=== PATIENT | male | born 1945 | race Caucasian/White ===

== ENCOUNTER → 2016-09-11 | Outpatient (CLI) | payer OTHER ==
[2015-12-09 15:53] VITALS: BP 139/74
== END ==
LOC: RT 09:20
PROVIDERS: ATTEND Ophthalmology
DX: G40.89 Other seizures (principal)
CPT/HCPCS: 95819

== ENCOUNTER 2016-09-25 13:34 | Emergency (ER) | payer OTHER ==
[2016-09-25 13:39] VITALS: BMI 27.7
[2016-09-25] MEDS ORDERED: NS 1000 ML 1,000 ML ONE (13:53)
[2016-09-25] MEDS ORDERED: NS 1000 ML 1,000 ML IV ONE (14:08)
--- NOTE | 2016-09-25 14:09 | DR.GENAD ---
HPI - PCP Primary Care Physician: NATALIE - Complaint/Symptoms Chief Complaint:: PT C/O ORTHOSTATIC CHANGE IN BLOOD PRESSURE. DR ESTRADA SENT HIM TO THE ER TO BE CHECKED. PT STATES HE HAS BEEN HAVING WEAKNESS. - Nurses notes reviewed Nurses Notes Review: Yes - Source History Provided: Patient - Mode of Arrival Mode of Arrival: Ambulatory - Timing Onset of Chief Complaint: 09/22/16 Came on: Gradually - Duration Duration: Intermittent How lon Duration: Weeks - Location Location: generalized - Severity Severity: Moderate - Modifying Factors Worsens:: standing up - Associated Signs and Symptoms Associated Signs and Symptoms: dizzy with standing PMH - PMH Past Medical History: Yes Past Medical History: Arthritis, Coronary Artery Disease, Hypertension, Sleep Apnea Past Surgical History: Yes Surgical History: Angioplasty/Stents, Ortho Surgery - Family History History of Family Medical Conditions: Yes Family Medical History: [place] - Social History Does any household member use tobacco: No Alcohol Use: None Do you use any recreational Drugs:: No Lives With: Family Lives Where: Home - infectious screening In the last 2 months have you had wt loss of >10#?: NO Have you had fever, night sweats or hemotysis?: No Have you traveled outside the country in the last 6 months?: No Isolation: Standard ROS - Review of Systems Constitutional: No Symptoms Reported Eyes: No Symptoms Reported ENTM: No Symptoms Reported Respiratoy: No Symptoms Reported Cardiovascular: No Symptoms Reported Gastrointestinal/Abdominal: No Symptoms Reported Genitourinary: No Symptoms Reported Neurological: Dizziness Musculoskeletal: No Symptoms Reported Integumentary: No Symptoms Reported Hematologic/Lymphatic: No Symptoms Reported Endocrine: No Symptoms Reported Psychiatric: No Symptoms Reported PE - Vital Signs Vitals: Temperature 98.8 F Pulse Rate [Standing] 62 Pulse Rate [Sitting] 63 Pulse Rate [Lying] 60 Pulse Rate 67 Respiratory Rate 18 Blood Pressure [Right Arm] 139/74 Blood Pressure [Standing] 86/58 Blood Pressure [Sitting] 110/66 Blood Pressure [Lying] 125/69 Blood Pressure 110/66 O2 Sat by Pulse Oximetry 100 - General Limitations: No Limitations General Appearance: Alert, In No Apparent Distress - Head Head Exam: Normal Inspection - Eyes Eye exam: Normal Appearance, EOMI. negative: Scleral Icterus, Conjunctival Injection - ENT ENT Exam: Normal Exam, Normal Oropharynx - Neck Neck Exam: Normal Inspection, Full ROM, Trachea Midline - Chest Chest Inspection: Normal Inspection - Respiratory Respiratory Exam: Normal Lung Sounds Bilat. negative: Accessory Muscle Use, Respiratory Distress Respiratory Exam: Bilateral Clear to Auscultation - Cardiovascular Cardiovascular Exam: Regular Rate, Normal Rhythm - Abdominal Exam Abdominal Exam: Normal Inspection, Normal Bowel Sounds, Soft. negative: Distention, Tenderness, Guarding - Extremities Extremities Exam: Normal Inspection, Full ROM, Tenderness - Back Back Exam: Normal Inspection - Neurologic Neurological Exam: Alert, Oriented X3, CN II-XII Intact - Psychiatric Psychiatric Exam: Flat Affect - Skin Skin Exam: Intact, Normal Color ROR - Labs Reviewed Result Diagrams: 09/25/16 14:45 09/25/16 14:45 Laboratory: WBC 7.9 X10^3/uL (3.6-10.0) 09/25/16 14:45 RBC 3.19 X10^6/uL (4.7-6.0) L 09/25/16 14:45 Hgb 10.3 g/dL (13.5-18.0) L 09/25/16 14:45 Hct 29.5 % (42.0-54.0) L 09/25/16 14:45 MCV 92.4 fL (80.0-100.0) 09/25/16 14:45 MCH 32.2 pg (27.0-34.0) 09/25/16 14:45 MCHC 34.8 g/dL (33.0-35.0) 09/25/16 14:45 RDW 13.4 % (11.6-16.5) 09/25/16 14:45 Plt Count 229 X10^3/uL (150.0-450.0) 09/25/16 14:45 MPV 8.0 fL (7.4-11.0) 09/25/16 14:45 Neut % 72.8 % (42.0-75.0) 09/25/16 14:45 Lymph % 17.0 % (21.0-51.0) L 09/25/16 14:45 [place] % 6.8 % (0.0-13.0) 09/25/16 14:45 Eos % 2.4 % (0.9-2.9) 09/25/16 14:45 Baso % 1.0 % (0.2-1.0) 09/25/16 14:45 Neut # 5.7 x10^3/uL (2.2-4.8) H 09/25/16 14:45 Lymph # 1.3 X10^3/uL (1.3-2.9) 09/25/16 14:45 [place] # 0.5 x10^3/uL (0.3-0.8) 09/25/16 14:45 Eos # 0.2 x10^3/uL (0.0-0.2) 09/25/16 14:45 Baso # 0.1 X10^3/uL (0.0-0.1) 09/25/16 14:45 Absolute Nucleated RBC 0.0 /100WBC 09/25/16 14:45 Sodium 144 mmol/L (136-145) 09/25/16 14:45 Corrected Sodium TNP 09/25/16 14:45 Potassium 4.0 mmol/L (3.5-5.1) 09/25/16 14:45 Chloride 110 mmol/L (98-107) H 09/25/16 14:45 Carbon Dioxide 25.0 mmol/L (21-32) 09/25/16 14:45 BUN 12 mg/dL (7-18) 09/25/16 14:45 Creatinine 0.80 mg/dL (0.70-1.30) 09/25/16 14:45 Est GFR (MDRD) Af Amer > 60 (>60) 09/25/16 14:45 Est GFR (MDRD) Non-Af > 60 (>60) 09/25/16 14:45 Glucose 90 mg/dL (65-99) 09/25/16 14:45 Calcium 7.8 mg/dL (8.5-10.1) L 09/25/16 14:45 Corrected Calcium 8.5 mg/dL (8.5-10.1) 09/25/16 14:45 Total Bilirubin 0.10 mg/dL (0.2-1.0) L 09/25/16 14:45 AST 17 Units/L (15-37) 09/25/16 14:45 ALT 21 Units/L (12-78) 09/25/16 14:45 Alkaline Phosphatase 101 Units/L (46-116) 09/25/16 14:45 Total Protein 6.1 g/dL (6.4-8.2) L 09/25/16 14:45 Albumin 3.1 g/dL (3.4-5.0) L 09/25/16 14:45 Globulin 3.0 g/dL (2.5-4.5) 09/25/16 14:45 Albumin/Globulin Ratio 1.0 Ratio (1.1-2.1) L 09/25/16 14:45 - XRAY XRAY Interpreted by: Radiologist XRAY Findings: CT head: pituitary fossa mass stable - EKG Rate: 61 [place]: Normal Rhythm: NSR Block: 1 ST: Normal - Diagnosis Discharge Problem: Orthostatic hypotension Anemia Qualifiers: Anemia type: unspecified type Qualified Code(s): D64.9 - Anemia, unspecified - Discharge Plan Condition: Stable Prescriptions: Ferrous Sulfate [FERROUS SULFATE *] 325 mg PO DAILY #30 tab - Follow ups/Referrals Follow ups/Referrals: Harpreet Estrada [Primary Care Provider] - 3 days - Instructions Instructions: Orthostatic Hypotension
[2016-09-25 14:54] LABS: BASOPHILS # (AUTO) 0.1 X10^3/uL (0.0-0.1); EOSINOPHILS # (AUTO) 0.2 x10^3/uL (0.0-0.2); EOSINOPHILS % (AUTO) 2.4 % (0.9-2.9); HEMATOCRIT 29.5 % (42.0-54.0); HEMOGLOBIN 10.3 g/dL (13.5-18.0); LYMPHOCYTES # (AUTO) 1.3 X10^3/uL (1.3-2.9); MEAN CORPUSCULAR HEMOGLOBIN 32.2 pg (27.0-34.0); MEAN CORPUSCULAR HGB CONC 34.8 g/dL (33.0-35.0); MEAN CORPUSCULAR VOLUME 92.4 fL (80.0-100.0); MONOCYTES # (AUTO) 0.5 x10^3/uL (0.3-0.8); MONOCYTES % (AUTO) 6.8 % (0.0-13.0); NEUTROPHILS # (AUTO) 5.7 x10^3/uL (2.2-4.8); NEUTROPHILS % (AUTO) 72.8 % (42.0-75.0); PLATELET COUNT 229 X10^3/uL (150.0-450.0); RED BLOOD COUNT 3.19 X10^6/uL (4.7-6.0); RED CELL DISTRIBUTION WIDTH 13.4 % (11.6-16.5); WHITE BLOOD COUNT 7.9 X10^3/uL (3.6-10.0)
[2016-09-25 15:06] LABS: ALANINE AMINOTRANSFERASE 21 Units/L (12-78); ALBUMIN 3.1 g/dL (3.4-5.0); ALKALINE PHOSPHATASE 101 Units/L (46-116); ASPARTATE AMINO TRANSFERASE 17 Units/L (15-37); BLOOD UREA NITROGEN 12 mg/dL (7-18); CALCIUM 7.8 mg/dL (8.5-10.1); CHLORIDE 110 mmol/L (98-107); COR CA(FOR HYPOALB) 8.5 mg/dL (8.5-10.1); GLUCOSE 90 mg/dL (65-99); SODIUM 144 mmol/L (136-145); TOTAL PROTEIN 6.1 g/dL (6.4-8.2); eGFR BLACK RACES > 60 (>60); eGFR NON BLACK RACES > 60 (>60)
--- NOTE | 2016-09-25 15:18 | CT ---
CT head without contrast Indication: Dizziness Comparison: 12/09/2015 Technique: CT images of the head were obtained without contrast. Automatic exposure control was util ized. Findings: There is generalized age-appropriate brain atrophy with concomitant ventricular sulcal enl argement. Diffuse periventricular and deep white matter hypoattenuation is most suggestive for chron ic microangiopathy. There is no evidence for acute bleed, generalized or focal edema, or abnormal ex tra-axial collection. There is re-demonstration of the soft tissue density along the right lateral a spect of the pituitary fossa, with suggestion of chronic bony remodeling of the sella, similar to th e prior study. There is mild maxillary and sphenoid sinus mucosal thickening. The remaining visualiz ed paranasal sinuses and mastoid air cells are clear. Impression: No evidence of acute intracranial abnormality. Age related atrophy and chronic microangiopathy Stable right-sided pituitary fossa soft tissue mass Maxillary and sphenoid sinusitis Reported By:
[2016-09-25 16:33] VITALS: BP 145/81
== END 2016-09-25 17:00 | disposition home or self-care (01) ==
LOC: ER 13:54
DX: I95.1 Orthostatic hypotension (principal); D64.89 Other specified anemias; J32.0 Chronic maxillary sinusitis; J32.3 Chronic sphenoidal sinusitis; R42 Dizziness and giddiness
CPT/HCPCS: 36415; 70450; 80053; 85025; 93005; 93010; 96365; 99283; A4222

== ENCOUNTER 2017-02-26 04:58 | Observation (INO) | payer OTHER ==
[2017-02-26] MEDS ORDERED: OFIRMEV IV 1000 MG VIAL 500 MG/50 ML VIAL IV PRN (05:46)
[2017-02-26] MEDS ORDERED: NS 1000 ML 1,000 ML IV SCH (06:00)
--- NOTE | 2017-02-26 06:03 | DR.GENAD ---
HPI - PCP Primary Care Physician: NATALIE - Complaint/Symptoms Chief Complaint Doctors Comments: Colleen reports that patient has had flu-like illness since last week. Today he became very weak, unable to get in bed. He was febrile temp of 103 upon arrival. There was no vomiting or diarrhea. There is no cardiopulmonary complaint although he has a history of cardiac stent. Chief Complaint:: FELL APROX 1 HR AGO NO INJURIES DENIES PAIN, FEVER Self Treatment fo Chief Complaint: NONE - Source History Provided: Patient - Mode of Arrival Mode of Arrival: EMS - Timing Onset of Chief Complaint: 02/26/17 PMH - PMH Past Medical History: Yes Past Medical History: Arthritis, Coronary Artery Disease, Hypertension, Sleep Apnea Past Surgical History: Yes Surgical History: Angioplasty/Stents, Ortho Surgery - Family History History of Family Medical Conditions: Yes Family Medical History: [place] - Social History Does patient currently use any type of tobacco product: No Have you used tobacco products in the last 12 months: No Type of Tobacco Use: None Alcohol Use: None Do you use any recreational Drugs:: No Lives With: Family Lives Where: Home - infectious screening In the last 2 months have you had wt loss of >10#?: NO Have you had fever, night sweats or hemotysis?: No Have you traveled outside the country in the last 6 months?: No Isolation: Standard ROS - Review of Systems Eyes: No Symptoms Reported ENTM: No Symptoms Reported Respiratoy: No Symptoms Reported Cardiovascular: No Symptoms Reported Gastrointestinal/Abdominal: No Symptoms Reported Genitourinary: No Symptoms Reported Neurological: No Symptoms Reported Musculoskeletal: No Symptoms Reported Integumentary: No Symptoms Reported Hematologic/Lymphatic: No Symptoms Reported Endocrine: No Symptoms Reported Psychiatric: No Symptoms Reported All Other Systems: Reviewed and Negative PE - Vital Signs Vitals: Temperature 103.1 F Pulse Rate 79 Respiratory Rate 16 Blood Pressure [Right Arm] 139/74 Blood Pressure [Standing] 130/74 Blood Pressure [Sitting] 140/81 Blood Pressure [Lying] 145/81 Blood Pressure 123/58 O2 Sat by Pulse Oximetry 95 - General Limitations: No Limitations General Appearance: Alert, Other (weak) - Head Head Exam: Normal Inspection, Atraumatic - Eyes Eye exam: Normal Appearance, PERRL, EOMI - ENT ENT Exam: Normal Exam External Ear Exam: Normal External Inspection TM/Canal Exam: Bilateral Normal Nose Exam: Normal Nose Exam Mouth Exam: Normal Inspection Throat Exam: Tonsillar Erythema - Neck Neck Exam: Normal Inspection, Full ROM - Chest Chest Inspection: Normal Inspection, Symmetric Chest Wall Rise - Respiratory Respiratory Exam: Normal Lung Sounds Bilat Respiratory Exam: Bilateral Clear to Auscultation - Cardiovascular Cardiovascular Exam: Regular Rate, Normal Rhythm - Abdominal Exam Abdominal Exam: Normal Inspection, Normal Bowel Sounds Abdominal Tenderness: negative: RUQ, RLQ, LUQ, LLQ, Epigastrium, Suprapubic, Diffuse, Mild, Moderate, Severe, Other - Extremities Extremities Exam: Normal Inspection, Full ROM - Back Back Exam: Normal Inspection, Full ROM - Neurologic Neurological Exam: Alert, Oriented X3, CN II-XII Intact - Psychiatric Psychiatric Exam: Flat Affect - Skin Skin Exam: Warm, Dry, Intact, Normal Color Course - Treatment Treatment: NS - Reevaluation 1st: Improved ROR - Labs Reviewed Result Diagrams: 02/26/17 06:08 02/26/17 06:08 Laboratory: WBC 14.0 X10^3/uL (3.6-10.0) H 02/26/17 06:08 RBC 3.54 X10^6/uL (4.7-6.0) L 02/26/17 06:08 Hgb 10.7 g/dL (13.5-18.0) L 02/26/17 06:08 Hct 30.7 % (42.0-54.0) L 02/26/17 06:08 MCV 86.6 fL (80.0-100.0) 02/26/17 06:08 MCH 30.3 pg (27.0-34.0) 02/26/17 06:08 MCHC 35.0 g/dL (33.0-35.0) 02/26/17 06:08 RDW 13.0 % (11.6-16.5) 02/26/17 06:08 Plt Count 290 X10^3/uL (150.0-450.0) 02/26/17 06:08 MPV 8.0 fL (7.4-11.0) 02/26/17 06:08 Neut % 84.6 % (42.0-75.0) H 02/26/17 06:08 Lymph % 7.3 % (21.0-51.0) L 02/26/17 06:08 [place] % 6.0 % (0.0-13.0) 02/26/17 06:08 Eos % 1.7 % (0.9-2.9) 02/26/17 06:08 Baso % 0.4 % (0.2-1.0) 02/26/17 06:08 Neut # 11.9 x10^3/uL (2.2-4.8) H 02/26/17 06:08 Lymph # 1.0 X10^3/uL (1.3-2.9) L 02/26/17 06:08 [place] # 0.8 x10^3/uL (0.3-0.8) 02/26/17 06:08 Eos # 0.2 x10^3/uL (0.0-0.2) 02/26/17 06:08 Baso # 0.1 X10^3/uL (0.0-0.1) 02/26/17 06:08 Absolute Nucleated RBC 0.0 /100WBC 02/26/17 06:08 Sodium 140 mmol/L (136-145) 02/26/17 06:08 Corrected Sodium TNP 02/26/17 06:08 Potassium 3.9 mmol/L (3.5-5.1) 02/26/17 06:08 Chloride 104 mmol/L (98-107) 02/26/17 06:08 Carbon Dioxide 24.4 mmol/L (21-32) 02/26/17 06:08 BUN 13 mg/dL (7-18) 02/26/17 06:08 Creatinine 1.01 mg/dL (0.70-1.30) 02/26/17 06:08 Est GFR (MDRD) Af Amer > 60 (>60) 02/26/17 06:08 Est GFR (MDRD) Non-Af > 60 (>60) 02/26/17 06:08 Glucose 98 mg/dL (65-99) 02/26/17 06:08 Calcium 8.8 mg/dL (8.5-10.1) 02/26/17 06:08 Corrected Calcium 9.4 mg/dL (8.5-10.1) 02/26/17 06:08 Total Bilirubin 0.60 mg/dL (0.2-1.0) 02/26/17 06:08 AST 16 Units/L (15-37) 02/26/17 06:08 ALT 27 Units/L (12-78) 02/26/17 06:08 Alkaline Phosphatase 103 Units/L (46-116) 02/26/17 06:08 Total Protein 7.4 g/dL (6.4-8.2) 02/26/17 06:08 Albumin 3.3 g/dL (3.4-5.0) L 02/26/17 06:08 Globulin 4.1 g/dL (2.5-4.5) 02/26/17 06:08 Albumin/Globulin Ratio 0.8 Ratio (1.1-2.1) L 02/26/17 06:08 Streptococcus Screen Negative (NEGATIVE) 02/26/17 06:28 - XRAY XRAY Interpreted by: Radiologist (Chest: Lungs are hyperinflated but clear) - Diagnosis Discharge Problem: Weakness - Discharge Plan Condition: Stable - Follow ups/Referrals Follow ups/Referrals: NFD,None [Primary Care Provider] - 3 days - Instructions
[2017-02-26 06:25] LABS: BASOPHILS # (AUTO) 0.1 X10^3/uL (0.0-0.1); BASOPHILS % (AUTO) 0.4 % (0.2-1.0); EOSINOPHILS # (AUTO) 0.2 x10^3/uL (0.0-0.2); EOSINOPHILS % (AUTO) 1.7 % (0.9-2.9); HEMATOCRIT 30.7 % (42.0-54.0); HEMOGLOBIN 10.7 g/dL (13.5-18.0); LYMPHOCYTES % (AUTO) 7.3 % (21.0-51.0); MEAN CORPUSCULAR HEMOGLOBIN 30.3 pg (27.0-34.0); MEAN CORPUSCULAR VOLUME 86.6 fL (80.0-100.0); MONOCYTES # (AUTO) 0.8 x10^3/uL (0.3-0.8); NEUTROPHILS # (AUTO) 11.9 x10^3/uL (2.2-4.8); NEUTROPHILS % (AUTO) 84.6 % (42.0-75.0); PLATELET COUNT 290 X10^3/uL (150.0-450.0); RED BLOOD COUNT 3.54 X10^6/uL (4.7-6.0)
--- NOTE | 2017-02-26 06:29 | RAD ---
HISTORY: Fever Study: Chest AP portable Comparison: December 09, 2015 Findings: there is a pacemaker present in the left axilla. The heart is within normal limits in size. The zarina are normal. The lungs are mildly hyperinflated but free of acute alveolar infiltrates. No pleural ef fusions are identified. The bony thorax is unremarkable. IMPRESSION: Lungs hyperinflated but clear Reported By:
[2017-02-26 06:33] LABS: ALANINE AMINOTRANSFERASE 27 Units/L (12-78); ALBUMIN 3.3 g/dL (3.4-5.0); ALKALINE PHOSPHATASE 103 Units/L (46-116); ASPARTATE AMINO TRANSFERASE 16 Units/L (15-37); BLOOD UREA NITROGEN 13 mg/dL (7-18); CALCIUM 8.8 mg/dL (8.5-10.1); CARBON DIOXIDE 24.4 mmol/L (21-32); CHLORIDE 104 mmol/L (98-107); COR CA(FOR HYPOALB) 9.4 mg/dL (8.5-10.1); CREATININE 1.01 mg/dL (0.70-1.30); SODIUM 140 mmol/L (136-145); TOTAL PROTEIN 7.4 g/dL (6.4-8.2); eGFR BLACK RACES > 60 (>60); eGFR NON BLACK RACES > 60 (>60)
[2017-02-26] MEDS ORDERED: TYLENOL 500 MG TAB EXTRA STRENGTH PO PRN (07:37)
[2017-02-26] MEDS ORDERED: ZOFRAN INJ 4 MG VIAL IVP PRN (07:37)
[2017-02-26 07:57] LABS: CREATINE KINASE MB < 1.0 ng/mL (0-4.0); TROPONIN I < 0.02 ng/mL (0-1.5)
[2017-02-26 08:12] LABS: CREATINE KINASE < 7 Units/L (39-308)
[2017-02-26] MEDS: NS 1000 ML 1,000 ML IV SCH ×2 (12:02→19:46)
--- NOTE | 2017-02-26 12:26 | DR.H&P ---
H&P - History & Physical for Day of: H&P Date: 02/26/17 - Chief Complaint Chief Complaint: FALL, ACHING ALL OVER, FEVER - Allergies Allergies/Adverse Reactions: Allergies Allergy/AdvReac Type Severity Reaction Status Date / Time No Known Drug Allergies Allergy Verified 02/26/17 07:26 - History of Present Illness History of Present Illness: IS A 71 YEAR OLD PATIENT OF OURS WHO PRESENTED TO THE EMERGENCY ROOM WITH COMPLAINTS OF FEVER, ACHING ALL OVER, WEAKNESS, SORE THROAT, AND FALLING TODAY. PATIENT DENIES PAIN OR INJURY FROM FALL. PATIENT'S REPORTS THAT TODAY, HE IS VERY WEAK AND WAS UNABLE TO GET INTO BED. SHE STATES THAT HE HAS HAD FEVER AND BEEN COMPLAINTING OF ACHING AND WEAKNESS X 1 WEEK. ON ARRIVAL TO ER, VITALS WERE 103.1, 79-16-95%-123/58. A CBC , CMP, BLOOD CULTURES, FLU SWAB, STREP SWAB, CHEST XRAY, AND EKG WERE OBTAINED IN THE ER. ABNORMAL LAB VALUES INCLUDE THE FOLLOWING: WBC 14.0, RBC 3.54, HGB 10.7, HCT 30.7, CREATINE KINASE <7, ALBUMIN 3.3. FLU AND STREP NEGATIVE. BLOOD CULTURES AND THROAT CULTURE ARE PENDING RESULTS. CHEST XRAY REPORTED LUNGS CLEAR. EKG REPORTS SINUS RHYTHM WITH HR OF 71. WE ADMITTED PATIENT FOR FURTHER TREATMENT AND EVALUATION. HE WAS STARTED ON NS @125ML/HR, TYLENOL 500MG PO Q6H PRN, ZOFRAN 4MG IV Q8H PRN. WE WILL OBTAIN A URINE SAMPLE WHEN PATIENT IS ABLE TO URINATE. WE PLANNED TO FOLLOW UP WITH AM LABS AND CONTINUE TO MONITOR PATIENT. - Past Medical History Past Medical History: Arthritis, Coronary Artery Disease, Hypertension, Sleep Apnea Additional Medical History: Atrial Fibrillation, Bradycardia. Pituitary adenoma - s/p resection and XRT with recently diagnoses probable recurrence. CVD; S/P TIA in 03/2015 - Past Surgical History Surgical History: Angioplasty/Stents, Ortho Surgery Additional Surgical History: Pacemaker implantation 2010. Pituitary adenoma resection and XRT 2008. Cardiac ablation for the tx of A-fib - 05/2015. Cardiac cath and stent placement 2010. Cervical fusion - Family History Family Medical History: [place] - Social History Does patient currently use any type of tobacco product: No Have you used tobacco products in the last 12 months: No Type of Tobacco Use: None Alcohol Use: None - Review of Systems Constitutional: See HPI, Fever, Weakness Eyes: No Symptoms Reported ENT: No Symptoms Reported Respiratory: No Symptoms Reported Cardiovascular: No Symptoms Reported Gastrointestinal: No Symptoms Reported Genitourinary: No Symptoms Reported Musculoskeletal: See HPI (ACHING ALL OVER ) Skin: No Symptoms Reported Neurological: Weakness - Physical Exam Vital Signs: Temperature 99.1 F Pulse Rate [Right Radial] 61 Pulse Rate 79 Respiratory Rate 18 Blood Pressure [Right Arm] 103/56 Blood Pressure [Standing] 130/74 Blood Pressure [Sitting] 140/81 Blood Pressure [Lying] 145/81 Blood Pressure 123/58 O2 Sat by Pulse Oximetry 94 Oriented: Normal Eyes: Normal Ear: Normal Nose: Normal Throat: Normal, Other (SORE THROAT ) Respiratory: Clear Throughout Cardiovascular: Normal : Normal Auscultation: Bowel Sounds: Normal Palpation: Normal Tenderness: Normal Skin: Normal Musculoskeletal: Instability Psychiatric: Normal Mood Description: Calm Affect: Normal Speech Pattern: Clear, Appropriate - Assessment/Plan (1) Generalized weakness Status: Acute Plan: NS AT 125ML/HR, CONTINUE TO MONITOR (2) Fever Qualifiers: Fever type: unspecified Qualified Code(s): R50.9 - Fever, unspecified Status: Acute Plan: TYLENOL 500MG IV Q6H PRN OR TYLENOL 500MG IV Q6H PRN, CONTINUE TO MONITOR (3) Nausea Status: Acute Plan: ZOFRAN 4MG IV Q8H PRN, CONTINUE TO MONITOR
[2017-02-26] MEDS ORDERED: FLUOXETINE HCL 20 MG PO SCH (13:00)
[2017-02-26 13:11] VITALS: BMI 30.4
[2017-02-26] MEDS ORDERED: PREVNAR 13 IM ONE (13:11)
[2017-02-26] MEDS: ASPIRIN PO SCH (13:44)
[2017-02-26] MEDS: SYNTHROID 100 mcg TAB PO SCH (13:44)
[2017-02-26] MEDS: PROTONIX TAB 40 MG PO SCH (13:46)
[2017-02-26] MEDS: PLAVIX PO SCH (13:46)
[2017-02-26] MEDS: VISTARIL PO PRN (15:21)
[2017-02-26] MEDS: LIPITOR TAB 40 MG PO SCH (20:58)
[2017-02-26] MEDS ORDERED: PATIENT'S HOME MEDICATION (Cetirizine Hcl [Zyrtec] 1 TAB) PO SCH (21:00)
[2017-02-26] MEDS: RESTORIL CAP 15 MG PO PRN (21:46)
[2017-02-27] MEDS: NS 1000 ML 1,000 ML IV SCH ×3 (02:13→21:48)
[2017-02-27 06:29] LABS: BASOPHILS # (AUTO) 0.1 X10^3/uL (0.0-0.1); BASOPHILS % (AUTO) 0.6 % (0.2-1.0); EOSINOPHILS # (AUTO) 0.3 x10^3/uL (0.0-0.2); EOSINOPHILS % (AUTO) 2.4 % (0.9-2.9); HEMATOCRIT 30.2 % (42.0-54.0); HEMOGLOBIN 10.4 g/dL (13.5-18.0); LYMPHOCYTES # (AUTO) 1.3 X10^3/uL (1.3-2.9); LYMPHOCYTES % (AUTO) 11.2 % (21.0-51.0); MEAN CORPUSCULAR HEMOGLOBIN 30.7 pg (27.0-34.0); MEAN CORPUSCULAR HGB CONC 34.3 g/dL (33.0-35.0); MEAN CORPUSCULAR VOLUME 89.5 fL (80.0-100.0); MEAN PLATELET VOLUME 8.8 fL (7.4-11.0); MONOCYTES # (AUTO) 0.7 x10^3/uL (0.3-0.8); MONOCYTES % (AUTO) 6.3 % (0.0-13.0); NEUTROPHILS # (AUTO) 9.3 x10^3/uL (2.2-4.8); NEUTROPHILS % (AUTO) 79.5 % (42.0-75.0); PLATELET COUNT 223 X10^3/uL (150.0-450.0); RED BLOOD COUNT 3.38 X10^6/uL (4.7-6.0); RED CELL DISTRIBUTION WIDTH 12.7 % (11.6-16.5); WHITE BLOOD COUNT 11.7 X10^3/uL (3.6-10.0)
[2017-02-27 06:46] LABS: BILIRUBIN,URINE NEGATIVE (NEGATIVE); BLOOD/HEMOGLOBIN,URINE NEGATIVE (NEGATIVE); GLUCOSE, URINE NEGATIVE (NEGATIVE); KETONES,URINE NEGATIVE (NEGATIVE); LEUKOCYTE ESTERASE ,URINE NEGATIVE (NEGATIVE); NITRITES,URINE NEGATIVE (NEGATIVE); PH,URINE 6.5 (5.0 - 8.0); PROTEIN,URINE NEGATIVE (NEGATIVE); UROBILINOGEN,URINE NORMAL (NORMAL)
[2017-02-27 06:55] LABS: ALANINE AMINOTRANSFERASE 19 Units/L (12-78); ALBUMIN 2.7 g/dL (3.4-5.0); ALKALINE PHOSPHATASE 84 Units/L (46-116); ASPARTATE AMINO TRANSFERASE 12 Units/L (15-37); BLOOD UREA NITROGEN 12 mg/dL (7-18); CALCIUM 8.1 mg/dL (8.5-10.1); CARBON DIOXIDE 23.8 mmol/L (21-32); CHLORIDE 108 mmol/L (98-107); COR CA(FOR HYPOALB) 9.1 mg/dL (8.5-10.1); CREATININE 0.85 mg/dL (0.70-1.30); SODIUM 140 mmol/L (136-145); TOTAL PROTEIN 6.5 g/dL (6.4-8.2); eGFR BLACK RACES > 60 (>60); eGFR NON BLACK RACES > 60 (>60)
[2017-02-27 06:57] LABS: APPEARANCE,URINE CLEAR (CLEAR); COLOR,URINE YELLOW (YELLOW); RBC,URINE NONE SEEN /HPF (NEGATIVE)
[2017-02-27 06:58] LABS: BACTERIA,URINE NEGATIVE /HPF (NEGATIVE); SQUAMOUS EPITHELIAL CELL,UR NEGATIVE /HPF (NEGATIVE)
[2017-02-27] MEDS ORDERED: K-LYTE EFFERVESCENT PO PRN (08:51)
[2017-02-27] MEDS ORDERED: K-DUR TAB 20 MEQ PO PRN (08:51)
[2017-02-27] MEDS ORDERED: POTASSIUM CHLORIDE LIQ 20 MEQ UDC PO PRN (08:51)
[2017-02-27] MEDS ORDERED: K-RIDER 10 MEQ/NS 100 ML 10 MEQ/100 ML BAG IV PRN (08:51)
[2017-02-27] MEDS: SYNTHROID 100 mcg TAB PO SCH (10:38)
[2017-02-27] MEDS: ASPIRIN PO SCH (10:38)
[2017-02-27] MEDS: PROTONIX TAB 40 MG PO SCH (10:38)
[2017-02-27] MEDS: ZyrTEC TAB 10 MG PO SCH (10:39)
[2017-02-27] MEDS: PLAVIX PO SCH (10:40)
[2017-02-27] MEDS: FORTAZ or TAZICEF INJ 1 GM in NS 50 ML IV + SPIKE MINIBAG* 50 ML IV SCH ×3 (10:40→21:48)
[2017-02-27] MEDS: PROzac PO SCH (10:43)
--- NOTE | 2017-02-27 20:42 | PCM.PROG ---
Progress Note - Progress Note for Day of Date: 02/27/17 - Subjective Subjective: WAS ADMITTED FOR WEAKNESS, FEVER, AND FLU-LIKE SX. TODAY, HE IS ALERT AND ORIENTED, LYING IN BED ON MORNING ROUNDS. PATIENT'S IS AT BEDSIDE. HE CONTINUES WITH COMPLAINTS OF WEAKNESS, BUT REPORTS SOME IMPROVEMENT SINCE YESTERDAY. PATIENT'S REPORTS THAT PATIENT HAS HAD DECREASED MOBILITY AND WEAKNESS SINCE HAVING A GI BLEED SEVERAL MONTHS AGO. ON EXAMINATION, LUNGS ARE NOTED CLEAR BILATERALLY TO AUSCULTATION. ABDOMEN IS ROUND, SOFT, AND NON- TENDER. NORMAL BOWEL SOUNDS ARE NOTED IN ALL QUADRANTS. HIS VITAL SIGNS THIS MORNING ARE 99.3-61-20-97%-105/52. CBC AND CMP WERE OBTAINED. ABNORMAL LAB VALUES INCLUDE THE FOLLOWING: WBC 11.7, RBC 3.38, HGB 10.4, HCT 30.2, POTASSIUM 3.4, CHLORIDE 108, GLUCOSE 105, CALCIUM 8.1, AST 12, ALBUMIN 2.7. BLOOD CULTURES AND THROAT CULTURES ARE PENDING. STAFF REPORTS THAT PATIENT'S TEMERATURE PEAKED AT 99.6 DURING THE NIGHT. WE WILL START FORTAZ 1GM IV Q8H. PATIENT'S REQUEST THAT WE SET UP OUTPATIENT PHYSICAL THERAPY FOR AFTER PATIENT IS DISCHARGED. CASE MANAGEMENT WILL SET THIS UP. OTHERWISE, WE WILL CONTINUE WITH CURRENT PLAN OF CARE. WE PLAN TO FOLLOW UP WITH AM LABS AND CONTINUE TO MONITOR PATIENT. - Past Medical Family Social History Past Med/Fam/Surg Hx: No changes since H&P Allergies: Allergies No Known Drug Allergies Allergy (Verified 02/26/17 07:26) - Review of Systems ROS: No change since H&P - Vital Signs and I&O's Vital Signs: Temperature 98.9 F Pulse Rate [Right Radial] 63 Pulse Rate 79 Respiratory Rate 20 Blood Pressure [Left Arm] 142/71 Blood Pressure [Right Arm] 121/66 Blood Pressure [Standing] 130/74 Blood Pressure [Sitting] 140/81 Blood Pressure [Lying] 145/81 Blood Pressure 123/58 O2 Sat by Pulse Oximetry 97 Intake and Output: Intake & Output 02/25/17 02/26/17 02/27/17 02/28/17 11:59 11:59 11:59 11:59 Intake Total 4742 300 Output Total 395 930 Balance 1657 -116 - Physical Exam Oriented: Normal Eyes: Normal Ear: Normal Nose: Normal Throat: Normal, Other (SORE THROAT ) Respiratory: Normal Cardiovascular: Normal : Normal Auscultation: Bowel Sounds: Normal Palpation: Normal Tenderness: Normal Skin: Normal Musculoskeletal: Instability Psychiatric: Normal Mood Description: Calm Affect: Normal Speech Pattern: Clear, Appropriate - Laboratory and Diagnostics Result Diagrams: 02/27/17 04:19 02/27/17 04:19 Labs: 02/26/17 06:28 Throat Throat Culture - Preliminary Laboratory WBC 11.7 X10^3/uL (3.6-10.0) H 02/27/17 04:19 RBC 3.38 X10^6/uL (4.7-6.0) L 02/27/17 04:19 Hgb 10.4 g/dL (13.5-18.0) L 02/27/17 04:19 Hct 30.2 % (42.0-54.0) L 02/27/17 04:19 MCV 89.5 fL (80.0-100.0) 02/27/17 04:19 MCH 30.7 pg (27.0-34.0) 02/27/17 04:19 MCHC 34.3 g/dL (33.0-35.0) 02/27/17 04:19 RDW 12.7 % (11.6-16.5) 02/27/17 04:19 Plt Count 223 X10^3/uL (150.0-450.0) 02/27/17 04:19 MPV 8.8 fL (7.4-11.0) 02/27/17 04:19 Neut % 79.5 % (42.0-75.0) H 02/27/17 04:19 Lymph % 11.2 % (21.0-51.0) L 02/27/17 04:19 [place] % 6.3 % (0.0-13.0) 02/27/17 04:19 Eos % 2.4 % (0.9-2.9) 02/27/17 04:19 Baso % 0.6 % (0.2-1.0) 02/27/17 04:19 Neut # 9.3 x10^3/uL (2.2-4.8) H 02/27/17 04:19 Lymph # 1.3 X10^3/uL (1.3-2.9) 02/27/17 04:19 [place] # 0.7 x10^3/uL (0.3-0.8) 02/27/17 04:19 Eos # 0.3 x10^3/uL (0.0-0.2) H 02/27/17 04:19 Baso # 0.1 X10^3/uL (0.0-0.1) 02/27/17 04:19 Absolute Nucleated RBC 0.1 /100WBC 02/27/17 04:19 Sodium 140 mmol/L (136-145) 02/27/17 04:19 Corrected Sodium TNP 02/27/17 04:19 Potassium 3.4 mmol/L (3.5-5.1) L 02/27/17 04:19 Chloride 108 mmol/L (98-107) H 02/27/17 04:19 Carbon Dioxide 23.8 mmol/L (21-32) 02/27/17 04:19 BUN 12 mg/dL (7-18) 02/27/17 04:19 Creatinine 0.85 mg/dL (0.70-1.30) 02/27/17 04:19 Est GFR (MDRD) Af Amer > 60 (>60) 02/27/17 04:19 Est GFR (MDRD) Non-Af > 60 (>60) 02/27/17 04:19 Glucose 105 mg/dL (65-99) H 02/27/17 04:19 POC Glucose (mg/dL) 112 mg/dL (65-99) H 02/26/17 20:21 Calcium 8.1 mg/dL (8.5-10.1) L 02/27/17 04:19 Corrected Calcium 9.1 mg/dL (8.5-10.1) 02/27/17 04:19 Total Bilirubin 0.60 mg/dL (0.2-1.0) 02/27/17 04:19 AST 12 Units/L (15-37) L 02/27/17 04:19 ALT 19 Units/L (12-78) 02/27/17 04:19 Alkaline Phosphatase 84 Units/L (46-116) 02/27/17 04:19 Creatine Kinase < 7 Units/L (39-308) L 02/26/17 06:08 CK-MB (CK-2) < 1.0 ng/mL (0-4.0) 02/26/17 06:08 CK/CKMB % Calc 10.0 % (<4) 02/26/17 06:08 Troponin I < 0.02 ng/mL (0-1.5) 02/26/17 06:08 Total Protein 6.5 g/dL (6.4-8.2) 02/27/17 04:19 Albumin 2.7 g/dL (3.4-5.0) L 02/27/17 04:19 Globulin 3.8 g/dL (2.5-4.5) 02/27/17 04:19 Albumin/Globulin Ratio 0.7 Ratio (1.1-2.1) L 02/27/17 04:19 Specimen Type Clean catch urine 02/27/17 06:30 Urine Color Yellow (YELLOW) 02/27/17 06:30 Urine Appearance Clear (CLEAR) 02/27/17 06:30 Urine pH 6.5 (5.0 - 8.0) 02/27/17 06:30 Ur Specific [place] 1.010 (1.000-1.030) 02/27/17 06:30 Urine Protein Negative (NEGATIVE) 02/27/17 06:30 Urine Glucose (UA) Negative (NEGATIVE) 02/27/17 06:30 Urine Ketones Negative (NEGATIVE) 02/27/17 06:30 Urine Occult Blood Negative (NEGATIVE) 02/27/17 06:30 Urine Nitrite Negative (NEGATIVE) 02/27/17 06:30 Urine Bilirubin Negative (NEGATIVE) 02/27/17 06:30 Urine Urobilinogen Normal (NORMAL) 02/27/17 06:30 Ur Leukocyte Esterase Negative (NEGATIVE) 02/27/17 06:30 Urine RBC None seen /HPF (NEGATIVE) 02/27/17 06:30 Urine WBC None seen /HPF (NEGATIVE) 02/27/17 06:30 Ur Squamous Epith Cells Negative /HPF (NEGATIVE) 02/27/17 06:30 Urine Bacteria Negative /HPF (NEGATIVE) 02/27/17 06:30 Ur Culture Indicated? No/not indicated 02/27/17 06:30 Influenza A (H1N1) PCR Not detected (NOT DETECT) 02/26/17 06:28 Influenza Type A (PCR) Negative (NEGATIVE) 02/26/17 06:28 Influenza Type B (PCR) Negative (NEGATIVE) 02/26/17 06:28 Streptococcus Screen Negative (NEGATIVE) 02/26/17 06:28 - Plan (1) Generalized weakness Status: Acute Plan: PT/OT, NS AT 125ML/HR, CONTINUE TO MONITOR (2) Fever Status: Acute Qualifiers: Fever type: unspecified Qualified Code(s): R50.9 - Fever, unspecified Plan: FORTAZ 1GM IV Q8H, TYLENOL 500MG IV Q6H PRN OR TYLENOL 500MG IV Q6H PRN, CONTINUE TO MONITOR (3) Nausea Status: Acute Plan: ZOFRAN 4MG IV Q8H PRN, CONTINUE TO MONITOR (4) Hyperlipidemia Status: Chronic Qualifiers: Hyperlipidemia type: mixed hyperlipidemia Qualified Code(s): E78.2 - Mixed hyperlipidemia Plan: CONTINUE LIPITOR 80MG HS, CONTINUE TO MONITOR (5) Sinusitis Status: Chronic Qualifiers: Sinusitis location: unspecified location Chronicity: chronic Qualified Code(s): J32.9 - Chronic sinusitis, unspecified Plan: CONTINUE ZYRTEC, CONTINUE TO MONITOR (6) Depression Status: Chronic Qualifiers: Depression Type: major depressive disorder Major depression recurrence: recurrent Active/Remission status: remission status unspecified Qualified Code(s): F33.9 - Major depressive disorder, recurrent, unspecified Plan: CONTINUE PROZAC 20MG PO DAILY, CONTINUE TO MONITOR (7) GERD (gastroesophageal reflux disease) Status: Acute Qualifiers: Esophagitis presence: esophagitis presence not specified Qualified Code(s) : K21.9 - Gastro-esophageal reflux disease without esophagitis Plan: CONTINUE PRILOSEC, CONTINUE TO MONITOR (8) CAD (coronary artery disease) Status: Chronic Qualifiers: Coronary Disease-Associated Artery/Lesion type: [place] artery [place] vs. transplanted heart: [place] heart Associated angina: without angina Qualified Code(s): I25.10 - Atherosclerotic heart disease of [place] coronary artery without angina pectoris Plan: CONTINUE PLAVIX 75MG PO DAILY, CONTINUE TO MONITOR (9) Hypothyroidism Status: Chronic Qualifiers: Hypothyroidism type: acquired Qualified Code(s): E03.9 - Hypothyroidism, unspecified Plan: CONTINUE SYNTHROID 100MCG PO DAILY, CONTINUE TO MONITOR
[2017-02-27] MEDS: VISTARIL PO PRN (21:47)
[2017-02-27] MEDS: LIPITOR TAB 40 MG PO SCH (21:47)
[2017-02-27] MEDS: RESTORIL CAP 15 MG PO PRN (21:48)
[2017-02-28] MEDS: NS 1000 ML 1,000 ML IV SCH (00:42)
[2017-02-28] MEDS: FORTAZ or TAZICEF INJ 1 GM in NS 50 ML IV + SPIKE MINIBAG* 50 ML IV SCH (05:32)
[2017-02-28 06:23] LABS: BASOPHILS # (AUTO) 0.1 X10^3/uL (0.0-0.1); BASOPHILS % (AUTO) 1.1 % (0.2-1.0); EOSINOPHILS # (AUTO) 0.4 x10^3/uL (0.0-0.2); EOSINOPHILS % (AUTO) 4.9 % (0.9-2.9); HEMATOCRIT 30.6 % (42.0-54.0); HEMOGLOBIN 10.7 g/dL (13.5-18.0); LYMPHOCYTES # (AUTO) 1.3 X10^3/uL (1.3-2.9); LYMPHOCYTES % (AUTO) 16.5 % (21.0-51.0); MEAN CORPUSCULAR HEMOGLOBIN 30.7 pg (27.0-34.0); MEAN CORPUSCULAR HGB CONC 34.8 g/dL (33.0-35.0); MEAN CORPUSCULAR VOLUME 88.3 fL (80.0-100.0); MEAN PLATELET VOLUME 8.4 fL (7.4-11.0); MONOCYTES # (AUTO) 0.5 x10^3/uL (0.3-0.8); MONOCYTES % (AUTO) 6.3 % (0.0-13.0); NEUTROPHILS # (AUTO) 5.7 x10^3/uL (2.2-4.8); NEUTROPHILS % (AUTO) 71.2 % (42.0-75.0); PLATELET COUNT 246 X10^3/uL (150.0-450.0); RED BLOOD COUNT 3.47 X10^6/uL (4.7-6.0); RED CELL DISTRIBUTION WIDTH 12.9 % (11.6-16.5)
[2017-02-28 06:55] LABS: ALANINE AMINOTRANSFERASE 19 Units/L (12-78); ALBUMIN 2.7 g/dL (3.4-5.0); ALKALINE PHOSPHATASE 82 Units/L (46-116); ASPARTATE AMINO TRANSFERASE 15 Units/L (15-37); BLOOD UREA NITROGEN 9 mg/dL (7-18); CALCIUM 8.4 mg/dL (8.5-10.1); CARBON DIOXIDE 24.2 mmol/L (21-32); CHLORIDE 105 mmol/L (98-107); COR CA(FOR HYPOALB) 9.4 mg/dL (8.5-10.1); CREATININE 0.86 mg/dL (0.70-1.30); SODIUM 139 mmol/L (136-145); TOTAL PROTEIN 6.7 g/dL (6.4-8.2); eGFR BLACK RACES > 60 (>60); eGFR NON BLACK RACES > 60 (>60)
[2017-02-28] MEDS: PROTONIX TAB 40 MG PO SCH (09:37)
[2017-02-28] MEDS: ASPIRIN PO SCH (09:37)
[2017-02-28] MEDS: ZyrTEC TAB 10 MG PO SCH (09:37)
[2017-02-28] MEDS: PROzac PO SCH (09:37)
[2017-02-28] MEDS: SYNTHROID 100 mcg TAB PO SCH (09:37)
[2017-02-28] MEDS: PLAVIX PO SCH (09:37)
[2017-02-28] MEDS ORDERED: PREVNAR 13 IM ONE (11:08)
[2017-02-28 11:55] VITALS: BP 119/65
== END 2017-02-28 11:35 | disposition home or self-care (01) ==
LOC: ER 04:58 → MED/SURG 07:33
PROVIDERS: ADMIT Internal Medicine; ATTEND Internal Medicine
PROC: 3E0234Z Introduction of Serum, Toxoid and Vaccine into Muscle, Percutaneous Approach (ICD-10-PCS; principal; 2017-02-28)
DX: R53.1 Weakness (principal); R68.89 Other general symptoms and signs; W18.39XA Other fall on same level, initial encounter; R50.9 Fever, unspecified; E78.2 Mixed hyperlipidemia; J32.8 Other chronic sinusitis; F33.8 Other recurrent depressive disorders; K21.9 Gastro-esophageal reflux disease without esophagitis; I25.10 Atherosclerotic heart disease of native coronary artery without angina pectoris; E03.8 Other specified hypothyroidism; Z95.1 Presence of aortocoronary bypass graft; D72.828 Other elevated white blood cell count; Z23 Encounter for immunization; Z95.0 Presence of cardiac pacemaker
CPT/HCPCS: 36415; 71010; 80053; 81001; 82550; 82553; 84484; 85025; 87040; 87070; 87502; 87503; 87880; 93005; 94760; 96365; 96367; 96374; 99284; A4222; Q0177; 90670; G0378; J0713

== ENCOUNTER 2018-08-19 15:38 | Observation (INO) ==
[2018-08-19 16:25] LABS: BASOPHILS # (AUTO) 0.1 X10^3/uL (0.0-0.1); BASOPHILS % (AUTO) 0.7 % (0.2-1.0); EOSINOPHILS # (AUTO) 0.2 x10^3/uL (0.0-0.2); EOSINOPHILS % (AUTO) 2.5 % (0.9-2.9); HEMATOCRIT 40.1 % (42.0-54.0); HEMOGLOBIN 13.9 g/dL (13.5-18.0); LYMPHOCYTES # (AUTO) 1.3 X10^3/uL (1.3-2.9); LYMPHOCYTES % (AUTO) 18.7 % (21.0-51.0); MEAN CORPUSCULAR HGB CONC 34.6 g/dL (33.0-35.0); MEAN CORPUSCULAR VOLUME 89.5 fL (80.0-100.0); MEAN PLATELET VOLUME 8.5 fL (7.4-11.0); MONOCYTES # (AUTO) 0.7 x10^3/uL (0.3-0.8); MONOCYTES % (AUTO) 9.7 % (0.0-13.0); NEUTROPHILS # (AUTO) 4.6 x10^3/uL (2.2-4.8); NEUTROPHILS % (AUTO) 68.4 % (42.0-75.0); PLATELET COUNT 228 X10^3/uL (150.0-450.0); RED BLOOD COUNT 4.48 X10^6/uL (4.7-6.0); RED CELL DISTRIBUTION WIDTH 13.2 % (11.6-16.5); WHITE BLOOD COUNT 6.7 X10^3/uL (3.6-10.0)
[2018-08-19 16:40] LABS: ALANINE AMINOTRANSFERASE 25 Units/L (12-78); ALBUMIN 3.6 g/dL (3.4-5.0); ALKALINE PHOSPHATASE 107 Units/L (46-116); ASPARTATE AMINO TRANSFERASE 17 Units/L (15-37); BLOOD UREA NITROGEN 14 mg/dL (7-18); CALCIUM 8.7 mg/dL (8.5-10.1); CARBON DIOXIDE 27.7 mmol/L (21-32); CHLORIDE 104 mmol/L (98-107); CREATININE 0.97 mg/dL (0.70-1.30); SODIUM 140 mmol/L (136-145); TOTAL PROTEIN 6.9 g/dL (6.4-8.2); eGFR NON BLACK RACES > 60 (>60)
--- NOTE | 2018-08-19 17:07 | CT ---
HEAD CT WITHOUT IV CONTRAST CLINICAL INDICATION: Weakness TECHNIQUE: Axial CT images from skull base to vertex without IV contrast.Dose reduction techniques including Automated Exposure Control (AEC) and adjustment of mA and kV were utlized. COMPARISON: 09/25/2016 FINDINGS: Diffuse patchy and confluent white matter hypoattenuation with associated volume loss. There is no evidence of acute infarction, intracranial hemorrhage, mass or mass effect, or abnormal extra-axial collection. The density of the larger dural venous sinuses is normal. Age-related, ex-vacuo dilatation of the ventricles and sulci. The skull base and calvarium are normal. The included paranasal sinuses and mastoid air cells are predominantly clear. IMPRESSION: 1. No acute intracranial abnormality. If there is definite, focal, acute neurologic deficit, MRI with diffusion-weighted imaging would be more sensitive for detection of acute stroke. 2. Chronic microangiopathic changes and ex vacuo dilatation of the ventricles and sulci. Reported By:
[2018-08-19 17:15] VITALS: BMI 30.9
--- NOTE | 2018-08-19 17:46 | RAD ---
HISTORY: Weakness Study: Single view of the chest. Comparison: None. Findings: Cardiomegaly. No focal consolidations, pleural effusions or pneumothorax. Osseous structures demonstrate no acute abnormality. IMPRESSION: 1. No acute cardiopulmonary process. Reported By:
[2018-08-19] MEDS: LEVAQUIN PREMIX IV 500 MG 500 MG/100 ML BAG IV SCH (18:21)
[2018-08-19] MEDS: NS 1000 ML 1,000 ML IV SCH (18:21)
[2018-08-19] MEDS ORDERED: RESTORIL CAP 15 MG PO PRN (21:06)
[2018-08-19] MEDS: ULTRAM PO PRN (21:27)
[2018-08-19 22:01] LABS: BILIRUBIN,URINE NEGATIVE (NEGATIVE); BLOOD/HEMOGLOBIN,URINE NEGATIVE (NEGATIVE); GLUCOSE, URINE NEGATIVE (NEGATIVE); KETONES,URINE NEGATIVE (NEGATIVE); LEUKOCYTE ESTERASE ,URINE NEGATIVE (NEGATIVE); NITRITES,URINE NEGATIVE (NEGATIVE); PH,URINE 6.5 (5.0 - 8.0); PROTEIN,URINE 1+ (NEGATIVE); UROBILINOGEN,URINE 1+ (NORMAL)
[2018-08-19 22:07] LABS: AMORPHOUS SEDIMENT,UR 1+ /HPF (NEGATIVE); APPEARANCE,URINE SLIGHTLY HAZY (CLEAR); BACTERIA,URINE NEGATIVE /HPF (NEGATIVE); COLOR,URINE ORANGE (YELLOW); RBC,URINE NONE SEEN /HPF (NONE SEEN); SQUAMOUS EPITHELIAL CELL,UR RARE /HPF (NEGATIVE)
[2018-08-20] MEDS: NS 1000 ML 1,000 ML IV SCH ×3 (03:17→15:38)
[2018-08-20 05:04] LABS: BASOPHILS # (AUTO) 0.1 X10^3/uL (0.0-0.1); EOSINOPHILS # (AUTO) 0.2 x10^3/uL (0.0-0.2); EOSINOPHILS % (AUTO) 3.1 % (0.9-2.9); HEMATOCRIT 37.6 % (42.0-54.0); HEMOGLOBIN 13.1 g/dL (13.5-18.0); LYMPHOCYTES # (AUTO) 1.2 X10^3/uL (1.3-2.9); LYMPHOCYTES % (AUTO) 23.7 % (21.0-51.0); MEAN CORPUSCULAR HEMOGLOBIN 31.2 pg (27.0-34.0); MEAN CORPUSCULAR HGB CONC 34.7 g/dL (33.0-35.0); MEAN CORPUSCULAR VOLUME 89.7 fL (80.0-100.0); MEAN PLATELET VOLUME 8.9 fL (7.4-11.0); MONOCYTES # (AUTO) 0.5 x10^3/uL (0.3-0.8); MONOCYTES % (AUTO) 10.2 % (0.0-13.0); NEUTROPHILS # (AUTO) 3.1 x10^3/uL (2.2-4.8); PLATELET COUNT 201 X10^3/uL (150.0-450.0); RED BLOOD COUNT 4.19 X10^6/uL (4.7-6.0); RED CELL DISTRIBUTION WIDTH 13.2 % (11.6-16.5)
[2018-08-20 05:18] LABS: ALANINE AMINOTRANSFERASE 22 Units/L (12-78); ALBUMIN 3.2 g/dL (3.4-5.0); ALKALINE PHOSPHATASE 106 Units/L (46-116); ASPARTATE AMINO TRANSFERASE 17 Units/L (15-37); BLOOD UREA NITROGEN 13 mg/dL (7-18); CALCIUM 8.3 mg/dL (8.5-10.1); CARBON DIOXIDE 27.5 mmol/L (21-32); CHLORIDE 106 mmol/L (98-107); COR CA(FOR HYPOALB) 8.9 mg/dL (8.5-10.1); CREATININE 0.81 mg/dL (0.70-1.30); SODIUM 141 mmol/L (136-145); TOTAL PROTEIN 6.5 g/dL (6.4-8.2); eGFR NON BLACK RACES > 60 (>60)
[2018-08-20] MEDS: LEVAQUIN PREMIX IV 500 MG 500 MG/100 ML BAG IV SCH (08:57)
[2018-08-20] MEDS ORDERED: CORTEF PO SCH ×2 (10:17→10:30)
[2018-08-20 10:25] LABS: CKMB % 2.4 % (<4); CREATINE KINASE 42 Units/L (39-308); CREATINE KINASE MB < 1.0 ng/mL (0-4.0); TROPONIN I 0.02 ng/mL (0-1.5)
--- NOTE | 2018-08-20 10:55 | DR.UPDATE ---
H&P Update History and Physical Update: WAS SEEN IN THE OFFICE TODAY FOR COMPLAINTS OF SEVERE FATIGUE AND WEAKNESS. HE WAS ADMITTED FOR FURTHER EVALUATION AND TREATMENT. A H&P WAS COMPLETED PRIOR TO ADMISSION. PATIENT HAS BEEN SEEN AND EXAMINED WITH NO CHANGES NOTED TO H&P. Changes noted: NO Yes with the following:
[2018-08-20] MEDS ORDERED: CORTEF ONE (10:56)
[2018-08-20] MEDS ORDERED: SYNTHROID 100 mcg TAB PO SCH (11:00)
[2018-08-20] MEDS ORDERED: PLAVIX PO SCH (11:00)
[2018-08-20] MEDS ORDERED: PROTONIX TAB 40 MG PO SCH (11:00)
[2018-08-20] MEDS: ULTRAM PO PRN (12:53)
--- NOTE | 2018-08-20 13:19 | RAD ---
HISTORY: Shoulder weakness Study: 3 views of the right shoulder. Comparison: None Findings: No acute fractures or dislocations. The glenohumeral articulation is normal in its appearance. No gross soft tissue abnormalities. The acromioclavicular joint is normal in appearance. IMPRESSION: 1. No acute abnormality of the right shoulder. Reported By:
[2018-08-20 17:05] VITALS: BP 150/73
[2018-08-20] MEDS ORDERED: LIPITOR TAB 40 MG PO SCH (21:00)
== END 2018-08-20 18:15 | disposition home or self-care (01) ==
LOC: MED/SURG
PROVIDERS: ADMIT Internal Medicine; ATTEND Internal Medicine
DX: M25.511 Pain in right shoulder; R55 Syncope and collapse; R25.8 Other abnormal involuntary movements; Z87.19 Personal history of other diseases of the digestive system; R53.1 Weakness; Z86.79 Personal history of other diseases of the circulatory system; R26.89 Other abnormalities of gait and mobility; R06.02 Shortness of breath; Z79.899 Other long term (current) drug therapy; E66.01 Morbid (severe) obesity due to excess calories; E86.0 Dehydration
CPT/HCPCS: 36415; 70450; 71010; 71045; 73030; 80053; 81001; 82550; 82553; 84484; 85025; 87502; 94760; 96367; 96374; 97161; 97166; A4216; A4222; G0378; J1956; J7030

== ENCOUNTER 2018-09-02 21:29 | Inpatient (IN) ==
[2018-09-02] MEDS ORDERED: NS 1000 ML 1,000 ML IV ONE (21:41)
--- NOTE | 2018-09-02 21:41 | DR.DIZZY ---
HPI Time seen Time Seen by Provider: 09/02/18 21:39 Complaint Chief Complaint Doctor Comments: Patient presents with complaint of numerous episode of vomiting and diarrhea today. Denies fever, hematemesis or melena. Context Stroke Symptoms: None PMH PMH Past Surgical History: Yes Surgical History: Angioplasty/Stents and Ortho Surgery Family History Family Medical History: [place] Social History Do you use any recreational Drugs:: No ROS Review of Systems Constitutional: Weakness Eyes: No Symptoms Reported ENTM: No Symptoms Reported; negative Ear Discharge, Pulling on Ears, Nose Congestion, Loose Teeth, Throat Pain and Ear Foreign Body Respiratoy: No Symptoms Reported; negative Non-Productive Cough, Dry Cough and Short of Breath Cardiovascular: No Symptoms Reported; negative Chest Pain, Edema and Palpita tions Gastrointestinal/Abdominal: See HPI and Vomiting (TNTC) Genitourinary: negative No Symptoms Reported and Pain Neurological: See HPI and Weakness; negative Depressed, Headache, Numbness and Pre-existing Deficit Musculoskeletal: negative Gout, Joint Pain, Joint Swelling, Muscle Pain, Shoulder, Arm and Forearm Integumentary: See HPI and Dryness Hematologic/Lymphatic: No Symptoms Reported Endocrine: No Symptoms Reported Psychiatric: No Symptoms Reported All Other Systems: Reviewed and Negative PE Vital Signs Vitals: Temperature 98.1 F Pulse Rate [Right Brachial] 66 Pulse Rate [Left Brachial] 68 Pulse Rate [Brachial] 94 Pulse Rate 102 Respiratory Rate 18 Blood Pressure [Left Arm] 137/82 Blood Pressure [Right Arm] 134/72 Blood Pressure [Standing] 130/74 Blood Pressure [Sitting] 140/81 Blood Pressure [Lying] 145/81 Blood Pressure 127/71 O2 Sat by Pulse Oximetry 97 General Limitations: No Limitations General Appearance: Alert and In No Apparent Distress Head Head Exam: Normal Inspection, Atraumatic and Normocephalic Eyes Eye exam: Normal Appearance, PERRL and EOMI; negative Scleral Icterus, Conjunctival Injection, Nystagmus, Miosis and Mydrasis Pupils: Regular, Round: Bilateral Sclera/Conjunctival: Normal Inspection: Bilateral Anterior Chamber: Normal Inspection: Bilateral Posterior Chamber: Deferred: Bilateral ENT ENT Exam: Normal Exam, Normal External Ear Exam, Mucous Membranes Dry and TM's Normal Bilaterally Neck Neck Exam: Normal Inspection, Full ROM and Trachea Midline; negative Tenderness, Meningismus, Lymphadenopathy and Thyromegaly Chest Chest Inspection: Normal Inspection and Symmetric Chest Wall Rise; negative Tenderness and Rash Respiratory Respiratory Exam: Normal Lung Sounds Bilat; negative Accessory Muscle Use, Chest Wall Tenderness, Prolonged Expiratory Phase and Respiratory Distress Respiratory Exam: Bilateral: Clear to Auscultation Cardiovascular Cardiovascular Exam: Regular Rate Abdominal Exam Abdominal Exam: Normal Inspection, Normal Bowel Sounds and Soft; negative Distention, Tenderness, Guarding, Rebound, Rigidity, Hyperactive Bowel Sounds, Organomegaly, Incision, Ascites, Mass, Bruit and Hernia Rectal Rectal Exam: Deferred Extremeties Extremities Exam: Normal Inspection and Full ROM; negative Tenderness, Normal Capillary Refill, Edema and Joint Swelling Back Back Exam: Normal Inspection and Full ROM; negative Paraspinal Tenderness and Vertebral Tenderness Psychiatric Psychiatric Exam: Normal Affect, Depressed and Flat Affect Skin Skin Exam: Warm, Dry, Intact and Normal Color; negative Rash and Cyanosis MDM Additional Information Obtained Additional Findings: viremia, gastroenteritis Differential Diagnosis Differential Diagnosis: Dehydration, Dysrhythmia, Hypoglycemia and Pulmonary embolus COURSE Treatment Treatment: NS, routine labs, antibiotics for LLL pneumonia, dehydration Reevaluation 1st: Improved Consultation Called: 01:55 Consultation Comments: Dr. Ward agreed to admit for further evaluation and treatment for LLL pneumonia, enterocolitis vs ileus, dehydration ROR Labs Reviewed Laboratory Results Reviewed?: Yes Result Diagrams: 09/05/18 04:34 09/05/18 04:34 Laboratory: WBC 12.8 X10^3/uL (3.6-10.0) H 09/05/18 04:34 RBC 3.91 X10^6/uL (4.7-6.0) L 09/05/18 04:34 Hgb 12.3 g/dL (13.5-18.0) L 09/05/18 04:34 Hct 35.0 % (42.0-54.0) L 09/05/18 04:34 MCV 89.6 fL (80.0-100.0) 09/05/18 04:34 MCH 31.4 pg (27.0-34.0) 09/05/18 04:34 MCHC 35.0 g/dL (33.0-35.0) 09/05/18 04:34 RDW 12.9 % (11.6-16.5) 09/05/18 04:34 Plt Count 196 X10^3/uL (150.0-450.0) 09/05/18 04:34 Plt Count Comment Adequate (ADEQUATE) 09/03/18 04:31 MPV 9.1 fL (7.4-11.0) 09/05/18 04:34 Neut % (Auto) 84.0 % (42.0-75.0) H 09/05/18 04:34 Lymph % (Auto) 8.7 % (21.0-51.0) L 09/05/18 04:34 [place] % (Auto) 6.4 % (0.0-13.0) 09/05/18 04:34 Eos % (Auto) 0.4 % (0.9-2.9) L 09/05/18 04:34 Baso % (Auto) 0.5 % (0.2-1.0) 09/05/18 04:34 Neut # (Auto) 10.8 x10^3/uL (2.2-4.8) H 09/05/18 04:34 Lymph # (Auto) 1.1 X10^3/uL (1.3-2.9) L 09/05/18 04:34 [place] # (Auto) 0.8 x10^3/uL (0.3-0.8) 09/05/18 04:34 Eos # (Auto) 0.0 x10^3/uL (0.0-0.2) 09/05/18 04:34 Baso # (Auto) 0.1 X10^3/uL (0.0-0.1) 09/05/18 04:34 Absolute Nucleated RBC 0.1 /100WBC 09/05/18 04:34 Total Counted 100 09/03/18 04:31 Neutrophils % (Manual) 85 % (39-76) H 09/03/18 04:31 Band Neutrophils % 6 % (0-10) 09/03/18 04:31 Lymphocytes % (Manual) 6 % (13-43) L 09/03/18 04:31 Monocytes % (Manual) 3 % (4-9) L 09/03/18 04:31 Eosinophils % (Manual) 1 % (0-6) 09/02/18 21:50 Plt Morphology Comment Normal (NORMAL) 09/03/18 04:31 RBC Morphology Normal (NORMAL) 09/03/18 04:31 Sodium 142 mmol/L (136-145) 09/05/18 04:34 Corrected Sodium 142 mmol/L (136-145) 09/05/18 04:34 Potassium 3.4 mmol/L (3.5-5.1) L 09/05/18 04:34 Chloride 108 mmol/L (98-107) H 09/05/18 04:34 Carbon Dioxide 24.0 mmol/L (21-32) 09/05/18 04:34 BUN 13 mg/dL (7-18) 09/05/18 04:34 Creatinine 0.74 mg/dL (0.70-1.30) 09/05/18 04:34 Est GFR (MDRD) Af Amer > 60 (>60) 09/05/18 04:34 Est GFR (MDRD) Non-Af > 60 (>60) 09/05/18 04:34 Glucose 112 mg/dL (65-99) H 09/05/18 04:34 Calcium 7.9 mg/dL (8.5-10.1) L 09/05/18 04:34 Corrected Calcium 8.9 mg/dL (8.5-10.1) 09/05/18 04:34 Magnesium 2.0 mg/dL (1.7-2.9) 09/05/18 04:34 Total Bilirubin 0.20 mg/dL (0.2-1.0) 09/05/18 04:34 AST 15 Units/L (15-37) 09/05/18 04:34 ALT 22 Units/L (12-78) 09/05/18 04:34 Alkaline Phosphatase 88 Units/L (46-116) 09/05/18 04:34 Creatine Kinase 29 Units/L (39-308) L 09/02/18 21:50 CK-MB (CK-2) < 1.0 ng/mL (0-4.0) 09/02/18 21:50 CK/CKMB % Calc 3.5 % (<4) 09/02/18 21:50 Troponin I < 0.02 ng/mL (0-1.5) 09/02/18 21:50 C-Reactive Protein 18.60 mg/L (0-3.0) H 09/02/18 21:50 Total Protein 5.9 g/dL (6.4-8.2) L 09/05/18 04:34 Albumin 2.7 g/dL (3.4-5.0) L 09/05/18 04:34 Globulin 3.2 g/dL (2.5-4.5) 09/05/18 04:34 Albumin/Globulin Ratio 0.8 Ratio (1.1-2.1) L 09/05/18 04:34 Specimen Type Clean catch urine 09/03/18 03:50 Urine Color Yellow (YELLOW) 09/03/18 03:50 Urine Appearance Clear (CLEAR) 09/03/18 03:50 Urine pH 5.0 (5.0 - 8.0) 09/03/18 03:50 Ur Specific [place] 1.010 (1.000-1.030) 09/03/18 03:50 Urine Protein Negative (NEGATIVE) 09/03/18 03:50 Urine Glucose (UA) Negative (NEGATIVE) 09/03/18 03:50 Urine Ketones Negative (NEGATIVE) 09/03/18 03:50 Urine Occult Blood Negative (NEGATIVE) 09/03/18 03:50 Urine Nitrite Negative (NEGATIVE) 09/03/18 03:50 Urine Bilirubin Negative (NEGATIVE) 09/03/18 03:50 Urine Urobilinogen Normal (NORMAL) 09/03/18 03:50 Ur Leukocyte Esterase Negative (NEGATIVE) 09/03/18 03:50 Stool Description 20g,green,semisolid 09/03/18 03:50 Stl Occult Blood (IFOB) Negative (NEGATIVE) 09/03/18 03:50 Stl C. diff Tox B Gene Negative (NEGATIVE) 09/03/18 03:50 Stl C. diff [id number] Negative (NEGATIVE) 09/03/18 03:50 Other Results Comments: Acute Abdo: The heart is borderline enlarged. The pulmonary vessels are normal. There are chronic interstitial changes throughout with mild linear densities scattered along the lung bases. No consolidation or effusion is seen. There is a left pacemaker in good position. There are some mildly dilated loops of bowel throughout the abdomen which appears predominantly colon. No renal stones are seen. There is no free air. Impression: Diffuse chronic lung changes with mild discoid atelectasis or scarring along the lung bases. Questionable diffuse mild ileus which is predominately involving the colon. XRAY XRAY Interpreted by: Radiologist Diagnosis Discharge Problem: Acute dehydration, Enterocolitis LLL pneumonia Qualifiers: Pneumonia type: due to unspecified organism Qualified Code(s): J18.1 - Lobar pneumonia, unspecified organism ADDITIONAL NOTES Additional Notes Additional Notes: Chest X Ray: Moderate cardiomegaly without congestive heart failure. No definite acute alveolar infiltrates. Interstitial lung changes.
[2018-09-02 22:02] LABS: BASOPHILS # (AUTO) 0.1 X10^3/uL (0.0-0.1); BASOPHILS % (AUTO) 0.5 % (0.2-1.0); EOSINOPHILS # (AUTO) 0.1 x10^3/uL (0.0-0.2); EOSINOPHILS % (AUTO) 0.7 % (0.9-2.9); HEMATOCRIT 42.4 % (42.0-54.0); HEMOGLOBIN 14.5 g/dL (13.5-18.0); LYMPHOCYTES # (AUTO) 0.5 X10^3/uL (1.3-2.9); LYMPHOCYTES % (AUTO) 3.9 % (21.0-51.0); MEAN CORPUSCULAR HEMOGLOBIN 31.1 pg (27.0-34.0); MEAN CORPUSCULAR HGB CONC 34.3 g/dL (33.0-35.0); MEAN CORPUSCULAR VOLUME 90.9 fL (80.0-100.0); MEAN PLATELET VOLUME 8.8 fL (7.4-11.0); MONOCYTES # (AUTO) 0.5 x10^3/uL (0.3-0.8); NEUTROPHILS # (AUTO) 10.8 x10^3/uL (2.2-4.8); NEUTROPHILS % (AUTO) 90.9 % (42.0-75.0); PLATELET COUNT 246 X10^3/uL (150.0-450.0); RED BLOOD COUNT 4.67 X10^6/uL (4.7-6.0); RED CELL DISTRIBUTION WIDTH 13.3 % (11.6-16.5); WHITE BLOOD COUNT 11.8 X10^3/uL (3.6-10.0)
[2018-09-02 22:16] LABS: BLOOD UREA NITROGEN 27 mg/dL (7-18); CALCIUM 8.4 mg/dL (8.5-10.1); CARBON DIOXIDE 20.9 mmol/L (21-32); CHLORIDE 108 mmol/L (98-107); COR NA(FOR HYPERGLY) 144 mmol/L (136-145); CREATININE 1.12 mg/dL (0.70-1.30); SODIUM 143 mmol/L (136-145); TROPONIN I < 0.02 ng/mL (0-1.5); eGFR NON BLACK RACES > 60 (>60)
[2018-09-02] MEDS ORDERED: NS 1000 ML 1,000 ML ONE ×2 (22:20→23:27)
[2018-09-02] MEDS ORDERED: ZOFRAN INJ 4 MG VIAL IVP ONE (22:25)
[2018-09-02] MEDS ORDERED: ZOFRAN INJ 4 MG VIAL ONE (22:30)
[2018-09-02 22:31] LABS: ALANINE AMINOTRANSFERASE 22 Units/L (12-78); ALBUMIN 3.6 g/dL (3.4-5.0); ALKALINE PHOSPHATASE 100 Units/L (46-116); ASPARTATE AMINO TRANSFERASE 15 Units/L (15-37); CKMB % 3.5 % (<4); CREATINE KINASE 29 Units/L (39-308); CREATINE KINASE MB < 1.0 ng/mL (0-4.0); TOTAL PROTEIN 7.2 g/dL (6.4-8.2)
--- NOTE | 2018-09-02 22:43 | RAD ---
History: Pain Exam: Acute abdominal series Comparison: None Technique: AP chest with supine and upright views of the abdomen Findings: The heart is borderline enlarged. The pulmonary vessels are normal. There are chronic interstitial changes throughout with mild linear densities scattered along the lung bases. No consolidation or effusion is seen. There is a left pacemaker in good position. There are some mildly dilated loops of bowel throughout the abdomen which appears predominantly colon. No renal stones are seen. There is no free air. IMPRESSION: Diffuse chronic lung changes with mild discoid atelectasis or scarring along the lung bases . Questionable diffuse mild ileus which is predominately involving the colon. Reported By:
[2018-09-02 22:45] LABS: BAND NEUTROPHILS % 7 % (0-10); PLATELET MORPHOLOGY COMMENT NORMAL (NORMAL)
[2018-09-02] MEDS ORDERED: NS 100 ML IV 100 ML ONE (23:33)
[2018-09-02] MEDS ORDERED: NS 1000 ML 1,000 ML IV SCH (23:45)
--- NOTE | 2018-09-03 01:18 | CT ---
CT abdomen and pelvis with contrast Indication: Ileus Comparison: None available Technique: Multiple axial images of the abdomen and pelvis were obtained from the lung bases to the pubic symphysis after the administration of IV contrast. Coronal and sagittal reformatted images were also provided. Findings: The lung bases demonstrate peribronchial ground-glass opacities within the lingula and left lower lobe with bilateral mild peribronchial thickening. Centrilobular emphysema is noted bilaterally. No effusion. Heart size is at the upper limits of normal. No focal hepatic lesion is identified. The gallbladder, bile ducts, spleen, pancreas and adrenal glands are normal. Neither kidney demonstrates no evidence of nephrolithiasis, hydronephrosis or mass. There are small cysts are noted within both kidneys. There is a small right-sided Bochdalek type hernia. There is moderate fluid distention of the stomach, small bowel and colon. There is also increased fluid within the rectum. Mild diverticulosis within distal colon. Abdominal aorta is normal in caliber with scattered calcified atherosclerotic disease. No adenopathy within the abdomen or pelvis. No free fluid. Review of bone windows demonstrates no acute osseous abnormality Impression: 1.Moderate fluid distention of the small bowel, colon and rectum are consistent with either an enterocolitis or ileus. No evidence of obstruction. 2. Mild peribronchial ground-glass opacities within the lingula and left lower lobe and bilateral peribronchial thickening most consistent with acute infiltrate/bronchitis within the left lung. 3. Incidental findings as described above. Reported By:
[2018-09-03] MEDS ORDERED: ~ZOSYN/LEVAQUIN (Pneumonia) XX ONE (02:04)
[2018-09-03] MEDS ORDERED: PHENERGAN INJ 25 MG IM PRN (02:10)
[2018-09-03] MEDS ORDERED: TUSSIONEX PENNKINETIC SUSP PO PRN (02:13)
[2018-09-03] MEDS ORDERED: LEVAQUIN PREMIX IV 750 MG 750 MG/150 ML BAG IV SCH (02:24)
[2018-09-03] MEDS ORDERED: LEVAQUIN PREMIX IV 750 MG 750 MG/150 ML BAG IV ONE (02:32)
[2018-09-03] MEDS ORDERED: NS 1/2 1000 ML IV 1,000 ML ONE ×2 (02:37→19:44)
[2018-09-03] MEDS: NS 1/2 1000 ML IV 1,000 ML IV SCH ×2 (02:38→19:50)
[2018-09-03 03:58] VITALS: BMI 31.4
[2018-09-03 03:58] LABS: BILIRUBIN,URINE NEGATIVE (NEGATIVE); BLOOD/HEMOGLOBIN,URINE NEGATIVE (NEGATIVE); GLUCOSE, URINE NEGATIVE (NEGATIVE); KETONES,URINE NEGATIVE (NEGATIVE); LEUKOCYTE ESTERASE ,URINE NEGATIVE (NEGATIVE); NITRITES,URINE NEGATIVE (NEGATIVE); PROTEIN,URINE NEGATIVE (NEGATIVE); UROBILINOGEN,URINE NORMAL (NORMAL)
[2018-09-03 04:07] LABS: APPEARANCE,URINE CLEAR (CLEAR); COLOR,URINE YELLOW (YELLOW)
[2018-09-03] MEDS ORDERED: SALINE 3% 15 ML NEB TX NEB ONE (04:09)
[2018-09-03 05:21] LABS: BASOPHILS % (AUTO) 0.3 % (0.2-1.0); EOSINOPHILS % (AUTO) 0.3 % (0.9-2.9); HEMATOCRIT 39.5 % (42.0-54.0); HEMOGLOBIN 13.6 g/dL (13.5-18.0); LYMPHOCYTES # (AUTO) 0.5 X10^3/uL (1.3-2.9); LYMPHOCYTES % (AUTO) 4.7 % (21.0-51.0); MEAN CORPUSCULAR HEMOGLOBIN 31.3 pg (27.0-34.0); MEAN CORPUSCULAR HGB CONC 34.4 g/dL (33.0-35.0); MEAN CORPUSCULAR VOLUME 91.1 fL (80.0-100.0); MEAN PLATELET VOLUME 9.3 fL (7.4-11.0); MONOCYTES # (AUTO) 0.4 x10^3/uL (0.3-0.8); MONOCYTES % (AUTO) 3.6 % (0.0-13.0); NEUTROPHILS # (AUTO) 9.7 x10^3/uL (2.2-4.8); NEUTROPHILS % (AUTO) 91.1 % (42.0-75.0); PLATELET COUNT 210 X10^3/uL (150.0-450.0); RED BLOOD COUNT 4.34 X10^6/uL (4.7-6.0); RED CELL DISTRIBUTION WIDTH 12.9 % (11.6-16.5); WHITE BLOOD COUNT 10.6 X10^3/uL (3.6-10.0)
[2018-09-03 05:28] LABS: ALANINE AMINOTRANSFERASE 21 Units/L (12-78); ALBUMIN 3.1 g/dL (3.4-5.0); ALKALINE PHOSPHATASE 84 Units/L (46-116); ASPARTATE AMINO TRANSFERASE 13 Units/L (15-37); BLOOD UREA NITROGEN 17 mg/dL (7-18); CALCIUM 7.6 mg/dL (8.5-10.1); CARBON DIOXIDE 23.5 mmol/L (21-32); CHLORIDE 105 mmol/L (98-107); COR CA(FOR HYPOALB) 8.3 mg/dL (8.5-10.1); COR NA(FOR HYPERGLY) 141 mmol/L (136-145); CREATININE 0.88 mg/dL (0.70-1.30); SODIUM 141 mmol/L (136-145); TOTAL PROTEIN 6.5 g/dL (6.4-8.2); eGFR NON BLACK RACES > 60 (>60)
[2018-09-03] MEDS ORDERED: MICRO K EXTEN CAP 10 MEQ PO PRN (05:33)
[2018-09-03] MEDS ORDERED: POTASSIUM CHL 60 MEQ/NS 0.45% 500 ML IV PRN (05:33)
[2018-09-03] MEDS ORDERED: POTASSIUM CHL 40 MEQ/NS 0.45% 500 ML IV PRN (05:33)
[2018-09-03] MEDS ORDERED: KLOR-CON PO PRN (05:33)
[2018-09-03] MEDS ORDERED: POTASSIUM CHLORIDE LIQ 20 MEQ UDC PO PRN (05:33)
[2018-09-03] MEDS ORDERED: K-RIDER 10 MEQ/NS 100 ML 10 MEQ/100 ML BAG IV PRN (05:33)
[2018-09-03 05:41] LABS: BAND NEUTROPHILS % 6 % (0-10); PLATELET MORPHOLOGY COMMENT NORMAL (NORMAL)
[2018-09-03] MEDS: MAGNESIUM SULFATE 1 GRAM/100 mL PREMIX 1 GM/100 ML BAG IV PRN ×2 (06:00→08:52)
--- NOTE | 2018-09-03 06:14 | RAD ---
HISTORY: Weakness, diarrhea, pneumonia Study: Chest AP portable Comparison: 08/19/2018 Findings: There is a pacemaker present on the left obscuring a portion of the left upper lobe. The heart is enlarged. No definite congestive heart failure is noted. The lungs are free of acute alveolar infiltrates. Mild interstitial lung changes are present. No pleural effusions are identified. The bony thorax is unremarkable with the exception of postsurgical changes in the left humerus likely from prior rotator cuff surgery. IMPRESSION: Moderate cardiomegaly without congestive heart failure No definite acute alveolar infiltrates Interstitial lung changes Reported By:
[2018-09-03] MEDS: MORPHINE SULFATE INJ 2 MG INJ IVP PRN (06:33)
[2018-09-03] MEDS ORDERED: CORTEF ONE ×2 (08:38→19:45)
[2018-09-03] MEDS: CORTEF PO SCH ×2 (08:56→21:08)
[2018-09-03] MEDS: PROCARDIA XL PO SCH ×2 (08:56→16:42)
[2018-09-03] MEDS: SYNTHROID 100 mcg TAB PO SCH (08:56)
[2018-09-03] MEDS: ECOTRIN TAB 325 MG PO SCH (08:56)
[2018-09-03] MEDS: PLAVIX PO SCH (08:56)
[2018-09-03] MEDS: HEMOCYTE-PLUS PO SCH (08:57)
[2018-09-03] MEDS: ROBITUSSIN DM PO SCH ×3 (08:57→21:07)
[2018-09-03] MEDS ORDERED: DUONEB 0.5 MG/3 MG NEB SCH (09:00)
[2018-09-03] MEDS ORDERED: PATIENT'S HOME MEDICATION (Iron-Folic Acid-Mv, Min Cmb#15 [Hemocyte-Plus] 1 CAP) PO SCH (09:00)
[2018-09-03] MEDS ORDERED: CORDARONE TAB 200 MG PO SCH (09:00)
[2018-09-03] MEDS ORDERED: LOPRESSOR TAB 25 MG PO SCH (09:00)
[2018-09-03] MEDS ORDERED: LEVAQUIN PREMIX IV 750 MG 150 ML IV SCH (09:00)
[2018-09-03] MEDS: DUONEB 0.5 MG/3 MG NEB SCH ×4 (09:14→20:16)
[2018-09-03] MEDS ORDERED: PROSCAR PO SCH (21:00)
[2018-09-03] MEDS: LEVAQUIN PREMIX IV 750 MG 750 MG/150 ML BAG IV SCH (21:07)
[2018-09-03] MEDS: RESTORIL CAP 15 MG PO PRN (21:08)
[2018-09-03] MEDS: LIPITOR TAB 40 MG PO SCH (21:08)
[2018-09-04 05:22] LABS: BASOPHILS % (AUTO) 0.2 % (0.2-1.0); HEMATOCRIT 36.6 % (42.0-54.0); HEMOGLOBIN 12.8 g/dL (13.5-18.0); LYMPHOCYTES # (AUTO) 0.7 X10^3/uL (1.3-2.9); LYMPHOCYTES % (AUTO) 7.3 % (21.0-51.0); MEAN CORPUSCULAR HEMOGLOBIN 31.2 pg (27.0-34.0); MEAN CORPUSCULAR VOLUME 89.1 fL (80.0-100.0); MEAN PLATELET VOLUME 9.2 fL (7.4-11.0); MONOCYTES # (AUTO) 0.6 x10^3/uL (0.3-0.8); MONOCYTES % (AUTO) 6.7 % (0.0-13.0); NEUTROPHILS # (AUTO) 7.9 x10^3/uL (2.2-4.8); NEUTROPHILS % (AUTO) 85.8 % (42.0-75.0); PLATELET COUNT 195 X10^3/uL (150.0-450.0); RED CELL DISTRIBUTION WIDTH 12.8 % (11.6-16.5); WHITE BLOOD COUNT 9.2 X10^3/uL (3.6-10.0)
[2018-09-04 05:43] LABS: ALANINE AMINOTRANSFERASE 20 Units/L (12-78); ALBUMIN 2.9 g/dL (3.4-5.0); ALKALINE PHOSPHATASE 79 Units/L (46-116); ASPARTATE AMINO TRANSFERASE 11 Units/L (15-37); BLOOD UREA NITROGEN 10 mg/dL (7-18); CALCIUM 8.2 mg/dL (8.5-10.1); CARBON DIOXIDE 23.2 mmol/L (21-32); CHLORIDE 109 mmol/L (98-107); COR CA(FOR HYPOALB) 9.1 mg/dL (8.5-10.1); CREATININE 0.79 mg/dL (0.70-1.30); MAGNESIUM 2.5 mg/dL (1.7-2.9); SODIUM 143 mmol/L (136-145); TOTAL PROTEIN 6.3 g/dL (6.4-8.2); eGFR NON BLACK RACES > 60 (>60)
[2018-09-04] MEDS ORDERED: LEVAQUIN PREMIX IV 750 MG 750 MG/150 ML BAG IV SCH (09:00)
[2018-09-04] MEDS ORDERED: CORTEF ONE ×2 (09:31→19:19)
[2018-09-04] MEDS ORDERED: NS 1/2 1000 ML IV 1,000 ML ONE (09:33)
[2018-09-04] MEDS: DUONEB 0.5 MG/3 MG NEB SCH ×4 (09:38→20:37)
[2018-09-04] MEDS: HEMOCYTE-PLUS PO SCH (10:12)
[2018-09-04] MEDS: ECOTRIN TAB 325 MG PO SCH (10:12)
[2018-09-04] MEDS: ROBITUSSIN DM PO SCH ×3 (10:12→20:08)
[2018-09-04] MEDS: NS 1/2 1000 ML IV 1,000 ML IV SCH ×2 (10:12→22:03)
[2018-09-04] MEDS: CORTEF PO SCH ×2 (10:13→20:08)
[2018-09-04] MEDS: PROCARDIA XL PO SCH (10:13)
[2018-09-04] MEDS: SYNTHROID 100 mcg TAB PO SCH (10:13)
[2018-09-04] MEDS: PLAVIX PO SCH (10:15)
[2018-09-04] MEDS: LEVAQUIN PREMIX IV 750 MG 750 MG/150 ML BAG IV SCH (20:08)
[2018-09-04] MEDS: LIPITOR TAB 40 MG PO SCH (20:09)
[2018-09-04] MEDS: RESTORIL CAP 15 MG PO PRN (20:09)
[2018-09-04] MEDS: K-DUR TAB 20 MEQ PO PRN (22:53)
[2018-09-05] MEDS ORDERED: NS 1/2 1000 ML IV 1,000 ML ONE ×2 (00:55→13:23)
[2018-09-05 05:03] LABS: BASOPHILS # (AUTO) 0.1 X10^3/uL (0.0-0.1); BASOPHILS % (AUTO) 0.5 % (0.2-1.0); EOSINOPHILS % (AUTO) 0.4 % (0.9-2.9); HEMOGLOBIN 12.3 g/dL (13.5-18.0); LYMPHOCYTES # (AUTO) 1.1 X10^3/uL (1.3-2.9); LYMPHOCYTES % (AUTO) 8.7 % (21.0-51.0); MEAN CORPUSCULAR HEMOGLOBIN 31.4 pg (27.0-34.0); MEAN CORPUSCULAR VOLUME 89.6 fL (80.0-100.0); MEAN PLATELET VOLUME 9.1 fL (7.4-11.0); MONOCYTES # (AUTO) 0.8 x10^3/uL (0.3-0.8); MONOCYTES % (AUTO) 6.4 % (0.0-13.0); NEUTROPHILS # (AUTO) 10.8 x10^3/uL (2.2-4.8); PLATELET COUNT 196 X10^3/uL (150.0-450.0); RED BLOOD COUNT 3.91 X10^6/uL (4.7-6.0); RED CELL DISTRIBUTION WIDTH 12.9 % (11.6-16.5); WHITE BLOOD COUNT 12.8 X10^3/uL (3.6-10.0)
[2018-09-05 05:17] LABS: ALANINE AMINOTRANSFERASE 22 Units/L (12-78); ALBUMIN 2.7 g/dL (3.4-5.0); ALKALINE PHOSPHATASE 88 Units/L (46-116); ASPARTATE AMINO TRANSFERASE 15 Units/L (15-37); BLOOD UREA NITROGEN 13 mg/dL (7-18); CALCIUM 7.9 mg/dL (8.5-10.1); CHLORIDE 108 mmol/L (98-107); COR CA(FOR HYPOALB) 8.9 mg/dL (8.5-10.1); COR NA(FOR HYPERGLY) 142 mmol/L (136-145); CREATININE 0.74 mg/dL (0.70-1.30); SODIUM 142 mmol/L (136-145); TOTAL PROTEIN 5.9 g/dL (6.4-8.2); eGFR NON BLACK RACES > 60 (>60)
[2018-09-05] MEDS: K-DUR TAB 20 MEQ PO PRN (05:44)
[2018-09-05] MEDS ORDERED: CORTEF ONE ×2 (07:55→21:20)
[2018-09-05] MEDS: PLAVIX PO SCH (08:34)
[2018-09-05] MEDS: HEMOCYTE-PLUS PO SCH (08:34)
[2018-09-05] MEDS: ECOTRIN TAB 325 MG PO SCH (08:34)
[2018-09-05] MEDS: CORTEF PO SCH ×2 (08:34→21:23)
[2018-09-05] MEDS: SYNTHROID 100 mcg TAB PO SCH (08:35)
[2018-09-05] MEDS: ROBITUSSIN DM PO SCH ×4 (08:35→21:23)
[2018-09-05] MEDS: PROCARDIA XL PO SCH (08:35)
[2018-09-05] MEDS: MAALOX or MYLANTA PO PRN (08:35)
[2018-09-05] MEDS: DUONEB 0.5 MG/3 MG NEB SCH ×4 (09:03→21:02)
--- NOTE | 2018-09-05 09:26 | RAD ---
Examination: Portable AP chest History: Pneumonia Comparison 09/03/2018 Findings: Continued cardiomegaly with stable position of pacing device. The lungs are clear of active disease. Chronic coarsening of interstitial pulmonary pattern, as previously noted. Impression: No interval change or acute chest findings. Reported By:
[2018-09-05] MEDS ORDERED: ZOFRAN INJ 4 MG VIAL IVP PRN (12:28)
[2018-09-05] MEDS: NS 1/2 1000 ML IV 1,000 ML IV SCH (13:35)
[2018-09-05] MEDS ORDERED: PROTONIX INJ 40 MG VIAL IVP SCH (14:00)
[2018-09-05] MEDS ORDERED: PROTONIX TAB 40 MG PO SCH (14:00)
[2018-09-05] MEDS: MORPHINE SULFATE INJ 2 MG INJ IVP PRN ×2 (15:12→23:40)
[2018-09-05] MEDS ORDERED: REGLAN INJ 10 MG VIAL IVP PRN (15:14)
[2018-09-05] MEDS ORDERED: BENADRYL INJ 50 MG VIAL IVP PRN (15:15)
--- NOTE | 2018-09-05 15:50 | RAD ---
Examination: KUB History: Pain, dehydration Comparison 09/02/2018 Findings: There is gaseous distention of scattered segments of small bowel and colon. There is no evidence for mass, visceral enlargement or ascites. Impression: Findings consistent with nonobstructive intestinal distention, ileus or enteritis. Reported By:
[2018-09-05] MEDS ORDERED: LEVSIN/MAALOX/LIDOC VISC PO PRN (16:02)
[2018-09-05] MEDS ORDERED: ZOFRAN INJ 4 MG VIAL 16 MG, ATIVAN INJ 2 MG VIAL 1 MG, DECADRON INJ 10 MG in NS 50 ML I... IV PRN (16:07)
[2018-09-05] MEDS ORDERED: NS 100 ML IV + SPIKE MINIBAG* 100 ML ONE (16:09)
--- NOTE | 2018-09-05 17:06 | CT ---
HISTORY: Chest pain and shortness of breath Study: CT chest with contrast Comparison: None Technique: Multiple axial images of the chest were obtained from the thoracic inlet to the upper abdomen after the administration of IV contrast. A PE protocol utilizing coronal and sagittal MIPS were obtained reviewed. Findings: The mediastinum does not demonstrate significant pathological lymphadenopathy. There is no pericardial effusion observed. There is achalasia of the esophagus and direct visualization may be of benefit to exclude underlying mass. Coronary arterial calcifications are noted. The thoracic aorta is normal in its contour without evidence for aneurysmal dilatation. The central pulmonary arteries demonstrate no large filling defects however the timing of the bolus is suboptimal to evaluate the more distal portions. Evaluation of the lung parenchyma demonstrate area of consolidation in the left lower lobe compatible with pneumonia. There is also some faint ground-glass opacities in the right lower lobe suggesting early pneumonia as well.. There is a small 5 mm nodule in the right upper lobe on image 52 which could be followed according to the Fleischner guidelines. The bony thorax is unremarkable in its appearance. The visualized portions of the upper abdomen are grossly unremarkable. IMPRESSION: 1. Lower lobe pneumonia with faint ground-glass is opacities in the right lower lobe as well. There is no definite pulmonary embolus although distal branches are not well evaluated due to timing of the bolus. 2. 5 mm right upper lobe pulmonary nodule as above. 3. Achalasia as above. Reported By:
--- NOTE | 2018-09-05 17:43 | CT ---
HISTORY: Weakness Study: CT abdomen and pelvis without contrast Comparison: 2 days ago Technique: Multiple axial images of the abdomen and pelvis were obtained from the lung bases to the pubic symphysis without the administration of IV contrast. Findings: The visualized portions of the lung bases are better evaluated on the CT chest report. The liver, spleen, pancreas, kidneys, and adrenal glands are stable in their CT appearance. The gallbladder is unremarkable in its CT appearance. Improved bowel distention is noted.. Colon demonstrates diverticulosis with no evidence for diverticulitis. Appendix is normal.. The urinary bladder is grossly unremarkable. The bony structures are grossly intact. IMPRESSION: 1. Improved bowel distention with no acute findings identified. 2. Colonic diverticulosis. Reported By:
[2018-09-05] MEDS: LIPITOR TAB 40 MG PO SCH (21:23)
[2018-09-05] MEDS: LEVAQUIN PREMIX IV 750 MG 750 MG/150 ML BAG IV SCH (21:23)
[2018-09-05] MEDS: PROTONIX INJ 40 MG VIAL IVP SCH (21:24)
[2018-09-05] MEDS: REGLAN INJ 10 MG VIAL IVP SCH (21:24)
[2018-09-05] MEDS ORDERED: TYLENOL 325 MG TAB PO PRN (21:40)
[2018-09-05] MEDS ORDERED: TYLENOL 325 MG TAB PO ONE (21:43)
[2018-09-05] MEDS: RESTORIL CAP 15 MG PO PRN (21:50)
[2018-09-05] MEDS ORDERED: DECADRON INJ PRESERVATIVE-FREE IM ONE (23:43)
[2018-09-05] MEDS ORDERED: ATIVAN INJ 2 MG VIAL ONE (23:44)
[2018-09-05] MEDS ORDERED: NS 50 ML IV 50 ML ONE (23:45)
[2018-09-06] MEDS: REGLAN INJ 10 MG VIAL IVP SCH ×2 (02:57→09:37)
[2018-09-06] MEDS: NS 1/2 1000 ML IV 1,000 ML IV SCH ×3 (04:21→16:58)
[2018-09-06] MEDS ORDERED: NS 1/2 1000 ML IV 1,000 ML ONE ×2 (05:05→17:51)
[2018-09-06 05:25] LABS: BASOPHILS % (AUTO) 0 % (0.2-1.0); HEMATOCRIT 38.8 % (42.0-54.0); HEMOGLOBIN 13.5 g/dL (13.5-18.0); LYMPHOCYTES # (AUTO) 0.5 X10^3/uL (1.3-2.9); LYMPHOCYTES % (AUTO) 2.9 % (21.0-51.0); MEAN CORPUSCULAR HGB CONC 34.7 g/dL (33.0-35.0); MEAN CORPUSCULAR VOLUME 89.5 fL (80.0-100.0); MEAN PLATELET VOLUME 8.8 fL (7.4-11.0); MONOCYTES # (AUTO) 0.2 x10^3/uL (0.3-0.8); MONOCYTES % (AUTO) 1.4 % (0.0-13.0); NEUTROPHILS # (AUTO) 16.2 x10^3/uL (2.2-4.8); NEUTROPHILS % (AUTO) 95.7 % (42.0-75.0); PLATELET COUNT 215 X10^3/uL (150.0-450.0); RED BLOOD COUNT 4.34 X10^6/uL (4.7-6.0)
[2018-09-06 05:40] LABS: ALANINE AMINOTRANSFERASE 22 Units/L (12-78); ALBUMIN 2.9 g/dL (3.4-5.0); ALKALINE PHOSPHATASE 79 Units/L (46-116); ASPARTATE AMINO TRANSFERASE 13 Units/L (15-37); BLOOD UREA NITROGEN 17 mg/dL (7-18); CALCIUM 8.3 mg/dL (8.5-10.1); CARBON DIOXIDE 22.6 mmol/L (21-32); CHLORIDE 100 mmol/L (98-107); COR CA(FOR HYPOALB) 9.2 mg/dL (8.5-10.1); COR NA(FOR HYPERGLY) 137 mmol/L (136-145); SODIUM 136 mmol/L (136-145); TOTAL PROTEIN 6.7 g/dL (6.4-8.2); eGFR NON BLACK RACES > 60 (>60)
--- NOTE | 2018-09-06 05:52 | RAD ---
Chest, 1 view Indication: Shortness of breath Comparison: 09/05/2018 Findings: Stable cardiac silhouette and left subclavian approach cardiac device and leads. The lungs are mildly hypoinflated and demonstrate chronic interstitial change, but are grossly clear. No significant pleural effusion or pneumothorax. Impression: No acute chest process or significant change from prior. Reported By:
[2018-09-06 06:28] LABS: BAND NEUTROPHILS % 5 % (0-10); PLATELET MORPHOLOGY COMMENT NORMAL (NORMAL)
[2018-09-06] MEDS ORDERED: CORTEF ONE ×2 (08:31→20:03)
[2018-09-06] MEDS: DUONEB 0.5 MG/3 MG NEB SCH ×4 (08:36→20:19)
[2018-09-06] MEDS: PROTONIX INJ 40 MG VIAL IVP SCH ×2 (09:37→20:18)
[2018-09-06] MEDS: SYNTHROID 100 mcg TAB PO SCH (09:38)
[2018-09-06] MEDS: ROBITUSSIN DM PO SCH ×4 (09:38→20:18)
[2018-09-06] MEDS: CORTEF PO SCH ×2 (09:38→20:18)
[2018-09-06] MEDS: HEMOCYTE-PLUS PO SCH (09:38)
[2018-09-06] MEDS: ECOTRIN TAB 325 MG PO SCH (09:38)
[2018-09-06] MEDS: PROCARDIA XL PO SCH (09:38)
[2018-09-06] MEDS: PLAVIX PO SCH (09:39)
[2018-09-06] MEDS: LEVAQUIN PREMIX IV 750 MG 750 MG/150 ML BAG IV SCH (20:17)
[2018-09-06] MEDS: LIPITOR TAB 40 MG PO SCH (20:18)
--- NOTE | 2018-09-06 20:55 | PCM.PROG ---
Progress Note - Progress Note for Day of Date of Exam: 09/06/18 - Subjective Subjective: WAS ADMITTED ON 09/03/18 DUE TO DEHYDRATION, LLL PNEUMONIA, COPD EXACERBATION. TODAY, HE IS ALERT AND ORIENTED, LYING IN BED ON MORNING ROUNDS. HE CONTINUES WITH COMPLAINTS OF SHORTNESS OF BREATH AND A COUGH. HE ALSO REPORTS MILD ABDOMINAL PAIN. ON EXAMINATION, HEART IS REGULAR IN RATE AND RHYTHM. BILATERAL LUNGS ARE NOTED WITH SCATTERED RHONCHI AND WHEEZES THROUGHOUT. ABDOMEN IS ROUND, SOFT, AND NOTED WITH MILD, DIFFUSE TENDERNESS. HYPOACTIVE BOWEL SOUNDS NOTED THROUGHOUT. HIS VITALS THIS MORNING ARE 98.7-111-20-91%-104/63. LABS WERE OBTAINED. ABNORMAL LAB VALUES INCLUDE THE FOL LOWING: WBC 17.0, RBC 4.34, HCT 38.8, GLUCOSE 153, CALCIUM 8.3, AST 13, ALBUMIN 2.9. A CHEST CTA WAS OBTAINED AND REVEALED: Lower lobe pneumonia with faint ground-glass is opacities in the right lower lobe as well. There is no definite pulmonary embolus although distal branches are not well evaluated due to timing of the bolus. 5 mm right upper lobe pulmonary nodule as above. Achalasia. ABDOMEN/PELVIS CT OBTAINED AND REVEALED: Improved bowel distention with no acute findings identified. Colonic diverticulosis. CHEST XRAY REVEALED: No acute chest process or significant change from prior. SHE IS CURRENTLY RECEIVING IV LEVAQUIN, RESPIRATORY TREATMENTS, AND STEROIDS. TODAY, WE WILL CONTINUE WITH CURRENT PLAN OF CARE. OTHERWISE, WE WILL FOLLOW UP WITH AM LABS AND CONTINUE TO MONITOR. - Past Medical Family Social History Past Med/Fam/Surg Hx: No changes since H&P Allergies: Allergies No Known Drug Allergies Allergy (Verified 02/26/17 07:26) - Review of Systems ROS: No change since H&P - Vital Signs and I&O's Vital Signs: Temperature 98.2 F Pulse Rate [Right Brachial] 82 Pulse Rate [Left Brachial] 68 Pulse Rate [Brachial] 94 Pulse Rate 88 Respiratory Rate 20 Blood Pressure [Left Arm] 100/56 Blood Pressure [Right Arm] 134/72 Blood Pressure [Standing] 130/74 Blood Pressure [Sitting] 140/81 Blood Pressure [Lying] 145/81 Blood Pressure 127/71 O2 Sat by Pulse Oximetry 95 Intake and Output: Intake & Output 09/04/18 09/05/18 09/06/18 09/07/18 11:59 11:59 11:59 11:59 Intake Total 2059 2620 / 2620 1840 / 1840 879 / 879 Output Total 3675 / 3675 3600 / 3600 1857 / 1857 750 / 750 Balance -1615 / -1615 -980 / -980 -17 / -17 129 / 129 - Physical Exam Oriented: Normal Eyes: Normal Ear: Normal Nose: Normal Throat: Normal Respiratory: Generalized, Diminished, Wheezes, Rhonchi Cardiovascular: Tachycardia : Normal Auscultation: Bowel Sounds: Normal Palpation: Normal Tenderness: Diffuse, Mild. negative: Rebound, Guarding, Rigidity Skin: Normal Musculoskeletal: Normal Psychiatric: Normal Mood Description: Calm Affect: Normal Speech Pattern: Clear, Appropriate - Laboratory and Diagnostics Result Diagrams: 09/06/18 05:05 09/06/18 05:05 Labs: 09/05/18 08:07 Stool Stool Culture - Preliminary 09/05/18 08:07 Stool - Final 09/03/18 02:19 Blood Blood Culture - Preliminary Laboratory WBC 17.0 X10^3/uL (3.6-10.0) H 09/06/18 05:05 RBC 4.34 X10^6/uL (4.7-6.0) L 09/06/18 05:05 Hgb 13.5 g/dL (13.5-18.0) 09/06/18 05:05 Hct 38.8 % (42.0-54.0) L 09/06/18 05:05 MCV 89.5 fL (80.0-100.0) 09/06/18 05:05 MCH 31.0 pg (27.0-34.0) 09/06/18 05:05 MCHC 34.7 g/dL (33.0-35.0) 09/06/18 05:05 RDW 13.0 % (11.6-16.5) 09/06/18 05:05 Plt Count 215 X10^3/uL (150.0-450.0) 09/06/18 05:05 Plt Count Comment Adequate (ADEQUATE) 09/06/18 05:05 MPV 8.8 fL (7.4-11.0) 09/06/18 05:05 Neut % (Auto) 95.7 % (42.0-75.0) H 09/06/18 05:05 Lymph % (Auto) 2.9 % (21.0-51.0) L 09/06/18 05:05 [place] % (Auto) 1.4 % (0.0-13.0) 09/06/18 05:05 Eos % (Auto) 0.0 % (0.9-2.9) L 09/06/18 05:05 Baso % (Auto) 0 % (0.2-1.0) L 09/06/18 05:05 Neut # (Auto) 16.2 x10^3/uL (2.2-4.8) H 09/06/18 05:05 Lymph # (Auto) 0.5 X10^3/uL (1.3-2.9) L 09/06/18 05:05 [place] # (Auto) 0.2 x10^3/uL (0.3-0.8) L 09/06/18 05:05 Eos # (Auto) 0.0 x10^3/uL (0.0-0.2) 09/06/18 05:05 Baso # (Auto) 0.0 X10^3/uL (0.0-0.1) 09/06/18 05:05 Absolute Nucleated RBC 0.0 /100WBC 09/06/18 05:05 Total Counted 100 09/06/18 05:05 Neutrophils % (Manual) 89 % (39-76) H 09/06/18 05:05 Band Neutrophils % 5 % (0-10) 09/06/18 05:05 Lymphocytes % (Manual) 6 % (13-43) L 09/06/18 05:05 Monocytes % (Manual) 3 % (4-9) L 09/03/18 04:31 Eosinophils % (Manual) 1 % (0-6) 09/02/18 21:50 Plt Morphology Comment Normal (NORMAL) 09/06/18 05:05 RBC Morphology Normal (NORMAL) 09/06/18 05:05 Sodium 136 mmol/L (136-145) 09/06/18 05:05 Corrected Sodium 137 mmol/L (136-145) 09/06/18 05:05 Potassium 4.3 mmol/L (3.5-5.1) 09/06/18 05:05 Chloride 100 mmol/L (98-107) 09/06/18 05:05 Carbon Dioxide 22.6 mmol/L (21-32) 09/06/18 05:05 BUN 17 mg/dL (7-18) 09/06/18 05:05 Creatinine 0.90 mg/dL (0.70-1.30) 09/06/18 05:05 Est GFR (MDRD) Af Amer > 60 (>60) 09/06/18 05:05 Est GFR (MDRD) Non-Af > 60 (>60) 09/06/18 05:05 Glucose 153 mg/dL (65-99) H 09/06/18 05:05 Calcium 8.3 mg/dL (8.5-10.1) L 09/06/18 05:05 Corrected Calcium 9.2 mg/dL (8.5-10.1) 09/06/18 05:05 Magnesium 2.0 mg/dL (1.7-2.9) 09/05/18 04:34 Total Bilirubin 0.80 mg/dL (0.2-1.0) 09/06/18 05:05 AST 13 Units/L (15-37) L 09/06/18 05:05 ALT 22 Units/L (12-78) 09/06/18 05:05 Alkaline Phosphatase 79 Units/L (46-116) 09/06/18 05:05 Creatine Kinase 29 Units/L (39-308) L 09/02/18 21:50 CK-MB (CK-2) < 1.0 ng/mL (0-4.0) 09/02/18 21:50 CK/CKMB % Calc 3.5 % (<4) 09/02/18 21:50 Troponin I < 0.02 ng/mL (0-1.5) 09/05/18 13:25 C-Reactive Protein 18.60 mg/L (0-3.0) H 09/02/18 21:50 Total Protein 6.7 g/dL (6.4-8.2) 09/06/18 05:05 Albumin 2.9 g/dL (3.4-5.0) L 09/06/18 05:05 Globulin 3.8 g/dL (2.5-4.5) 09/06/18 05:05 Albumin/Globulin Ratio 0.8 Ratio (1.1-2.1) L 09/06/18 05:05 Specimen Type Clean catch urine 09/03/18 03:50 Urine Color Yellow (YELLOW) 09/03/18 03:50 Urine Appearance Clear (CLEAR) 09/03/18 03:50 Urine pH 5.0 (5.0 - 8.0) 09/03/18 03:50 Ur Specific [place] 1.010 (1.000-1.030) 09/03/18 03:50 Urine Protein Negative (NEGATIVE) 09/03/18 03:50 Urine Glucose (UA) Negative (NEGATIVE) 09/03/18 03:50 Urine Ketones Negative (NEGATIVE) 09/03/18 03:50 Urine Occult Blood Negative (NEGATIVE) 09/03/18 03:50 Urine Nitrite Negative (NEGATIVE) 09/03/18 03:50 Urine Bilirubin Negative (NEGATIVE) 09/03/18 03:50 Urine Urobilinogen Normal (NORMAL) 09/03/18 03:50 Ur Leukocyte Esterase Negative (NEGATIVE) 09/03/18 03:50 Stool Description 20g,green,semisolid 09/03/18 03:50 Stl Occult Blood (IFOB) Negative (NEGATIVE) 09/03/18 03:50 Stl C. diff Tox B Gene Negative (NEGATIVE) 09/03/18 03:50 Stl C. diff [id number] Negative (NEGATIVE) 09/03/18 03:50 - Plan (1) LLL pneumonia Status: Acute Qualifiers: Pneumonia type: due to unspecified organism Qualified Code(s): J18.1 - Lobar pneumonia, unspecified organism Plan: IV LEVAQUIN, RESPIRATORY TX, SUPPLEMENTAL OXYGEN, STEROIDS, CONTINUE TO MONITOR. (2) COPD (chronic obstructive pulmonary disease) Status: Acute Qualifiers: COPD type: COPD with acute exacerbation Qualified Code(s): J44.1 - Chronic obstructive pulmonary disease with (acute) exacerbation (3) Acute dehydration Status: Acute Plan: 1/2NS AT 75ML/HR, CONTINUE TO MONITOR (4) Enterocolitis Status: Acute (5) Nausea Status: Acute Plan: ZOFRAN COCKTAIL, CONTINUE TO MONITOR (6) Generalized weakness Status: Acute
[2018-09-06] MEDS: RESTORIL CAP 15 MG PO PRN (22:21)
[2018-09-07 05:12] LABS: BASOPHILS # (AUTO) 0.1 X10^3/uL (0.0-0.1); BASOPHILS % (AUTO) 0.4 % (0.2-1.0); EOSINOPHILS % (AUTO) 0.1 % (0.9-2.9); HEMOGLOBIN 12.4 g/dL (13.5-18.0); LYMPHOCYTES # (AUTO) 0.9 X10^3/uL (1.3-2.9); LYMPHOCYTES % (AUTO) 5.2 % (21.0-51.0); MEAN CORPUSCULAR HGB CONC 34.4 g/dL (33.0-35.0); MEAN CORPUSCULAR VOLUME 90.1 fL (80.0-100.0); MEAN PLATELET VOLUME 9.5 fL (7.4-11.0); MONOCYTES # (AUTO) 0.7 x10^3/uL (0.3-0.8); MONOCYTES % (AUTO) 4.1 % (0.0-13.0); NEUTROPHILS # (AUTO) 15.6 x10^3/uL (2.2-4.8); NEUTROPHILS % (AUTO) 90.2 % (42.0-75.0); PLATELET COUNT 145 X10^3/uL (150.0-450.0); RED BLOOD COUNT 3.99 X10^6/uL (4.7-6.0); RED CELL DISTRIBUTION WIDTH 12.7 % (11.6-16.5); WHITE BLOOD COUNT 17.3 X10^3/uL (3.6-10.0)
[2018-09-07 05:35] LABS: ALANINE AMINOTRANSFERASE 19 Units/L (12-78); ALBUMIN 2.7 g/dL (3.4-5.0); ALKALINE PHOSPHATASE 66 Units/L (46-116); ASPARTATE AMINO TRANSFERASE 13 Units/L (15-37); BLOOD UREA NITROGEN 17 mg/dL (7-18); CALCIUM 8.4 mg/dL (8.5-10.1); CARBON DIOXIDE 21.3 mmol/L (21-32); CHLORIDE 107 mmol/L (98-107); COR CA(FOR HYPOALB) 9.4 mg/dL (8.5-10.1); COR NA(FOR HYPERGLY) 142 mmol/L (136-145); CREATININE 0.82 mg/dL (0.70-1.30); SODIUM 141 mmol/L (136-145); TOTAL PROTEIN 5.6 g/dL (6.4-8.2); eGFR NON BLACK RACES > 60 (>60)
[2018-09-07 06:00] LABS: BAND NEUTROPHILS % 2 % (0-10); PLATELET MORPHOLOGY COMMENT NORMAL (NORMAL)
--- NOTE | 2018-09-07 06:34 | RAD ---
HISTORY: Shortness of breath Study: Chest AP portable Comparison: None Findings: There is a pacemaker present on the left. The heart remains enlarged. No definite congestive heart failure is identified. Mild interstitial lung changes are stable. No alveolar infiltrates or pleural effusions are identified. The bony thorax is unremarkable. IMPRESSION: Continued cardiomegaly without definite congestive heart failure No change mild interstitial lung disease Reported By:
[2018-09-07] MEDS: DUONEB 0.5 MG/3 MG NEB SCH ×4 (08:04→20:14)
[2018-09-07] MEDS ORDERED: NS 1/2 1000 ML IV 1,000 ML ONE (08:25)
[2018-09-07] MEDS: NS 1/2 1000 ML IV 1,000 ML IV SCH ×2 (08:30→21:37)
[2018-09-07] MEDS ORDERED: CORTEF ONE ×2 (08:41→20:07)
[2018-09-07] MEDS: ROBITUSSIN DM PO SCH ×4 (09:02→20:31)
[2018-09-07] MEDS: CORTEF PO SCH ×2 (09:03→20:20)
[2018-09-07] MEDS: HEMOCYTE-PLUS PO SCH (09:03)
[2018-09-07] MEDS: SYNTHROID 100 mcg TAB PO SCH (09:03)
[2018-09-07] MEDS: PLAVIX PO SCH (09:03)
[2018-09-07] MEDS: PROCARDIA XL PO SCH (09:03)
[2018-09-07] MEDS: ECOTRIN TAB 325 MG PO SCH (09:03)
[2018-09-07] MEDS: PROTONIX INJ 40 MG VIAL IVP SCH ×2 (09:04→20:20)
[2018-09-07] MEDS: MORPHINE SULFATE INJ 2 MG INJ IVP PRN (09:36)
[2018-09-07] MEDS: MAALOX or MYLANTA PO PRN (09:38)
[2018-09-07] MEDS ORDERED: NS 100 ML IV + SPIKE MINIBAG* 100 ML ONE ×2 (10:46→20:15)
[2018-09-07] MEDS: LEVSIN/MAALOX/LIDOC VISC PO SCH ×4 (10:56→20:18)
[2018-09-07] MEDS: ZOSYN VIAL 4.5 GRAMS IV SCH ×3 (10:57→21:38)
--- NOTE | 2018-09-07 19:50 | DR.CONSULT ---
Consult - Consultation for Day of: Date: 09/07/18 - Chief Complaint Chief Complaint: Patient referred for dysphagia. Patient with complaints of dysphagia, dyspepsia, nausea, vomiting, epigastric pain, and diarrhea. - History of Present Illness History of Present Illness: Patient is a 73yo male who was referred for dysphagia. Patient with complaints of dysphagia, dyspepsia, states that every time hen eats something it ruiz all the was down his esophagus, nausea, vomiting, epigastric pain that has improved since he has been in the hospital, and diarrhea that has been off and on. Patient denies constipation, melena and hematochezia. Last EGD was 3 years ago and he had a mando rosenthal tear, Last colon was 05/01/11 which showed internal hemorrhoids and hyperplastic colon polyps. WBC 17.3, hgb 12.4, Hct 36.0, Plt 145, BUN 17, Creatinine 0.8, T. Bili 0.4, AST 13, ALT 19, Alk Phos 66. Abdomen and pelvis CT showed improved bowel distention with no acute findings and colonic diverticulosis. - Past Medical History Past Medical History: Arthritis, Coronary Artery Disease, Hypertension, Sleep Apnea Additional Medical History: Atrial Fibrillation, Bradycardia. Pituitary adenoma - s/p resection and XRT with recently diagnoses probable recurrence. CVD; S/P TIA in 03/2015 - Past Surgical History Surgical History: Angioplasty/Stents, Ortho Surgery Additional Surgical History: Pacemaker implantation 2010. Pituitary adenoma resection and XRT 2008. Cardiac ablation for the tx of A-fib - 05/2015. Cardiac cath and stent placement 2010. Cervical fusion - Family History Family Medical History: [place] - Social History Does patient currently use any type of tobacco product: Yes Have you used tobacco products in the last 12 months: Yes Type of Tobacco Use: Cigars Does any household member use tobacco: No Alcohol Use: None Drug Use: None - Medications Home Medications: No Known Drug Allergies Allergy (Verified 02/26/17 07:26) CONTINUE taking the following medications aspirin [Ecotrin] 325 mg PO DAILY 09/02/18 [History] atorvastatin 80 mg PO HS 09/02/18 [History] cetirizine 10 mg PO DAILY 09/02/18 [History] clopidogrel 75 mg PO DAILY 09/02/18 [History] hydrocortisone 10 mg PO HS 09/02/18 [History] hydrocortisone 15 mg PO QAM 09/02/18 [History] iron-folic acid-mv, min cmb#15 [Hemocyte-Plus] 1 cap PO DAILY 09/02/18 [History] levothyroxine 100 mcg PO DAILY 09/02/18 [History] nifedipine 30 mg PO DAILY 09/02/18 [History] temazepam 15 - 30 mg PO QHS PRN 09/02/18 [History] - Review of Systems Gastrointestinal: See HPI (dysphagia, dyspepsia), Nausea, Vomiting, Abdominal Pain (epigastric ), Diarrhea - Physical Exam Vital Signs: Temperature 98.0 F Pulse Rate [Right Brachial] 82 Pulse Rate [Left Brachial] 118 Pulse Rate [Brachial] 94 Pulse Rate 69 Respiratory Rate 20 Blood Pressure [Left Arm] 121/70 Blood Pressure [Right Arm] 134/72 Blood Pressure [Standing] 130/74 Blood Pressure [Sitting] 140/81 Blood Pressure [Lying] 145/81 Blood Pressure 127/71 O2 Sat by Pulse Oximetry 98 Oriented: Normal Eyes: Normal Ear: Normal Nose: Normal Throat: Normal Respiratory: Clear Throughout Cardiovascular: Normal Auscultation: Bowel Sounds: Normal Palpation: Normal. negative: Spleen Enlarged, Liver Enlarged, Mass Pulsatile Tenderness: Epigastric Skin: Normal Musculoskeletal: Normal Psychiatric: Normal Mood Description: Calm Affect: Normal Speech Pattern: Clear, Appropriate - Plan Plan: Assessment. 1. Dysphagia r/o esophageal stricture. 2. Dyspepsia, nausea, vomiting, epigastric pain r/o gastric ulcer gastric adenocarcinoma. 3. Diarrhea r/o infectious etiololgy. Plan. 1. EGD on thrusday if improved from infection standpoint. 2. Protonix IV BID. 3. Stool Studies. Plan reviewed with Dr. Keen - Allergies Allergies/Adverse Reactions: Allergies Allergy/AdvReac Type Severity Reaction Status Date / Time No Known Drug Allergies Allergy Verified 02/26/17 07:26
[2018-09-07] MEDS: LIPITOR TAB 40 MG PO SCH (20:20)
[2018-09-07] MEDS: LEVAQUIN PREMIX IV 750 MG 750 MG/150 ML BAG IV SCH (20:25)
[2018-09-07] MEDS: RESTORIL CAP 15 MG PO PRN (20:27)
[2018-09-08] MEDS ORDERED: NS 1/2 1000 ML IV 1,000 ML ONE ×2 (01:27→13:27)
[2018-09-08] MEDS ORDERED: NS 100 ML IV + SPIKE MINIBAG* 100 ML ONE ×2 (04:45→12:24)
[2018-09-08] MEDS: ZOSYN VIAL 4.5 GRAMS IV SCH (05:03)
[2018-09-08 05:47] LABS: BASOPHILS % (AUTO) 0.1 % (0.2-1.0); EOSINOPHILS # (AUTO) 0.1 x10^3/uL (0.0-0.2); EOSINOPHILS % (AUTO) 0.5 % (0.9-2.9); HEMATOCRIT 33.7 % (42.0-54.0); HEMOGLOBIN 11.6 g/dL (13.5-18.0); LYMPHOCYTES # (AUTO) 1.2 X10^3/uL (1.3-2.9); LYMPHOCYTES % (AUTO) 10.1 % (21.0-51.0); MEAN CORPUSCULAR HEMOGLOBIN 31.1 pg (27.0-34.0); MEAN CORPUSCULAR HGB CONC 34.5 g/dL (33.0-35.0); MEAN CORPUSCULAR VOLUME 90.3 fL (80.0-100.0); MEAN PLATELET VOLUME 8.9 fL (7.4-11.0); MONOCYTES # (AUTO) 0.8 x10^3/uL (0.3-0.8); MONOCYTES % (AUTO) 6.7 % (0.0-13.0); NEUTROPHILS # (AUTO) 9.9 x10^3/uL (2.2-4.8); NEUTROPHILS % (AUTO) 82.6 % (42.0-75.0); PLATELET COUNT 228 X10^3/uL (150.0-450.0); RED BLOOD COUNT 3.74 X10^6/uL (4.7-6.0); RED CELL DISTRIBUTION WIDTH 12.9 % (11.6-16.5); WHITE BLOOD COUNT 11.9 X10^3/uL (3.6-10.0)
[2018-09-08 06:28] LABS: ALANINE AMINOTRANSFERASE 23 Units/L (12-78); ALBUMIN 2.6 g/dL (3.4-5.0); ALKALINE PHOSPHATASE 66 Units/L (46-116); ASPARTATE AMINO TRANSFERASE 16 Units/L (15-37); BLOOD UREA NITROGEN 15 mg/dL (7-18); CARBON DIOXIDE 25.5 mmol/L (21-32); CHLORIDE 106 mmol/L (98-107); COR CA(FOR HYPOALB) 9.1 mg/dL (8.5-10.1); COR NA(FOR HYPERGLY) 141 mmol/L (136-145); CREATININE 0.86 mg/dL (0.70-1.30); SODIUM 141 mmol/L (136-145); eGFR NON BLACK RACES > 60 (>60)
--- NOTE | 2018-09-08 06:59 | RAD ---
HISTORY: Shortness of breath Study: Chest AP portable Comparison: 09/07/2018 Findings: There is a pacemaker present on the left. It obscures the lateral aspect of the left lung apex. The heart remains enlarged. No congestive heart failure is noted. Mild interstitial lung changes are stable. No acute alveolar infiltrates or pleural effusions are identified. The bony thorax is unremarkable. IMPRESSION: No significant change from the prior examination Reported By:
[2018-09-08] MEDS ORDERED: CORTEF ONE ×2 (08:29→19:23)
[2018-09-08] MEDS: PROTONIX INJ 40 MG VIAL IVP SCH ×2 (08:56→20:47)
[2018-09-08] MEDS: LEVSIN/MAALOX/LIDOC VISC PO SCH ×4 (08:56→20:48)
[2018-09-08] MEDS: HEMOCYTE-PLUS PO SCH (08:56)
[2018-09-08] MEDS: ROBITUSSIN DM PO SCH ×5 (08:56→20:51)
[2018-09-08] MEDS: NS 1/2 1000 ML IV 1,000 ML IV SCH ×3 (08:57→23:21)
[2018-09-08] MEDS: CORTEF PO SCH ×2 (08:57→20:47)
[2018-09-08] MEDS: SYNTHROID 100 mcg TAB PO SCH (08:57)
[2018-09-08] MEDS: K-DUR TAB 20 MEQ PO PRN (08:58)
[2018-09-08] MEDS: DUONEB 0.5 MG/3 MG NEB SCH ×4 (09:05→20:07)
[2018-09-08] MEDS: MORPHINE SULFATE INJ 2 MG INJ IVP PRN (09:35)
[2018-09-08] MEDS: PROCARDIA XL PO SCH (09:35)
--- NOTE | 2018-09-08 10:24 | PCM.PROG ---
Progress Note - Progress Note for Day of Date of Exam: 09/07/18 - Subjective Subjective: WAS ADMITTED ON 09/03/18 DUE TO DEHYDRATION, LLL PNEUMONIA, COPD EXACERBATION. TODAY, HE IS ALERT AND ORIENTED, LYING IN BED ON MORNING ROUNDS. HE CONTINUES WITH COMPLAINTS OF SHORTNESS OF BREATH, COUGH, AND DIFFICULTY SWALLOWING AT TIMES. FAMILY REPORTS THAT HE HAS BEEN WEAK AND CONFU SED AT TIMES. ON EXAMINATION, HEART IS REGULAR IN RATE AND RHYTHM. BILATERAL LUNGS ARE NOTED WITH SCATTERED RHONCHI AND WHEEZES THROUGHOUT. ABDOMEN IS ROUND, SOFT, AND NOTED WITH MILD, DIFFUSE TENDERNESS. HYPOACTIVE BOWEL SOUNDS NOTED THROUGHOUT. HIS VITALS THIS MORNING ARE 98.0-87-18-97%-120/58. LABS WERE OBTAINED. ABNORMAL LAB VALUES INCLUDE THE FOLLOWING: WWBC 17.3, RBC 3.99, HGB 12.4, HCT 36.0, PLT COUNT 145, GLUCOSE 123, CALCIUM 8.4, AST 13, TOTAL PROTEIN 5.6, ALBUMIN 2.7. A CHEST XRAY WAS OBTAINED THIS MORNING AND REVEALED: Continued cardiomegaly without definite congestive heart failure. No change mild interstitial lung disease. HE IS CURRENTLY RECEIVING IV LEVAQUIN, RESPIRATORY TREATMENTS, AND STEROIDS. TODAY, WE WILL CONTINUE WITH CURRENT PLAN OF CARE AND CONSULT GI FOR POSSIBLE EGD DUE TO DYSPHAGIA. WE WILL ADD ZOSYN TO HIS ANTIBIOITIC REGIMEN. OTHERWISE, WE WILL FOLLOW UP WITH AM LABS AND CONTINUE TO MONITOR. - Past Medical Family Social History Past Med/Fam/Surg Hx: No changes since H&P Allergies: Allergies No Known Drug Allergies Allergy (Verified 02/26/17 07:26) - Review of Systems ROS: No change since H&P - Vital Signs and I&O's Vital Signs: Temperature 97.9 F Pulse Rate [Right Brachial] 62 Pulse Rate [Left Brachial] 68 Pulse Rate [Brachial] 94 Pulse Rate 72 Respiratory Rate 18 Blood Pressure [Left Arm] 123/64 Blood Pressure [Right Arm] 134/72 Blood Pressure [Standing] 130/74 Blood Pressure [Sitting] 140/81 Blood Pressure [Lying] 145/81 Blood Pressure 127/71 O2 Sat by Pulse Oximetry 96 Intake and Output: Intake & Output 09/05/18 09/06/18 09/07/18 09/08/18 11:59 11:59 11:59 11:59 Intake Total 2620 / 2620 1840 / 1840 2227 / 2227 215 / 215 Output Total 3600 / 3600 1857 / 1857 3050 / 3050 2350 / 2350 Balance -980 / -980 -17 / -17 -823 / -823 -191 / -191 - Physical Exam Oriented: Normal Eyes: Normal Ear: Normal Nose: Normal Throat: Normal Respiratory: Generalized, Diminished, Wheezes, Rhonchi Cardiovascular: Normal : Normal Auscultation: Bowel Sounds: Normal Palpation: Normal Tenderness: Epigastric Skin: Normal Musculoskeletal: Normal Psychiatric: Normal Mood Description: Calm Affect: Normal Speech Pattern: Clear, Appropriate - Laboratory and Diagnostics Result Diagrams: 09/08/18 05:25 09/08/18 05:25 Labs: 09/07/18 12:15 Sputum - Expectorated Sputum Sputum Culture - Preliminary 09/07/18 12:15 Sputum - Expectorated Sputum - Final 09/05/18 22:09 Blood Blood Culture - Preliminary 09/05/18 21:58 Blood Blood Culture - Preliminary 09/05/18 08:07 Stool Stool Culture - Final 09/05/18 08:07 Stool - Final 09/03/18 02:19 Blood Blood Culture - Preliminary Laboratory WBC 11.9 X10^3/uL (3.6-10.0) H 09/08/18 05:25 RBC 3.74 X10^6/uL (4.7-6.0) L 09/08/18 05:25 Hgb 11.6 g/dL (13.5-18.0) L 09/08/18 05:25 Hct 33.7 % (42.0-54.0) L 09/08/18 05:25 MCV 90.3 fL (80.0-100.0) 09/08/18 05:25 MCH 31.1 pg (27.0-34.0) 09/08/18 05:25 MCHC 34.5 g/dL (33.0-35.0) 09/08/18 05:25 RDW 12.9 % (11.6-16.5) 09/08/18 05:25 Plt Count 228 X10^3/uL (150.0-450.0) 09/08/18 05:25 Plt Count Comment Decreased (ADEQUATE) 09/07/18 04:46 MPV 8.9 fL (7.4-11.0) 09/08/18 05:25 Neut % (Auto) 82.6 % (42.0-75.0) H 09/08/18 05:25 Lymph % (Auto) 10.1 % (21.0-51.0) L 09/08/18 05:25 [place] % (Auto) 6.7 % (0.0-13.0) 09/08/18 05:25 Eos % (Auto) 0.5 % (0.9-2.9) L 09/08/18 05:25 Baso % (Auto) 0.1 % (0.2-1.0) L 09/08/18 05:25 Neut # (Auto) 9.9 x10^3/uL (2.2-4.8) H 09/08/18 05:25 Lymph # (Auto) 1.2 X10^3/uL (1.3-2.9) L 09/08/18 05:25 [place] # (Auto) 0.8 x10^3/uL (0.3-0.8) 09/08/18 05:25 Eos # (Auto) 0.1 x10^3/uL (0.0-0.2) 09/08/18 05:25 Baso # (Auto) 0.0 X10^3/uL (0.0-0.1) 09/08/18 05:25 Absolute Nucleated RBC 0.0 /100WBC 09/08/18 05:25 Total Counted 100 09/07/18 04:46 Neutrophils % (Manual) 94 % (39-76) H 09/07/18 04:46 Band Neutrophils % 2 % (0-10) 09/07/18 04:46 Lymphocytes % (Manual) 2 % (13-43) L 09/07/18 04:46 Monocytes % (Manual) 2 % (4-9) L 09/07/18 04:46 Eosinophils % (Manual) 1 % (0-6) 09/02/18 21:50 Plt Morphology Comment Normal (NORMAL) 09/07/18 04:46 RBC Morphology Normal (NORMAL) 09/07/18 04:46 Sodium 141 mmol/L (136-145) 09/08/18 05:25 Corrected Sodium 141 mmol/L (136-145) 09/08/18 05:25 Potassium 3.7 mmol/L (3.5-5.1) 09/08/18 05:25 Chloride 106 mmol/L (98-107) 09/08/18 05:25 Carbon Dioxide 25.5 mmol/L (21-32) 09/08/18 05:25 BUN 15 mg/dL (7-18) 09/08/18 05:25 Creatinine 0.86 mg/dL (0.70-1.30) 09/08/18 05:25 Est GFR (MDRD) Af Amer > 60 (>60) 09/08/18 05:25 Est GFR (MDRD) Non-Af > 60 (>60) 09/08/18 05:25 Glucose 111 mg/dL (65-99) H 09/08/18 05:25 Calcium 8.0 mg/dL (8.5-10.1) L 09/08/18 05:25 Corrected Calcium 9.1 mg/dL (8.5-10.1) 09/08/18 05:25 Magnesium 2.0 mg/dL (1.7-2.9) 09/05/18 04:34 Total Bilirubin 0.30 mg/dL (0.2-1.0) 09/08/18 05:25 AST 16 Units/L (15-37) 09/08/18 05:25 ALT 23 Units/L (12-78) 09/08/18 05:25 Alkaline Phosphatase 66 Units/L (46-116) 09/08/18 05:25 Creatine Kinase 29 Units/L (39-308) L 09/02/18 21:50 CK-MB (CK-2) < 1.0 ng/mL (0-4.0) 09/02/18 21:50 CK/CKMB % Calc 3.5 % (<4) 09/02/18 21:50 Troponin I < 0.02 ng/mL (0-1.5) 09/05/18 13:25 C-Reactive Protein 18.60 mg/L (0-3.0) H 09/02/18 21:50 Total Protein 6.0 g/dL (6.4-8.2) L 09/08/18 05:25 Albumin 2.6 g/dL (3.4-5.0) L 09/08/18 05:25 Globulin 3.4 g/dL (2.5-4.5) 09/08/18 05:25 Albumin/Globulin Ratio 0.8 Ratio (1.1-2.1) L 09/08/18 05:25 Specimen Type Clean catch urine 09/03/18 03:50 Urine Color Yellow (YELLOW) 09/03/18 03:50 Urine Appearance Clear (CLEAR) 09/03/18 03:50 Urine pH 5.0 (5.0 - 8.0) 09/03/18 03:50 Ur Specific [place] 1.010 (1.000-1.030) 09/03/18 03:50 Urine Protein Negative (NEGATIVE) 09/03/18 03:50 Urine Glucose (UA) Negative (NEGATIVE) 09/03/18 03:50 Urine Ketones Negative (NEGATIVE) 09/03/18 03:50 Urine Occult Blood Negative (NEGATIVE) 09/03/18 03:50 Urine Nitrite Negative (NEGATIVE) 09/03/18 03:50 Urine Bilirubin Negative (NEGATIVE) 09/03/18 03:50 Urine Urobilinogen Normal (NORMAL) 09/03/18 03:50 Ur Leukocyte Esterase Negative (NEGATIVE) 09/03/18 03:50 Stool Description 20g,green,semisolid 09/03/18 03:50 Stl Occult Blood (IFOB) Negative (NEGATIVE) 09/03/18 03:50 Stl C. diff Tox B Gene Negative (NEGATIVE) 09/03/18 03:50 Stl C. diff [id number] Negative (NEGATIVE) 09/03/18 03:50 - Plan (1) LLL pneumonia Status: Acute Qualifiers: Pneumonia type: due to unspecified organism Qualified Code(s): J18.1 - Lobar pneumonia, unspecified organism Plan: IV LEVAQUIN, IV ZOSYN, RESPIRATORY TX, SUPPLEMENTAL OXYGEN, STEROIDS, CONTINUE TO MONITOR. (2) COPD (chronic obstructive pulmonary disease) Status: Acute Qualifiers: COPD type: COPD with acute exacerbation Qualified Code(s): J44.1 - Chronic obstructive pulmonary disease with (acute) exacerbation (3) Acute dehydration Status: Acute Plan: 1/2NS AT 75ML/HR, CONTINUE TO MONITOR (4) Enterocolitis Status: Acute (5) Nausea Status: Acute Plan: ZOFRAN COCKTAIL, CONTINUE TO MONITOR (6) Generalized weakness Status: Acute (7) Dysphagia Status: Acute Qualifiers: Dysphagia type: unspecified Qualified Code(s): R13.10 - Dysphagia, unspecified Plan: CONSULT GI FOR POSSIBLE EGD
--- NOTE | 2018-09-08 12:00 | CT ---
HISTORY: Dizziness. Study: CT brain without contrast Comparison: CT head dated August 19, 2018. Technique: Multiple axial images of the brain were obtained from the skull base to the vertex without administration of IV contrast. Dose reduction techniques including Automated Exposure Control (AEC) and adjustment of mA and kV were utilized. Findings: Age-related cortical atrophy and chronic small vessel ischemic changes. No acute intraparenchymal hemorrhage or mass can be identified. No extra-axial fluid collections are seen. No alteration in the attenuation of the brain parenchyma can be identified to suggest acute or subacute ischemic change. The ventricular system is symmetric and nondilated. The extracranial structures are grossly unremarkable. IMPRESSION: No obvious acute intracranial pathology. If clinically concerned for acute ischemia/infarction, MRI brain is more sensitive. Reported By:
[2018-09-08] MEDS: ZOSYN VIAL 4.5 GRAMS 4.5 G in NS 100 ML IV + SPIKE MINIBAG* 100 ML IV SCH ×2 (13:18→22:34)
--- NOTE | 2018-09-08 19:14 | PCM.PROG ---
Progress Note - Progress Note for Day of Date of Exam: 09/08/18 - Subjective Subjective: WAS ADMITTED ON 09/03/18 DUE TO DEHYDRATION, LLL PNEUMONIA, COPD EXACERBATION. TODAY, HE IS ALERT AND ORIENTED, LYING IN BED ON MORNING ROUNDS. HE CONTINUES WITH COMPLAINTS OF SHORTNESS OF BREATH, COUGH, AND DIFFICULTY SWALLOWING AT TIMES. FAMILY REPORTS THAT HE HAS CONTINUED WITH CONF USION AT TIMES. ON EXAMINATION, HEART IS REGULAR IN RATE AND RHYTHM. BILATERAL LUNGS ARE NOTED WITH SCATTERED RHONCHI AND WHEEZES THROUGHOUT. ABDOMEN IS ROUND, SOFT, AND NOTED WITH MILD, DIFFUSE TENDERNESS. HYPOACTIVE BOWEL SOUNDS NOTED THROUGHOUT. HIS VITALS THIS MORNING ARE 97.9-68-20-95%-123/64. LABS WERE OBTAINED. ABNORMAL LAB VALUES INCLUDE THE FOLLOWING: WBC DECREASED FROM 17.3 TO 11.9, RBC 3.74, HGB 11.6, HCT 33.7, GLUCOSE 111, CALCIUM 8.0, TOTAL PROTEIN 6.0, ALBUMIN 2.6. SPUTUM CULTURE REPORTED GROWTH OF YEAST. A CHEST XRAY WAS OBTAINED THIS MORNING AND REVEALED: There is a pacemaker present on the left. It obscures the lateral aspect of the left lung apex. The heart remains enlarged. No congestive heart failure is noted. Mild interstitial lung changes are stable. No acute alveolar infiltrates or pleural effusions are identified. The bony thorax is unremarkable. CONSULTED WITH PATIENT AND PLANS FOR EGD TOMORROW. HE IS CURRENTLY RECEIVING IV LEVAQUIN, IV ZOSYN, RESPIRATORY TREATMENTS, AND STEROIDS. WE WILL CONTINUE WITH CURRENT PLAN OF CARE AND START DIFLUCAN 200MG IV DAILY. WE WILL OBTAIN A BRAIN CT TODAY. OTHERWISE, WE WILL FOLLOW UP WITH AM LABS AND CONTINUE TO MONITOR. - Past Medical Family Social History Past Med/Fam/Surg Hx: No changes since H&P Allergies: Allergies No Known Drug Allergies Allergy (Verified 02/26/17 07:26) - Review of Systems ROS: No change since H&P - Vital Signs and I&O's Vital Signs: Temperature 98.9 F Pulse Rate [Right Brachial] 62 Pulse Rate [Left Brachial] 65 Pulse Rate [Brachial] 94 Pulse Rate 70 Respiratory Rate 18 Blood Pressure [Left Arm] 115/68 Blood Pressure [Right Arm] 134/72 Blood Pressure [Standing] 130/74 Blood Pressure [Sitting] 140/81 Blood Pressure [Lying] 145/81 Blood Pressure 127/71 O2 Sat by Pulse Oximetry 96 Intake and Output: Intake & Output 09/06/18 09/07/18 09/08/18 09/09/18 11:59 11:59 11:59 11:59 Intake Total 1840 / 1840 2227 / 2227 2159 / 2159 1499 / 1499 Output Total 1857 / 1857 3050 / 3050 2350 / 2350 1100 / 1100 Balance -17 / -17 -823 / -823 -191 / -191 399 / 399 - Physical Exam Oriented: Normal Eyes: Normal Ear: Normal Nose: Normal Throat: Normal Respiratory: Generalized, Diminished, Wheezes, Rhonchi Cardiovascular: Normal : Normal Auscultation: Bowel Sounds: Normal Tenderness: Epigastric Skin: Normal Musculoskeletal: Normal Psychiatric: Normal Mood Description: Calm Affect: Normal Speech Pattern: Clear, Appropriate - Laboratory and Diagnostics Result Diagrams: 09/08/18 05:25 09/08/18 05:25 Labs: 09/03/18 02:19 Blood Blood Culture - Final 09/07/18 12:15 Sputum - Expectorated Sputum Sputum Culture - Preliminary 09/07/18 12:15 Sputum - Expectorated Sputum - Final 09/05/18 22:09 Blood Blood Culture - Preliminary 09/05/18 21:58 Blood Blood Culture - Preliminary 09/05/18 08:07 Stool Stool Culture - Final 09/05/18 08:07 Stool - Final Laboratory WBC 11.9 X10^3/uL (3.6-10.0) H 09/08/18 05:25 RBC 3.74 X10^6/uL (4.7-6.0) L 09/08/18 05:25 Hgb 11.6 g/dL (13.5-18.0) L 09/08/18 05:25 Hct 33.7 % (42.0-54.0) L 09/08/18 05:25 MCV 90.3 fL (80.0-100.0) 09/08/18 05:25 MCH 31.1 pg (27.0-34.0) 09/08/18 05:25 MCHC 34.5 g/dL (33.0-35.0) 09/08/18 05:25 RDW 12.9 % (11.6-16.5) 09/08/18 05:25 Plt Count 228 X10^3/uL (150.0-450.0) 09/08/18 05:25 Plt Count Comment Decreased (ADEQUATE) 09/07/18 04:46 MPV 8.9 fL (7.4-11.0) 09/08/18 05:25 Neut % (Auto) 82.6 % (42.0-75.0) H 09/08/18 05:25 Lymph % (Auto) 10.1 % (21.0-51.0) L 09/08/18 05:25 [place] % (Auto) 6.7 % (0.0-13.0) 09/08/18 05:25 Eos % (Auto) 0.5 % (0.9-2.9) L 09/08/18 05:25 Baso % (Auto) 0.1 % (0.2-1.0) L 09/08/18 05:25 Neut # (Auto) 9.9 x10^3/uL (2.2-4.8) H 09/08/18 05:25 Lymph # (Auto) 1.2 X10^3/uL (1.3-2.9) L 09/08/18 05:25 [place] # (Auto) 0.8 x10^3/uL (0.3-0.8) 09/08/18 05:25 Eos # (Auto) 0.1 x10^3/uL (0.0-0.2) 09/08/18 05:25 Baso # (Auto) 0.0 X10^3/uL (0.0-0.1) 09/08/18 05:25 Absolute Nucleated RBC 0.0 /100WBC 09/08/18 05:25 Total Counted 100 09/07/18 04:46 Neutrophils % (Manual) 94 % (39-76) H 09/07/18 04:46 Band Neutrophils % 2 % (0-10) 09/07/18 04:46 Lymphocytes % (Manual) 2 % (13-43) L 09/07/18 04:46 Monocytes % (Manual) 2 % (4-9) L 09/07/18 04:46 Eosinophils % (Manual) 1 % (0-6) 09/02/18 21:50 Plt Morphology Comment Normal (NORMAL) 09/07/18 04:46 RBC Morphology Normal (NORMAL) 09/07/18 04:46 Sodium 141 mmol/L (136-145) 09/08/18 05:25 Corrected Sodium 141 mmol/L (136-145) 09/08/18 05:25 Potassium 3.7 mmol/L (3.5-5.1) 09/08/18 05:25 Chloride 106 mmol/L (98-107) 09/08/18 05:25 Carbon Dioxide 25.5 mmol/L (21-32) 09/08/18 05:25 BUN 15 mg/dL (7-18) 09/08/18 05:25 Creatinine 0.86 mg/dL (0.70-1.30) 09/08/18 05:25 Est GFR (MDRD) Af Amer > 60 (>60) 09/08/18 05:25 Est GFR (MDRD) Non-Af > 60 (>60) 09/08/18 05:25 Glucose 111 mg/dL (65-99) H 09/08/18 05:25 Calcium 8.0 mg/dL (8.5-10.1) L 09/08/18 05:25 Corrected Calcium 9.1 mg/dL (8.5-10.1) 09/08/18 05:25 Magnesium 2.0 mg/dL (1.7-2.9) 09/05/18 04:34 Total Bilirubin 0.30 mg/dL (0.2-1.0) 09/08/18 05:25 AST 16 Units/L (15-37) 09/08/18 05:25 ALT 23 Units/L (12-78) 09/08/18 05:25 Alkaline Phosphatase 66 Units/L (46-116) 09/08/18 05:25 Creatine Kinase 29 Units/L (39-308) L 09/02/18 21:50 CK-MB (CK-2) < 1.0 ng/mL (0-4.0) 09/02/18 21:50 CK/CKMB % Calc 3.5 % (<4) 09/02/18 21:50 Troponin I < 0.02 ng/mL (0-1.5) 09/05/18 13:25 C-Reactive Protein 18.60 mg/L (0-3.0) H 09/02/18 21:50 Total Protein 6.0 g/dL (6.4-8.2) L 09/08/18 05:25 Albumin 2.6 g/dL (3.4-5.0) L 09/08/18 05:25 Globulin 3.4 g/dL (2.5-4.5) 09/08/18 05:25 Albumin/Globulin Ratio 0.8 Ratio (1.1-2.1) L 09/08/18 05:25 Specimen Type Clean catch urine 09/03/18 03:50 Urine Color Yellow (YELLOW) 09/03/18 03:50 Urine Appearance Clear (CLEAR) 09/03/18 03:50 Urine pH 5.0 (5.0 - 8.0) 09/03/18 03:50 Ur Specific [place] 1.010 (1.000-1.030) 09/03/18 03:50 Urine Protein Negative (NEGATIVE) 09/03/18 03:50 Urine Glucose (UA) Negative (NEGATIVE) 09/03/18 03:50 Urine Ketones Negative (NEGATIVE) 09/03/18 03:50 Urine Occult Blood Negative (NEGATIVE) 09/03/18 03:50 Urine Nitrite Negative (NEGATIVE) 09/03/18 03:50 Urine Bilirubin Negative (NEGATIVE) 09/03/18 03:50 Urine Urobilinogen Normal (NORMAL) 09/03/18 03:50 Ur Leukocyte Esterase Negative (NEGATIVE) 09/03/18 03:50 Stool Description 20g,green,semisolid 09/03/18 03:50 Stl Occult Blood (IFOB) Negative (NEGATIVE) 09/03/18 03:50 Stl C. diff Tox B Gene Negative (NEGATIVE) 09/03/18 03:50 Stl C. diff [id number] Negative (NEGATIVE) 09/03/18 03:50 - Plan (1) LLL pneumonia Status: Acute Qualifiers: Pneumonia type: due to unspecified organism Qualified Code(s): J18.1 - Lobar pneumonia, unspecified organism Plan: IV LEVAQUIN, IV ZOSYN, RESPIRATORY TX, SUPPLEMENTAL OXYGEN, STEROIDS, CONTINUE TO MONITOR. (2) COPD (chronic obstructive pulmonary disease) Status: Acute Qualifiers: COPD type: COPD with acute exacerbation Qualified Code(s): J44.1 - Chronic obstructive pulmonary disease with (acute) exacerbation (3) Acute dehydration Status: Acute Plan: 1/2NS AT 75ML/HR, CONTINUE TO MONITOR (4) Enterocolitis Status: Acute (5) Nausea Status: Acute Plan: ZOFRAN COCKTAIL, CONTINUE TO MONITOR (6) Generalized weakness Status: Acute (7) Dysphagia Status: Acute Qualifiers: Dysphagia type: unspecified Qualified Code(s): R13.10 - Dysphagia, unspecified Plan: CONSULT GI FOR POSSIBLE EGD
[2018-09-08] MEDS: DIFLUCAN 200 MG IV PREMIX* 200 MG/100 ML BAG IV SCH (19:38)
[2018-09-08] MEDS: LEVAQUIN PREMIX IV 750 MG 750 MG/150 ML BAG IV SCH (20:47)
[2018-09-08] MEDS: LIPITOR TAB 40 MG PO SCH (20:48)
[2018-09-08] MEDS ORDERED: COLACE CAP 100 MG PO SCH (21:00)
[2018-09-08] MEDS ORDERED: MILK OF MAGNESIA PO SCH (21:00)
[2018-09-09] MEDS: MORPHINE SULFATE INJ 2 MG INJ IVP PRN ×4 (02:22→20:05)
[2018-09-09] MEDS: MAALOX or MYLANTA PO PRN (02:23)
[2018-09-09] MEDS ORDERED: NS 1/2 1000 ML IV 1,000 ML ONE ×2 (04:23→14:41)
[2018-09-09] MEDS: ZOSYN VIAL 4.5 GRAMS 4.5 G in NS 100 ML IV + SPIKE MINIBAG* 100 ML IV SCH ×3 (05:00→22:01)
--- NOTE | 2018-09-09 06:07 | RAD ---
HISTORY: Shortness of breath Study: Chest AP portable Comparison: 09/08/2018 Findings: There is a pacemaker present on the left obscuring a portion of the left lateral upper lobe. The heart remains enlarged. No congestive heart failure is noted. Mild interstitial lung changes are present. No acute alveolar infiltrates or pleural effusions are identified. The bony thorax is unremarkable. IMPRESSION: Continued cardiomegaly without congestive heart failure Stable mild interstitial lung changes Reported By:
[2018-09-09 06:12] LABS: BASOPHILS % (AUTO) 0.1 % (0.2-1.0); EOSINOPHILS # (AUTO) 0.1 x10^3/uL (0.0-0.2); EOSINOPHILS % (AUTO) 0.8 % (0.9-2.9); HEMATOCRIT 34.9 % (42.0-54.0); HEMOGLOBIN 12.1 g/dL (13.5-18.0); LYMPHOCYTES # (AUTO) 0.9 X10^3/uL (1.3-2.9); LYMPHOCYTES % (AUTO) 7.3 % (21.0-51.0); MEAN CORPUSCULAR HEMOGLOBIN 31.2 pg (27.0-34.0); MEAN CORPUSCULAR HGB CONC 34.6 g/dL (33.0-35.0); MEAN CORPUSCULAR VOLUME 90.2 fL (80.0-100.0); MEAN PLATELET VOLUME 8.8 fL (7.4-11.0); MONOCYTES # (AUTO) 0.8 x10^3/uL (0.3-0.8); MONOCYTES % (AUTO) 6.7 % (0.0-13.0); NEUTROPHILS # (AUTO) 9.9 x10^3/uL (2.2-4.8); NEUTROPHILS % (AUTO) 85.1 % (42.0-75.0); PLATELET COUNT 220 X10^3/uL (150.0-450.0); RED BLOOD COUNT 3.87 X10^6/uL (4.7-6.0); WHITE BLOOD COUNT 11.7 X10^3/uL (3.6-10.0)
[2018-09-09 06:34] LABS: ALANINE AMINOTRANSFERASE 24 Units/L (12-78); ALBUMIN 2.7 g/dL (3.4-5.0); ALKALINE PHOSPHATASE 70 Units/L (46-116); ASPARTATE AMINO TRANSFERASE 15 Units/L (15-37); BLOOD UREA NITROGEN 13 mg/dL (7-18); CALCIUM 8.2 mg/dL (8.5-10.1); CARBON DIOXIDE 24.8 mmol/L (21-32); CHLORIDE 104 mmol/L (98-107); COR CA(FOR HYPOALB) 9.2 mg/dL (8.5-10.1); CREATININE 0.81 mg/dL (0.70-1.30); SODIUM 139 mmol/L (136-145); eGFR NON BLACK RACES > 60 (>60)
[2018-09-09] MEDS: PROCARDIA XL PO SCH (09:20)
[2018-09-09] MEDS: PROTONIX INJ 40 MG VIAL IVP SCH ×2 (09:27→20:05)
[2018-09-09] MEDS: DIFLUCAN 200 MG IV PREMIX* 200 MG/100 ML BAG IV SCH (09:33)
[2018-09-09] MEDS: DUONEB 0.5 MG/3 MG NEB SCH ×4 (09:48→20:29)
[2018-09-09] MEDS ORDERED: COLACE CAP 100 MG PO PRN (11:52)
[2018-09-09] MEDS ORDERED: MILK OF MAGNESIA PO PRN (11:52)
[2018-09-09] MEDS ORDERED: DIPRIVAN VIAL 20 ML ONE (12:39)
--- NOTE | 2018-09-09 13:35 | DR.H&P ---
H&P - History & Physical for Day of: H&P Date: 09/02/18 - Chief Complaint Chief Complaint: SOB, DIZZINESS, WEAKNESS - History of Present Illness History of Present Illness: The patient is a 73-year-old white male who was admitted to [facility] on September 03, 2018 secondary to dehydration, left lower lobe pneumonia, and acute chronic obstructive pulmonary disease exacerbation. PT HAD PMH OF CAD, COPD, HTN, CVA, OA, JARRELL. PT ADMITTED FOR TREATMENT OF PNEUMONIA, DEHYDRATION. - Past Medical History Past Medical History: Arthritis, COPD, Coronary Artery Disease, Hypertension, Sleep Apnea Additional Medical History: Atrial Fibrillation, Bradycardia. Pituitary adenoma - s/p resection and XRT with recently diagnoses probable recurrence. CVD; S/P TIA in 03/2015 - Past Surgical History Surgical History: Angioplasty/Stents, Ortho Surgery Additional Surgical History: Pacemaker implantation 2010. Pituitary adenoma resection and XRT 2008. Cardiac ablation for the tx of A-fib - 05/2015. Cardiac cath and stent placement 2010. Cervical fusion - Family History Family Medical History: [place] - Social History Does patient currently use any type of tobacco product: Yes Have you used tobacco products in the last 12 months: Yes Type of Tobacco Use: Cigars Does any household member use tobacco: No Alcohol Use: None Drug Use: None - Medications Home Medications: No Known Drug Allergies Allergy (Verified 02/26/17 07:26) CONTINUE taking the following medications aspirin [Ecotrin] 325 mg PO DAILY 09/02/18 [History] atorvastatin 80 mg PO HS 09/02/18 [History] cetirizine 10 mg PO DAILY 09/02/18 [History] clopidogrel 75 mg PO DAILY 09/02/18 [History] hydrocortisone 10 mg PO HS 09/02/18 [History] hydrocortisone 15 mg PO QAM 09/02/18 [History] iron-folic acid-mv, min cmb#15 [Hemocyte-Plus] 1 cap PO DAILY 09/02/18 [History] levothyroxine 100 mcg PO DAILY 09/02/18 [History] nifedipine 30 mg PO DAILY 09/02/18 [History] temazepam 15 - 30 mg PO QHS PRN 09/02/18 [History] - Review of Systems Constitutional: Weakness Eyes: No Symptoms Reported ENT: No Symptoms Reported Respiratory: Shortness of Breath Cardiovascular: No Symptoms Reported Gastrointestinal: Nausea Genitourinary: No Symptoms Reported Skin: No Symptoms Reported Neurological: Weakness - Physical Exam Vital Signs: Temperature 98.4 F Pulse Rate [Right Brachial] 66 Pulse Rate [Left Brachial] 69 Pulse Rate [Brachial] 94 Pulse Rate 67 Respiratory Rate 18 Blood Pressure [Left Arm] 124/71 Blood Pressure [Right Arm] 134/72 Blood Pressure [Standing] 130/74 Blood Pressure [Sitting] 140/81 Blood Pressure [Lying] 145/81 Blood Pressure 127/71 O2 Sat by Pulse Oximetry 97 Oriented: Normal Eyes: Normal Ear: Normal Nose: Normal Throat: Normal Respiratory: Rhonchi Throughout, RLL Diminished, LLL Diminished Cardiovascular: Normal : Normal Auscultation: Bowel Sounds: Normal Palpation: Normal Skin: Normal Musculoskeletal: Normal Psychiatric: Normal Mood Description: Calm Speech Pattern: Clear, Appropriate - Assessment/Plan (1) LLL pneumonia Qualifiers: Pneumonia type: due to unspecified organism Qualified Code(s): J18.1 - Lobar pneumonia, unspecified organism Status: Acute Plan: ADMIT, PNEUMONIA PROTOCOL. CXR ON ADMISSION, BLOOD AND SPUTUM CULTURE. IV ATBX, RESP CONSULTATION, SUPPLEMENTAL O2. VERIFY HOME MEDICATION, CARDIAC MONITORING (2) GERD (gastroesophageal reflux disease) Qualifiers: Esophagitis presence: esophagitis presence not specified Qualified Code(s): K21.9 - Gastro-esophageal reflux disease without esophagitis Status: Acute (3) Acute dehydration Status: Acute (4) COPD (chronic obstructive pulmonary disease) Qualifiers: COPD type: COPD with acute exacerbation Qualified Code(s): J44.1 - Chronic obstructive pulmonary disease with (acute) exacerbation Status: Acute (5) Generalized weakness Status: Acute (6) Cerebrovascular small vessel disease Status: Chronic (7) CAD (coronary artery disease) Qualifiers: Coronary Disease-Associated Artery/Lesion type: [place] artery [place] vs. transplanted heart: [place] heart Associated angina: without angina Qualified Code(s): I25.10 - Atherosclerotic heart disease of [place] coronary artery without angina pectoris Status: Chronic - Allergies Allergies/Adverse Reactions: Allergies Allergy/AdvReac Type Severity Reaction Status Date / Time No Known Drug Allergies Allergy Verified 02/26/17 07:26
[2018-09-09] MEDS: LEVSIN/MAALOX/LIDOC VISC PO SCH ×4 (13:52→20:03)
[2018-09-09] MEDS: ROBITUSSIN DM PO SCH ×3 (13:53→20:15)
[2018-09-09] MEDS: NS 1/2 1000 ML IV 1,000 ML IV SCH (14:55)
[2018-09-09] MEDS: SYNTHROID 100 mcg TAB PO SCH (14:58)
[2018-09-09] MEDS: HEMOCYTE-PLUS PO SCH (14:58)
[2018-09-09] MEDS: CORTEF PO SCH ×2 (15:36→20:05)
[2018-09-09] MEDS: REGLAN INJ 10 MG VIAL IVP SCH ×2 (17:54→20:05)
[2018-09-09] MEDS ORDERED: CORTEF ONE (19:47)
[2018-09-09] MEDS: RESTORIL CAP 15 MG PO PRN (20:04)
[2018-09-09] MEDS: LIPITOR TAB 40 MG PO SCH (20:04)
[2018-09-09] MEDS: LEVAQUIN PREMIX IV 750 MG 750 MG/150 ML BAG IV SCH (20:05)
--- NOTE | 2018-09-09 20:51 | PCM.PROG ---
Progress Note - Progress Note for Day of Date of Exam: 09/09/18 - Subjective Subjective: WAS ADMITTED ON 09/03/18 DUE TO DEHYDRATION, LLL PNEUMONIA, COPD EXACERBATION. TODAY, HE IS ALERT AND ORIENTED, LYING IN BED ON MORNING ROUNDS. HE CONTINUES WITH COMPLAINTS OF SHORTNESS OF BREATH, COUGH, AND DIFFICULTY SWALLOWING. ON EXAMINATION, HEART IS REGULAR IN RATE AND RHYTHM. BI LATERAL LUNGS ARE NOTED WITH SCATTERED RHONCHI AND WHEEZES THROUGHOUT. ABDOMEN IS ROUND, SOFT, AND NOTED WITH MILD, DIFFUSE TENDERNESS. HYPOACTIVE BOWEL SOUNDS NOTED THROUGHOUT. HIS VITALS THIS MORNING ARE 98.4-69-16-95%-124/71. LABS WERE OBTAINED. ABNORMAL LAB VALUES INCLUDE THE FOLLOWING: WBC DECREASED FROM 11.7, RBC 3.87, HGB 12.1, HCT 34.9, GLUCOSE 110, CALCIUM 8.2, TOTAL PROTEIN 6.0, ALBUMIN 2.7. SPUTUM CULTURE REPORTED GROWTH OF YEAST. A CHEST XRAY WAS OBTAINED THIS MORNING AND REVEALED: Continued cardiomegaly without congestive heart failure. Stable mild interstitial lung changes. CONSULTED WITH PATIENT AND PLANS FOR EGD TODAY. WE ARE IN AGREEMENT WITH PLAN. HE IS CURRENTLY R ECEIVING IV LEVAQUIN, IV ZOSYN, IV DIFLUCAN, RESPIRATORY TREATMENTS, AND STEROIDS. WE WILL CONTINUE WITH CURRENT PLAN OF CARE TODAY. OTHERWISE, WE WILL FOLLOW UP WITH AM LABS AND CONTINUE TO MONITOR. - Past Medical Family Social History Past Med/Fam/Surg Hx: No changes since H&P Allergies: Allergies No Known Drug Allergies Allergy (Verified 02/26/17 07:26) - Review of Systems ROS: No change since H&P - Vital Signs and I&O's Vital Signs: Temperature 98.6 F Pulse Rate [Right Brachial] 66 Pulse Rate [Left Brachial] 84 Pulse Rate [Brachial] 94 Pulse Rate 68 Respiratory Rate 18 Blood Pressure [Left Arm] 112/65 Blood Pressure [Right Arm] 134/72 Blood Pressure [Standing] 130/74 Blood Pressure [Sitting] 140/81 Blood Pressure [Lying] 145/81 Blood Pressure 127/71 O2 Sat by Pulse Oximetry 99 Intake and Output: Intake & Output 09/07/18 09/08/18 09/09/18 09/10/18 11:59 11:59 11:59 11:59 Intake Total 2227 / 2227 2159 / 2159 3459 / 3459 1329 / 1329 Output Total 3050 / 3050 2350 / 2350 3300 / 3300 700 / 700 Balance -823 / -823 -191 / -191 159 / 159 629 / 629 - Physical Exam Oriented: Normal Eyes: Normal Ear: Normal Nose: Normal Throat: Normal Respiratory: Generalized, Diminished, Wheezes, Rhonchi Cardiovascular: Normal : Normal Auscultation: Bowel Sounds: Normal Palpation: Normal Tenderness: Epigastric Skin: Normal Musculoskeletal: Normal Psychiatric: Normal Mood Description: Calm Affect: Normal Speech Pattern: Clear, Appropriate - Laboratory and Diagnostics Result Diagrams: 09/09/18 05:15 09/09/18 05:15 Labs: 09/07/18 12:15 Sputum - Expectorated Sputum Sputum Culture - Final 09/07/18 12:15 Sputum - Expectorated Sputum - Final 09/03/18 02:19 Blood Blood Culture - Final 09/05/18 22:09 Blood Blood Culture - Preliminary 09/05/18 21:58 Blood Blood Culture - Preliminary 09/05/18 08:07 Stool Stool Culture - Final 09/05/18 08:07 Stool - Final Laboratory WBC 11.7 X10^3/uL (3.6-10.0) H 09/09/18 05:15 RBC 3.87 X10^6/uL (4.7-6.0) L 09/09/18 05:15 Hgb 12.1 g/dL (13.5-18.0) L 09/09/18 05:15 Hct 34.9 % (42.0-54.0) L 09/09/18 05:15 MCV 90.2 fL (80.0-100.0) 09/09/18 05:15 MCH 31.2 pg (27.0-34.0) 09/09/18 05:15 MCHC 34.6 g/dL (33.0-35.0) 09/09/18 05:15 RDW 13.0 % (11.6-16.5) 09/09/18 05:15 Plt Count 220 X10^3/uL (150.0-450.0) 09/09/18 05:15 Plt Count Comment Decreased (ADEQUATE) 09/07/18 04:46 MPV 8.8 fL (7.4-11.0) 09/09/18 05:15 Neut % (Auto) 85.1 % (42.0-75.0) H 09/09/18 05:15 Lymph % (Auto) 7.3 % (21.0-51.0) L 09/09/18 05:15 [place] % (Auto) 6.7 % (0.0-13.0) 09/09/18 05:15 Eos % (Auto) 0.8 % (0.9-2.9) L 09/09/18 05:15 Baso % (Auto) 0.1 % (0.2-1.0) L 09/09/18 05:15 Neut # (Auto) 9.9 x10^3/uL (2.2-4.8) H 09/09/18 05:15 Lymph # (Auto) 0.9 X10^3/uL (1.3-2.9) L 09/09/18 05:15 [place] # (Auto) 0.8 x10^3/uL (0.3-0.8) 09/09/18 05:15 Eos # (Auto) 0.1 x10^3/uL (0.0-0.2) 09/09/18 05:15 Baso # (Auto) 0.0 X10^3/uL (0.0-0.1) 09/09/18 05:15 Absolute Nucleated RBC 0.0 /100WBC 09/09/18 05:15 Total Counted 100 09/07/18 04:46 Neutrophils % (Manual) 94 % (39-76) H 09/07/18 04:46 Band Neutrophils % 2 % (0-10) 09/07/18 04:46 Lymphocytes % (Manual) 2 % (13-43) L 09/07/18 04:46 Monocytes % (Manual) 2 % (4-9) L 09/07/18 04:46 Eosinophils % (Manual) 1 % (0-6) 09/02/18 21:50 Plt Morphology Comment Normal (NORMAL) 09/07/18 04:46 RBC Morphology Normal (NORMAL) 09/07/18 04:46 Sodium 139 mmol/L (136-145) 09/09/18 05:15 Corrected Sodium TNP 09/09/18 05:15 Potassium 3.8 mmol/L (3.5-5.1) 09/09/18 05:15 Chloride 104 mmol/L (98-107) 09/09/18 05:15 Carbon Dioxide 24.8 mmol/L (21-32) 09/09/18 05:15 BUN 13 mg/dL (7-18) 09/09/18 05:15 Creatinine 0.81 mg/dL (0.70-1.30) 09/09/18 05:15 Est GFR (MDRD) Af Amer > 60 (>60) 09/09/18 05:15 Est GFR (MDRD) Non-Af > 60 (>60) 09/09/18 05:15 Glucose 110 mg/dL (65-99) H 09/09/18 05:15 Calcium 8.2 mg/dL (8.5-10.1) L 09/09/18 05:15 Corrected Calcium 9.2 mg/dL (8.5-10.1) 09/09/18 05:15 Magnesium 2.0 mg/dL (1.7-2.9) 09/05/18 04:34 Total Bilirubin 0.30 mg/dL (0.2-1.0) 09/09/18 05:15 AST 15 Units/L (15-37) 09/09/18 05:15 ALT 24 Units/L (12-78) 09/09/18 05:15 Alkaline Phosphatase 70 Units/L (46-116) 09/09/18 05:15 Creatine Kinase 29 Units/L (39-308) L 09/02/18 21:50 CK-MB (CK-2) < 1.0 ng/mL (0-4.0) 09/02/18 21:50 CK/CKMB % Calc 3.5 % (<4) 09/02/18 21:50 Troponin I < 0.02 ng/mL (0-1.5) 09/05/18 13:25 C-Reactive Protein 18.60 mg/L (0-3.0) H 09/02/18 21:50 Total Protein 6.0 g/dL (6.4-8.2) L 09/09/18 05:15 Albumin 2.7 g/dL (3.4-5.0) L 09/09/18 05:15 Globulin 3.3 g/dL (2.5-4.5) 09/09/18 05:15 Albumin/Globulin Ratio 0.8 Ratio (1.1-2.1) L 09/09/18 05:15 Specimen Type Clean catch urine 09/03/18 03:50 Urine Color Yellow (YELLOW) 09/03/18 03:50 Urine Appearance Clear (CLEAR) 09/03/18 03:50 Urine pH 5.0 (5.0 - 8.0) 09/03/18 03:50 Ur Specific [place] 1.010 (1.000-1.030) 09/03/18 03:50 Urine Protein Negative (NEGATIVE) 09/03/18 03:50 Urine Glucose (UA) Negative (NEGATIVE) 09/03/18 03:50 Urine Ketones Negative (NEGATIVE) 09/03/18 03:50 Urine Occult Blood Negative (NEGATIVE) 09/03/18 03:50 Urine Nitrite Negative (NEGATIVE) 09/03/18 03:50 Urine Bilirubin Negative (NEGATIVE) 09/03/18 03:50 Urine Urobilinogen Normal (NORMAL) 09/03/18 03:50 Ur Leukocyte Esterase Negative (NEGATIVE) 09/03/18 03:50 Stool Description 20g,green,semisolid 09/03/18 03:50 Stl Occult Blood (IFOB) Negative (NEGATIVE) 09/03/18 03:50 Stl C. diff Tox B Gene Negative (NEGATIVE) 09/03/18 03:50 Stl C. diff [id number] Negative (NEGATIVE) 09/03/18 03:50 Tissue Pathology To follow 09/09/18 11:13 - Plan (1) LLL pneumonia Status: Acute Qualifiers: Pneumonia type: due to unspecified organism Qualified Code(s): J18.1 - Lobar pneumonia, unspecified organism Plan: ADMIT, PNEUMONIA PROTOCOL. CXR ON ADMISSION, BLOOD AND SPUTUM CULTURE. IV ATBX, RESP CONSULTATION, SUPPLEMENTAL O2. VERIFY HOME MEDICATION, CARDIAC MONITORING (2) COPD (chronic obstructive pulmonary disease) Status: Acute Qualifiers: COPD type: COPD with acute exacerbation Qualified Code(s): J44.1 - Chronic obstructive pulmonary disease with (acute) exacerbation (3) Acute dehydration Status: Acute Plan: 1/2NS AT 75ML/HR, CONTINUE TO MONITOR (4) Enterocolitis Status: Acute (5) Nausea Status: Acute Plan: ZOFRAN COCKTAIL, CONTINUE TO MONITOR (6) Generalized weakness Status: Acute (7) Dysphagia Status: Acute Qualifiers: Dysphagia type: unspecified Qualified Code(s): R13.10 - Dysphagia, unspecified Plan: EGD TODAY, CONTINUE TO MONITOR
[2018-09-10] MEDS ORDERED: NS 1/2 1000 ML IV 1,000 ML ONE (04:48)
[2018-09-10] MEDS: NS 1/2 1000 ML IV 1,000 ML IV SCH (05:09)
[2018-09-10] MEDS: ZOSYN VIAL 4.5 GRAMS 4.5 G in NS 100 ML IV + SPIKE MINIBAG* 100 ML IV SCH (05:09)
[2018-09-10] MEDS: REGLAN INJ 10 MG VIAL IVP SCH (05:45)
[2018-09-10 06:07] LABS: BASOPHILS % (AUTO) 0.1 % (0.2-1.0); EOSINOPHILS # (AUTO) 0.2 x10^3/uL (0.0-0.2); EOSINOPHILS % (AUTO) 1.6 % (0.9-2.9); HEMATOCRIT 34.6 % (42.0-54.0); HEMOGLOBIN 12.2 g/dL (13.5-18.0); LYMPHOCYTES # (AUTO) 0.9 X10^3/uL (1.3-2.9); LYMPHOCYTES % (AUTO) 9.2 % (21.0-51.0); MEAN CORPUSCULAR HEMOGLOBIN 31.4 pg (27.0-34.0); MEAN CORPUSCULAR HGB CONC 35.2 g/dL (33.0-35.0); MEAN CORPUSCULAR VOLUME 89.1 fL (80.0-100.0); MEAN PLATELET VOLUME 8.4 fL (7.4-11.0); MONOCYTES # (AUTO) 0.6 x10^3/uL (0.3-0.8); MONOCYTES % (AUTO) 5.8 % (0.0-13.0); NEUTROPHILS # (AUTO) 8.2 x10^3/uL (2.2-4.8); NEUTROPHILS % (AUTO) 83.3 % (42.0-75.0); PLATELET COUNT 241 X10^3/uL (150.0-450.0); RED BLOOD COUNT 3.89 X10^6/uL (4.7-6.0); RED CELL DISTRIBUTION WIDTH 13.1 % (11.6-16.5); WHITE BLOOD COUNT 9.9 X10^3/uL (3.6-10.0)
--- NOTE | 2018-09-10 06:08 | RAD ---
HISTORY: Shortness of breath Study: Chest AP portable Comparison: 09/09/2018 Findings: There is a pacemaker present on the left obscuring a portion of the left upper lobe. The heart remains enlarged. No definite congestive heart failure is noted. Interstitial lung changes are present bilaterally not significantly different from the prior examination. No alveolar infiltrates or pleural effusions are identified. The bony thorax is unremarkable. IMPRESSION: No significant change from the prior examination Reported By:
[2018-09-10 06:24] LABS: ALANINE AMINOTRANSFERASE 25 Units/L (12-78); ALBUMIN 2.7 g/dL (3.4-5.0); ALKALINE PHOSPHATASE 68 Units/L (46-116); ASPARTATE AMINO TRANSFERASE 14 Units/L (15-37); BLOOD UREA NITROGEN 12 mg/dL (7-18); CALCIUM 8.2 mg/dL (8.5-10.1); CHLORIDE 103 mmol/L (98-107); COR CA(FOR HYPOALB) 9.2 mg/dL (8.5-10.1); CREATININE 0.85 mg/dL (0.70-1.30); SODIUM 138 mmol/L (136-145); TOTAL PROTEIN 6.2 g/dL (6.4-8.2); eGFR NON BLACK RACES > 60 (>60)
[2018-09-10] MEDS ORDERED: CORTEF ONE (07:31)
[2018-09-10] MEDS: PROCARDIA XL PO SCH (08:16)
[2018-09-10] MEDS: HEMOCYTE-PLUS PO SCH (08:16)
[2018-09-10] MEDS: SYNTHROID 100 mcg TAB PO SCH (08:16)
[2018-09-10] MEDS: PROTONIX INJ 40 MG VIAL IVP SCH (08:17)
[2018-09-10] MEDS: CORTEF PO SCH (08:17)
[2018-09-10] MEDS: LEVSIN/MAALOX/LIDOC VISC PO SCH (08:17)
[2018-09-10] MEDS: DIFLUCAN 200 MG IV PREMIX* 200 MG/100 ML BAG IV SCH (08:19)
[2018-09-10] MEDS: MORPHINE SULFATE INJ 2 MG INJ IVP PRN (08:19)
[2018-09-10] MEDS: ROBITUSSIN DM PO SCH (08:22)
[2018-09-10] MEDS: DUONEB 0.5 MG/3 MG NEB SCH ×2 (09:48→12:22)
[2018-09-10 11:09] VITALS: BP 106/55
== END 2018-09-10 11:50 | disposition home health service (06) | DRG 194 ==
LOC: MED/SURG 21:30 → ER 21:30 → MED/SURG 09-03 03:00
PROVIDERS: ADMIT Internal Medicine; ATTEND Internal Medicine
DX: J44.1 Chronic obstructive pulmonary disease with (acute) exacerbation; K29.60 Other gastritis without bleeding; R94.31 Abnormal electrocardiogram [ECG] [EKG]; K31.84 Gastroparesis; R79.82 Elevated C-reactive protein (CRP); R13.11 Dysphagia, oral phase; I25.10 Atherosclerotic heart disease of native coronary artery without angina pectoris; Z95.0 Presence of cardiac pacemaker; R06.02 Shortness of breath; K22.2 Esophageal obstruction; K22.10 Ulcer of esophagus without bleeding; F41.8 Other specified anxiety disorders; J18.9 Pneumonia, unspecified organism; E86.0 Dehydration; K57.30 Diverticulosis of large intestine without perforation or abscess without bleeding; R91.1 Solitary pulmonary nodule; I10 Essential (primary) hypertension
CPT/HCPCS: 36415; 70450; 71010; 71045; 71275; 74000; 74018; 74022; 74176; 74177; 80053; 81003; 82270; 82550; 82553; 83735; 84484; 85025; 86140; 87040; 87045; 87070; 87205; 87427; 87449; 87493; 87899; 93005; 94640; 94760; 96365; 96367; 96374; 97116; 97162; 97166; 97530; 99221; 99284; A4222; C9113; G0378; J1100; J1200; J1450; J1956; J2060; J2270; J2405; J2543; J2550; J2704; J2765; J3475; J3480; J3490; J7030; J7050; J7620

== ENCOUNTER 2018-10-27 09:00 | Inpatient (IN) ==
[2018-10-25 20:59] LABS: BASOPHILS % (AUTO) 0.5 % (0.2-1.0); EOSINOPHILS # (AUTO) 0.1 x10^3/uL (0.0-0.2); EOSINOPHILS % (AUTO) 0.9 % (0.9-2.9); HEMATOCRIT 37.9 % (42.0-54.0); HEMOGLOBIN 12.9 g/dL (13.5-18.0); LYMPHOCYTES # (AUTO) 1.3 X10^3/uL (1.3-2.9); MEAN CORPUSCULAR HEMOGLOBIN 31.3 pg (27.0-34.0); MEAN CORPUSCULAR HGB CONC 34.2 g/dL (33.0-35.0); MEAN CORPUSCULAR VOLUME 91.6 fL (80.0-100.0); MEAN PLATELET VOLUME 8.1 fL (7.4-11.0); MONOCYTES # (AUTO) 0.6 x10^3/uL (0.3-0.8); MONOCYTES % (AUTO) 6.7 % (0.0-13.0); NEUTROPHILS # (AUTO) 7.7 x10^3/uL (2.2-4.8); NEUTROPHILS % (AUTO) 78.9 % (42.0-75.0); PLATELET COUNT 253 X10^3/uL (150.0-450.0); RED BLOOD COUNT 4.13 X10^6/uL (4.7-6.0); RED CELL DISTRIBUTION WIDTH 13.2 % (11.6-16.5); WHITE BLOOD COUNT 9.7 X10^3/uL (3.6-10.0)
[2018-10-25 21:00] VITALS: BMI 30.9
[2018-10-25] MEDS: NORCO 10/325 TAB PO PRN (21:04)
[2018-10-25 21:06] LABS: ALANINE AMINOTRANSFERASE 14 Units/L (12-78); ALBUMIN 3.2 g/dL (3.4-5.0); ALKALINE PHOSPHATASE 98 Units/L (46-116); AMYLASE 15 Units/L (25-115); ASPARTATE AMINO TRANSFERASE 10 Units/L (15-37); BLOOD UREA NITROGEN 25 mg/dL (7-18); CALCIUM 8.9 mg/dL (8.5-10.1); CHLORIDE 102 mmol/L (98-107); COR CA(FOR HYPOALB) 9.5 mg/dL (8.5-10.1); COR NA(FOR HYPERGLY) 139 mmol/L (136-145); CREATININE 1.02 mg/dL (0.70-1.30); LIPASE 51 Units/L (73-393); SODIUM 138 mmol/L (136-145); TOTAL PROTEIN 7.3 g/dL (6.4-8.2); eGFR NON BLACK RACES > 60 (>60)
[2018-10-25] MEDS: ZOFRAN INJ 4 MG VIAL IVP PRN (21:06)
[2018-10-25] MEDS: NS 1000 ML 1,000 ML IV SCH (21:08)
[2018-10-26 01:45] LABS: BILIRUBIN,URINE 1+ (NEGATIVE); BLOOD/HEMOGLOBIN,URINE 1+ (NEGATIVE); GLUCOSE, URINE NEGATIVE (NEGATIVE); KETONES,URINE 1+ (NEGATIVE); LEUKOCYTE ESTERASE ,URINE 1+ (NEGATIVE); NITRITES,URINE NEGATIVE (NEGATIVE); PROTEIN,URINE 2+ (NEGATIVE); UROBILINOGEN,URINE 2+ (NORMAL)
[2018-10-26] MEDS: DEMEROL INJ IVP PRN ×4 (01:58→19:53)
[2018-10-26 02:09] LABS: APPEARANCE,URINE CLEAR (CLEAR); BACTERIA,URINE TRACE /HPF (NEGATIVE); COLOR,URINE AMBER (YELLOW); MUCUS,URINE MANY /HPF (NEGATIVE); RBC,URINE 0-2 /HPF (NONE SEEN); SQUAMOUS EPITHELIAL CELL,UR FEW /HPF (NEGATIVE)
[2018-10-26] MEDS: NORCO 10/325 TAB PO PRN ×3 (04:19→19:01)
[2018-10-26] MEDS: ZOFRAN INJ 4 MG VIAL IVP PRN (04:20)
[2018-10-26 05:41] LABS: BASOPHILS # (AUTO) 0.1 X10^3/uL (0.0-0.1); BASOPHILS % (AUTO) 0.5 % (0.2-1.0); EOSINOPHILS # (AUTO) 0.1 x10^3/uL (0.0-0.2); EOSINOPHILS % (AUTO) 0.7 % (0.9-2.9); HEMATOCRIT 37.6 % (42.0-54.0); HEMOGLOBIN 12.9 g/dL (13.5-18.0); LYMPHOCYTES # (AUTO) 1.4 X10^3/uL (1.3-2.9); LYMPHOCYTES % (AUTO) 13.3 % (21.0-51.0); MEAN CORPUSCULAR HEMOGLOBIN 31.5 pg (27.0-34.0); MEAN CORPUSCULAR HGB CONC 34.2 g/dL (33.0-35.0); MEAN CORPUSCULAR VOLUME 92.2 fL (80.0-100.0); MEAN PLATELET VOLUME 8.4 fL (7.4-11.0); MONOCYTES # (AUTO) 0.7 x10^3/uL (0.3-0.8); MONOCYTES % (AUTO) 6.6 % (0.0-13.0); NEUTROPHILS # (AUTO) 8.2 x10^3/uL (2.2-4.8); NEUTROPHILS % (AUTO) 78.9 % (42.0-75.0); PLATELET COUNT 249 X10^3/uL (150.0-450.0); RED BLOOD COUNT 4.08 X10^6/uL (4.7-6.0); RED CELL DISTRIBUTION WIDTH 13.4 % (11.6-16.5); WHITE BLOOD COUNT 10.4 X10^3/uL (3.6-10.0)
[2018-10-26 05:52] LABS: ALANINE AMINOTRANSFERASE 13 Units/L (12-78); ALBUMIN 2.8 g/dL (3.4-5.0); ALKALINE PHOSPHATASE 87 Units/L (46-116); ASPARTATE AMINO TRANSFERASE 10 Units/L (15-37); BLOOD UREA NITROGEN 22 mg/dL (7-18); CALCIUM 8.5 mg/dL (8.5-10.1); CARBON DIOXIDE 24.9 mmol/L (21-32); CHLORIDE 104 mmol/L (98-107); COR CA(FOR HYPOALB) 9.5 mg/dL (8.5-10.1); COR NA(FOR HYPERGLY) 140 mmol/L (136-145); CREATININE 0.87 mg/dL (0.70-1.30); SODIUM 140 mmol/L (136-145); TOTAL PROTEIN 6.9 g/dL (6.4-8.2); eGFR NON BLACK RACES > 60 (>60)
--- NOTE | 2018-10-26 08:59 | RAD ---
History: Abdominal pain and nausea and vomiting Study: Acute abdominal series Comparison: September 05 Findings: There is prominent gas in the colon. No small bowel distention is demonstrated. There is no free air. There is cardiomegaly with intact pacemaker wire leads via the left subclavian vein. There is patchy infiltrate at the left lung base. No significant bony abnormality is demonstrated. No abnormal calcification is appreciated. Impression: 1. Prominent gas in the ascending and transverse colon but no definite evidence for obstruction. 2. Persistent or recurrent patchy left lower lobe infiltrate that may be inflammatory Reported By:
--- NOTE | 2018-10-26 09:01 | DR.H&P ---
H&P - History & Physical for Day of: H&P Date: 10/25/18 - Chief Complaint Chief Complaint: ABDOMINAL PAIN, NAUSEA, VOMITING - History of Present Illness History of Present Illness: IS A 74 YEAR OLD PATIENT OF OURS WHO PRESENTED TO THE HOSPITAL A DIRECT ADMISSION FOR COMPLAINTS OF RUQ PAIN, RLQ PAIN, AND INTRACTABLE NAUSEA AND VOMITING. SYMPTOMS REPORTEDLY STARTED ON THURSDAY AND HAVE PROGRESSIVELY GOTTEN WORSE. ON ARRIVAL, VITALS WERE 99.8-84-20-95%-142/78. LABS WERE OBTAINED. ABNORMAL LAB VALUES INCLUDE THE FOLLOWING: RBC 4.13, HGB 12.9, HCT 37.9, BUN 25, GLUCOSE 122, AST 10, ALBUMIN 3.2, AMYLASE 15, LIPASE 51. URINALYSIS WAS OBTAINED AND REVEALED: WBC 0-2, RBC 0-2, LEUKOCYTES 1+, BACTERIA TRACE, OCCULT BLOOD 1+, PROTEIN 2+. WE PLAN TO OBTAIN AN ABDOMINAL SERIES. WE WILL OBTAIN AN ABDOMEN/PELVIS WITH AND WITHOUT CONTRAST IN THE MORNING. OTHERWISE, WE PLAN TO FOLLOW UP WITH AM LABS AND CONTINUE TO MONITOR. - Past Medical History Past Medical History: Coronary Artery Disease, Hypertension, COPD, Arthritis, Sleep Apnea Additional Medical History: Atrial Fibrillation, Bradycardia. Pituitary adenoma - s/p resection and XRT with recently diagnoses probable recurrence. CVD; S/P TIA in 03/2015 - Past Surgical History Surgical History: Angioplasty/Stents, Ortho Surgery Additional Surgical History: Pacemaker implantation 2010. Pituitary adenoma resection and XRT 2008. Cardiac ablation for the tx of A-fib - 05/2015. Cardiac cath and stent placement 2010. Cervical fusion - Family History Family Medical History: [place] - Social History Does patient currently use any type of tobacco product: Yes Have you used tobacco products in the last 12 months: Yes Type of Tobacco Use: Cigars Alcohol Use: None Drug Use: None - Medications Home Medications: No Known Drug Allergies Allergy (Verified 10/16/18 14:14) - Review of Systems Constitutional: Fever, Weakness Eyes: No Symptoms Reported ENT: No Symptoms Reported Respiratory: No Symptoms Reported Cardiovascular: No Symptoms Reported Gastrointestinal: See HPI, Nausea, Vomiting, Abdominal Pain Genitourinary: No Symptoms Reported Musculoskeletal: No Symptoms Reported Skin: No Symptoms Reported Neurological: Weakness - Physical Exam Vital Signs: Temperature 98.9 F Pulse Rate [Left Radial] 116 Respiratory Rate 20 Blood Pressure [Left Arm] 135/81 Blood Pressure [Right Arm] 134/72 Blood Pressure [Standing] 130/74 Blood Pressure [Sitting] 140/81 Blood Pressure [Lying] 145/81 Blood Pressure 166/85 O2 Sat by Pulse Oximetry 94 Oriented: Normal Eyes: Normal Ear: Normal Nose: Normal Throat: Normal Respiratory: Diminished Throughout Cardiovascular: Normal. negative: S3, S4, Murmur : Normal Auscultation: Bowel Sounds: Normal Palpation: Normal Tenderness: RUQ, RLQ, Moderate. negative: Rebound, Guarding, Rigidity Skin: Normal Musculoskeletal: Normal Psychiatric: Agitation Mood Description: Anxious Affect: Normal Speech Pattern: Clear - Assessment/Plan (1) Abdominal pain Qualifiers: Abdominal location: generalized Qualified Code(s): R10.84 - Generalized abdominal pain Status: Acute Plan: ABDOMINAL SERIES, ABD/PELVIS WITH AND WITHOUT IN AM, DEMEROL 25MG IV Q6H PRN, NORCO, CONTINUE TO MONITOR (2) Nausea and vomiting Qualifiers: Vomiting type: unspecified Vomiting Intractability: intractable Qualified Code(s): R11.2 - Nausea with vomiting, unspecified Status: Acute Plan: ZOFRAN 4MG IV Q4H PRN NAUSEA, CONTINUE TO MONITOR (3) Fever Qualifiers: Fever type: unspecified Qualified Code(s): R50.9 - Fever, unspecified Status: Acute - Allergies Allergies/Adverse Reactions: Allergies Allergy/AdvReac Type Severity Reaction Status Date / Time No Known Drug Allergies Allergy Verified 10/16/18 14:14
[2018-10-26] MEDS: NS 1000 ML 1,000 ML IV SCH ×2 (10:30→23:03)
--- NOTE | 2018-10-26 12:38 | CT ---
HISTORY: Right-sided abdominal pain Study: CT abdomen pelvis with contrast Comparison: 09/05/2018 Technique: Axial post-contrast images with coronal and sagittal reformats. Dose reduction procedures were used with mA/kv adjusted for body size. Findings: Examination of the lung bases demonstrated a minimal right pleural effusion. Alveolar infiltrate is present in the right lower lobe most consistent with a consolidating pneumonia. The liver, spleen, adrenal glands, and pancreas are within normal limits. No opaque stones are present within the gallbladder. The kidneys are unobstructed and without stones or masses. There is a left renal cyst present. No ureteral calculi are identified. Calcific atherosclerotic changes present in a nondilated abdominal aorta. No intraperitoneal or retroperitoneal lymphadenopathy of significance is identified. The appendix is not identified with absolute certainty. There are no secondary signs of appendicitis present. There are no findings suggestive of diverticulitis, enteritis, or colitis. Diverticulosis of the descending and sigmoid colon are incidentally noted. Examination of the pelvis demonstrated no evidence for pelvic masses, pelvic fluid, or pelvic lymphadenopathy. No bladder abnormality is identified. No lytic or blastic skeletal lesions of significance are identified. IMPRESSION: No acute intra-abdominal or intrapelvic abnormality identified Dense alveolar right lower lobe pneumonia Small right pleural effusion Reported By:
[2018-10-26] MEDS: LEVAQUIN PREMIX IV 500 MG 500 MG/100 ML BAG IV SCH (12:56)
[2018-10-26] MEDS: DUONEB 0.5 MG/3 MG NEB SCH ×3 (14:17→20:45)
[2018-10-26] MEDS: FORTAZ or TAZICEF VIAL INJ IVP SCH ×2 (15:13→21:04)
--- NOTE | 2018-10-26 15:24 | US ---
History: Right-sided abdominal pain Study: Ultrasound of the right upper quadrant of the abdomen Findings: The gallbladder is normal in size without stone or sludge. The gallbladder wall thickness measures 3.5 mm. The common hepatic duct measures 2.7 mm diameter. The liver is normal in size without mass. There is appropriate flow in the portal and the hepatic veins. The right kidney measures 9.2 cm length with cortical thickness of 1.25 cm. There is no hydronephrosis or renal mass. The IVC is patent. There is no free fluid. The visualized pancreas is unremarkable. Impression: Mildly thickened gallbladder wall, nonspecific but may reflect a chronic cholecystitis. No gallstones are demonstrated. Otherwise unremarkable examination. Reported By:
[2018-10-26] MEDS: ROBITUSSIN DM PO SCH ×2 (17:10→20:45)
[2018-10-26] MEDS: VALIUM PO PRN ×2 (18:04→23:02)
[2018-10-27] MEDS: NORCO 10/325 TAB PO PRN ×2 (00:02→05:45)
[2018-10-27] MEDS: DEMEROL INJ IVP PRN ×4 (01:32→21:08)
[2018-10-27] MEDS: FORTAZ or TAZICEF VIAL INJ IVP SCH ×3 (05:09→21:10)
[2018-10-27] MEDS: VALIUM PO PRN (05:10)
[2018-10-27 05:32] LABS: ALANINE AMINOTRANSFERASE 11 Units/L (12-78); ALBUMIN 2.4 g/dL (3.4-5.0); ALKALINE PHOSPHATASE 79 Units/L (46-116); ASPARTATE AMINO TRANSFERASE 8 Units/L (15-37); BLOOD UREA NITROGEN 21 mg/dL (7-18); CALCIUM 8.3 mg/dL (8.5-10.1); CARBON DIOXIDE 27.5 mmol/L (21-32); CHLORIDE 104 mmol/L (98-107); COR CA(FOR HYPOALB) 9.6 mg/dL (8.5-10.1); COR NA(FOR HYPERGLY) 139 mmol/L (136-145); CREATININE 0.86 mg/dL (0.70-1.30); SODIUM 139 mmol/L (136-145); TOTAL PROTEIN 6.5 g/dL (6.4-8.2); eGFR NON BLACK RACES > 60 (>60)
[2018-10-27 05:34] LABS: BASOPHILS % (AUTO) 0.1 % (0.2-1.0); EOSINOPHILS % (AUTO) 0.2 % (0.9-2.9); HEMATOCRIT 33.2 % (42.0-54.0); HEMOGLOBIN 11.4 g/dL (13.5-18.0); LYMPHOCYTES # (AUTO) 0.9 X10^3/uL (1.3-2.9); LYMPHOCYTES % (AUTO) 8.1 % (21.0-51.0); MEAN CORPUSCULAR HEMOGLOBIN 31.6 pg (27.0-34.0); MEAN CORPUSCULAR HGB CONC 34.4 g/dL (33.0-35.0); MEAN CORPUSCULAR VOLUME 91.8 fL (80.0-100.0); MEAN PLATELET VOLUME 8.7 fL (7.4-11.0); MONOCYTES # (AUTO) 0.7 x10^3/uL (0.3-0.8); MONOCYTES % (AUTO) 5.9 % (0.0-13.0); NEUTROPHILS # (AUTO) 9.7 x10^3/uL (2.2-4.8); NEUTROPHILS % (AUTO) 85.7 % (42.0-75.0); PLATELET COUNT 218 X10^3/uL (150.0-450.0); RED BLOOD COUNT 3.62 X10^6/uL (4.7-6.0); RED CELL DISTRIBUTION WIDTH 13.1 % (11.6-16.5); WHITE BLOOD COUNT 11.3 X10^3/uL (3.6-10.0)
--- NOTE | 2018-10-27 06:24 | RAD ---
HISTORY: Shortness of breath Study: Chest AP portable Comparison: 10/16/2018 Findings: There is a pacemaker present on the left obscuring portion of the lateral left upper lobe. The heart remains enlarged. No congestive heart failure is noted. The lungs are mildly hypo inflated but free of acute alveolar infiltrates. No pleural effusions are identified. The bony thorax is unremarkable. IMPRESSION: Mild cardiomegaly without congestive heart failure Lungs mildly hypo inflated but free of acute infiltrates Reported By:
[2018-10-27] MEDS: DUONEB 0.5 MG/3 MG NEB SCH ×5 (07:59→23:20)
[2018-10-27] MEDS: LEVAQUIN PREMIX IV 500 MG 500 MG/100 ML BAG IV SCH (08:48)
[~2018-10-27 09:00] MED LIST: DEMEROL INJ IVP ONE; DEMEROL INJ ONE; K-RIDER 10 MEQ/NS 100 ML 10 MEQ/100 ML BAG IV PRN; KLOR-CON PO PRN; MAGNESIUM SULFATE 1 GRAM/100 mL PREMIX 1 GM/100 ML BAG IV PRN; MICRO K EXTEN CAP 10 MEQ PO PRN; NS 100 ML IV 100 ML ONE; PHARMACY CONSULT - DOSE _____ XX SCH; POTASSIUM CHL 40 MEQ/NS 0.45% 500 ML IV PRN; POTASSIUM CHL 60 MEQ/NS 0.45% 500 ML IV PRN; POTASSIUM CHLORIDE LIQ 20 MEQ UDC PO PRN; TORADOL 30 MG VIAL IVP ONE; TORADOL 30 MG VIAL ONE; TUSSIONEX PENNKINETIC SUSP PO PRN
[2018-10-27] MEDS ORDERED: CORTEF ONE ×2 (09:45→20:39)
[2018-10-27] MEDS: LOPRESSOR TAB 25 MG PO SCH ×2 (09:49→21:06)
[2018-10-27] MEDS: ZyrTEC TAB 10 MG PO SCH (09:49)
[2018-10-27] MEDS: CORTEF PO SCH ×2 (09:49→21:06)
[2018-10-27] MEDS: PEPCID TAB 20 MG PO SCH ×2 (09:49→21:05)
[2018-10-27] MEDS: SYNTHROID 100 mcg TAB PO SCH (09:50)
[2018-10-27] MEDS: PROCARDIA XL PO SCH (09:50)
[2018-10-27] MEDS: ROBITUSSIN DM PO SCH ×5 (09:52→21:05)
[2018-10-27] MEDS: NS 1000 ML 1,000 ML IV SCH (13:37)
[2018-10-27] MEDS: LIPITOR TAB 40 MG PO SCH (21:06)
[2018-10-27] MEDS: RESTORIL CAP 15 MG PO PRN (21:07)
--- NOTE | 2018-10-27 22:18 | PCM.PROG ---
Progress Note - Progress Note for Day of Date of Exam: 10/26/18 - Subjective Subjective: WAS ADMITTED FOR RIGHT SIDED ABDOMINAL PAIN AND INTRACTABLE NAUSEA AND VOMITING. TODAY, HE IS ALERT AND ORIENTED, LYING IN BED ON MORNING ROUNDS. HE IS MOANING OUT LOUDLY AND APPEARS TO BE IN SEVERE PAIN. HE CONTINUES TO REPORT SEVERE RIGHT SIDED ABDOMINAL PAIN. ON EXAMINATION, HEART IS REGULAR IN RATE AND RHYTHM. BILATERAL LUNGS ARE NOTED WITH DIMINISHED LUNG SOUNDS THROUGHOUT. ABDOMEN IS ROUND, SOFT, AND NOTED WITH MODERATE TENDERNESS TO THE RUQ. NORMAL BOWEL SOUNDS NOTED IN ALL QUADRANTS. HIS VITALS THIS MORNING ARE 98.8-90-20-96%-150/76. LABS WERE OBTAINED. ABNORMAL LAB VALUES INCLUDE THE FOLLOWING: WBC 10.4, RBC 4.08, HGB 12.9, HCT 37.6, BUN 22, GLUCOSE 115, AST 10, ALBUMIN 2.8. AN ABDOMEN XRAY WAS OBTAINED THIS MORNING AND REVEALED: Prominent gas in the ascending and transverse colon but no definite evidence for obstruction. Persistent or recurrent patchy left lower lobe infiltrate that may be inflammatory. TODAY, WE WILL OBTAIN AN ABDOMEN/PELVIS CT WITH AND WITHOUT CONTRAST. WE WILL ALSO OBTAIN A GALLBLADDER US. WE WILL INCREASE HIS DEMEROL TO 50MG IV Q4-6H PRN PAIN. WE WILL START IV FORTAZ AND LEVAQUIN WELL RESPIRATORY TX FOR TREATMENT OF PNEUMONIA. OTHERWISE, WE WILL FOLLOW UP WITH AM LABS AND CHEST XRAY AND CONTINUE TO MONITOR. - Past Medical Family Social History Past Med/Fam/Surg Hx: No changes since H&P Allergies: Allergies No Known Drug Allergies Allergy (Verified 10/16/18 14:14) - Review of Systems ROS: No change since H&P - Vital Signs and I&O's Vital Signs: Temperature 99.4 F Pulse Rate [Left Radial] 79 Pulse Rate 108 Respiratory Rate 18 Blood Pressure [Left Arm] 120/60 Blood Pressure [Right Arm] 134/72 Blood Pressure [Standing] 130/74 Blood Pressure [Sitting] 140/81 Blood Pressure [Lying] 145/81 Blood Pressure 166/85 O2 Sat by Pulse Oximetry 90 Intake and Output: Intake & Output 10/25/18 10/26/18 10/27/18 10/28/18 11:59 11:59 11:59 11:59 Intake Total 350 / 350 1730 / 1730 240 / 240 Output Total 60 / 60 425 / 425 Balance 290 / 290 1305 / 1305 240 / 240 - Physical Exam Oriented: Normal Eyes: Normal Ear: Normal Nose: Normal Throat: Normal Respiratory: Generalized, Diminished Cardiovascular: Normal. negative: S3, S4, Murmur : Normal Auscultation: Bowel Sounds: Normal Palpation: Normal Tenderness: RUQ, RLQ, Moderate. negative: Rebound, Guarding, Rigidity Skin: Normal Musculoskeletal: Normal Psychiatric: Agitation Mood Description: Anxious Affect: Normal Speech Pattern: Clear, Appropriate - Laboratory and Diagnostics Result Diagrams: 10/27/18 04:23 10/27/18 04:23 Labs: 10/26/18 14:04 Sputum - Expectorated Sputum Sputum Culture - Preliminary 10/26/18 14:04 Sputum - Expectorated Sputum - Final Laboratory WBC 11.3 X10^3/uL (3.6-10.0) H 10/27/18 04:23 RBC 3.62 X10^6/uL (4.7-6.0) L 10/27/18 04:23 Hgb 11.4 g/dL (13.5-18.0) L 10/27/18 04:23 Hct 33.2 % (42.0-54.0) L 10/27/18 04:23 MCV 91.8 fL (80.0-100.0) 10/27/18 04:23 MCH 31.6 pg (27.0-34.0) 10/27/18 04:23 MCHC 34.4 g/dL (33.0-35.0) 10/27/18 04:23 RDW 13.1 % (11.6-16.5) 10/27/18 04:23 Plt Count 218 X10^3/uL (150.0-450.0) 10/27/18 04:23 MPV 8.7 fL (7.4-11.0) 10/27/18 04:23 Neut % (Auto) 85.7 % (42.0-75.0) H 10/27/18 04:23 Lymph % (Auto) 8.1 % (21.0-51.0) L 10/27/18 04:23 Iron % (Auto) 5.9 % (0.0-13.0) 10/27/18 04:23 Eos % (Auto) 0.2 % (0.9-2.9) L 10/27/18 04:23 Baso % (Auto) 0.1 % (0.2-1.0) L 10/27/18 04:23 Neut # (Auto) 9.7 x10^3/uL (2.2-4.8) H 10/27/18 04:23 Lymph # (Auto) 0.9 X10^3/uL (1.3-2.9) L 10/27/18 04:23 Iron # (Auto) 0.7 x10^3/uL (0.3-0.8) 10/27/18 04:23 Eos # (Auto) 0.0 x10^3/uL (0.0-0.2) 10/27/18 04:23 Baso # (Auto) 0.0 X10^3/uL (0.0-0.1) 10/27/18 04:23 Absolute Nucleated RBC 0.0 /100WBC 10/27/18 04:23 Sodium 139 mmol/L (136-145) 10/27/18 04:23 Corrected Sodium 139 mmol/L (136-145) 10/27/18 04:23 Potassium 3.9 mmol/L (3.5-5.1) 10/27/18 04:23 Chloride 104 mmol/L (98-107) 10/27/18 04:23 Carbon Dioxide 27.5 mmol/L (21-32) 10/27/18 04:23 BUN 21 mg/dL (7-18) H 10/27/18 04:23 Creatinine 0.86 mg/dL (0.70-1.30) 10/27/18 04:23 Est GFR (MDRD) Af Amer > 60 (>60) 10/27/18 04:23 Est GFR (MDRD) Non-Af > 60 (>60) 10/27/18 04:23 Glucose 113 mg/dL (65-99) H 10/27/18 04:23 Calcium 8.3 mg/dL (8.5-10.1) L 10/27/18 04:23 Corrected Calcium 9.6 mg/dL (8.5-10.1) 10/27/18 04:23 Magnesium 2.2 mg/dL (1.7-2.9) 10/25/18 20:43 Total Bilirubin 0.60 mg/dL (0.2-1.0) 10/27/18 04:23 AST 8 Units/L (15-37) L 10/27/18 04:23 ALT 11 Units/L (12-78) L 10/27/18 04:23 Alkaline Phosphatase 79 Units/L (46-116) 10/27/18 04:23 Total Protein 6.5 g/dL (6.4-8.2) 10/27/18 04:23 Albumin 2.4 g/dL (3.4-5.0) L 10/27/18 04:23 Globulin 4.1 g/dL (2.5-4.5) 10/27/18 04:23 Albumin/Globulin Ratio 0.6 Ratio (1.1-2.1) L 10/27/18 04:23 Amylase 15 Units/L (25-115) L 10/25/18 20:43 Lipase 51 Units/L (73-393) L 10/25/18 20:43 Specimen Type Clean catch urine 10/26/18 01:35 Urine Color Jaqueline (YELLOW) 10/26/18 01:35 Urine Appearance Clear (CLEAR) 10/26/18 01:35 Urine pH 5.0 (5.0 - 8.0) 10/26/18 01:35 Ur Specific [place] 1.015 (1.000-1.030) 10/26/18 01:35 Urine Protein 2+ (NEGATIVE) 10/26/18 01:35 Urine Glucose (UA) Negative (NEGATIVE) 10/26/18 01:35 Urine Ketones 1+ (NEGATIVE) 10/26/18 01:35 Urine Occult Blood 1+ (NEGATIVE) 10/26/18 01:35 Urine Nitrite Negative (NEGATIVE) 10/26/18 01:35 Urine Bilirubin 1+ (NEGATIVE) 10/26/18 01:35 Urine Urobilinogen 2+ (NORMAL) 10/26/18 01:35 Ur Leukocyte Esterase 1+ (NEGATIVE) 10/26/18 01:35 Urine RBC 0-2 /HPF (NONE SEEN) 10/26/18 01:35 Urine WBC 0-2 /HPF (NONE SEEN) 10/26/18 01:35 Ur Squamous Epith Cells Few /HPF (NEGATIVE) 10/26/18 01:35 Urine Bacteria Trace /HPF (NEGATIVE) 10/26/18 01:35 Urine Mucus Many /HPF (NEGATIVE) 10/26/18 01:35 Ur Culture Indicated? No/not indicated 10/26/18 01:35 - Plan (1) Pneumonia Status: Acute Qualifiers: Pneumonia type: due to unspecified organism Laterality: left Lung location: lower lobe of lung Qualified Code(s): J18.1 - Lobar pneumonia, unspecified organism Plan: IV FORTAZ, IV LEVAQUIN, RESPIRATORY TX, CONTINUE TO MONITOR (2) Abdominal pain Status: Acute Qualifiers: Abdominal location: generalized Qualified Code(s): R10.84 - Generalized abdominal pain Plan: ABDOMINAL SERIES, ABD/PELVIS WITH AND WITHOUT IN AM, DEMEROL 25MG IV Q6H PRN, NORCO, CONTINUE TO MONITOR (3) Nausea and vomiting Status: Acute Qualifiers: Vomiting type: unspecified Vomiting Intractability: intractable Qualified Code(s): R11.2 - Nausea with vomiting, unspecified Plan: ZOFRAN 4MG IV Q4H PRN NAUSEA, CONTINUE TO MONITOR (4) Fever Status: Acute Qualifiers: Fever type: unspecified Qualified Code(s): R50.9 - Fever, unspecified
[2018-10-28] MEDS: NS 1000 ML 1,000 ML IV SCH ×3 (01:28→17:29)
[2018-10-28] MEDS: DEMEROL INJ IVP PRN ×3 (02:25→14:05)
[2018-10-28] MEDS: FORTAZ or TAZICEF VIAL INJ IVP SCH ×3 (05:05→21:25)
[2018-10-28 06:10] LABS: BASOPHILS % (AUTO) 0.4 % (0.2-1.0); EOSINOPHILS % (AUTO) 0.1 % (0.9-2.9); HEMOGLOBIN 10.4 g/dL (13.5-18.0); LYMPHOCYTES # (AUTO) 0.7 X10^3/uL (1.3-2.9); LYMPHOCYTES % (AUTO) 5.7 % (21.0-51.0); MEAN CORPUSCULAR HEMOGLOBIN 31.3 pg (27.0-34.0); MEAN CORPUSCULAR HGB CONC 34.7 g/dL (33.0-35.0); MEAN CORPUSCULAR VOLUME 90.1 fL (80.0-100.0); MEAN PLATELET VOLUME 8.1 fL (7.4-11.0); MONOCYTES # (AUTO) 0.6 x10^3/uL (0.3-0.8); MONOCYTES % (AUTO) 5.1 % (0.0-13.0); NEUTROPHILS # (AUTO) 10.5 x10^3/uL (2.2-4.8); NEUTROPHILS % (AUTO) 88.7 % (42.0-75.0); PLATELET COUNT 204 X10^3/uL (150.0-450.0); RED BLOOD COUNT 3.33 X10^6/uL (4.7-6.0); WHITE BLOOD COUNT 11.9 X10^3/uL (3.6-10.0)
[2018-10-28 06:27] LABS: ALANINE AMINOTRANSFERASE 11 Units/L (12-78); ALBUMIN 2.1 g/dL (3.4-5.0); ALKALINE PHOSPHATASE 76 Units/L (46-116); ASPARTATE AMINO TRANSFERASE 11 Units/L (15-37); BLOOD UREA NITROGEN 14 mg/dL (7-18); CALCIUM 8.2 mg/dL (8.5-10.1); CARBON DIOXIDE 23.6 mmol/L (21-32); CHLORIDE 103 mmol/L (98-107); COR CA(FOR HYPOALB) 9.7 mg/dL (8.5-10.1); COR NA(FOR HYPERGLY) 138 mmol/L (136-145); CREATININE 0.76 mg/dL (0.70-1.30); SODIUM 137 mmol/L (136-145); TOTAL PROTEIN 6.1 g/dL (6.4-8.2); eGFR NON BLACK RACES > 60 (>60)
--- NOTE | 2018-10-28 06:47 | RAD ---
HISTORY: Shortness of breath Study: Chest AP portable Comparison: 10/27/2018 Findings: There is a pacemaker present on the left obscuring a portion of the left upper lobe. The heart remains enlarged. No definite congestive heart failure is noted. There has been interval development since the prior examination of right-sided perihilar upper and lower lobe infiltrates suspicious for pneumonia. The remainder of the lung palmer are clear. No pleural effusions are identified. The bony thorax is unremarkable. IMPRESSION: Interval development of right-sided perihilar upper and lower lobe infiltrates Continued cardiomegaly without congestive heart failure Reported By:
[2018-10-28] MEDS ORDERED: CORTEF ONE ×2 (07:34→20:20)
[2018-10-28] MEDS: DUONEB 0.5 MG/3 MG NEB SCH ×6 (07:50→21:35)
[2018-10-28] MEDS: CORTEF PO SCH ×2 (08:11→21:14)
[2018-10-28] MEDS: LOPRESSOR TAB 25 MG PO SCH ×2 (08:11→21:16)
[2018-10-28] MEDS: LEVAQUIN PREMIX IV 500 MG 500 MG/100 ML BAG IV SCH (08:11)
[2018-10-28] MEDS: SYNTHROID 100 mcg TAB PO SCH (08:12)
[2018-10-28] MEDS: PROCARDIA XL PO SCH (08:12)
[2018-10-28] MEDS: PEPCID TAB 20 MG PO SCH ×2 (08:12→21:17)
[2018-10-28] MEDS: ROBITUSSIN DM PO SCH ×4 (08:12→21:23)
[2018-10-28] MEDS: ZyrTEC TAB 10 MG PO SCH (08:12)
[2018-10-28] MEDS: VALIUM PO PRN ×2 (14:51→22:50)
--- NOTE | 2018-10-28 15:58 | NM ---
HISTORY: 73-year-old male with right upper quadrant pain. Study: Nuclear medicine HIDA scan with ejection fraction Comparison: None. Additional studies used for correlation: Gallbladder ultrasound 10/26/2018, CT abdomen pelvis 10/18/2018. Technique: Multiple scintigraphic images of the abdomen were obtained the intravenous administration of 5.6 mCi of technetium labeled Choletec. Following distention of the gallbladder with radiotracer a fatty meal consisting of 8 oz ensure was administered orally. An estimated gallbladder ejection fraction was calculated based on the physiologic response of fatty meal. Findings: Homogeneous uptake of radiotracer is seen throughout the liver. The intrabiliary ductal system is observed normally. The common hepatic and common bile duct grossly appear unremarkable with normal biliary-bowel transit. The gallbladder is observed to fill normally. After the oral intake of fatty meal, a mildly low gallbladder ejection fraction of 31% (normal > 35%) is observed. IMPRESSION: 1. Normal hepatobiliary imaging scan. 2. Mild low gallbladder ejection fraction of 31%. Biliary dyskinesia and chronic cholecystitis both within the differential. Consider surgical consultation. Reported By:
[2018-10-28] MEDS ORDERED: TORADOL 30 MG VIAL ONE (17:33)
[2018-10-28] MEDS: TORADOL 30 MG VIAL IVP SCH (17:34)
[2018-10-28 17:48] LABS: ABG ALLEN TEST POS; ABG BASE EXCESS 2.8 mmol/L (-2.0-2.0); ABG HCO3 25.9 mmol/L (22-26)
[2018-10-28] MEDS: LIPITOR TAB 40 MG PO SCH (21:15)
[2018-10-28] MEDS: K-DUR TAB 20 MEQ PO PRN (21:15)
[2018-10-28] MEDS: NORCO 10/325 TAB PO PRN (21:17)
--- NOTE | 2018-10-28 21:24 | PCM.PROG ---
Progress Note - Progress Note for Day of Date of Exam: 10/27/18 - Subjective Subjective: WAS ADMITTED FOR RIGHT SIDED ABDOMINAL PAIN AND INTRACTABLE NAUSEA AND VOMITING. TODAY, HE IS ALERT AND ORIENTED, LYING IN BED ON MORNING ROUNDS. HE CONTINUES TO REPORT SEVERE RIGHT SIDED ABDOMINAL PAIN. ON EXAMINATION, HEART IS REGULAR IN RATE AND RHYTHM. BILATERAL LUNGS ARE NOTED WITH DIMINISHED LUNG SOUNDS THROUGHOUT. ABDOMEN IS ROUND, SOFT, AND NOTED WITH MODERATE TENDERNESS TO THE RUQ. NORMAL BOWEL SOUNDS NOTED IN ALL QUADRANTS. HIS VITALS THIS MORNING ARE 98.6-108-20-94%-134/79. LABS WERE OBTAINED. ABNORMAL LAB VALUES INCLUDE THE FOLLOWING: WBC 11.3, RBC 3.62, HGB 11.4, HCT 33.2, BUN 21, GLUCOSE 113, CALCIUM 8.3, AST 8, ALT 11, ALBUMIN 2.4. AN ABDOMEN/PELVIS CT WAS OBTAINED AND REVEALED: No acute intra-abdominal or intrapelvic abnormality identified. Dense alveolar right lower lobe pneumonia. Small right pleural effusion. A GALLBLADDER US WAS OBTAINED AND REVEALED: Mildly thickened gallbladder wall, nonspecific but may reflect a chronic cholecystitis. No gallstones are demonstrated. Otherwise unremarkable examination. HE CONTINUES TO RECEIVE IV ANTIBIOTICS AND BREATHING TX FOR TREATMENT OF PNEUMONIA. WE WILL CONTINUE WITH CURRENT PLAN OF CARE TODAY. WE WILL OBTAIN A HIDA SCAN IN THE MORNING. OTHERWISE, WE WILL FOLLOW UP WITH AM LABS AND CHEST XRAY AND CONTINUE TO MONITOR. - Past Medical Family Social History Past Med/Fam/Surg Hx: No changes since H&P Allergies: Allergies No Known Drug Allergies Allergy (Verified 10/16/18 14:14) - Review of Systems ROS: No change since H&P - Vital Signs and I&O's Vital Signs: Temperature 99.1 F Pulse Rate [Left Radial] 85 Pulse Rate 112 Respiratory Rate 20 Blood Pressure [Left Arm] 106/56 Blood Pressure [Right Arm] 134/72 Blood Pressure [Standing] 130/74 Blood Pressure [Sitting] 140/81 Blood Pressure [Lying] 145/81 Blood Pressure 166/85 O2 Sat by Pulse Oximetry 90 Intake and Output: Intake & Output 10/26/18 10/27/18 10/28/18 10/29/18 11:59 11:59 11:59 11:59 Intake Total 350 / 350 1730 / 1730 315 / 315 0 / 0 Output Total 60 / 60 425 / 425 525 / 525 Balance 290 / 290 1305 / 1305 -210 / -210 0 / 0 - Physical Exam Oriented: Normal Eyes: Normal Ear: Normal Nose: Normal Throat: Normal Respiratory: Generalized, Diminished Cardiovascular: Normal. negative: S3, S4, Murmur : Normal Auscultation: Bowel Sounds: Normal Palpation: Normal Tenderness: RUQ, RLQ, Moderate. negative: Rebound, Guarding, Rigidity Skin: Normal Musculoskeletal: Normal Psychiatric: Agitation Mood Description: Anxious Affect: Normal Speech Pattern: Clear, Appropriate - Laboratory and Diagnostics Result Diagrams: 10/28/18 05:51 10/28/18 05:51 Labs: 10/26/18 14:12 Blood Blood Culture - Preliminary 10/26/18 14:01 Blood Blood Culture - Preliminary 10/26/18 14:04 Sputum - Expectorated Sputum Sputum Culture - Final 10/26/18 14:04 Sputum - Expectorated Sputum - Final Laboratory WBC 11.9 X10^3/uL (3.6-10.0) H 10/28/18 05:51 RBC 3.33 X10^6/uL (4.7-6.0) L 10/28/18 05:51 Hgb 10.4 g/dL (13.5-18.0) L 10/28/18 05:51 Hct 30.0 % (42.0-54.0) L 10/28/18 05:51 MCV 90.1 fL (80.0-100.0) 10/28/18 05:51 MCH 31.3 pg (27.0-34.0) 10/28/18 05:51 MCHC 34.7 g/dL (33.0-35.0) 10/28/18 05:51 RDW 13.0 % (11.6-16.5) 10/28/18 05:51 Plt Count 204 X10^3/uL (150.0-450.0) 10/28/18 05:51 MPV 8.1 fL (7.4-11.0) 10/28/18 05:51 Neut % (Auto) 88.7 % (42.0-75.0) H 10/28/18 05:51 Lymph % (Auto) 5.7 % (21.0-51.0) L 10/28/18 05:51 [place] % (Auto) 5.1 % (0.0-13.0) 10/28/18 05:51 Eos % (Auto) 0.1 % (0.9-2.9) L 10/28/18 05:51 Baso % (Auto) 0.4 % (0.2-1.0) 10/28/18 05:51 Neut # (Auto) 10.5 x10^3/uL (2.2-4.8) H 10/28/18 05:51 Lymph # (Auto) 0.7 X10^3/uL (1.3-2.9) L 10/28/18 05:51 [place] # (Auto) 0.6 x10^3/uL (0.3-0.8) 10/28/18 05:51 Eos # (Auto) 0.0 x10^3/uL (0.0-0.2) 10/28/18 05:51 Baso # (Auto) 0.0 X10^3/uL (0.0-0.1) 10/28/18 05:51 Absolute Nucleated RBC 0.0 /100WBC 10/28/18 05:51 Sample Site Lr 10/28/18 17:40 ABG pH 7.490 (7.35-7.45) H 10/28/18 17:40 ABG pCO2 34.0 mmHg (35.0-45.0) L 10/28/18 17:40 ABG pO2 54.0 mmHg (80.0-100.0) L 10/28/18 17:40 ABG HCO3 25.9 mmol/L (22-26) 10/28/18 17:40 ABG O2 Saturation 90.0 % (90-100) 10/28/18 17:40 ABG Base Excess 2.8 mmol/L (-2.0-2.0) H 10/28/18 17:40 Henrik Test Pos 10/28/18 17:40 A-a Gradient 160.0 mmHg 10/28/18 17:40 FiO2 36.0 10/28/18 17:40 Blood Gas Comments Pt eleuterio well. cdn 10/28/18 17:40 Sodium 137 mmol/L (136-145) 10/28/18 05:51 Corrected Sodium 138 mmol/L (136-145) 10/28/18 05:51 Potassium 3.2 mmol/L (3.5-5.1) L 10/28/18 05:51 Chloride 103 mmol/L (98-107) 10/28/18 05:51 Carbon Dioxide 23.6 mmol/L (21-32) 10/28/18 05:51 BUN 14 mg/dL (7-18) 10/28/18 05:51 Creatinine 0.76 mg/dL (0.70-1.30) 10/28/18 05:51 Est GFR (MDRD) Af Amer > 60 (>60) 10/28/18 05:51 Est GFR (MDRD) Non-Af > 60 (>60) 10/28/18 05:51 Glucose 124 mg/dL (65-99) H 10/28/18 05:51 POC Glucose (mg/dL) 109 mg/dL (65-99) H 10/27/18 05:18 Calcium 8.2 mg/dL (8.5-10.1) L 10/28/18 05:51 Corrected Calcium 9.7 mg/dL (8.5-10.1) 10/28/18 05:51 Magnesium 2.1 mg/dL (1.7-2.9) 10/28/18 05:51 Total Bilirubin 0.50 mg/dL (0.2-1.0) 10/28/18 05:51 AST 11 Units/L (15-37) L 10/28/18 05:51 ALT 11 Units/L (12-78) L 10/28/18 05:51 Alkaline Phosphatase 76 Units/L (46-116) 10/28/18 05:51 Total Protein 6.1 g/dL (6.4-8.2) L 10/28/18 05:51 Albumin 2.1 g/dL (3.4-5.0) L 10/28/18 05:51 Globulin 4.0 g/dL (2.5-4.5) 10/28/18 05:51 Albumin/Globulin Ratio 0.5 Ratio (1.1-2.1) L 10/28/18 05:51 Amylase 15 Units/L (25-115) L 10/25/18 20:43 Lipase 51 Units/L (73-393) L 10/25/18 20:43 Specimen Type Clean catch urine 10/26/18 01:35 Urine Color Jaqueline (YELLOW) 10/26/18 01:35 Urine Appearance Clear (CLEAR) 10/26/18 01:35 Urine pH 5.0 (5.0 - 8.0) 10/26/18 01:35 Ur Specific [place] 1.015 (1.000-1.030) 10/26/18 01:35 Urine Protein 2+ (NEGATIVE) 10/26/18 01:35 Urine Glucose (UA) Negative (NEGATIVE) 10/26/18 01:35 Urine Ketones 1+ (NEGATIVE) 10/26/18 01:35 Urine Occult Blood 1+ (NEGATIVE) 10/26/18 01:35 Urine Nitrite Negative (NEGATIVE) 10/26/18 01:35 Urine Bilirubin 1+ (NEGATIVE) 10/26/18 01:35 Urine Urobilinogen 2+ (NORMAL) 10/26/18 01:35 Ur Leukocyte Esterase 1+ (NEGATIVE) 10/26/18 01:35 Urine RBC 0-2 /HPF (NONE SEEN) 10/26/18 01:35 Urine WBC 0-2 /HPF (NONE SEEN) 10/26/18 01:35 Ur Squamous Epith Cells Few /HPF (NEGATIVE) 10/26/18 01:35 Urine Bacteria Trace /HPF (NEGATIVE) 10/26/18 01:35 Urine Mucus Many /HPF (NEGATIVE) 10/26/18 01:35 Ur Culture Indicated? No/not indicated 10/26/18 01:35 - Plan (1) Pneumonia Status: Acute Qualifiers: Pneumonia type: due to unspecified organism Laterality: left Lung location: lower lobe of lung Qualified Code(s): J18.1 - Lobar pneumonia, unspecified organism Plan: IV FORTAZ, IV LEVAQUIN, RESPIRATORY TX, CONTINUE TO MONITOR (2) Abdominal pain Status: Acute Qualifiers: Abdominal location: generalized Qualified Code(s): R10.84 - Generalized abdominal pain Plan: OBTAIN HIDA SCAN, DEMEROL 25MG IV Q6H PRN, NORCO, CONTINUE TO MONITOR (3) Nausea and vomiting Status: Acute Qualifiers: Vomiting type: unspecified Vomiting Intractability: intractable Qualified Code(s): R11.2 - Nausea with vomiting, unspecified Plan: ZOFRAN 4MG IV Q4H PRN NAUSEA, CONTINUE TO MONITOR (4) Fever Status: Acute Qualifiers: Fever type: unspecified Qualified Code(s): R50.9 - Fever, unspecified
[2018-10-28] MEDS: RESTORIL CAP 15 MG PO PRN (21:25)
[2018-10-28] MEDS: PULMICORT NEB TX 0.5 MG NEB SCH (21:36)
[2018-10-29] MEDS: TORADOL 30 MG VIAL IVP SCH ×4 (00:03→18:08)
[2018-10-29] MEDS: VALIUM PO PRN ×2 (04:46→14:03)
[2018-10-29 05:36] LABS: BASOPHILS % (AUTO) 0.3 % (0.2-1.0); EOSINOPHILS % (AUTO) 0.2 % (0.9-2.9); HEMATOCRIT 29.5 % (42.0-54.0); HEMOGLOBIN 10.3 g/dL (13.5-18.0); LYMPHOCYTES # (AUTO) 0.6 X10^3/uL (1.3-2.9); LYMPHOCYTES % (AUTO) 5.2 % (21.0-51.0); MEAN CORPUSCULAR HEMOGLOBIN 31.5 pg (27.0-34.0); MEAN CORPUSCULAR HGB CONC 34.9 g/dL (33.0-35.0); MEAN CORPUSCULAR VOLUME 90.3 fL (80.0-100.0); MEAN PLATELET VOLUME 8.7 fL (7.4-11.0); MONOCYTES # (AUTO) 0.6 x10^3/uL (0.3-0.8); MONOCYTES % (AUTO) 5.4 % (0.0-13.0); NEUTROPHILS % (AUTO) 88.9 % (42.0-75.0); PLATELET COUNT 237 X10^3/uL (150.0-450.0); RED BLOOD COUNT 3.27 X10^6/uL (4.7-6.0); RED CELL DISTRIBUTION WIDTH 13.2 % (11.6-16.5); WHITE BLOOD COUNT 11.3 X10^3/uL (3.6-10.0)
[2018-10-29 05:49] LABS: ALANINE AMINOTRANSFERASE 13 Units/L (12-78); ALBUMIN 2.3 g/dL (3.4-5.0); ALKALINE PHOSPHATASE 83 Units/L (46-116); ASPARTATE AMINO TRANSFERASE 19 Units/L (15-37); BLOOD UREA NITROGEN 10 mg/dL (7-18); CALCIUM 8.6 mg/dL (8.5-10.1); CARBON DIOXIDE 23.9 mmol/L (21-32); CHLORIDE 107 mmol/L (98-107); CREATININE 0.73 mg/dL (0.70-1.30); SODIUM 141 mmol/L (136-145); TOTAL PROTEIN 6.6 g/dL (6.4-8.2); eGFR NON BLACK RACES > 60 (>60)
[2018-10-29] MEDS: FORTAZ or TAZICEF VIAL INJ IVP SCH ×3 (05:50→21:22)
[2018-10-29] MEDS: NS 1000 ML 1,000 ML IV SCH ×3 (05:52→18:25)
[2018-10-29] MEDS: K-DUR TAB 20 MEQ PO PRN (06:24)
--- NOTE | 2018-10-29 07:19 | RAD ---
HISTORY: Shortness of breath Study: Chest AP portable Comparison: 10/28/2018 Findings: There is a pacemaker present on the left obscuring the lateral lung apex. The heart is mildly enlarged. No congestive heart failure is noted. Right-sided perihilar upper and lower lobe infiltrates unchanged. The left lung remains clear. No pleural effusions are identified. The bony thorax is unremarkable. IMPRESSION: No significant change from the prior day's examination Reported By:
[2018-10-29] MEDS ORDERED: CORTEF ONE ×2 (08:18→20:57)
[2018-10-29] MEDS: DUONEB 0.5 MG/3 MG NEB SCH ×4 (08:34→20:58)
[2018-10-29] MEDS: PULMICORT NEB TX 0.5 MG NEB SCH ×2 (08:34→20:58)
[2018-10-29] MEDS: ROBITUSSIN DM PO SCH ×4 (08:43→21:21)
[2018-10-29] MEDS: CORTEF PO SCH ×2 (08:46→21:19)
[2018-10-29] MEDS: SYNTHROID 100 mcg TAB PO SCH (08:46)
[2018-10-29] MEDS: LOPRESSOR TAB 25 MG PO SCH ×2 (08:47→21:21)
[2018-10-29] MEDS: PEPCID TAB 20 MG PO SCH ×2 (08:47→22:15)
[2018-10-29] MEDS: ZyrTEC TAB 10 MG PO SCH (08:47)
[2018-10-29] MEDS: PROCARDIA XL PO SCH (08:47)
[2018-10-29] MEDS: LEVAQUIN PREMIX IV 500 MG 500 MG/100 ML BAG IV SCH (08:48)
[2018-10-29] MEDS ORDERED: HALDOL INJ ONE (17:51)
[2018-10-29] MEDS: HALDOL INJ IM PRN ×2 (17:57→22:16)
[2018-10-29] MEDS: LIPITOR TAB 40 MG PO SCH (21:20)
[2018-10-30] MEDS: TORADOL 30 MG VIAL IVP SCH ×2 (00:17→05:44)
[2018-10-30] MEDS: RESTORIL CAP 15 MG PO PRN ×2 (00:45→21:00)
[2018-10-30 04:35] LABS: ABG BASE EXCESS 1.6 mmol/L (-2.0-2.0); ABG HCO3 23.4 mmol/L (22-26)
[2018-10-30 04:36] LABS: ABG ALLEN TEST POS
[2018-10-30] MEDS: FORTAZ or TAZICEF VIAL INJ IVP SCH ×3 (05:41→20:59)
--- NOTE | 2018-10-30 06:15 | CT ---
HISTORY: Altered mental status. Study: CT brain without contrast.Dose reduction techniques including Automated Exposure Control (AEC) and adjustment of mA and kV were utilized. Comparison: 09/08/2018. Technique: Multiple axial images of the brain were obtained from the skull base to the vertex without administration of IV contrast. Findings: There is mild ventricular, as well as, sulcal and cisternal prominence, in addition to, atherosclerotic changes of the proximal intracranial carotid and vertebral arteries. Scattered areas of periventricular, deep and subcortical white matter hypoattenuation are noted bilaterally likely reflecting ischemic microangiopathy in a patient this age. No acute intraparenchymal hemorrhage or mass can be identified. No extra-axial fluid collections are seen. No alteration in the attenuation of the brain parenchyma can be identified to suggest acute or subacute ischemic change. There is severe mucoperiosteal thickening of the sphenoid sinuses and ethmoid air cells on the right. Moderate mucoperiosteal thickening of the left ethmoid air cells and right maxillary sinus are noted as well with air-fluid level present within the right maxillary sinus. The extracranial structures are grossly unremarkable. IMPRESSION: Changes of advancing chronological age without acute intracranial abnormality. Chronic white matter changes. Findings compatible with acute on chronic sinusitis which should be correlated for clinically. Reported By:
[2018-10-30 06:22] LABS: BASOPHILS % (AUTO) 0.4 % (0.2-1.0); EOSINOPHILS # (AUTO) 0.1 x10^3/uL (0.0-0.2); EOSINOPHILS % (AUTO) 0.9 % (0.9-2.9); HEMATOCRIT 28.3 % (42.0-54.0); HEMOGLOBIN 9.9 g/dL (13.5-18.0); LYMPHOCYTES # (AUTO) 0.7 X10^3/uL (1.3-2.9); LYMPHOCYTES % (AUTO) 8.5 % (21.0-51.0); MEAN CORPUSCULAR HEMOGLOBIN 31.7 pg (27.0-34.0); MEAN CORPUSCULAR HGB CONC 34.8 g/dL (33.0-35.0); MEAN CORPUSCULAR VOLUME 90.8 fL (80.0-100.0); MEAN PLATELET VOLUME 8.1 fL (7.4-11.0); MONOCYTES # (AUTO) 0.6 x10^3/uL (0.3-0.8); MONOCYTES % (AUTO) 6.5 % (0.0-13.0); NEUTROPHILS # (AUTO) 7.2 x10^3/uL (2.2-4.8); NEUTROPHILS % (AUTO) 83.7 % (42.0-75.0); PLATELET COUNT 274 X10^3/uL (150.0-450.0); RED BLOOD COUNT 3.12 X10^6/uL (4.7-6.0); RED CELL DISTRIBUTION WIDTH 13.3 % (11.6-16.5); WHITE BLOOD COUNT 8.6 X10^3/uL (3.6-10.0)
[2018-10-30 06:28] LABS: LACTIC ACID 1.3 mmol/L (0.4-2.0)
--- NOTE | 2018-10-30 06:28 | CT ---
HISTORY: Dyspnea. Study: CT chest without contrast. Comparison: Chest radiograph dated 10/29/2018. CT chest dated 09/05/2018. Technique: Multiple axial images of the chest were obtained from the thoracic inlet to the upper abdomen without the administration of IV contrast. Findings: Optimal evaluation is limited given the lack of intravenous contrast. There is a dual lead cardiac pacing device on the left. There is four-chamber cardiac enlargement without pericardial effusion. There is a coronary artery stent on the left. The thoracic aorta is normal in contour without aneurysmal dilatation. There is no significant mediastinal or hilar lymphadenopathy evident given the lack of intravenous contrast. The included portions of the upper abdomen are grossly unremarkable given the noncontrast nature of the exam. Evaluation of the lung parenchyma demonstrates patchy bilateral interstitial opacities and peribronchial thickening of both upper lobes, right greater than left. Mild bronchiectasis and unchanged 5 mm pulmonary nodule are present within the right upper lobe. There are patchy airspace opacities in both lung bases, right greater than left. Small bilateral pleural effusions are present as well. Evaluation of the bony structures demonstrates postsurgical changes following ACDF lower cervical spine. No acute bony abnormality is evident. IMPRESSION: Findings compatible with bilateral multifocal pneumonia, right greater than left. Follow-up to complete resolution is recommended. Small bilateral pleural effusions. Cardiomegaly with dual lead cardiac pacing device on the left. Reported By:
[2018-10-30 06:38] LABS: ALANINE AMINOTRANSFERASE 20 Units/L (12-78); ALBUMIN 2.2 g/dL (3.4-5.0); ALKALINE PHOSPHATASE 77 Units/L (46-116); ASPARTATE AMINO TRANSFERASE 29 Units/L (15-37); BLOOD UREA NITROGEN 9 mg/dL (7-18); CALCIUM 8.5 mg/dL (8.5-10.1); CARBON DIOXIDE 23.7 mmol/L (21-32); CHLORIDE 108 mmol/L (98-107); COR CA(FOR HYPOALB) 9.9 mg/dL (8.5-10.1); SODIUM 142 mmol/L (136-145); TOTAL PROTEIN 6.5 g/dL (6.4-8.2); eGFR NON BLACK RACES > 60 (>60)
[2018-10-30] MEDS: NS 1000 ML 1,000 ML IV SCH ×3 (07:26→23:59)
[2018-10-30] MEDS ORDERED: CORTEF ONE ×3 (08:18→20:05)
[2018-10-30] MEDS: LEVAQUIN PREMIX IV 500 MG 500 MG/100 ML BAG IV SCH (08:55)
[2018-10-30] MEDS: K-DUR TAB 20 MEQ PO PRN (08:58)
[2018-10-30 08:59] LABS: MYCOPLASMA PNEUMONIAE IGM AB NEGATIVE (NEGATIVE)
[2018-10-30] MEDS: ZyrTEC TAB 10 MG PO SCH (09:00)
[2018-10-30] MEDS: PROCARDIA XL PO SCH (09:00)
[2018-10-30] MEDS: SYNTHROID 100 mcg TAB PO SCH (09:00)
[2018-10-30] MEDS: LOPRESSOR TAB 25 MG PO SCH ×2 (09:00→21:00)
[2018-10-30] MEDS: PEPCID TAB 20 MG PO SCH ×2 (09:00→20:59)
[2018-10-30] MEDS: CORTEF PO SCH ×2 (09:15→21:00)
[2018-10-30] MEDS: ROBITUSSIN DM PO SCH ×4 (10:11→21:00)
[2018-10-30] MEDS: DUONEB 0.5 MG/3 MG NEB SCH ×4 (10:21→20:56)
[2018-10-30] MEDS: PULMICORT NEB TX 0.5 MG NEB SCH ×2 (10:21→20:56)
[2018-10-30] MEDS: LIPITOR TAB 40 MG PO SCH (21:00)
--- NOTE | 2018-10-30 23:35 | PCM.PROG ---
Progress Note - Progress Note for Day of Date of Exam: 10/28/18 - Subjective Subjective: WAS ADMITTED FOR RIGHT SIDED ABDOMINAL PAIN AND INTRACTABLE NAUSEA AND VOMITING. TODAY, HE IS ALERT AND ORIENTED, LYING IN BED ON MORNING ROUNDS. HE CONTINUES TO REPORT SEVERE RIGHT SIDED ABDOMINAL PAIN. HE ALSO REPORTS A PERSISTENT COUGH. HE STATES THAT PAIN IS WORSE WHEN COUGHING. ON EXAMINATION, HEART IS REGULAR IN RATE AND RHYTHM. BILATERAL LUNGS ARE NOTED WITH DIMINISHED LUNG SOUNDS THROUGHOUT. ABDOMEN IS ROUND, SOFT, AND NOTED WITH MODERATE TENDERNESS TO THE RUQ. NORMAL BOWEL SOUNDS NOTED IN ALL QUADRANTS. HIS VITALS THIS MORNING ARE 98.4-108-20-90%NC-117/61. LABS WERE OBTAINED. ABNORMAL LAB VALUES INCLUDE THE FOLLOWING: WBC 11.9, RBC 3.33, HGB 10.4, HCT 30.0, POTASSIUM 3.2, GLUCOSE 124, CALCIUM 8.2, AST 11, ALT 11, TOTAL PROTEIN 6.1, ALBUMIN 2.1. BLOOD AND SPUTUM CULTURES ARE PENDING. AN ABDOMEN/PELVIS CT WAS OBTAINED AND REVEALED: No acute intra-abdominal or intrapelvic abnormality identified. Dense alveolar right lower lobe pneumonia. Small right pleural effusion. A HIDA SCAN WAS OBTAINED TODAY AND REVEALED: Homogeneous uptake of radiotracer is seen throughout the liver. The intrabiliary ductal system is observed normally. The common hepatic and common bile duct grossly appear unremarkable with normal biliary-bowel transit. The gallbladder is observed to fill normally. After the oral intake of fatty meal, a mildly low gallbladder ejection fraction of 31% (normal > 35%) is observed. HE CONTINUES TO RECEIVE IV ANTIBIOTICS AND BREATHING TX FOR TREATMENT OF PNEUMONIA. WE WILL CONTINUE WITH CURRENT PLAN OF CARE TODAY AND START TORADOL 30MG IV Q6H. WE WILL CONSULT , BUT IT IS NOT LIKELY THAT HE WILL REMOVE HIS GALLBLADDER IN THE FACE OF INFECTION FROM THE PNEUMONIA. OTHERWISE, WE WILL FOLLOW UP WITH AM LABS AND CHEST XRAY AND CONTINUE TO MONITOR. - Past Medical Family Social History Past Med/Fam/Surg Hx: No changes since H&P Allergies: Allergies No Known Drug Allergies Allergy (Verified 10/16/18 14:14) - Review of Systems ROS: No change since H&P - Vital Signs and I&O's Vital Signs: Temperature 99.5 F Pulse Rate [Left Radial] 75 Pulse Rate 72 Respiratory Rate 20 Blood Pressure [Left Arm] 129/62 Blood Pressure [Right Arm] 120/59 Blood Pressure [Standing] 130/74 Blood Pressure [Sitting] 140/81 Blood Pressure [Lying] 145/81 Blood Pressure 166/85 O2 Sat by Pulse Oximetry 98 Intake and Output: Intake & Output 10/28/18 10/29/18 10/30/18 10/31/18 11:59 11:59 11:59 11:59 Intake Total 315 / 315 0 / 0 1120 / 1120 570 / 570 Output Total 525 / 525 400 / 400 200 / 200 Balance -210 / -210 -400 / -400 920 / 920 570 / 570 - Physical Exam Oriented: Normal Eyes: Normal Ear: Normal Nose: Normal Throat: Normal Respiratory: Generalized, Diminished Cardiovascular: Normal. negative: S3, S4, Murmur : Normal Auscultation: Bowel Sounds: Normal Palpation: Normal Tenderness: RUQ, RLQ, Moderate. negative: Rebound, Guarding, Rigidity Skin: Normal Musculoskeletal: Normal Psychiatric: Agitation Mood Description: Anxious Affect: Normal Speech Pattern: Clear, Appropriate - Laboratory and Diagnostics Result Diagrams: 10/30/18 05:50 10/30/18 05:50 Labs: 10/26/18 14:12 Blood Blood Culture - Preliminary 10/26/18 14:01 Blood Blood Culture - Preliminary 10/26/18 14:04 Sputum - Expectorated Sputum Sputum Culture - Final 10/26/18 14:04 Sputum - Expectorated Sputum - Final Laboratory WBC 8.6 X10^3/uL (3.6-10.0) 10/30/18 05:50 RBC 3.12 X10^6/uL (4.7-6.0) L 10/30/18 05:50 Hgb 9.9 g/dL (13.5-18.0) L 10/30/18 05:50 Hct 28.3 % (42.0-54.0) L 10/30/18 05:50 MCV 90.8 fL (80.0-100.0) 10/30/18 05:50 MCH 31.7 pg (27.0-34.0) 10/30/18 05:50 MCHC 34.8 g/dL (33.0-35.0) 10/30/18 05:50 RDW 13.3 % (11.6-16.5) 10/30/18 05:50 Plt Count 274 X10^3/uL (150.0-450.0) 10/30/18 05:50 MPV 8.1 fL (7.4-11.0) 10/30/18 05:50 Neut % (Auto) 83.7 % (42.0-75.0) H 10/30/18 05:50 Lymph % (Auto) 8.5 % (21.0-51.0) L 10/30/18 05:50 [place] % (Auto) 6.5 % (0.0-13.0) 10/30/18 05:50 Eos % (Auto) 0.9 % (0.9-2.9) 10/30/18 05:50 Baso % (Auto) 0.4 % (0.2-1.0) 10/30/18 05:50 Neut # (Auto) 7.2 x10^3/uL (2.2-4.8) H 10/30/18 05:50 Lymph # (Auto) 0.7 X10^3/uL (1.3-2.9) L 10/30/18 05:50 [place] # (Auto) 0.6 x10^3/uL (0.3-0.8) 10/30/18 05:50 Eos # (Auto) 0.1 x10^3/uL (0.0-0.2) 10/30/18 05:50 Baso # (Auto) 0.0 X10^3/uL (0.0-0.1) 10/30/18 05:50 Absolute Nucleated RBC 0.0 /100WBC 10/30/18 05:50 Sample Site Lr 10/30/18 04:25 ABG pH 7.530 (7.35-7.45) H 10/30/18 04:25 ABG pCO2 28.0 mmHg (35.0-45.0) L 10/30/18 04:25 ABG pO2 50.0 mmHg (80.0-100.0) L 10/30/18 04:25 ABG HCO3 23.4 mmol/L (22-26) 10/30/18 04:25 ABG O2 Saturation 89.0 % (90-100) L 10/30/18 04:25 ABG Base Excess 1.6 mmol/L (-2.0-2.0) 10/30/18 04:25 Henrik Test Pos 10/30/18 04:25 A-a Gradient 172.0 mmHg 10/30/18 04:25 FiO2 36.0 10/30/18 04:25 Blood Gas Comments Scottie well ae 10/30/18 04:25 Sodium 142 mmol/L (136-145) 10/30/18 05:50 Corrected Sodium TNP 10/30/18 05:50 Potassium 3.3 mmol/L (3.5-5.1) L 10/30/18 05:50 Chloride 108 mmol/L (98-107) H 10/30/18 05:50 Carbon Dioxide 23.7 mmol/L (21-32) 10/30/18 05:50 BUN 9 mg/dL (7-18) 10/30/18 05:50 Creatinine 0.70 mg/dL (0.70-1.30) 10/30/18 05:50 Est GFR (MDRD) Af Amer > 60 (>60) 10/30/18 05:50 Est GFR (MDRD) Non-Af > 60 (>60) 10/30/18 05:50 Glucose 92 mg/dL (65-99) 10/30/18 05:50 POC Glucose (mg/dL) 109 mg/dL (65-99) H 10/27/18 05:18 Lactic Acid 1.3 mmol/L (0.4-2.0) 10/30/18 05:50 Calcium 8.5 mg/dL (8.5-10.1) 10/30/18 05:50 Corrected Calcium 9.9 mg/dL (8.5-10.1) 10/30/18 05:50 Magnesium 2.1 mg/dL (1.7-2.9) 10/28/18 05:51 Total Bilirubin 0.40 mg/dL (0.2-1.0) 10/30/18 05:50 AST 29 Units/L (15-37) 10/30/18 05:50 ALT 20 Units/L (12-78) 10/30/18 05:50 Alkaline Phosphatase 77 Units/L (46-116) 10/30/18 05:50 Total Protein 6.5 g/dL (6.4-8.2) 10/30/18 05:50 Albumin 2.2 g/dL (3.4-5.0) L 10/30/18 05:50 Globulin 4.3 g/dL (2.5-4.5) 10/30/18 05:50 Albumin/Globulin Ratio 0.5 Ratio (1.1-2.1) L 10/30/18 05:50 Amylase 15 Units/L (25-115) L 10/25/18 20:43 Lipase 51 Units/L (73-393) L 10/25/18 20:43 Specimen Type Clean catch urine 10/26/18 01:35 Urine Color Jaqueline (YELLOW) 10/26/18 01:35 Urine Appearance Clear (CLEAR) 10/26/18 01:35 Urine pH 5.0 (5.0 - 8.0) 10/26/18 01:35 Ur Specific [place] 1.015 (1.000-1.030) 10/26/18 01:35 Urine Protein 2+ (NEGATIVE) 10/26/18 01:35 Urine Glucose (UA) Negative (NEGATIVE) 10/26/18 01:35 Urine Ketones 1+ (NEGATIVE) 10/26/18 01:35 Urine Occult Blood 1+ (NEGATIVE) 10/26/18 01:35 Urine Nitrite Negative (NEGATIVE) 10/26/18 01:35 Urine Bilirubin 1+ (NEGATIVE) 10/26/18 01:35 Urine Urobilinogen 2+ (NORMAL) 10/26/18 01:35 Ur Leukocyte Esterase 1+ (NEGATIVE) 10/26/18 01:35 Urine RBC 0-2 /HPF (NONE SEEN) 10/26/18 01:35 Urine WBC 0-2 /HPF (NONE SEEN) 10/26/18 01:35 Ur Squamous Epith Cells Few /HPF (NEGATIVE) 10/26/18 01:35 Urine Bacteria Trace /HPF (NEGATIVE) 10/26/18 01:35 Urine Mucus Many /HPF (NEGATIVE) 10/26/18 01:35 Ur Culture Indicated? No/not indicated 10/26/18 01:35 Mycoplasma pneumon IgG Negative (NEGATIVE) 10/30/18 05:50 - Plan (1) Pneumonia Status: Acute Qualifiers: Pneumonia type: due to unspecified organism Laterality: left Lung location: lower lobe of lung Qualified Code(s): J18.1 - Lobar pneumonia, unspecified organism Plan: IV FORTAZ, IV LEVAQUIN, RESPIRATORY TX, CONTINUE TO MONITOR (2) Abdominal pain Status: Acute Qualifiers: Abdominal location: generalized Qualified Code(s): R10.84 - Generalized abdominal pain Plan: DEMEROL 25MG IV Q6H PRN, NORCO, CONTINUE TO MONITOR (3) Nausea and vomiting Status: Acute Qualifiers: Vomiting type: unspecified Vomiting Intractability: intractable Qualified Code(s): R11.2 - Nausea with vomiting, unspecified Plan: ZOFRAN 4MG IV Q4H PRN NAUSEA, CONTINUE TO MONITOR (4) Fever Status: Acute Qualifiers: Fever type: unspecified Qualified Code(s): R50.9 - Fever, unspecified
[2018-10-31] MEDS: FORTAZ or TAZICEF VIAL INJ IVP SCH ×3 (05:28→21:23)
[2018-10-31 06:18] LABS: BASOPHILS # (AUTO) 0.1 X10^3/uL (0.0-0.1); BASOPHILS % (AUTO) 0.7 % (0.2-1.0); EOSINOPHILS # (AUTO) 0.1 x10^3/uL (0.0-0.2); EOSINOPHILS % (AUTO) 1.5 % (0.9-2.9); HEMATOCRIT 32.2 % (42.0-54.0); HEMOGLOBIN 10.9 g/dL (13.5-18.0); LYMPHOCYTES # (AUTO) 0.7 X10^3/uL (1.3-2.9); LYMPHOCYTES % (AUTO) 8.1 % (21.0-51.0); MEAN CORPUSCULAR HEMOGLOBIN 31.1 pg (27.0-34.0); MEAN CORPUSCULAR HGB CONC 33.8 g/dL (33.0-35.0); MEAN CORPUSCULAR VOLUME 91.9 fL (80.0-100.0); MEAN PLATELET VOLUME 8.6 fL (7.4-11.0); MONOCYTES # (AUTO) 0.6 x10^3/uL (0.3-0.8); MONOCYTES % (AUTO) 6.3 % (0.0-13.0); NEUTROPHILS # (AUTO) 7.6 x10^3/uL (2.2-4.8); NEUTROPHILS % (AUTO) 83.4 % (42.0-75.0); PLATELET COUNT 287 X10^3/uL (150.0-450.0); RED CELL DISTRIBUTION WIDTH 13.4 % (11.6-16.5); WHITE BLOOD COUNT 9.1 X10^3/uL (3.6-10.0)
[2018-10-31 06:26] LABS: ALANINE AMINOTRANSFERASE 25 Units/L (12-78); ALBUMIN 2.2 g/dL (3.4-5.0); ALKALINE PHOSPHATASE 81 Units/L (46-116); ASPARTATE AMINO TRANSFERASE 38 Units/L (15-37); BLOOD UREA NITROGEN 12 mg/dL (7-18); CALCIUM 8.5 mg/dL (8.5-10.1); CARBON DIOXIDE 21.7 mmol/L (21-32); CHLORIDE 109 mmol/L (98-107); COR CA(FOR HYPOALB) 9.9 mg/dL (8.5-10.1); CREATININE 0.66 mg/dL (0.70-1.30); SODIUM 142 mmol/L (136-145); TOTAL PROTEIN 6.7 g/dL (6.4-8.2); eGFR NON BLACK RACES > 60 (>60)
--- NOTE | 2018-10-31 06:34 | RAD ---
HISTORY: Shortness of breath. Study: Single-view chest. Comparison: Chest radiograph dated 10/29/2018. Chest CT dated 10/30/2018. Findings: The trachea is midline. The cardiac silhouette is enlarged similar to the comparison studies. There is a dual lead cardiac pacing device on the left. Diffuse interstitial and patchy airspace opacities, right greater than left, are grossly unchanged. Small right pleural effusion is best demonstrated on the recent comparison chest CT. There is no pneumothorax. The bony thorax is grossly unremarkable. Surgical suture anchors project over the left humeral head. IMPRESSION: Unchanged exam compared with chest CT performed the previous day. Reported By:
[2018-10-31] MEDS: NS 1000 ML 1,000 ML IV SCH ×3 (07:02→21:23)
[2018-10-31] MEDS ORDERED: CORTEF ONE (07:42)
[2018-10-31 08:48] LABS: ABG BASE EXCESS 2.2 mmol/L (-2.0-2.0); ABG HCO3 24.7 mmol/L (22-26)
[2018-10-31] MEDS: CORTEF PO SCH ×2 (09:05→21:47)
[2018-10-31] MEDS: PEPCID TAB 20 MG PO SCH ×2 (09:05→21:23)
[2018-10-31] MEDS: PROCARDIA XL PO SCH (09:05)
[2018-10-31] MEDS: LEVAQUIN PREMIX IV 500 MG 500 MG/100 ML BAG IV SCH (09:05)
[2018-10-31] MEDS: ZyrTEC TAB 10 MG PO SCH (09:05)
[2018-10-31] MEDS: K-DUR TAB 20 MEQ PO PRN (09:05)
[2018-10-31] MEDS: LOPRESSOR TAB 25 MG PO SCH ×2 (09:05→21:23)
[2018-10-31] MEDS: SYNTHROID 100 mcg TAB PO SCH (09:05)
[2018-10-31] MEDS: PULMICORT NEB TX 0.5 MG NEB SCH ×2 (09:55→20:13)
[2018-10-31] MEDS: DUONEB 0.5 MG/3 MG NEB SCH ×4 (09:55→20:13)
[2018-10-31] MEDS: ROBITUSSIN DM PO SCH ×4 (10:05→21:23)
[2018-10-31] MEDS: TORADOL 30 MG VIAL IVP PRN ×2 (14:05→21:22)
--- NOTE | 2018-10-31 18:53 | PCM.PROG ---
Progress Note - Progress Note for Day of Date of Exam: 10/29/18 - Subjective Subjective: WAS ADMITTED FOR RIGHT SIDED ABDOMINAL PAIN AND INTRACTABLE NAUSEA AND VOMITING. ON ADMISSION, SCANS REVEALED RIGHT SIDED PNEUMONIA. TODAY, HE IS DISORIENTED, LYING IN BED ON MORNING ROUNDS. HE CONTINUES TO REPORT SEVERE RIGHT SIDED ABDOMINAL PAIN. HE ALSO REPORTS A PERSISTENT COUGH. HE STATES THAT PAIN IS WORSE WHEN COUGHING. HE WAS STARTED ON TORADOL YESTERDAY FOR PLEURISY. FAMILY REPORTS THAT HIS AGITATION AND CONFUSION SEEMS TO BE GETTING WORSE. ON EXAMINATION, HEART IS REGULAR IN RATE AND RHYTHM. BILATERAL LUNGS ARE NOTED WITH DIMINISHED LUNG SOUNDS THROUGHOUT. ABDOMEN IS ROUND, SOFT, AND NOTED WITH MODERATE TENDERNESS TO THE RUQ. NORMAL BOWEL SOUNDS NOTED IN ALL QUADRANTS. HIS VITALS THIS MORNING ARE 98.3-74-20-93%HHF-114/63. LABS WERE OBTAINED. ABNORMAL LAB VALUES INCLUDE THE FOLLOWING: WBC 11.3, RBC 3.27, HGB 10.3, HCT 29.5, POTASSIUM 3.2, GLUCOSE 107, ALBUMIN 2.3. AN ABG WAS OBTAINED YESTERDAY AFTERNOON AND REVEALED: PH 7.490M PC02 34.0, P02 54.0, HC03 25.9, 02 SATURATION 90.0, BASE EXCESS 2.8. BLOOD AND SPUTUM CULTURES ARE PENDING. A CHEST XRAY WAS OBTAINED THIS MORNING AND REVEALED: Right-sided perihilar upper and lower lobe infiltrates unchanged. The left lung remains clear. HE CONTINUES TO RECEIVE IV ANTIBIOTICS AND BREATHING TX FOR TREATMENT OF PNEUMONIA. WE WILL CONTINUE WITH CURRENT PLAN OF CARE TODAY AND START HALDOL 2-4MG IM Q4H PRN AGITATION. WE WILL OBTAIN A BRAIN CT AND A CHEST CT WITH CONTRAST. OTHERWISE, WE WILL FOLLOW UP WITH AM LABS AND CHEST XRAY AND CONTINUE TO MONITOR. - Past Medical Family Social History Past Med/Fam/Surg Hx: No changes since H&P Allergies: Allergies No Known Drug Allergies Allergy (Verified 10/16/18 14:14) - Review of Systems ROS: No change since H&P - Vital Signs and I&O's Vital Signs: Temperature 98.7 F Pulse Rate [Left Radial] 63 Pulse Rate 64 Respiratory Rate 20 Blood Pressure [Left Arm] 107/56 Blood Pressure [Right Arm] 120/59 Blood Pressure [Standing] 130/74 Blood Pressure [Sitting] 140/81 Blood Pressure [Lying] 145/81 Blood Pressure 166/85 O2 Sat by Pulse Oximetry 94 Intake and Output: Intake & Output 10/29/18 10/30/18 10/31/18 11/01/18 11:59 11:59 11:59 11:59 Intake Total 0 / 0 1120 / 1120 810 / 810 1380 / 1380 Output Total 400 / 400 200 / 200 150 / 150 400 / 400 Balance -400 / -400 920 / 920 660 / 660 980 / 980 - Physical Exam Oriented: Not Oriented Eyes: Normal Ear: Normal Nose: Normal Throat: Normal Respiratory: Generalized, Diminished Cardiovascular: Normal. negative: S3, S4, Murmur : Normal Auscultation: Bowel Sounds: Normal Palpation: Normal Tenderness: RUQ, RLQ, Moderate. negative: Rebound, Guarding, Rigidity Skin: Normal Musculoskeletal: Normal Psychiatric: Agitation Mood Description: Anxious Affect: Normal Speech Pattern: Clear, Appropriate - Laboratory and Diagnostics Result Diagrams: 10/31/18 05:23 10/31/18 05:23 Labs: 10/26/18 14:12 Blood Blood Culture - Preliminary 10/26/18 14:01 Blood Blood Culture - Preliminary 10/26/18 14:04 Sputum - Expectorated Sputum Sputum Culture - Final 10/26/18 14:04 Sputum - Expectorated Sputum - Final Laboratory WBC 9.1 X10^3/uL (3.6-10.0) 10/31/18 05:23 RBC 3.50 X10^6/uL (4.7-6.0) L 10/31/18 05:23 Hgb 10.9 g/dL (13.5-18.0) L 10/31/18 05:23 Hct 32.2 % (42.0-54.0) L 10/31/18 05:23 MCV 91.9 fL (80.0-100.0) 10/31/18 05:23 MCH 31.1 pg (27.0-34.0) 10/31/18 05:23 MCHC 33.8 g/dL (33.0-35.0) 10/31/18 05:23 RDW 13.4 % (11.6-16.5) 10/31/18 05:23 Plt Count 287 X10^3/uL (150.0-450.0) 10/31/18 05:23 MPV 8.6 fL (7.4-11.0) 10/31/18 05:23 Neut % (Auto) 83.4 % (42.0-75.0) H 10/31/18 05:23 Lymph % (Auto) 8.1 % (21.0-51.0) L 10/31/18 05:23 [place] % (Auto) 6.3 % (0.0-13.0) 10/31/18 05:23 Eos % (Auto) 1.5 % (0.9-2.9) 10/31/18 05:23 Baso % (Auto) 0.7 % (0.2-1.0) 10/31/18 05:23 Neut # (Auto) 7.6 x10^3/uL (2.2-4.8) H 10/31/18 05:23 Lymph # (Auto) 0.7 X10^3/uL (1.3-2.9) L 10/31/18 05:23 [place] # (Auto) 0.6 x10^3/uL (0.3-0.8) 10/31/18 05:23 Eos # (Auto) 0.1 x10^3/uL (0.0-0.2) 10/31/18 05:23 Baso # (Auto) 0.1 X10^3/uL (0.0-0.1) 10/31/18 05:23 Absolute Nucleated RBC 0.0 /100WBC 10/31/18 05:23 Sample Site Right brachial 10/31/18 08:40 ABG pH 7.510 (7.35-7.45) H 10/31/18 08:40 ABG pCO2 31.0 mmHg (35.0-45.0) L 10/31/18 08:40 ABG pO2 68.0 mmHg (80.0-100.0) L 10/31/18 08:40 ABG HCO3 24.7 mmol/L (22-26) 10/31/18 08:40 ABG O2 Saturation 95.0 % (90-100) 10/31/18 08:40 ABG Base Excess 2.2 mmol/L (-2.0-2.0) H 10/31/18 08:40 Henrik Test Na 10/31/18 08:40 A-a Gradient 107.0 mmHg 10/31/18 08:40 FiO2 30.0 10/31/18 08:40 Blood Gas Comments Scottie well aw 10/31/18 08:40 Sodium 142 mmol/L (136-145) 10/31/18 05:23 Corrected Sodium TNP 10/31/18 05:23 Potassium 3.7 mmol/L (3.5-5.1) 10/31/18 05:23 Chloride 109 mmol/L (98-107) H 10/31/18 05:23 Carbon Dioxide 21.7 mmol/L (21-32) 10/31/18 05:23 BUN 12 mg/dL (7-18) 10/31/18 05:23 Creatinine 0.66 mg/dL (0.70-1.30) L 10/31/18 05:23 Est GFR (MDRD) Af Amer > 60 (>60) 10/31/18 05:23 Est GFR (MDRD) Non-Af > 60 (>60) 10/31/18 05:23 Glucose 99 mg/dL (65-99) 10/31/18 05:23 POC Glucose (mg/dL) 109 mg/dL (65-99) H 10/27/18 05:18 Lactic Acid 1.3 mmol/L (0.4-2.0) 10/30/18 05:50 Calcium 8.5 mg/dL (8.5-10.1) 10/31/18 05:23 Corrected Calcium 9.9 mg/dL (8.5-10.1) 10/31/18 05:23 Magnesium 2.1 mg/dL (1.7-2.9) 10/28/18 05:51 Total Bilirubin 0.40 mg/dL (0.2-1.0) 10/31/18 05:23 AST 38 Units/L (15-37) H 10/31/18 05:23 ALT 25 Units/L (12-78) 10/31/18 05:23 Alkaline Phosphatase 81 Units/L (46-116) 10/31/18 05:23 Total Protein 6.7 g/dL (6.4-8.2) 10/31/18 05:23 Albumin 2.2 g/dL (3.4-5.0) L 10/31/18 05:23 Globulin 4.5 g/dL (2.5-4.5) 10/31/18 05:23 Albumin/Globulin Ratio 0.5 Ratio (1.1-2.1) L 10/31/18 05:23 Amylase 15 Units/L (25-115) L 10/25/18 20:43 Lipase 51 Units/L (73-393) L 10/25/18 20:43 Specimen Type Clean catch urine 10/26/18 01:35 Urine Color [place] (YELLOW) 10/26/18 01:35 Urine Appearance Clear (CLEAR) 10/26/18 01:35 Urine pH 5.0 (5.0 - 8.0) 10/26/18 01:35 Ur Specific [place] 1.015 (1.000-1.030) 10/26/18 01:35 Urine Protein 2+ (NEGATIVE) 10/26/18 01:35 Urine Glucose (UA) Negative (NEGATIVE) 10/26/18 01:35 Urine Ketones 1+ (NEGATIVE) 10/26/18 01:35 Urine Occult Blood 1+ (NEGATIVE) 10/26/18 01:35 Urine Nitrite Negative (NEGATIVE) 10/26/18 01:35 Urine Bilirubin 1+ (NEGATIVE) 10/26/18 01:35 Urine Urobilinogen 2+ (NORMAL) 10/26/18 01:35 Ur Leukocyte Esterase 1+ (NEGATIVE) 10/26/18 01:35 Urine RBC 0-2 /HPF (NONE SEEN) 10/26/18 01:35 Urine WBC 0-2 /HPF (NONE SEEN) 10/26/18 01:35 Ur Squamous Epith Cells Few /HPF (NEGATIVE) 10/26/18 01:35 Urine Bacteria Trace /HPF (NEGATIVE) 10/26/18 01:35 Urine Mucus Many /HPF (NEGATIVE) 10/26/18 01:35 Ur Culture Indicated? No/not indicated 10/26/18 01:35 Mycoplasma pneumon IgG Negative (NEGATIVE) 10/30/18 05:50 - Plan (1) Pneumonia Status: Acute Qualifiers: Pneumonia type: due to unspecified organism Laterality: left Lung location: lower lobe of lung Qualified Code(s): J18.1 - Lobar pneumonia, unspecified organism Plan: IV FORTAZ, IV LEVAQUIN, RESPIRATORY TX, CONTINUE TO MONITOR (2) Abdominal pain Status: Acute Qualifiers: Abdominal location: generalized Qualified Code(s): R10.84 - Generalized abdominal pain Plan: DEMEROL 25MG IV Q6H PRN, NORCO, CONTINUE TO MONITOR (3) Nausea and vomiting Status: Acute Qualifiers: Vomiting type: unspecified Vomiting Intractability: intractable Qualified Code(s): R11.2 - Nausea with vomiting, unspecified Plan: ZOFRAN 4MG IV Q4H PRN NAUSEA, CONTINUE TO MONITOR (4) Fever Status: Acute Qualifiers: Fever type: unspecified Qualified Code(s): R50.9 - Fever, unspecified (5) Pleurisy Status: Acute Plan: TORADOL 30MG IV Q6H, CONTINUE TO MONITOR (6) Altered mental status Status: Acute Qualifiers: Altered mental status type: transient alteration of awareness Qualified Code(s): R40.4 - Transient alteration of awareness Plan: OBTAIN BRAIN CT, CONTINUE TO MONITOR
[2018-10-31] MEDS: RESTORIL CAP 15 MG PO PRN (21:23)
[2018-10-31] MEDS: LIPITOR TAB 40 MG PO SCH (21:23)
[2018-11-01] MEDS: NS 1000 ML 1,000 ML IV SCH ×3 (05:17→21:49)
[2018-11-01] MEDS: FORTAZ or TAZICEF VIAL INJ IVP SCH ×3 (05:17→21:48)
[2018-11-01 05:40] LABS: ABG ALLEN TEST POS; ABG BASE EXCESS 1.6 mmol/L (-2.0-2.0); ABG HCO3 24.4 mmol/L (22-26)
[2018-11-01 06:12] LABS: BASOPHILS # (AUTO) 0.1 X10^3/uL (0.0-0.1); BASOPHILS % (AUTO) 0.8 % (0.2-1.0); EOSINOPHILS # (AUTO) 0.2 x10^3/uL (0.0-0.2); EOSINOPHILS % (AUTO) 2.3 % (0.9-2.9); HEMATOCRIT 27.7 % (42.0-54.0); HEMOGLOBIN 9.8 g/dL (13.5-18.0); LYMPHOCYTES # (AUTO) 0.8 X10^3/uL (1.3-2.9); LYMPHOCYTES % (AUTO) 10.1 % (21.0-51.0); MEAN CORPUSCULAR HEMOGLOBIN 32.1 pg (27.0-34.0); MEAN CORPUSCULAR HGB CONC 35.3 g/dL (33.0-35.0); MEAN CORPUSCULAR VOLUME 90.9 fL (80.0-100.0); MEAN PLATELET VOLUME 7.9 fL (7.4-11.0); MONOCYTES # (AUTO) 0.5 x10^3/uL (0.3-0.8); MONOCYTES % (AUTO) 6.5 % (0.0-13.0); NEUTROPHILS # (AUTO) 6.5 x10^3/uL (2.2-4.8); NEUTROPHILS % (AUTO) 80.3 % (42.0-75.0); PLATELET COUNT 307 X10^3/uL (150.0-450.0); RED BLOOD COUNT 3.05 X10^6/uL (4.7-6.0); RED CELL DISTRIBUTION WIDTH 13.2 % (11.6-16.5); WHITE BLOOD COUNT 8.1 X10^3/uL (3.6-10.0)
[2018-11-01 06:38] LABS: ALANINE AMINOTRANSFERASE 30 Units/L (12-78); ALKALINE PHOSPHATASE 75 Units/L (46-116); ASPARTATE AMINO TRANSFERASE 32 Units/L (15-37); BLOOD UREA NITROGEN 13 mg/dL (7-18); CALCIUM 8.2 mg/dL (8.5-10.1); CARBON DIOXIDE 23.6 mmol/L (21-32); CHLORIDE 110 mmol/L (98-107); COR CA(FOR HYPOALB) 9.8 mg/dL (8.5-10.1); CREATININE 0.75 mg/dL (0.70-1.30); SODIUM 143 mmol/L (136-145); TOTAL PROTEIN 6.3 g/dL (6.4-8.2); eGFR NON BLACK RACES > 60 (>60)
--- NOTE | 2018-11-01 07:10 | RAD ---
HISTORY: Shortness of breath Study: Chest AP portable Comparison: 10/31/2018 Findings: There is a pacemaker present on the left. The heart is mildly enlarged. No congestive heart failure is noted. Diffuse interstitial lung changes are present and stable when compared with the prior examination. No definite alveolar infiltrates are present on today's examination. No pleural effusions are identified. The bony thorax is unremarkable with the exception of bilateral chronic rotator cuff disease. IMPRESSION: Mild cardiomegaly without congestive heart failure No acute alveolar infiltrates remaining Interstitial lung changes, stable Reported By:
[2018-11-01] MEDS: CORTEF PO SCH ×2 (09:20→20:45)
[2018-11-01] MEDS: LOPRESSOR TAB 25 MG PO SCH ×2 (09:20→20:46)
[2018-11-01] MEDS: LEVAQUIN PREMIX IV 500 MG 500 MG/100 ML BAG IV SCH (09:21)
[2018-11-01] MEDS: PEPCID TAB 20 MG PO SCH ×2 (09:21→20:46)
[2018-11-01] MEDS: DUONEB 0.5 MG/3 MG NEB SCH ×4 (09:30→20:16)
[2018-11-01] MEDS: PULMICORT NEB TX 0.5 MG NEB SCH ×2 (09:30→20:16)
[2018-11-01] MEDS: PROCARDIA XL PO SCH (10:09)
[2018-11-01] MEDS: SYNTHROID 100 mcg TAB PO SCH (10:10)
[2018-11-01] MEDS: ZyrTEC TAB 10 MG PO SCH (10:10)
[2018-11-01] MEDS: ROBITUSSIN DM PO SCH ×4 (10:10→20:45)
[2018-11-01] MEDS: NORCO 10/325 TAB PO PRN ×2 (10:14→20:43)
--- NOTE | 2018-11-01 14:01 | PCM.PROG ---
Progress Note - Progress Note for Day of Date of Exam: 10/30/18 - Subjective Subjective: IS BEING TREATED FOR RIGHT UPPER AND LOWER LOBE PNEUMONIA AND PLEURISY. TODAY, HE CONTINUES WITH DISORIENTATION. HE IS LYING IN BED ON MORNING ROUNDS. HE CONTINUES WITH A PERSISTENT COUGH. FAMILY REPORTS THAT HE CONTINUES TO COMPLAINT OF PAIN AT TIMES. HE WAS STARTED ON TORADOL FOR PLEURISY. ON EXAMINATION, HEART IS REGULAR IN RATE AND RHYTHM. BILATERAL LUNGS ARE NOTED WITH DIMINISHED LUNG SOUNDS THROUGHOUT. ABDOMEN IS ROUND, SOFT, AND NOTED WITH MODERATE TENDERNESS TO THE RUQ. NORMAL BOWEL SOUNDS NOTED IN ALL QUADRANTS. HIS VITALS THIS MORNING ARE 98.2-68-20-93%HHF-106/57. LABS WERE OBTAINED. ABNORMAL LAB VALUES INCLUDE THE FOLLOWING: RBC 3.12, HGB 9.9, HCT 28.3, POTASSIUM 3.3, CHLORIDE 108, ALBUMIN 2.2. AN ABG WAS REPEATED TODAY AND REVEALED: PH 7.530, PC02 28.0, P02 50.0, HC.03 23.4, 02 SATURATION 89.0, BASE EXCESS 1.6. BLOOD AND SPUTUM CULTURES ARE PENDING. A CHEST CT WAS OBTAINED YESTERDAY AND REVEALED: Findings compatible with bilateral multifocal pneumonia, right greater than left. Follow-up to complete resolution is recommended. Small bilateral pleural effusions. Cardiomegaly with dual lead cardiac pacing device on the left. A BRAIN CT WAS OBTAINED DUE TO ALTERED MENTAL STATUS. IT REVEALED: Changes of advancing chronological age without acute intracranial abnormality. Chronic white matter changes. Findings compatible with acute on chronic sinusitis which should be correlated for clinically. HE CONTINUES TO RECEIVE IV ANTIBIOTICS AND BREATHING TX FOR TREATMENT OF PNEUMONIA. WE WILL CONTINUE WITH CURRENT PLAN OF CARE TODAY AND WILL ORDER FOR HIM TO WEAR THE BIPAP. OTHERWISE, WE WILL FOLLOW UP WITH AM LABS AND CHEST XRAY AND CONTINUE TO MONITOR. - Past Medical Family Social History Past Med/Fam/Surg Hx: No changes since H&P Allergies: Allergies No Known Drug Allergies Allergy (Verified 10/16/18 14:14) - Review of Systems ROS: No change since H&P - Vital Signs and I&O's Vital Signs: Temperature 98.9 F Pulse Rate [Left Radial] 69 Pulse Rate 73 Respiratory Rate 20 Blood Pressure [Left Arm] 117/64 Blood Pressure [Right Arm] 120/59 Blood Pressure [Standing] 130/74 Blood Pressure [Sitting] 140/81 Blood Pressure [Lying] 145/81 Blood Pressure 166/85 O2 Sat by Pulse Oximetry 98 Intake and Output: Intake & Output 10/30/18 10/31/18 11/01/18 11/02/18 11:59 11:59 11:59 11:59 Intake Total 1120 / 1120 810 / 810 2400 / 2400 Output Total 200 / 200 150 / 150 1400 / 1400 Balance 920 / 920 660 / 660 1000 / 1000 - Physical Exam Oriented: Not Oriented Eyes: Normal Ear: Normal Nose: Normal Throat: Normal Respiratory: Generalized, Diminished Cardiovascular: Normal. negative: S3, S4, Murmur : Normal Auscultation: Bowel Sounds: Normal Tenderness: RUQ, RLQ, Moderate. negative: Rebound, Guarding, Rigidity Skin: Normal Musculoskeletal: Normal Psychiatric: Agitation Mood Description: Anxious Affect: Normal Speech Pattern: Clear, Appropriate - Laboratory and Diagnostics Result Diagrams: 11/01/18 05:38 11/01/18 05:38 Labs: 10/26/18 14:12 Blood Blood Culture - Final 10/26/18 14:01 Blood Blood Culture - Final 10/26/18 14:04 Sputum - Expectorated Sputum Sputum Culture - Final 10/26/18 14:04 Sputum - Expectorated Sputum - Final Laboratory WBC 8.1 X10^3/uL (3.6-10.0) 11/01/18 05:38 RBC 3.05 X10^6/uL (4.7-6.0) L 11/01/18 05:38 Hgb 9.8 g/dL (13.5-18.0) L 11/01/18 05:38 Hct 27.7 % (42.0-54.0) L 11/01/18 05:38 MCV 90.9 fL (80.0-100.0) 11/01/18 05:38 MCH 32.1 pg (27.0-34.0) 11/01/18 05:38 MCHC 35.3 g/dL (33.0-35.0) H 11/01/18 05:38 RDW 13.2 % (11.6-16.5) 11/01/18 05:38 Plt Count 307 X10^3/uL (150.0-450.0) 11/01/18 05:38 MPV 7.9 fL (7.4-11.0) 11/01/18 05:38 Neut % (Auto) 80.3 % (42.0-75.0) H 11/01/18 05:38 Lymph % (Auto) 10.1 % (21.0-51.0) L 11/01/18 05:38 [place] % (Auto) 6.5 % (0.0-13.0) 11/01/18 05:38 Eos % (Auto) 2.3 % (0.9-2.9) 11/01/18 05:38 Baso % (Auto) 0.8 % (0.2-1.0) 11/01/18 05:38 Neut # (Auto) 6.5 x10^3/uL (2.2-4.8) H 11/01/18 05:38 Lymph # (Auto) 0.8 X10^3/uL (1.3-2.9) L 11/01/18 05:38 [place] # (Auto) 0.5 x10^3/uL (0.3-0.8) 11/01/18 05:38 Eos # (Auto) 0.2 x10^3/uL (0.0-0.2) 11/01/18 05:38 Baso # (Auto) 0.1 X10^3/uL (0.0-0.1) 11/01/18 05:38 Absolute Nucleated RBC 0.0 /100WBC 11/01/18 05:38 Sample Site Lrad 11/01/18 05:31 ABG pH 7.490 (7.35-7.45) H 11/01/18 05:31 ABG pCO2 32.0 mmHg (35.0-45.0) L 11/01/18 05:31 ABG pO2 81.0 mmHg (80.0-100.0) 11/01/18 05:31 ABG HCO3 24.4 mmol/L (22-26) 11/01/18 05:31 ABG O2 Saturation 97.0 % (90-100) 11/01/18 05:31 ABG Base Excess 1.6 mmol/L (-2.0-2.0) 11/01/18 05:31 Henrik Test Pos 11/01/18 05:31 A-a Gradient 93.0 mmHg 11/01/18 05:31 FiO2 30.0 11/01/18 05:31 Blood Gas Comments Pt eleuterio well elj 11/01/18 05:31 Sodium 143 mmol/L (136-145) 11/01/18 05:38 Corrected Sodium TNP 11/01/18 05:38 Potassium 3.5 mmol/L (3.5-5.1) 11/01/18 05:38 Chloride 110 mmol/L (98-107) H 11/01/18 05:38 Carbon Dioxide 23.6 mmol/L (21-32) 11/01/18 05:38 BUN 13 mg/dL (7-18) 11/01/18 05:38 Creatinine 0.75 mg/dL (0.70-1.30) 11/01/18 05:38 Est GFR (MDRD) Af Amer > 60 (>60) 11/01/18 05:38 Est GFR (MDRD) Non-Af > 60 (>60) 11/01/18 05:38 Glucose 109 mg/dL (65-99) H 11/01/18 05:38 POC Glucose (mg/dL) 146 mg/dL (65-99) H 11/01/18 12:29 Lactic Acid 1.3 mmol/L (0.4-2.0) 10/30/18 05:50 Calcium 8.2 mg/dL (8.5-10.1) L 11/01/18 05:38 Corrected Calcium 9.8 mg/dL (8.5-10.1) 11/01/18 05:38 Magnesium 2.1 mg/dL (1.7-2.9) 10/28/18 05:51 Total Bilirubin 0.30 mg/dL (0.2-1.0) 11/01/18 05:38 AST 32 Units/L (15-37) 11/01/18 05:38 ALT 30 Units/L (12-78) 11/01/18 05:38 Alkaline Phosphatase 75 Units/L (46-116) 11/01/18 05:38 Total Protein 6.3 g/dL (6.4-8.2) L 11/01/18 05:38 Albumin 2.0 g/dL (3.4-5.0) L 11/01/18 05:38 Globulin 4.3 g/dL (2.5-4.5) 11/01/18 05:38 Albumin/Globulin Ratio 0.5 Ratio (1.1-2.1) L 11/01/18 05:38 Amylase 15 Units/L (25-115) L 10/25/18 20:43 Lipase 51 Units/L (73-393) L 10/25/18 20:43 Specimen Type Clean catch urine 10/26/18 01:35 Urine Color Jaqueline (YELLOW) 10/26/18 01:35 Urine Appearance Clear (CLEAR) 10/26/18 01:35 Urine pH 5.0 (5.0 - 8.0) 10/26/18 01:35 Ur Specific [place] 1.015 (1.000-1.030) 10/26/18 01:35 Urine Protein 2+ (NEGATIVE) 10/26/18 01:35 Urine Glucose (UA) Negative (NEGATIVE) 10/26/18 01:35 Urine Ketones 1+ (NEGATIVE) 10/26/18 01:35 Urine Occult Blood 1+ (NEGATIVE) 10/26/18 01:35 Urine Nitrite Negative (NEGATIVE) 10/26/18 01:35 Urine Bilirubin 1+ (NEGATIVE) 10/26/18 01:35 Urine Urobilinogen 2+ (NORMAL) 10/26/18 01:35 Ur Leukocyte Esterase 1+ (NEGATIVE) 10/26/18 01:35 Urine RBC 0-2 /HPF (NONE SEEN) 10/26/18 01:35 Urine WBC 0-2 /HPF (NONE SEEN) 10/26/18 01:35 Ur Squamous Epith Cells Few /HPF (NEGATIVE) 10/26/18 01:35 Urine Bacteria Trace /HPF (NEGATIVE) 10/26/18 01:35 Urine Mucus Many /HPF (NEGATIVE) 10/26/18 01:35 Ur Culture Indicated? No/not indicated 10/26/18 01:35 Mycoplasma pneumon IgG Negative (NEGATIVE) 10/30/18 05:50 - Plan (1) Pneumonia Status: Acute Qualifiers: Pneumonia type: due to unspecified organism Laterality: left Lung location: lower lobe of lung Qualified Code(s): J18.1 - Lobar pneumonia, unspecified organism Plan: IV FORTAZ, IV LEVAQUIN, RESPIRATORY TX, CONTINUE TO MONITOR (2) Abdominal pain Status: Acute Qualifiers: Abdominal location: generalized Qualified Code(s): R10.84 - Generalized abdominal pain Plan: DEMEROL 25MG IV Q6H PRN, NORCO, CONTINUE TO MONITOR (3) Nausea and vomiting Status: Acute Qualifiers: Vomiting type: unspecified Vomiting Intractability: intractable Qualified Code(s): R11.2 - Nausea with vomiting, unspecified Plan: ZOFRAN 4MG IV Q4H PRN NAUSEA, CONTINUE TO MONITOR (4) Fever Status: Acute Qualifiers: Fever type: unspecified Qualified Code(s): R50.9 - Fever, unspecified (5) Pleurisy Status: Acute Plan: TORADOL 30MG IV Q6H, CONTINUE TO MONITOR (6) Altered mental status Status: Acute Qualifiers: Altered mental status type: transient alteration of awareness Qualified Code(s): R40.4 - Transient alteration of awareness Plan: OBTAIN BRAIN CT, CONTINUE TO MONITOR
--- NOTE | 2018-11-01 18:58 | PCM.PROG ---
Progress Note - Progress Note for Day of Date of Exam: 10/31/18 - Subjective Subjective: IS BEING TREATED FOR RIGHT UPPER AND LOWER LOBE PNEUMONIA AND PLEURISY. TODAY, HE CONTINUES WITH DISORIENTATION. HE IS LYING IN BED ON MORNING ROUNDS. HE CONTINUES WITH A PERSISTENT COUGH AND CONFUSION AT TIMES. ON EXAMINATION, HEART IS REGULAR IN RATE AND RHYTHM. BILATERAL LUNGS ARE NOTED WITH DIMINISHED LUNG SOUNDS THROUGHOUT. ABDOMEN IS ROUND, SOFT, AND NOTED WITH MODERATE TENDERNESS TO THE RUQ. NORMAL BOWEL SOUNDS NOTED IN ALL QUADRANTS. HIS VITALS THIS MORNING ARE 99.6-65-20-97%-111/67. LABS WERE OBTAINED. ABNORMAL LAB VALUES INCLUDE THE FOLLOWING: RBC 3.50, HGB 10.9, HCT 32.2, CHLORIDE 109, CREATININE 0.66, AST 38, ALBUMIN 2.2. AN ABG WAS REPEATED TODAY AND REVEALED: PH 7.510, PC02 31.0, PO2 68.0, HC03 24.7, 02 SATURATION 95.0, BASE EXCESS 2.2. BLOOD AND SPUTUM CULTURES ARE PENDING. A CHEST XRAY WAS OBTAINED TODAY AND REVEALED: Unchanged exam compared with chest CT performed the previous day. HE CONTINUES TO RECEIVE IV ANTIBIOTICS AND BREATHING TX FOR TREATMENT OF PNEUMONIA. HE IS ALSO UTILIZING THE BIPAP. WE WILL CONTINUE WITH CURRENT PLAN OF CARE TODAY. OTHERWISE, WE WILL FOLLOW UP WITH AM LABS AND CHEST XRAY AND CONTINUE TO MONITOR. - Past Medical Family Social History Past Med/Fam/Surg Hx: No changes since H&P Allergies: Allergies No Known Drug Allergies Allergy (Verified 10/16/18 14:14) - Review of Systems ROS: No change since H&P - Vital Signs and I&O's Vital Signs: Temperature 98.5 F Pulse Rate [Left Radial] 67 Pulse Rate 72 Respiratory Rate 18 Blood Pressure [Left Arm] 118/65 Blood Pressure [Right Arm] 120/59 Blood Pressure [Standing] 130/74 Blood Pressure [Sitting] 140/81 Blood Pressure [Lying] 145/81 Blood Pressure 166/85 O2 Sat by Pulse Oximetry 95 Intake and Output: Intake & Output 10/30/18 10/31/18 11/01/18 11/02/18 11:59 11:59 11:59 11:59 Intake Total 1120 / 1120 810 / 810 2400 / 2400 360 / 360 Output Total 200 / 200 150 / 150 1400 / 1400 700 / 700 Balance 920 / 920 660 / 660 1000 / 1000 -340 / -340 - Physical Exam Oriented: Not Oriented Eyes: Normal Ear: Normal Nose: Normal Throat: Normal Respiratory: Generalized, Diminished Cardiovascular: Normal. negative: S3, S4, Murmur : Normal Auscultation: Bowel Sounds: Normal Palpation: Normal Tenderness: RUQ, RLQ, Moderate. negative: Rebound, Guarding, Rigidity Skin: Normal Musculoskeletal: Normal Psychiatric: Agitation Mood Description: Anxious Affect: Normal Speech Pattern: Clear, Appropriate - Laboratory and Diagnostics Result Diagrams: 11/01/18 05:38 11/01/18 05:38 Labs: 10/26/18 14:12 Blood Blood Culture - Final 10/26/18 14:01 Blood Blood Culture - Final 10/26/18 14:04 Sputum - Expectorated Sputum Sputum Culture - Final 10/26/18 14:04 Sputum - Expectorated Sputum - Final Laboratory WBC 8.1 X10^3/uL (3.6-10.0) 11/01/18 05:38 RBC 3.05 X10^6/uL (4.7-6.0) L 11/01/18 05:38 Hgb 9.8 g/dL (13.5-18.0) L 11/01/18 05:38 Hct 27.7 % (42.0-54.0) L 11/01/18 05:38 MCV 90.9 fL (80.0-100.0) 11/01/18 05:38 MCH 32.1 pg (27.0-34.0) 11/01/18 05:38 MCHC 35.3 g/dL (33.0-35.0) H 11/01/18 05:38 RDW 13.2 % (11.6-16.5) 11/01/18 05:38 Plt Count 307 X10^3/uL (150.0-450.0) 11/01/18 05:38 MPV 7.9 fL (7.4-11.0) 11/01/18 05:38 Neut % (Auto) 80.3 % (42.0-75.0) H 11/01/18 05:38 Lymph % (Auto) 10.1 % (21.0-51.0) L 11/01/18 05:38 [place] % (Auto) 6.5 % (0.0-13.0) 11/01/18 05:38 Eos % (Auto) 2.3 % (0.9-2.9) 11/01/18 05:38 Baso % (Auto) 0.8 % (0.2-1.0) 11/01/18 05:38 Neut # (Auto) 6.5 x10^3/uL (2.2-4.8) H 11/01/18 05:38 Lymph # (Auto) 0.8 X10^3/uL (1.3-2.9) L 11/01/18 05:38 [place] # (Auto) 0.5 x10^3/uL (0.3-0.8) 11/01/18 05:38 Eos # (Auto) 0.2 x10^3/uL (0.0-0.2) 11/01/18 05:38 Baso # (Auto) 0.1 X10^3/uL (0.0-0.1) 11/01/18 05:38 Absolute Nucleated RBC 0.0 /100WBC 11/01/18 05:38 Sample Site Lrad 11/01/18 05:31 ABG pH 7.490 (7.35-7.45) H 11/01/18 05:31 ABG pCO2 32.0 mmHg (35.0-45.0) L 11/01/18 05:31 ABG pO2 81.0 mmHg (80.0-100.0) 11/01/18 05:31 ABG HCO3 24.4 mmol/L (22-26) 11/01/18 05:31 ABG O2 Saturation 97.0 % (90-100) 11/01/18 05:31 ABG Base Excess 1.6 mmol/L (-2.0-2.0) 11/01/18 05:31 Henrik Test Pos 11/01/18 05:31 A-a Gradient 93.0 mmHg 11/01/18 05:31 FiO2 30.0 11/01/18 05:31 Blood Gas Comments Pt eleuterio well elj 11/01/18 05:31 Sodium 143 mmol/L (136-145) 11/01/18 05:38 Corrected Sodium TNP 11/01/18 05:38 Potassium 3.5 mmol/L (3.5-5.1) 11/01/18 05:38 Chloride 110 mmol/L (98-107) H 11/01/18 05:38 Carbon Dioxide 23.6 mmol/L (21-32) 11/01/18 05:38 BUN 13 mg/dL (7-18) 11/01/18 05:38 Creatinine 0.75 mg/dL (0.70-1.30) 11/01/18 05:38 Est GFR (MDRD) Af Amer > 60 (>60) 11/01/18 05:38 Est GFR (MDRD) Non-Af > 60 (>60) 11/01/18 05:38 Glucose 109 mg/dL (65-99) H 11/01/18 05:38 POC Glucose (mg/dL) 146 mg/dL (65-99) H 11/01/18 12:29 Lactic Acid 1.3 mmol/L (0.4-2.0) 10/30/18 05:50 Calcium 8.2 mg/dL (8.5-10.1) L 11/01/18 05:38 Corrected Calcium 9.8 mg/dL (8.5-10.1) 11/01/18 05:38 Magnesium 2.1 mg/dL (1.7-2.9) 10/28/18 05:51 Total Bilirubin 0.30 mg/dL (0.2-1.0) 11/01/18 05:38 AST 32 Units/L (15-37) 11/01/18 05:38 ALT 30 Units/L (12-78) 11/01/18 05:38 Alkaline Phosphatase 75 Units/L (46-116) 11/01/18 05:38 Total Protein 6.3 g/dL (6.4-8.2) L 11/01/18 05:38 Albumin 2.0 g/dL (3.4-5.0) L 11/01/18 05:38 Globulin 4.3 g/dL (2.5-4.5) 11/01/18 05:38 Albumin/Globulin Ratio 0.5 Ratio (1.1-2.1) L 11/01/18 05:38 Amylase 15 Units/L (25-115) L 10/25/18 20:43 Lipase 51 Units/L (73-393) L 10/25/18 20:43 Specimen Type Clean catch urine 10/26/18 01:35 Urine Color [place] (YELLOW) 10/26/18 01:35 Urine Appearance Clear (CLEAR) 10/26/18 01:35 Urine pH 5.0 (5.0 - 8.0) 10/26/18 01:35 Ur Specific [place] 1.015 (1.000-1.030) 10/26/18 01:35 Urine Protein 2+ (NEGATIVE) 10/26/18 01:35 Urine Glucose (UA) Negative (NEGATIVE) 10/26/18 01:35 Urine Ketones 1+ (NEGATIVE) 10/26/18 01:35 Urine Occult Blood 1+ (NEGATIVE) 10/26/18 01:35 Urine Nitrite Negative (NEGATIVE) 10/26/18 01:35 Urine Bilirubin 1+ (NEGATIVE) 10/26/18 01:35 Urine Urobilinogen 2+ (NORMAL) 10/26/18 01:35 Ur Leukocyte Esterase 1+ (NEGATIVE) 10/26/18 01:35 Urine RBC 0-2 /HPF (NONE SEEN) 10/26/18 01:35 Urine WBC 0-2 /HPF (NONE SEEN) 10/26/18 01:35 Ur Squamous Epith Cells Few /HPF (NEGATIVE) 10/26/18 01:35 Urine Bacteria Trace /HPF (NEGATIVE) 10/26/18 01:35 Urine Mucus Many /HPF (NEGATIVE) 10/26/18 01:35 Ur Culture Indicated? No/not indicated 10/26/18 01:35 Mycoplasma pneumon IgG Negative (NEGATIVE) 10/30/18 05:50 - Plan (1) Pneumonia Status: Acute Qualifiers: Pneumonia type: due to unspecified organism Laterality: left Lung location: lower lobe of lung Qualified Code(s): J18.1 - Lobar pneumonia, unspecified organism Plan: IV FORTAZ, IV LEVAQUIN, RESPIRATORY TX, CONTINUE TO MONITOR (2) Abdominal pain Status: Acute Qualifiers: Abdominal location: generalized Qualified Code(s): R10.84 - Generalized abdominal pain Plan: DEMEROL 25MG IV Q6H PRN, NORCO, CONTINUE TO MONITOR (3) Nausea and vomiting Status: Acute Qualifiers: Vomiting type: unspecified Vomiting Intractability: intractable Qualified Code(s): R11.2 - Nausea with vomiting, unspecified Plan: ZOFRAN 4MG IV Q4H PRN NAUSEA, CONTINUE TO MONITOR (4) Fever Status: Acute Qualifiers: Fever type: unspecified Qualified Code(s): R50.9 - Fever, unspecified (5) Pleurisy Status: Acute Plan: TORADOL 30MG IV Q6H, CONTINUE TO MONITOR (6) Altered mental status Status: Acute Qualifiers: Altered mental status type: transient alteration of awareness Qualified Code(s): R40.4 - Transient alteration of awareness Plan: OBTAIN BRAIN CT, CONTINUE TO MONITOR
[2018-11-01] MEDS: LIPITOR TAB 40 MG PO SCH (20:46)
[2018-11-02] MEDS: NS 1000 ML 1,000 ML IV SCH ×2 (03:29→17:48)
[2018-11-02] MEDS: FORTAZ or TAZICEF VIAL INJ IVP SCH ×3 (05:34→21:35)
[2018-11-02 06:00] LABS: ABG BASE EXCESS 1.3 mmol/L (-2.0-2.0); ABG HCO3 24.9 mmol/L (22-26)
--- NOTE | 2018-11-02 06:20 | RAD ---
HISTORY: Shortness of breath Study: Chest AP portable Comparison: 11/01/2018 Findings: There is a pacemaker present on the left obscuring a portion of the left lung apex laterally. Heart remains enlarged. No definite congestive heart failure is identified. Interstitial lung changes are again identified diffusely. There is a new superimposed alveolar infiltrate in the right upper lobe. The remainder of the lung palmer are free of acute alveolar infiltrates. No definite pleural effusions are identified. The bony thorax is unremarkable. IMPRESSION: Continued cardiomegaly without definite congestive heart failure New right upper lobe infiltrate superimposed on the bilateral interstitial lung changes present. Reported By:
[2018-11-02 06:25] LABS: BASOPHILS # (AUTO) 0.1 X10^3/uL (0.0-0.1); BASOPHILS % (AUTO) 0.7 % (0.2-1.0); EOSINOPHILS # (AUTO) 0.3 x10^3/uL (0.0-0.2); EOSINOPHILS % (AUTO) 3.4 % (0.9-2.9); HEMATOCRIT 27.8 % (42.0-54.0); HEMOGLOBIN 9.7 g/dL (13.5-18.0); LYMPHOCYTES # (AUTO) 0.9 X10^3/uL (1.3-2.9); LYMPHOCYTES % (AUTO) 9.1 % (21.0-51.0); MEAN CORPUSCULAR HEMOGLOBIN 31.6 pg (27.0-34.0); MEAN CORPUSCULAR HGB CONC 35.1 g/dL (33.0-35.0); MEAN CORPUSCULAR VOLUME 90.2 fL (80.0-100.0); MEAN PLATELET VOLUME 7.8 fL (7.4-11.0); MONOCYTES # (AUTO) 0.6 x10^3/uL (0.3-0.8); MONOCYTES % (AUTO) 6.2 % (0.0-13.0); NEUTROPHILS # (AUTO) 7.8 x10^3/uL (2.2-4.8); NEUTROPHILS % (AUTO) 80.6 % (42.0-75.0); PLATELET COUNT 351 X10^3/uL (150.0-450.0); RED BLOOD COUNT 3.08 X10^6/uL (4.7-6.0); RED CELL DISTRIBUTION WIDTH 13.4 % (11.6-16.5); WHITE BLOOD COUNT 9.7 X10^3/uL (3.6-10.0)
[2018-11-02 06:52] LABS: ALANINE AMINOTRANSFERASE 34 Units/L (12-78); ALKALINE PHOSPHATASE 76 Units/L (46-116); ASPARTATE AMINO TRANSFERASE 29 Units/L (15-37); BLOOD UREA NITROGEN 10 mg/dL (7-18); CALCIUM 8.3 mg/dL (8.5-10.1); CARBON DIOXIDE 24.7 mmol/L (21-32); CHLORIDE 108 mmol/L (98-107); COR CA(FOR HYPOALB) 9.9 mg/dL (8.5-10.1); CREATININE 0.65 mg/dL (0.70-1.30); SODIUM 142 mmol/L (136-145); TOTAL PROTEIN 6.3 g/dL (6.4-8.2); eGFR NON BLACK RACES > 60 (>60)
[2018-11-02] MEDS ORDERED: CORTEF ONE ×2 (08:08→21:13)
[2018-11-02] MEDS: DUONEB 0.5 MG/3 MG NEB SCH ×4 (08:47→20:55)
[2018-11-02] MEDS: PULMICORT NEB TX 0.5 MG NEB SCH ×2 (08:48→20:55)
[2018-11-02] MEDS: ROBITUSSIN DM PO SCH ×4 (09:04→21:36)
[2018-11-02] MEDS: LOPRESSOR TAB 25 MG PO SCH ×2 (09:04→21:36)
[2018-11-02] MEDS: LEVAQUIN PREMIX IV 500 MG 500 MG/100 ML BAG IV SCH (09:04)
[2018-11-02] MEDS: CORTEF PO SCH ×2 (09:05→21:35)
[2018-11-02] MEDS: PROCARDIA XL PO SCH (09:05)
[2018-11-02] MEDS: PEPCID TAB 20 MG PO SCH ×2 (09:05→21:36)
[2018-11-02] MEDS: SYNTHROID 100 mcg TAB PO SCH (09:05)
--- NOTE | 2018-11-02 21:02 | PCM.PROG ---
Progress Note - Progress Note for Day of Date of Exam: 11/01/18 - Subjective Subjective: IS BEING TREATED FOR RIGHT UPPER AND LOWER LOBE PNEUMONIA AND PLEURISY. TODAY, HE CONTINUES WITH DISORIENTATION. HE IS LYING IN BED ON MORNING ROUNDS. HE CONTINUES WITH A PERSISTENT COUGH AND CONFUSION AT TIMES. ON EXAMINATION, HEART IS REGULAR IN RATE AND RHYTHM. BILATERAL LUNGS ARE NOTED WITH DIMINISHED LUNG SOUNDS THROUGHOUT. ABDOMEN IS ROUND, SOFT, AND NOTED WITH MODERATE TENDERNESS TO THE RUQ. NORMAL BOWEL SOUNDS NOTED IN ALL QUADRANTS. HIS VITALS THIS MORNING ARE 98.0-63-20-96%-122/61. LABS WERE OBTAINED. ABNORMAL LAB VALUES INCLUDE THE FOLLOWING: RBC 3.05, HGB 9.8, HCT 27.7, CHLORIDE 110, GLUCOSE 109, CALCIUM 8.2, TOTAL PROTEIN 6.3, ALBUMIN 2.0. BLOOD AND SPUTUM CULTURES ARE NEGATIVE. A CHEST XRAY WAS OBTAINED TODAY AND REVEALED: Mild cardiomegaly without congestive heart failure. No acute alveolar infiltrates remaining. Interstitial lung changes, stable. HE CONTINUES TO RECEIVE IV ANTIBIOTICS AND BREATHING TX FOR TREATMENT OF PNEUMONIA. HE IS ALSO UTILIZING THE BIPAP. WE WILL CONTINUE WITH CURRENT PLAN OF CARE TODAY. OTHERWISE, WE WILL FOLLOW UP WITH AM LABS AND CHEST XRAY AND CONTINUE TO MONITOR. - Past Medical Family Social History Past Med/Fam/Surg Hx: No changes since H&P Allergies: Allergies No Known Drug Allergies Allergy (Verified 10/16/18 14:14) - Review of Systems ROS: No change since H&P - Vital Signs and I&O's Vital Signs: Temperature 99.3 F Pulse Rate [Left Radial] 66 Pulse Rate 59 Respiratory Rate 18 Blood Pressure [Left Arm] 115/59 Blood Pressure [Right Arm] 120/59 Blood Pressure [Standing] 130/74 Blood Pressure [Sitting] 140/81 Blood Pressure [Lying] 145/81 Blood Pressure 166/85 O2 Sat by Pulse Oximetry 95 Intake and Output: Intake & Output 10/31/18 11/01/18 11/02/18 11/03/18 11:59 11:59 11:59 11:59 Intake Total 810 / 810 2400 / 2400 1460 / 1460 600 / 600 Output Total 150 / 150 1400 / 1400 1550 / 1550 1000 / 1000 Balance 660 / 660 1000 / 1000 -90 / -90 -400 / -400 - Physical Exam Oriented: Person Eyes: Normal Ear: Normal Nose: Normal Throat: Normal Respiratory: Generalized, Diminished Cardiovascular: Normal. negative: S3, S4, Murmur : Normal Auscultation: Bowel Sounds: Normal Palpation: Normal Tenderness: RUQ, RLQ, Moderate. negative: Rebound, Guarding, Rigidity Skin: Normal Musculoskeletal: Normal Psychiatric: Agitation Mood Description: Anxious Affect: Normal Speech Pattern: Clear, Appropriate - Laboratory and Diagnostics Result Diagrams: 11/02/18 05:46 11/02/18 05:46 Labs: 10/26/18 14:12 Blood Blood Culture - Final 10/26/18 14:01 Blood Blood Culture - Final 10/26/18 14:04 Sputum - Expectorated Sputum Sputum Culture - Final 10/26/18 14:04 Sputum - Expectorated Sputum - Final Laboratory WBC 9.7 X10^3/uL (3.6-10.0) 11/02/18 05:46 RBC 3.08 X10^6/uL (4.7-6.0) L 11/02/18 05:46 Hgb 9.7 g/dL (13.5-18.0) L 11/02/18 05:46 Hct 27.8 % (42.0-54.0) L 11/02/18 05:46 MCV 90.2 fL (80.0-100.0) 11/02/18 05:46 MCH 31.6 pg (27.0-34.0) 11/02/18 05:46 MCHC 35.1 g/dL (33.0-35.0) H 11/02/18 05:46 RDW 13.4 % (11.6-16.5) 11/02/18 05:46 Plt Count 351 X10^3/uL (150.0-450.0) 11/02/18 05:46 MPV 7.8 fL (7.4-11.0) 11/02/18 05:46 Neut % (Auto) 80.6 % (42.0-75.0) H 11/02/18 05:46 Lymph % (Auto) 9.1 % (21.0-51.0) L 11/02/18 05:46 [place] % (Auto) 6.2 % (0.0-13.0) 11/02/18 05:46 Eos % (Auto) 3.4 % (0.9-2.9) H 11/02/18 05:46 Baso % (Auto) 0.7 % (0.2-1.0) 11/02/18 05:46 Neut # (Auto) 7.8 x10^3/uL (2.2-4.8) H 11/02/18 05:46 Lymph # (Auto) 0.9 X10^3/uL (1.3-2.9) L 11/02/18 05:46 [place] # (Auto) 0.6 x10^3/uL (0.3-0.8) 11/02/18 05:46 Eos # (Auto) 0.3 x10^3/uL (0.0-0.2) H 11/02/18 05:46 Baso # (Auto) 0.1 X10^3/uL (0.0-0.1) 11/02/18 05:46 Absolute Nucleated RBC 0.1 /100WBC 11/02/18 05:46 Sample Site Rbra 11/02/18 05:56 ABG pH 7.460 (7.35-7.45) H 11/02/18 05:56 ABG pCO2 35.0 mmHg (35.0-45.0) 11/02/18 05:56 ABG pO2 89.0 mmHg (80.0-100.0) 11/02/18 05:56 ABG HCO3 24.9 mmol/L (22-26) 11/02/18 05:56 ABG O2 Saturation 97.0 % (90-100) 11/02/18 05:56 ABG Base Excess 1.3 mmol/L (-2.0-2.0) 11/02/18 05:56 Henrik Test Na 11/02/18 05:56 A-a Gradient 81.0 mmHg 11/02/18 05:56 FiO2 30.0 11/02/18 05:56 Blood Gas Comments Scottie abg well-mtf 11/02/18 05:56 Sodium 142 mmol/L (136-145) 11/02/18 05:46 Corrected Sodium TNP 11/02/18 05:46 Potassium 3.4 mmol/L (3.5-5.1) L 11/02/18 05:46 Chloride 108 mmol/L (98-107) H 11/02/18 05:46 Carbon Dioxide 24.7 mmol/L (21-32) 11/02/18 05:46 BUN 10 mg/dL (7-18) 11/02/18 05:46 Creatinine 0.65 mg/dL (0.70-1.30) L 11/02/18 05:46 Est GFR (MDRD) Af Amer > 60 (>60) 11/02/18 05:46 Est GFR (MDRD) Non-Af > 60 (>60) 11/02/18 05:46 Glucose 109 mg/dL (65-99) H 11/02/18 05:46 POC Glucose (mg/dL) 90 mg/dL (65-99) 11/02/18 11:24 Lactic Acid 1.3 mmol/L (0.4-2.0) 10/30/18 05:50 Calcium 8.3 mg/dL (8.5-10.1) L 11/02/18 05:46 Corrected Calcium 9.9 mg/dL (8.5-10.1) 11/02/18 05:46 Magnesium 2.1 mg/dL (1.7-2.9) 10/28/18 05:51 Total Bilirubin 0.30 mg/dL (0.2-1.0) 11/02/18 05:46 AST 29 Units/L (15-37) 11/02/18 05:46 ALT 34 Units/L (12-78) 11/02/18 05:46 Alkaline Phosphatase 76 Units/L (46-116) 11/02/18 05:46 Total Protein 6.3 g/dL (6.4-8.2) L 11/02/18 05:46 Albumin 2.0 g/dL (3.4-5.0) L 11/02/18 05:46 Globulin 4.3 g/dL (2.5-4.5) 11/02/18 05:46 Albumin/Globulin Ratio 0.5 Ratio (1.1-2.1) L 11/02/18 05:46 Amylase 15 Units/L (25-115) L 10/25/18 20:43 Lipase 51 Units/L (73-393) L 10/25/18 20:43 Specimen Type Clean catch urine 10/26/18 01:35 Urine Color Jaqueline (YELLOW) 10/26/18 01:35 Urine Appearance Clear (CLEAR) 10/26/18 01:35 Urine pH 5.0 (5.0 - 8.0) 10/26/18 01:35 Ur Specific [place] 1.015 (1.000-1.030) 10/26/18 01:35 Urine Protein 2+ (NEGATIVE) 10/26/18 01:35 Urine Glucose (UA) Negative (NEGATIVE) 10/26/18 01:35 Urine Ketones 1+ (NEGATIVE) 10/26/18 01:35 Urine Occult Blood 1+ (NEGATIVE) 10/26/18 01:35 Urine Nitrite Negative (NEGATIVE) 10/26/18 01:35 Urine Bilirubin 1+ (NEGATIVE) 10/26/18 01:35 Urine Urobilinogen 2+ (NORMAL) 10/26/18 01:35 Ur Leukocyte Esterase 1+ (NEGATIVE) 10/26/18 01:35 Urine RBC 0-2 /HPF (NONE SEEN) 10/26/18 01:35 Urine WBC 0-2 /HPF (NONE SEEN) 10/26/18 01:35 Ur Squamous Epith Cells Few /HPF (NEGATIVE) 10/26/18 01:35 Urine Bacteria Trace /HPF (NEGATIVE) 10/26/18 01:35 Urine Mucus Many /HPF (NEGATIVE) 10/26/18 01:35 Ur Culture Indicated? No/not indicated 10/26/18 01:35 Mycoplasma pneumon IgG Negative (NEGATIVE) 10/30/18 05:50 - Plan (1) Pneumonia Status: Acute Qualifiers: Pneumonia type: due to unspecified organism Laterality: left Lung location: lower lobe of lung Qualified Code(s): J18.1 - Lobar pneumonia, unspecified organism Plan: IV FORTAZ, IV LEVAQUIN, RESPIRATORY TX, CONTINUE TO MONITOR (2) Abdominal pain Status: Acute Qualifiers: Abdominal location: generalized Qualified Code(s): R10.84 - Generalized abdominal pain Plan: DEMEROL 25MG IV Q6H PRN, NORCO, CONTINUE TO MONITOR (3) Nausea and vomiting Status: Acute Qualifiers: Vomiting type: unspecified Vomiting Intractability: intractable Qualified Code(s): R11.2 - Nausea with vomiting, unspecified Plan: ZOFRAN 4MG IV Q4H PRN NAUSEA, CONTINUE TO MONITOR (4) Fever Status: Acute Qualifiers: Fever type: unspecified Qualified Code(s): R50.9 - Fever, unspecified (5) Pleurisy Status: Acute Plan: TORADOL 30MG IV Q6H, CONTINUE TO MONITOR (6) Altered mental status Status: Acute Qualifiers: Altered mental status type: transient alteration of awareness Qualified Code(s): R40.4 - Transient alteration of awareness Plan: OBTAIN BRAIN CT, CONTINUE TO MONITOR
[2018-11-02] MEDS: NORCO 10/325 TAB PO PRN (21:35)
[2018-11-02] MEDS: LIPITOR TAB 40 MG PO SCH (21:36)
[2018-11-03] MEDS: NS 1000 ML 1,000 ML IV SCH ×2 (05:42→18:28)
[2018-11-03] MEDS: FORTAZ or TAZICEF VIAL INJ IVP SCH ×3 (05:42→21:10)
[2018-11-03 06:13] LABS: ABG BASE EXCESS 3.9 mmol/L (-2.0-2.0); ABG HCO3 27.7 mmol/L (22-26)
[2018-11-03 06:18] LABS: BASOPHILS # (AUTO) 0.1 X10^3/uL (0.0-0.1); BASOPHILS % (AUTO) 0.7 % (0.2-1.0); EOSINOPHILS # (AUTO) 0.4 x10^3/uL (0.0-0.2); EOSINOPHILS % (AUTO) 4.4 % (0.9-2.9); HEMATOCRIT 29.8 % (42.0-54.0); HEMOGLOBIN 10.4 g/dL (13.5-18.0); LYMPHOCYTES # (AUTO) 0.9 X10^3/uL (1.3-2.9); LYMPHOCYTES % (AUTO) 9.7 % (21.0-51.0); MEAN CORPUSCULAR HEMOGLOBIN 31.6 pg (27.0-34.0); MEAN CORPUSCULAR HGB CONC 34.9 g/dL (33.0-35.0); MEAN CORPUSCULAR VOLUME 90.5 fL (80.0-100.0); MEAN PLATELET VOLUME 8.1 fL (7.4-11.0); MONOCYTES # (AUTO) 0.6 x10^3/uL (0.3-0.8); MONOCYTES % (AUTO) 6.8 % (0.0-13.0); NEUTROPHILS # (AUTO) 7.3 x10^3/uL (2.2-4.8); NEUTROPHILS % (AUTO) 78.4 % (42.0-75.0); PLATELET COUNT 348 X10^3/uL (150.0-450.0); RED BLOOD COUNT 3.29 X10^6/uL (4.7-6.0); RED CELL DISTRIBUTION WIDTH 13.4 % (11.6-16.5); WHITE BLOOD COUNT 9.3 X10^3/uL (3.6-10.0)
[2018-11-03 06:32] LABS: ALANINE AMINOTRANSFERASE 38 Units/L (12-78); ALKALINE PHOSPHATASE 75 Units/L (46-116); ASPARTATE AMINO TRANSFERASE 35 Units/L (15-37); BLOOD UREA NITROGEN 9 mg/dL (7-18); CALCIUM 8.1 mg/dL (8.5-10.1); CARBON DIOXIDE 25.5 mmol/L (21-32); CHLORIDE 107 mmol/L (98-107); COR CA(FOR HYPOALB) 9.7 mg/dL (8.5-10.1); CREATININE 0.64 mg/dL (0.70-1.30); SODIUM 141 mmol/L (136-145); TOTAL PROTEIN 6.1 g/dL (6.4-8.2); eGFR NON BLACK RACES > 60 (>60)
[2018-11-03] MEDS ORDERED: CORTEF ONE ×2 (08:03→20:17)
[2018-11-03] MEDS: DUONEB 0.5 MG/3 MG NEB SCH ×4 (08:16→20:42)
[2018-11-03] MEDS: PULMICORT NEB TX 0.5 MG NEB SCH ×2 (08:16→20:42)
[2018-11-03] MEDS: SYNTHROID 100 mcg TAB PO SCH (09:20)
[2018-11-03] MEDS: LEVAQUIN PREMIX IV 500 MG 500 MG/100 ML BAG IV SCH (09:20)
[2018-11-03] MEDS: LOPRESSOR TAB 25 MG PO SCH ×2 (09:20→21:10)
[2018-11-03] MEDS: PEPCID TAB 20 MG PO SCH ×2 (09:20→21:10)
[2018-11-03] MEDS: PROCARDIA XL PO SCH (09:20)
[2018-11-03] MEDS: ROBITUSSIN DM PO SCH ×5 (09:21→21:08)
[2018-11-03] MEDS: CORTEF PO SCH ×2 (09:21→21:10)
[2018-11-03] MEDS ORDERED: PHARMACY CONSULT - TPN XX SCH (11:00)
[2018-11-03] MEDS ORDERED: PROCALAMINE 3 % 1,000 ML IV SCH (12:00)
[2018-11-03] MEDS: MEGACE PO SCH ×3 (13:33→21:10)
[2018-11-03] MEDS: NORCO 10/325 TAB PO PRN (21:09)
[2018-11-03] MEDS: LIPITOR TAB 40 MG PO SCH (21:10)
[2018-11-04] MEDS: NS 1000 ML 1,000 ML IV SCH ×2 (03:41→07:45)
[2018-11-04 04:58] LABS: ABG BASE EXCESS 4.7 mmol/L (-2.0-2.0); ABG HCO3 28.2 mmol/L (22-26)
[2018-11-04 04:59] LABS: ABG ALLEN TEST POS
[2018-11-04 05:59] LABS: BASOPHILS # (AUTO) 0.1 X10^3/uL (0.0-0.1); BASOPHILS % (AUTO) 0.6 % (0.2-1.0); EOSINOPHILS # (AUTO) 0.3 x10^3/uL (0.0-0.2); EOSINOPHILS % (AUTO) 3.6 % (0.9-2.9); HEMATOCRIT 32.7 % (42.0-54.0); HEMOGLOBIN 11.2 g/dL (13.5-18.0); LYMPHOCYTES # (AUTO) 0.9 X10^3/uL (1.3-2.9); LYMPHOCYTES % (AUTO) 9.8 % (21.0-51.0); MEAN CORPUSCULAR HGB CONC 34.3 g/dL (33.0-35.0); MEAN CORPUSCULAR VOLUME 90.3 fL (80.0-100.0); MEAN PLATELET VOLUME 8.1 fL (7.4-11.0); MONOCYTES # (AUTO) 0.6 x10^3/uL (0.3-0.8); MONOCYTES % (AUTO) 6.5 % (0.0-13.0); NEUTROPHILS # (AUTO) 7.6 x10^3/uL (2.2-4.8); NEUTROPHILS % (AUTO) 79.5 % (42.0-75.0); PLATELET COUNT 350 X10^3/uL (150.0-450.0); RED BLOOD COUNT 3.62 X10^6/uL (4.7-6.0); RED CELL DISTRIBUTION WIDTH 13.3 % (11.6-16.5); WHITE BLOOD COUNT 9.6 X10^3/uL (3.6-10.0)
--- NOTE | 2018-11-04 06:10 | RAD ---
HISTORY: Shortness of breath Study: Chest AP portable Comparison: 11/02/2018 Findings: There is a pacemaker present on the left. The heart remains enlarged. Mild pulmonary venous congestion is present. Interstitial lung changes are again identified diffusely and bilaterally not significantly changed from the prior examination. There is a subtle superimposed alveolar infiltrate in the right upper lobe unchanged from the prior examination. No pleural effusions are identified. The bony thorax is unremarkable. IMPRESSION: No significant change from the prior examination Reported By:
[2018-11-04 06:12] LABS: ALANINE AMINOTRANSFERASE 40 Units/L (12-78); ALBUMIN 2.1 g/dL (3.4-5.0); ALKALINE PHOSPHATASE 81 Units/L (46-116); ASPARTATE AMINO TRANSFERASE 34 Units/L (15-37); BLOOD UREA NITROGEN 9 mg/dL (7-18); CALCIUM 8.3 mg/dL (8.5-10.1); CARBON DIOXIDE 26.1 mmol/L (21-32); CHLORIDE 106 mmol/L (98-107); COR CA(FOR HYPOALB) 9.8 mg/dL (8.5-10.1); CREATININE 0.64 mg/dL (0.70-1.30); SODIUM 141 mmol/L (136-145); TOTAL PROTEIN 6.6 g/dL (6.4-8.2); eGFR NON BLACK RACES > 60 (>60)
[2018-11-04] MEDS: FORTAZ or TAZICEF VIAL INJ IVP SCH (06:25)
[2018-11-04 06:57] LABS: PLATELET MORPHOLOGY COMMENT NORMAL (NORMAL)
[2018-11-04] MEDS ORDERED: CORTEF ONE (08:31)
[2018-11-04] MEDS: ZOFRAN INJ 4 MG VIAL IVP PRN (08:44)
[2018-11-04] MEDS: DUONEB 0.5 MG/3 MG NEB SCH (09:14)
[2018-11-04] MEDS: PULMICORT NEB TX 0.5 MG NEB SCH (09:14)
[2018-11-04] MEDS: MEGACE PO SCH (09:27)
[2018-11-04] MEDS: ROBITUSSIN DM PO SCH (09:27)
[2018-11-04] MEDS: PEPCID TAB 20 MG PO SCH (09:28)
[2018-11-04] MEDS: SYNTHROID 100 mcg TAB PO SCH (09:28)
[2018-11-04] MEDS: LEVAQUIN PREMIX IV 500 MG 500 MG/100 ML BAG IV SCH (09:28)
[2018-11-04] MEDS: LOPRESSOR TAB 25 MG PO SCH (09:28)
[2018-11-04] MEDS: PROCARDIA XL PO SCH (09:28)
[2018-11-04] MEDS: CORTEF PO SCH (09:28)
[2018-11-04 10:09] VITALS: BP 133/80
--- NOTE | 2018-11-04 13:14 | PCM.PROG ---
Progress Note - Progress Note for Day of Date of Exam: 11/02/18 - Subjective Subjective: IS BEING TREATED FOR RIGHT UPPER AND LOWER LOBE PNEUMONIA AND PLEURISY. TODAY, HE IS MORE ALERT THAN HE HAS BEEN. HE IS SITTING IN THE CHAIR ON MORNING ROUNDS. HE CONTINUES WITH A PERSISTENT COUGH AND CONFUSION AT TIMES. FAMILY REPORTS THAT HE IS UNSTEADY AND WEAK ON AMBULATION. ON E XAMINATION, HEART IS REGULAR IN RATE AND RHYTHM. BILATERAL LUNGS ARE NOTED WITH DIMINISHED LUNG SOUNDS THROUGHOUT. ABDOMEN IS ROUND, SOFT, AND NOTED WITH MODERATE TENDERNESS TO THE RUQ. NORMAL BOWEL SOUNDS NOTED IN ALL QUADRANTS. HIS VITALS THIS MORNING ARE 98.8-90-18-96%-135/74. LABS WERE OBTAINED. ABNORMAL LAB VALUES INCLUDE THE FOLLOWING: RBC 3.08, HGB 9.7, HCT 27.8, POTASSIUM 3.4, CHLORIDE 108, CREATININE 0.65, GLUCOSE 109, CALCIUM 8.3, TOTAL PROTEIN 6.3, ALBUMIN 2.0. BLOOD AND SPUTUM CULTURES ARE NEGATIVE. A CHEST XRAY WAS OBTAINED TODAY AND REVEALED: Continued cardiomegaly without definite congestive heart failure. New right upper lobe infiltrate superimposed on the bilateral interstit ial lung changes present. HE CONTINUES TO RECEIVE IV ANTIBIOTICS AND BREATHING TX FOR TREATMENT OF PNEUMONIA. HE IS UTILIZING THE CPAP AT BEDTIME. WE WILL CONTINUE WITH CURRENT PLAN OF CARE TODAY. OTHERWISE, WE WILL FOLLOW UP WITH AM LABS AND CHEST XRAY AND CONTINUE TO MONITOR. - Past Medical Family Social History Past Med/Fam/Surg Hx: No changes since H&P Allergies: Allergies No Known Drug Allergies Allergy (Verified 10/16/18 14:14) - Review of Systems ROS: No change since H&P - Vital Signs and I&O's Vital Signs: Temperature 98.6 F Pulse Rate [Left Radial] 70 Pulse Rate 70 Respiratory Rate 20 Blood Pressure [Left Arm] 133/80 Blood Pressure [Right Arm] 120/59 Blood Pressure [Standing] 130/74 Blood Pressure [Sitting] 140/81 Blood Pressure [Lying] 145/81 Blood Pressure 166/85 O2 Sat by Pulse Oximetry 95 Intake and Output: Intake & Output 11/02/18 11/03/18 11/04/18 11/05/18 11:59 11:59 11:59 11:59 Intake Total 1460 / 1460 750 / 750 2560 / 2560 Output Total 1550 / 1550 1750 / 1750 2400 / 2400 Balance -90 / -90 -1000 / -1000 160 / 160 - Physical Exam Oriented: Person Eyes: Normal Ear: Normal Nose: Normal Throat: Normal Respiratory: Generalized, Diminished Cardiovascular: Normal. negative: S3, S4, Murmur : Normal Auscultation: Bowel Sounds: Normal Palpation: Normal Tenderness: RUQ, RLQ, Moderate. negative: Rebound, Guarding, Rigidity Skin: Normal Musculoskeletal: Normal Psychiatric: Agitation Mood Description: Anxious Affect: Normal Speech Pattern: Clear, Appropriate - Laboratory and Diagnostics Result Diagrams: 11/04/18 05:17 11/04/18 05:17 Labs: 10/26/18 14:12 Blood Blood Culture - Final 10/26/18 14:01 Blood Blood Culture - Final 10/26/18 14:04 Sputum - Expectorated Sputum Sputum Culture - Final 10/26/18 14:04 Sputum - Expectorated Sputum - Final Laboratory WBC 9.6 X10^3/uL (3.6-10.0) 11/04/18 05:17 RBC 3.62 X10^6/uL (4.7-6.0) L 11/04/18 05:17 Hgb 11.2 g/dL (13.5-18.0) L 11/04/18 05:17 Hct 32.7 % (42.0-54.0) L 11/04/18 05:17 MCV 90.3 fL (80.0-100.0) 11/04/18 05:17 MCH 31.0 pg (27.0-34.0) 11/04/18 05:17 MCHC 34.3 g/dL (33.0-35.0) 11/04/18 05:17 RDW 13.3 % (11.6-16.5) 11/04/18 05:17 Plt Count 350 X10^3/uL (150.0-450.0) 11/04/18 05:17 Plt Count Comment Adequate (ADEQUATE) 11/04/18 05:17 MPV 8.1 fL (7.4-11.0) 11/04/18 05:17 Neut % (Auto) 79.5 % (42.0-75.0) H 11/04/18 05:17 Lymph % (Auto) 9.8 % (21.0-51.0) L 11/04/18 05:17 [place] % (Auto) 6.5 % (0.0-13.0) 11/04/18 05:17 Eos % (Auto) 3.6 % (0.9-2.9) H 11/04/18 05:17 Baso % (Auto) 0.6 % (0.2-1.0) 11/04/18 05:17 Neut # (Auto) 7.6 x10^3/uL (2.2-4.8) H 11/04/18 05:17 Lymph # (Auto) 0.9 X10^3/uL (1.3-2.9) L 11/04/18 05:17 [place] # (Auto) 0.6 x10^3/uL (0.3-0.8) 11/04/18 05:17 Eos # (Auto) 0.3 x10^3/uL (0.0-0.2) H 11/04/18 05:17 Baso # (Auto) 0.1 X10^3/uL (0.0-0.1) 11/04/18 05:17 Absolute Nucleated RBC 0.0 /100WBC 11/04/18 05:17 Total Counted 100 11/04/18 05:17 Neutrophils % (Manual) 76 % (39-76) 11/04/18 05:17 Lymphocytes % (Manual) 12 % (13-43) L 11/04/18 05:17 Monocytes % (Manual) 8 % (4-9) 11/04/18 05:17 Eosinophils % (Manual) 4 % (0-6) 11/04/18 05:17 Plt Morphology Comment Normal (NORMAL) 11/04/18 05:17 RBC Morphology Normal (NORMAL) 11/04/18 05:17 Sample Site Lr 11/04/18 04:50 ABG pH 7.490 (7.35-7.45) H 11/04/18 04:50 ABG pCO2 37.0 mmHg (35.0-45.0) 11/04/18 04:50 ABG pO2 57.0 mmHg (80.0-100.0) L 11/04/18 04:50 ABG HCO3 28.2 mmol/L (22-26) H 11/04/18 04:50 ABG O2 Saturation 92.0 % (90-100) 11/04/18 04:50 ABG Base Excess 4.7 mmol/L (-2.0-2.0) H 11/04/18 04:50 Henrik Test Pos 11/04/18 04:50 A-a Gradient 46.0 mmHg 11/04/18 04:50 FiO2 21.0 11/04/18 04:50 Blood Gas Comments Scottie well ae 11/04/18 04:50 Sodium 141 mmol/L (136-145) 11/04/18 05:17 Corrected Sodium TNP 11/04/18 05:17 Potassium 3.3 mmol/L (3.5-5.1) L 11/04/18 05:17 Chloride 106 mmol/L (98-107) 11/04/18 05:17 Carbon Dioxide 26.1 mmol/L (21-32) 11/04/18 05:17 BUN 9 mg/dL (7-18) 11/04/18 05:17 Creatinine 0.64 mg/dL (0.70-1.30) L 11/04/18 05:17 Est GFR (MDRD) Af Amer > 60 (>60) 11/04/18 05:17 Est GFR (MDRD) Non-Af > 60 (>60) 11/04/18 05:17 Glucose 105 mg/dL (65-99) H 11/04/18 05:17 POC Glucose (mg/dL) 93 mg/dL (65-99) 11/04/18 11:26 Lactic Acid 1.3 mmol/L (0.4-2.0) 10/30/18 05:50 Calcium 8.3 mg/dL (8.5-10.1) L 11/04/18 05:17 Corrected Calcium 9.8 mg/dL (8.5-10.1) 11/04/18 05:17 Magnesium 2.1 mg/dL (1.7-2.9) 11/04/18 05:17 Total Bilirubin 0.30 mg/dL (0.2-1.0) 11/04/18 05:17 AST 34 Units/L (15-37) 11/04/18 05:17 ALT 40 Units/L (12-78) 11/04/18 05:17 Alkaline Phosphatase 81 Units/L (46-116) 11/04/18 05:17 Total Protein 6.6 g/dL (6.4-8.2) 11/04/18 05:17 Albumin 2.1 g/dL (3.4-5.0) L 11/04/18 05:17 Globulin 4.5 g/dL (2.5-4.5) 11/04/18 05:17 Albumin/Globulin Ratio 0.5 Ratio (1.1-2.1) L 11/04/18 05:17 Prealbumin 10.3 mg/dL (18-35.7) L 11/03/18 05:18 Amylase 15 Units/L (25-115) L 10/25/18 20:43 Lipase 51 Units/L (73-393) L 10/25/18 20:43 Specimen Type Clean catch urine 10/26/18 01:35 Urine Color Jaqueline (YELLOW) 10/26/18 01:35 Urine Appearance Clear (CLEAR) 10/26/18 01:35 Urine pH 5.0 (5.0 - 8.0) 10/26/18 01:35 Ur Specific [place] 1.015 (1.000-1.030) 10/26/18 01:35 Urine Protein 2+ (NEGATIVE) 10/26/18 01:35 Urine Glucose (UA) Negative (NEGATIVE) 10/26/18 01:35 Urine Ketones 1+ (NEGATIVE) 10/26/18 01:35 Urine Occult Blood 1+ (NEGATIVE) 10/26/18 01:35 Urine Nitrite Negative (NEGATIVE) 10/26/18 01:35 Urine Bilirubin 1+ (NEGATIVE) 10/26/18 01:35 Urine Urobilinogen 2+ (NORMAL) 10/26/18 01:35 Ur Leukocyte Esterase 1+ (NEGATIVE) 10/26/18 01:35 Urine RBC 0-2 /HPF (NONE SEEN) 10/26/18 01:35 Urine WBC 0-2 /HPF (NONE SEEN) 10/26/18 01:35 Ur Squamous Epith Cells Few /HPF (NEGATIVE) 10/26/18 01:35 Urine Bacteria Trace /HPF (NEGATIVE) 10/26/18 01:35 Urine Mucus Many /HPF (NEGATIVE) 10/26/18 01:35 Ur Culture Indicated? No/not indicated 10/26/18 01:35 Mycoplasma pneumon IgG Negative (NEGATIVE) 10/30/18 05:50 - Plan (1) Pneumonia Status: Acute Qualifiers: Pneumonia type: due to unspecified organism Laterality: left Lung location: lower lobe of lung Qualified Code(s): J18.1 - Lobar pneumonia, unspecified organism Plan: IV FORTAZ, IV LEVAQUIN, RESPIRATORY TX, CONTINUE TO MONITOR (2) Abdominal pain Status: Acute Qualifiers: Abdominal location: generalized Qualified Code(s): R10.84 - Generalized abdominal pain Plan: DEMEROL 25MG IV Q6H PRN, NORCO, CONTINUE TO MONITOR (3) Nausea and vomiting Status: Acute Qualifiers: Vomiting type: unspecified Vomiting Intractability: intractable Qualified Code(s): R11.2 - Nausea with vomiting, unspecified Plan: ZOFRAN 4MG IV Q4H PRN NAUSEA, CONTINUE TO MONITOR (4) Fever Status: Acute Qualifiers: Fever type: unspecified Qualified Code(s): R50.9 - Fever, unspecified (5) Pleurisy Status: Acute Plan: TORADOL 30MG IV Q6H, CONTINUE TO MONITOR (6) Altered mental status Status: Acute Qualifiers: Altered mental status type: transient alteration of awareness Qualified Cod e(s): R40.4 - Transient alteration of awareness Plan: OBTAIN BRAIN CT, CONTINUE TO MONITOR
--- NOTE | 2018-11-04 13:34 | PCM.PROG ---
Progress Note - Progress Note for Day of Date of Exam: 11/03/18 - Subjective Subjective: IS BEING TREATED FOR RIGHT UPPER AND LOWER LOBE PNEUMONIA AND PLEURISY. TODAY, HE IS MORE ALERT AND ORIENTED, SITTING IN CHAIR ON MORNING ROUNDS. HE CONTINUES WITH A PERSISTENT COUGH AND CONFUSION AT TIMES. HE REPORTS INCREASED SHORTNESS OF BREATH TODAY. FAMILY REPORTS THAT HE CONTINUES TO BE UNSTEADY AND WEAK ON AMBULATION. ON EXAMINATION, HEART IS REGULAR IN RATE AND RHYTHM. BILATERAL LUNGS ARE NOTED WITH DIMINISHED LUNG SOUNDS THROUGHOUT. ABDOMEN IS ROUND, SOFT, AND NOTED WITH MODERATE TENDERNESS TO THE RUQ. NORMAL BOWEL SOUNDS NOTED IN ALL QUADRANTS. HIS VITALS THIS MORNING ARE 98.7-70-24-96%-130/73. LABS WERE OBTAINED. ABNORMAL LAB VALUES INCLUDE THE FOLLOWING: RBC 3.29, HGB 10.4, HCT 29.8, POTASSIUM 3.2, CREATININE 0.64, GLUCOSE 106, CALCIUM 8.1, TOTAL PROTEIN 6.1, ALBUMIN 2.0. BLOOD AND SPUTUM CULTURES ARE NEGATIVE. HE CONTINUES TO RECEIVE IV ANTIBIOTICS AND BREATHING TX FOR TREATMENT OF PNEUMONIA. HE IS UTILIZING THE CPAP AT BEDTIME. WE WILL CONTINUE WITH CURRENT PLAN OF CARE TODAY. WE PLAN TO MAKE PATIENT SWINGBED STATUS FOR PHYSICAL THERAPY. WE WILL DO THIS WHEN HE IS STABLE FROM A PNEUMONIA STANDPOINT. OTHERWISE, WE WILL FOLLOW UP WITH AM LABS AND CHEST XRAY AND CONTINUE TO MONITOR. - Past Medical Family Social History Past Med/Fam/Surg Hx: No changes since H&P Allergies: Allergies No Known Drug Allergies Allergy (Verified 10/16/18 14:14) - Review of Systems ROS: No change since H&P - Vital Signs and I&O's Vital Signs: Temperature 98.6 F Pulse Rate [Left Radial] 70 Pulse Rate 70 Respiratory Rate 20 Blood Pressure [Left Arm] 133/80 Blood Pressure [Right Arm] 120/59 Blood Pressure [Standing] 130/74 Blood Pressure [Sitting] 140/81 Blood Pressure [Lying] 145/81 Blood Pressure 166/85 O2 Sat by Pulse Oximetry 95 Intake and Output: Intake & Output 11/02/18 11/03/18 11/04/18 11/05/18 11:59 11:59 11:59 11:59 Intake Total 1460 / 1460 750 / 750 2560 / 2560 Output Total 1550 / 1550 1750 / 1750 2400 / 2400 Balance -90 / -90 -1000 / -1000 160 / 160 - Physical Exam Oriented: Person Eyes: Normal Ear: Normal Nose: Normal Throat: Normal Respiratory: Generalized, Diminished Cardiovascular: Normal. negative: S3, S4, Murmur : Normal Auscultation: Bowel Sounds: Normal Palpation: Normal Tenderness: RUQ, RLQ, Moderate. negative: Rebound, Guarding, Rigidity Skin: Normal Musculoskeletal: Normal Psychiatric: Agitation Mood Description: Anxious Affect: Normal Speech Pattern: Clear, Appropriate - Laboratory and Diagnostics Result Diagrams: 11/04/18 05:17 11/04/18 05:17 Labs: 10/26/18 14:12 Blood Blood Culture - Final 10/26/18 14:01 Blood Blood Culture - Final 10/26/18 14:04 Sputum - Expectorated Sputum Sputum Culture - Final 10/26/18 14:04 Sputum - Expectorated Sputum - Final Laboratory WBC 9.6 X10^3/uL (3.6-10.0) 11/04/18 05:17 RBC 3.62 X10^6/uL (4.7-6.0) L 11/04/18 05:17 Hgb 11.2 g/dL (13.5-18.0) L 11/04/18 05:17 Hct 32.7 % (42.0-54.0) L 11/04/18 05:17 MCV 90.3 fL (80.0-100.0) 11/04/18 05:17 MCH 31.0 pg (27.0-34.0) 11/04/18 05:17 MCHC 34.3 g/dL (33.0-35.0) 11/04/18 05:17 RDW 13.3 % (11.6-16.5) 11/04/18 05:17 Plt Count 350 X10^3/uL (150.0-450.0) 11/04/18 05:17 Plt Count Comment Adequate (ADEQUATE) 11/04/18 05:17 MPV 8.1 fL (7.4-11.0) 11/04/18 05:17 Neut % (Auto) 79.5 % (42.0-75.0) H 11/04/18 05:17 Lymph % (Auto) 9.8 % (21.0-51.0) L 11/04/18 05:17 [place] % (Auto) 6.5 % (0.0-13.0) 11/04/18 05:17 Eos % (Auto) 3.6 % (0.9-2.9) H 11/04/18 05:17 Baso % (Auto) 0.6 % (0.2-1.0) 11/04/18 05:17 Neut # (Auto) 7.6 x10^3/uL (2.2-4.8) H 11/04/18 05:17 Lymph # (Auto) 0.9 X10^3/uL (1.3-2.9) L 11/04/18 05:17 [place] # (Auto) 0.6 x10^3/uL (0.3-0.8) 11/04/18 05:17 Eos # (Auto) 0.3 x10^3/uL (0.0-0.2) H 11/04/18 05:17 Baso # (Auto) 0.1 X10^3/uL (0.0-0.1) 11/04/18 05:17 Absolute Nucleated RBC 0.0 /100WBC 11/04/18 05:17 Total Counted 100 11/04/18 05:17 Neutrophils % (Manual) 76 % (39-76) 11/04/18 05:17 Lymphocytes % (Manual) 12 % (13-43) L 11/04/18 05:17 Monocytes % (Manual) 8 % (4-9) 11/04/18 05:17 Eosinophils % (Manual) 4 % (0-6) 11/04/18 05:17 Plt Morphology Comment Normal (NORMAL) 11/04/18 05:17 RBC Morphology Normal (NORMAL) 11/04/18 05:17 Sample Site Lr 11/04/18 04:50 ABG pH 7.490 (7.35-7.45) H 11/04/18 04:50 ABG pCO2 37.0 mmHg (35.0-45.0) 11/04/18 04:50 ABG pO2 57.0 mmHg (80.0-100.0) L 11/04/18 04:50 ABG HCO3 28.2 mmol/L (22-26) H 11/04/18 04:50 ABG O2 Saturation 92.0 % (90-100) 11/04/18 04:50 ABG Base Excess 4.7 mmol/L (-2.0-2.0) H 11/04/18 04:50 Henrik Test Pos 11/04/18 04:50 A-a Gradient 46.0 mmHg 11/04/18 04:50 FiO2 21.0 11/04/18 04:50 Blood Gas Comments Scottie well ae 11/04/18 04:50 Sodium 141 mmol/L (136-145) 11/04/18 05:17 Corrected Sodium TNP 11/04/18 05:17 Potassium 3.3 mmol/L (3.5-5.1) L 11/04/18 05:17 Chloride 106 mmol/L (98-107) 11/04/18 05:17 Carbon Dioxide 26.1 mmol/L (21-32) 11/04/18 05:17 BUN 9 mg/dL (7-18) 11/04/18 05:17 Creatinine 0.64 mg/dL (0.70-1.30) L 11/04/18 05:17 Est GFR (MDRD) Af Amer > 60 (>60) 11/04/18 05:17 Est GFR (MDRD) Non-Af > 60 (>60) 11/04/18 05:17 Glucose 105 mg/dL (65-99) H 11/04/18 05:17 POC Glucose (mg/dL) 93 mg/dL (65-99) 11/04/18 11:26 Lactic Acid 1.3 mmol/L (0.4-2.0) 10/30/18 05:50 Calcium 8.3 mg/dL (8.5-10.1) L 11/04/18 05:17 Corrected Calcium 9.8 mg/dL (8.5-10.1) 11/04/18 05:17 Magnesium 2.1 mg/dL (1.7-2.9) 11/04/18 05:17 Total Bilirubin 0.30 mg/dL (0.2-1.0) 11/04/18 05:17 AST 34 Units/L (15-37) 11/04/18 05:17 ALT 40 Units/L (12-78) 11/04/18 05:17 Alkaline Phosphatase 81 Units/L (46-116) 11/04/18 05:17 Total Protein 6.6 g/dL (6.4-8.2) 11/04/18 05:17 Albumin 2.1 g/dL (3.4-5.0) L 11/04/18 05:17 Globulin 4.5 g/dL (2.5-4.5) 11/04/18 05:17 Albumin/Globulin Ratio 0.5 Ratio (1.1-2.1) L 11/04/18 05:17 Prealbumin 10.3 mg/dL (18-35.7) L 11/03/18 05:18 Amylase 15 Units/L (25-115) L 10/25/18 20:43 Lipase 51 Units/L (73-393) L 10/25/18 20:43 Specimen Type Clean catch urine 10/26/18 01:35 Urine Color Jaqueline (YELLOW) 10/26/18 01:35 Urine Appearance Clear (CLEAR) 10/26/18 01:35 Urine pH 5.0 (5.0 - 8.0) 10/26/18 01:35 Ur Specific [place] 1.015 (1.000-1.030) 10/26/18 01:35 Urine Protein 2+ (NEGATIVE) 10/26/18 01:35 Urine Glucose (UA) Negative (NEGATIVE) 10/26/18 01:35 Urine Ketones 1+ (NEGATIVE) 10/26/18 01:35 Urine Occult Blood 1+ (NEGATIVE) 10/26/18 01:35 Urine Nitrite Negative (NEGATIVE) 10/26/18 01:35 Urine Bilirubin 1+ (NEGATIVE) 10/26/18 01:35 Urine Urobilinogen 2+ (NORMAL) 10/26/18 01:35 Ur Leukocyte Esterase 1+ (NEGATIVE) 10/26/18 01:35 Urine RBC 0-2 /HPF (NONE SEEN) 10/26/18 01:35 Urine WBC 0-2 /HPF (NONE SEEN) 10/26/18 01:35 Ur Squamous Epith Cells Few /HPF (NEGATIVE) 10/26/18 01:35 Urine Bacteria Trace /HPF (NEGATIVE) 10/26/18 01:35 Urine Mucus Many /HPF (NEGATIVE) 10/26/18 01:35 Ur Culture Indicated? No/not indicated 10/26/18 01:35 Mycoplasma pneumon IgG Negative (NEGATIVE) 10/30/18 05:50 - Plan (1) Pneumonia Status: Acute Qualifiers: Pneumonia type: due to unspecified organism Laterality: left Lung location: lower lobe of lung Qualified Code(s): J18.1 - Lobar pneumonia, unspecified organism Plan: IV FORTAZ, IV LEVAQUIN, RESPIRATORY TX, CONTINUE TO MONITOR (2) Abdominal pain Status: Acute Qualifiers: Abdominal location: generalized Qualified Code(s): R10.84 - Generalized abdominal pain Plan: DEMEROL 25MG IV Q6H PRN, NORCO, CONTINUE TO MONITOR (3) Nausea and vomiting Status: Acute Qualifiers: Vomiting type: unspecified Vomiting Intractability: intractable Qualified Code(s): R11.2 - Nausea with vomiting, unspecified Plan: ZOFRAN 4MG IV Q4H PRN NAUSEA, CONTINUE TO MONITOR (4) Fever Status: Acute Qualifiers: Fever type: unspecified Qualified Code(s): R50.9 - Fever, unspecified (5) Pleurisy Status: Acute Plan: TORADOL 30MG IV Q6H, CONTINUE TO MONITOR (6) Altered mental status Status: Acute Qualifiers: Altered mental status type: transient alteration of awareness Qualified Code(s): R40.4 - Transient alteration of awareness Plan: OBTAIN BRAIN CT, CONTINUE TO MONITOR
== END 2018-11-04 12:00 | disposition home or self-care (01) | DRG 195 ==
LOC: MED/SURG
PROVIDERS: ADMIT Internal Medicine; ATTEND Internal Medicine
DX: J18.8 Other pneumonia, unspecified organism; R11.2 Nausea with vomiting, unspecified; Z95.0 Presence of cardiac pacemaker; I25.10 Atherosclerotic heart disease of native coronary artery without angina pectoris; I48.91 Unspecified atrial fibrillation; I10 Essential (primary) hypertension; R10.11 Right upper quadrant pain; R26.89 Other abnormalities of gait and mobility; R10.31 Right lower quadrant pain; M13.89 Other specified arthritis, multiple sites; R06.02 Shortness of breath; Z78.1 Physical restraint status; R09.1 Pleurisy; J44.9 Chronic obstructive pulmonary disease, unspecified; R40.4 Transient alteration of awareness
CPT/HCPCS: 36415; 36600; 70450; 71010; 71045; 71250; 74022; 74177; 76705; 78227; 80053; 81001; 82150; 82803; 83605; 83690; 83735; 84134; 85025; 86738; 87040; 87070; 87205; 93005; 94640; 94660; 94669; 94760; 97110; 97116; 97162; 97166; 97530; 97535; A4216; A4222; A4618; A7030; B5200; S0179; G0378; J0713; J1630; J1885; J1956; J2175; J2405; J7030; J7050; J7620; J7626

== ENCOUNTER 2018-11-04 12:00 | Inpatient (IN) ==
[2018-11-04] MEDS ORDERED: POTASSIUM CHLORIDE LIQ 20 MEQ UDC PO PRN (13:09)
[2018-11-04] MEDS ORDERED: K-DUR TAB 20 MEQ PO PRN (13:09)
[2018-11-04] MEDS ORDERED: MICRO K EXTEN CAP 10 MEQ PO PRN (13:09)
[2018-11-04] MEDS ORDERED: K-RIDER 10 MEQ/NS 100 ML 10 MEQ/100 ML BAG IV PRN (13:09)
[2018-11-04] MEDS ORDERED: POTASSIUM CHL 60 MEQ/NS 0.45% 500 ML IV PRN (13:09)
[2018-11-04] MEDS ORDERED: DEMEROL INJ IVP PRN (13:09)
[2018-11-04] MEDS ORDERED: POTASSIUM CHL 40 MEQ/NS 0.45% 500 ML IV PRN (13:09)
[2018-11-04] MEDS ORDERED: ZOFRAN INJ 4 MG VIAL IVP PRN (13:09)
[2018-11-04] MEDS ORDERED: MAGNESIUM SULFATE 1 GRAM/100 mL PREMIX 1 GM/100 ML BAG IV PRN (13:09)
[2018-11-04] MEDS ORDERED: TORADOL 30 MG VIAL IVP PRN (13:09)
[2018-11-04] MEDS ORDERED: KLOR-CON PO PRN (13:09)
[2018-11-04] MEDS ORDERED: TUSSIONEX PENNKINETIC SUSP PO PRN (13:09)
[2018-11-04] MEDS: FORTAZ or TAZICEF VIAL INJ IVP SCH ×2 (13:28→21:03)
[2018-11-04] MEDS: NORCO 10/325 TAB PO PRN (13:28)
[2018-11-04] MEDS: DUONEB 0.5 MG/3 MG NEB SCH ×4 (13:48→21:50)
--- NOTE | 2018-11-04 14:32 | PT/OTEVAL ---
PT/OT OBJECTIVES - HISTORY Prescription: OT consult Diagnosis: intractible pain, nausea and vomitting Precautions: fall, SOB PMH: PMHX is signficant but not limited to ff: GERD, LLE pneumonia, COPD, hypokalemia, CVA, CAD, HTN Other: Patient reported to live with family in a multi-level house with no steps. Py was reported to be independent with ADLs and functional mobility without AD. - COGNITION Mental Status: Alert, Oriented, Name, Purpose Communication Status: Verbal Ability to Follow Directions: 3 Step - PAIN Lower Back Pain Scale: No Pain R shoulder Pain Scale: Mild (3-4) Comments: with movement Right Lower Lateral Abdomen Pain Scale: Mild (3-4) - TRANSFERS Supine to Sit: Moderate Sit to Stand: Moderate Sit or Stand Pivot: Moderate - ADL'S Feeding: Independent Grooming: Setup Upper Body ADL: Minimum Lower Body ADL: Moderate Toileting: Moderate - BALANCE Static Sitting: Good Standing: Fair Dynamic Sitting: Fair Standing: Fair - NEUROMOTOR/SENSATION Efe. Lower Ext Sensation: WFL Coordination: WFL Efe. Upper Ext Sensation: WFL Coordination: WFL Proprioception: WFL - HAND DOMINANCE Extremity Function: Hand Dominance: Right - ROM Right UE ROM: Impaired Muscle Tone: WFL Comment: LOM on SH abd and flexion Left UE ROM: WFL Muscle Tone: WFL - STRENGTH Bilateral LE Strength Number: 3 Other comment: 3-/5 Right UE Strength Number: 3 Other comment: sh flexors 3-/5. Left UE Strength Number: 3 Other comment: LUE 3+/5 PT/OT ASSESSMENT - OT Problem List: Decreased Mobility ADL's, Decreased Safety Aware, Decreased Dressing, Decreased UE Strength, Other Other, comment: functional activity tolerance - PATIENT GOALS Patient/Family Goals: return to PLOF Goals Discussed with Patient/Family: Yes Rehabilitation Potential: good Justification for Potential: G following commands,G family support, comorbidities - PLAN Suggested Treatment Plan: Therapeutic Activity, Self Care Training, Neuro Re- education, Therapeutic Ex with HEP, Home Management, Patient Education, Family Education - FREQUENCY AND DURATION OT: 5x a week x hospital stay
[2018-11-04] MEDS: NS 1000 ML 1,000 ML IV SCH (15:47)
[2018-11-04] MEDS ORDERED: DUONEB 0.5 MG/3 MG NEB SCH (17:00)
[2018-11-04] MEDS: ROBITUSSIN DM PO SCH ×2 (17:40→20:56)
[2018-11-04] MEDS ORDERED: CORTEF ONE (20:26)
[2018-11-04] MEDS: PEPCID TAB 20 MG PO SCH (20:54)
[2018-11-04] MEDS: LIPITOR TAB 40 MG PO SCH (20:55)
[2018-11-04] MEDS: LOPRESSOR TAB 25 MG PO SCH (20:55)
[2018-11-04] MEDS: CORTEF PO SCH (20:55)
[2018-11-04] MEDS: MILK OF MAGNESIA PO SCH (20:56)
[2018-11-04] MEDS: COLACE CAP 100 MG PO SCH (20:56)
[2018-11-04] MEDS: MEGACE PO SCH (20:56)
[2018-11-04] MEDS: RESTORIL CAP 15 MG PO PRN (20:56)
[2018-11-04] MEDS ORDERED: PULMICORT NEB TX 0.5 MG NEB SCH (21:00)
[2018-11-04] MEDS: PULMICORT NEB TX 0.5 MG NEB SCH (21:50)
[2018-11-05] MEDS: NS 1000 ML 1,000 ML IV SCH ×2 (06:12)
[2018-11-05] MEDS: FORTAZ or TAZICEF VIAL INJ IVP SCH ×3 (06:12→21:29)
[2018-11-05 06:20] VITALS: BMI 30.9
[2018-11-05] MEDS: PULMICORT NEB TX 0.5 MG NEB SCH ×2 (08:09→21:10)
[2018-11-05] MEDS: DUONEB 0.5 MG/3 MG NEB SCH ×4 (08:09→21:10)
--- NOTE | 2018-11-05 08:14 | PT/OTEVAL ---
PT/OT OBJECTIVES - HISTORY Prescription: PT consult Diagnosis: S/P multi lobe, pneumonia, deconditioned Precautions: Falls, SOB PMH: PMHX is signficant but not limited to ff: GERD, LLE pneumonia, COPD, hypokalemia, CVA, CAD, HTN Prior Level of Function: Assistance Required - COGNITION Mental Status: Alert, Oriented, Name, Place Communication Status: Verbal, Hard of Hearing Ability to Follow Directions: 2 Step - PAIN Lower Back Pain Scale: Mild (3-4) R shoulder Pain Scale: Mild (3-4) Comments: with movement Right Lower Lateral Abdomen Pain Scale: Mild (3-4) - BED MOBILITY Rolling: Moderate, x1 Scooting: Moderate, x1 Bridging: Moderate - TRANSFERS Supine to Sit: Moderate, x1 Sit to Stand: Moderate, x1 Sit or Stand Pivot: Moderate, x1 - BALANCE Static Sitting: Good Standing: Fair Dynamic Sitting: Fair Standing: Fair - NEUROMOTOR/SENSATION Efe. Lower Ext Sensation: WFL Coordination: WFL Efe. Upper Ext Sensation: WFL Coordination: WFL Proprioception: WFL - STRENGTH Bilateral LE Strength Number: 3 Other comment: 3-/5 Right UE Strength Number: 3 Other comment: sh flexors 3-/5. Left UE Strength Number: 1 Other comment: MARTY 3+/5 - GAIT Pt. ambulates how many feet?: 35 Amount of assistance required: Moderate Type of Assistive Device: Rolling Walker PT/OT ASSESSMENT - PT Problem List: Decreased Bed Mobility, Decreased Transfers, Decreased Gait, Decreased Balance, Decreased Safety, Decreased LE Strength - PT GOALS Short Term Goals Days: 10 Mobility: Pt to be indep with bed mobility to allow return to PLOF Transfers: Pt to be indep with transfers to allow retunr to PLOF Gait: Pt to ambulate x 80 ft c RW @ min A to increase activity tolerance. [place]las Former Goals Days: 20 Gait: Pt to ambulate x 220 ft c RW @ mod independence to increase activity eleuterio Balance: Pt to improve standing S/D balance to prevent from falls. ROM/Strength: Pt to improve B LE mm strength 1-2 mm increments to improve stability - PATIENT GOALS Goals Discussed with Patient/Family: Yes Weakness and Barriers: Decreased Participation, Pain - PLAN Suggested Treatment Plan: Bed Mobility Training, Therapeutic Activity, Gait Training, Neuro Re-education, Therapeutic Ex with HEP, Home Management, Patient Education, Family Education - FREQUENCY AND DURATION PT: 6x Expected Continuation of Care at Discharge: Determined on Progress
[2018-11-05] MEDS ORDERED: CORTEF ONE ×2 (08:47→20:22)
[2018-11-05] MEDS: ROBITUSSIN DM PO SCH ×4 (09:20→21:29)
[2018-11-05] MEDS: LOPRESSOR TAB 25 MG PO SCH ×2 (09:20→21:29)
[2018-11-05] MEDS: PROCARDIA XL PO SCH (09:20)
[2018-11-05] MEDS: PEPCID TAB 20 MG PO SCH ×2 (09:21→21:30)
[2018-11-05] MEDS: CORTEF PO SCH ×2 (09:21→21:29)
[2018-11-05] MEDS: MEGACE PO SCH ×2 (09:21→21:29)
[2018-11-05] MEDS: SYNTHROID 100 mcg TAB PO SCH (09:24)
[2018-11-05] MEDS: LEVAQUIN PREMIX IV 500 MG 500 MG/100 ML BAG IV SCH (09:25)
[2018-11-05] MEDS: VSL#3 PO SCH (10:30)
[2018-11-05] MEDS ORDERED: NS 50 ML IV 50 ML ONE (13:28)
[2018-11-05] MEDS: MILK OF MAGNESIA PO SCH (21:29)
[2018-11-05] MEDS: LIPITOR TAB 40 MG PO SCH (21:29)
[2018-11-05] MEDS: RESTORIL CAP 15 MG PO PRN (21:29)
[2018-11-05] MEDS: COLACE CAP 100 MG PO SCH (21:30)
[2018-11-06 05:19] LABS: BASOPHILS # (AUTO) 0.1 X10^3/uL (0.0-0.1); BASOPHILS % (AUTO) 0.9 % (0.2-1.0); EOSINOPHILS # (AUTO) 0.4 x10^3/uL (0.0-0.2); EOSINOPHILS % (AUTO) 3.3 % (0.9-2.9); HEMATOCRIT 29.5 % (42.0-54.0); HEMOGLOBIN 10.2 g/dL (13.5-18.0); LYMPHOCYTES # (AUTO) 0.9 X10^3/uL (1.3-2.9); LYMPHOCYTES % (AUTO) 8.3 % (21.0-51.0); MEAN CORPUSCULAR HEMOGLOBIN 31.1 pg (27.0-34.0); MEAN CORPUSCULAR HGB CONC 34.5 g/dL (33.0-35.0); MEAN CORPUSCULAR VOLUME 90.1 fL (80.0-100.0); MEAN PLATELET VOLUME 8.6 fL (7.4-11.0); MONOCYTES # (AUTO) 0.6 x10^3/uL (0.3-0.8); MONOCYTES % (AUTO) 5.7 % (0.0-13.0); NEUTROPHILS % (AUTO) 81.8 % (42.0-75.0); PLATELET COUNT 323 X10^3/uL (150.0-450.0); RED BLOOD COUNT 3.27 X10^6/uL (4.7-6.0); RED CELL DISTRIBUTION WIDTH 13.7 % (11.6-16.5)
[2018-11-06 05:37] LABS: ALANINE AMINOTRANSFERASE 46 Units/L (12-78); ALKALINE PHOSPHATASE 89 Units/L (46-116); ASPARTATE AMINO TRANSFERASE 43 Units/L (15-37); BLOOD UREA NITROGEN 13 mg/dL (7-18); CALCIUM 8.2 mg/dL (8.5-10.1); CARBON DIOXIDE 24.1 mmol/L (21-32); CHLORIDE 107 mmol/L (98-107); COR CA(FOR HYPOALB) 9.8 mg/dL (8.5-10.1); CREATININE 0.62 mg/dL (0.70-1.30); SODIUM 141 mmol/L (136-145); TOTAL PROTEIN 6.1 g/dL (6.4-8.2); eGFR NON BLACK RACES > 60 (>60)
[2018-11-06] MEDS: FORTAZ or TAZICEF VIAL INJ IVP SCH ×3 (05:48→21:21)
--- NOTE | 2018-11-06 07:30 | RAD ---
Examination: Portable AP chest History: SOB Comparison 11/04/2018 Findings: Stable cardiac enlargement with no change in position of pacing device. Bilateral interstitial infiltrates are again noted. No developing consolidation, pneumothorax or large pleural effusion is evident. Impression: Considering technical difference, no definite change since 11/04/2018. Reported By:
[2018-11-06] MEDS: DUONEB 0.5 MG/3 MG NEB SCH ×5 (08:58→20:02)
[2018-11-06] MEDS: PULMICORT NEB TX 0.5 MG NEB SCH ×2 (08:59→20:02)
[2018-11-06] MEDS ORDERED: CORTEF ONE ×2 (09:37→20:48)
[2018-11-06] MEDS: LOPRESSOR TAB 25 MG PO SCH ×2 (09:59→21:23)
[2018-11-06] MEDS: VSL#3 PO SCH (09:59)
[2018-11-06] MEDS: PEPCID TAB 20 MG PO SCH ×2 (09:59→21:21)
[2018-11-06] MEDS: LEVAQUIN PREMIX IV 500 MG 500 MG/100 ML BAG IV SCH (10:00)
[2018-11-06] MEDS: ROBITUSSIN DM PO SCH ×4 (10:00→21:21)
[2018-11-06] MEDS: SYNTHROID 100 mcg TAB PO SCH (10:00)
[2018-11-06] MEDS: CORTEF PO SCH ×2 (10:00→21:22)
[2018-11-06] MEDS: MEGACE PO SCH ×2 (10:00→21:22)
[2018-11-06] MEDS: PROCARDIA XL PO SCH (10:00)
[2018-11-06] MEDS: PROCALAMINE 3 % 1,000 ML IV SCH (21:00)
[2018-11-06] MEDS: NICOTINE PATCH TD SCH (21:19)
[2018-11-06] MEDS: MILK OF MAGNESIA PO SCH (21:21)
[2018-11-06] MEDS: LIPITOR TAB 40 MG PO SCH (21:22)
[2018-11-06] MEDS: NORCO 10/325 TAB PO PRN (21:23)
[2018-11-06] MEDS: RESTORIL CAP 15 MG PO PRN (21:23)
[2018-11-06] MEDS: COLACE CAP 100 MG PO SCH (21:23)
[2018-11-07] MEDS: FORTAZ or TAZICEF VIAL INJ IVP SCH ×3 (05:51→21:02)
[2018-11-07] MEDS: DUONEB 0.5 MG/3 MG NEB SCH ×4 (08:46→20:19)
[2018-11-07] MEDS: PULMICORT NEB TX 0.5 MG NEB SCH ×2 (08:46→20:19)
[2018-11-07] MEDS ORDERED: CORTEF ONE ×2 (09:39→20:09)
[2018-11-07] MEDS ORDERED: NS 250 ML IV 250 ML ONE (09:45)
[2018-11-07] MEDS: LEVAQUIN PREMIX IV 500 MG 500 MG/100 ML BAG IV SCH (09:49)
[2018-11-07] MEDS: ROBITUSSIN DM PO SCH ×4 (09:49→20:59)
[2018-11-07] MEDS: CORTEF PO SCH ×2 (09:49→21:01)
[2018-11-07] MEDS: LOPRESSOR TAB 25 MG PO SCH ×2 (09:50→21:02)
[2018-11-07] MEDS: PROCARDIA XL PO SCH (09:50)
[2018-11-07] MEDS: PEPCID TAB 20 MG PO SCH ×2 (09:50→20:58)
[2018-11-07] MEDS: SYNTHROID 100 mcg TAB PO SCH (09:50)
[2018-11-07] MEDS: MEGACE PO SCH ×2 (09:50→21:02)
[2018-11-07] MEDS: VSL#3 PO SCH (09:50)
[2018-11-07] MEDS: LIPITOR TAB 40 MG PO SCH (20:58)
[2018-11-07] MEDS: NICOTINE PATCH TD SCH (20:59)
[2018-11-07] MEDS: RESTORIL CAP 15 MG PO PRN (21:00)
[2018-11-07] MEDS: MILK OF MAGNESIA PO SCH (21:00)
[2018-11-07] MEDS: NORCO 10/325 TAB PO PRN (21:00)
[2018-11-07] MEDS: COLACE CAP 100 MG PO SCH (21:02)
[2018-11-07] MEDS: PROCALAMINE 3 % 1,000 ML IV SCH (22:28)
[2018-11-08 05:17] LABS: BASOPHILS # (AUTO) 0.1 X10^3/uL (0.0-0.1); BASOPHILS % (AUTO) 0.5 % (0.2-1.0); EOSINOPHILS # (AUTO) 0.5 x10^3/uL (0.0-0.2); EOSINOPHILS % (AUTO) 3.9 % (0.9-2.9); HEMATOCRIT 31.2 % (42.0-54.0); HEMOGLOBIN 10.7 g/dL (13.5-18.0); LYMPHOCYTES # (AUTO) 1.1 X10^3/uL (1.3-2.9); LYMPHOCYTES % (AUTO) 8.6 % (21.0-51.0); MEAN CORPUSCULAR HEMOGLOBIN 31.1 pg (27.0-34.0); MEAN CORPUSCULAR HGB CONC 34.1 g/dL (33.0-35.0); MEAN CORPUSCULAR VOLUME 91.2 fL (80.0-100.0); MEAN PLATELET VOLUME 8.6 fL (7.4-11.0); MONOCYTES # (AUTO) 0.7 x10^3/uL (0.3-0.8); MONOCYTES % (AUTO) 5.4 % (0.0-13.0); NEUTROPHILS % (AUTO) 81.6 % (42.0-75.0); PLATELET COUNT 367 X10^3/uL (150.0-450.0); RED BLOOD COUNT 3.43 X10^6/uL (4.7-6.0); RED CELL DISTRIBUTION WIDTH 13.7 % (11.6-16.5); WHITE BLOOD COUNT 12.3 X10^3/uL (3.6-10.0)
[2018-11-08 05:33] LABS: ALANINE AMINOTRANSFERASE 86 Units/L (12-78); ALBUMIN 2.1 g/dL (3.4-5.0); ALKALINE PHOSPHATASE 90 Units/L (46-116); ASPARTATE AMINO TRANSFERASE 76 Units/L (15-37); BLOOD UREA NITROGEN 15 mg/dL (7-18); CALCIUM 8.4 mg/dL (8.5-10.1); CARBON DIOXIDE 26.4 mmol/L (21-32); CHLORIDE 106 mmol/L (98-107); COR CA(FOR HYPOALB) 9.9 mg/dL (8.5-10.1); CREATININE 0.72 mg/dL (0.70-1.30); SODIUM 141 mmol/L (136-145); TOTAL PROTEIN 6.6 g/dL (6.4-8.2); eGFR NON BLACK RACES > 60 (>60)
[2018-11-08 05:38] LABS: BAND NEUTROPHILS % 1 % (0-10); PLATELET MORPHOLOGY COMMENT NORMAL (NORMAL)
[2018-11-08] MEDS: FORTAZ or TAZICEF VIAL INJ IVP SCH ×3 (06:14→21:18)
--- NOTE | 2018-11-08 06:33 | RAD ---
HISTORY: Shortness of breath Study: Chest AP portable Comparison: 11/06/2018, 11/04/2018 Findings: There is a pacemaker present on the left obscuring a portion of the left upper lobe. The heart is minimally enlarged. No definite congestive heart failure is noted. Interstitial lung changes are present bilaterally, stable. No acute alveolar infiltrates or pleural effusions are identified. The bony thorax is unremarkable. IMPRESSION: Minimal cardiomegaly without congestive heart failure Interstitial lung changes, stable Reported By:
[2018-11-08] MEDS ORDERED: CORTEF ONE ×2 (08:16→19:29)
[2018-11-08] MEDS: LEVAQUIN PREMIX IV 500 MG 500 MG/100 ML BAG IV SCH (09:04)
[2018-11-08] MEDS: SYNTHROID 100 mcg TAB PO SCH (09:05)
[2018-11-08] MEDS: PROCARDIA XL PO SCH (09:05)
[2018-11-08] MEDS: PEPCID TAB 20 MG PO SCH ×2 (09:05→20:35)
[2018-11-08] MEDS: VSL#3 PO SCH (09:05)
[2018-11-08] MEDS: CORTEF PO SCH ×2 (09:05→20:35)
[2018-11-08] MEDS: LOPRESSOR TAB 25 MG PO SCH ×2 (09:05→20:37)
[2018-11-08] MEDS: MEGACE PO SCH ×2 (09:06→20:36)
[2018-11-08] MEDS: MILK OF MAGNESIA PO SCH ×3 (09:09→20:46)
[2018-11-08] MEDS: ROBITUSSIN DM PO SCH ×4 (09:10→20:35)
[2018-11-08] MEDS: DUONEB 0.5 MG/3 MG NEB SCH ×4 (09:54→20:17)
[2018-11-08] MEDS: PULMICORT NEB TX 0.5 MG NEB SCH ×2 (09:54→20:17)
--- NOTE | 2018-11-08 20:27 | PCM.PROG ---
Progress Note - Progress Note for Day of Date of Exam: 11/07/18 - Subjective Subjective: WAS ADMITTED ON 10/25/18 FOR RIGHT UPPER AND LOWER LOBE PNEUMONIA AND PLEURISY. HE WAS CHANGED TO SWINGBED STATUS ON 11/04/18 FOR PHYSICAL THERAPY DUE TO UNSTEADY GAIT, WEAKNESS, AND DECLINE IN ADLs. TODAY, HE IS ALERT AND ORIENTED, SITTING IN CHAIR ON MORNING ROUNDS. HE CONTINUES WITH COUGH AND SHORTNESS OF BREATH. FAMILY REPORTS THAT HE CONTINUES TO BE UNSTEADY AND WEAK ON AMBULATION. ON EXAMINATION, HEART IS REGULAR IN RATE AND RHYTHM. BILATERAL LUNGS ARE NOTED WITH DIMINISHED LUNG SOUNDS THROUGHOUT. ABDOMEN IS ROUND, SOFT, AND NOTED WITH MODERATE TENDERNESS TO THE RUQ. NORMAL BOWEL SOUNDS NOTED IN ALL QUADRANTS. HIS VITALS THIS MORNING ARE 98.4-56-18-96%-130/69. LABS WERE OBTAINED YESTERDAY. ABNORMAL LAB VALUES INCLUDE THE FOLLOWING: WBC 11.0, RBC 3.27, HGB 10.2, HCT 29.5, CREATININ 0.62, GLUCOSOE 102, CALCIUM 8.2, AST 43, TOTAL PROTEIN 6.1, ALBUMIN 2.0. HE CONTINUES TO RECEIVE IV ANTIBIOTICS AND BREATHING TX FOR TREATMENT OF PNEUMONIA. WE WILL CONTINUE WITH CURRENT PLAN OF CARE AND PHYSICAL THERAPY TODAY. OTHERWISE, WE WILL CONTINUE TO MONITOR. - Past Medical Family Social History Past Med/Fam/Surg Hx: No changes since H&P Allergies: Allergies No Known Drug Allergies Allergy (Verified 10/16/18 14:14) - Review of Systems ROS: No change since H&P - Vital Signs and I&O's Vital Signs: Temperature 98.8 F Pulse Rate [Brachial] 73 Pulse Rate 74 Respiratory Rate 20 Blood Pressure [Left Arm] 161/77 Blood Pressure [Right Arm] 111/57 Blood Pressure [Standing] 130/74 Blood Pressure [Sitting] 140/81 Blood Pressure [Lying] 145/81 Blood Pressure 133/80 O2 Sat by Pulse Oximetry 92 Intake and Output: Intake & Output 11/06/18 11/07/18 11/08/18 11/09/18 11:59 11:59 11:59 11:59 Intake Total 2560 / 2560 1060 / 1060 1045 / 1045 820 / 820 Output Total 2090 / 2090 1370 / 1370 1400 / 1400 300 / 300 Balance 470 / 470 -310 / -310 -355 / -355 520 / 520 - Physical Exam Oriented: Normal Eyes: Normal Ear: Normal Nose: Normal Throat: Normal Respiratory: Generalized, Diminished Cardiovascular: Normal : Normal Auscultation: Bowel Sounds: Normal Palpation: Normal Tenderness: Normal Skin: Normal Musculoskeletal: Normal Psychiatric: Normal Mood Description: Calm Affect: Normal Speech Pattern: Clear, Appropriate - Laboratory and Diagnostics Result Diagrams: 11/08/18 04:23 11/08/18 04:23 Labs: 11/04/18 17:22 Sputum - Expectorated Sputum Sputum Culture - Final 11/04/18 17:22 Sputum - Expectorated Sputum - Final Laboratory WBC 12.3 X10^3/uL (3.6-10.0) H 11/08/18 04:23 RBC 3.43 X10^6/uL (4.7-6.0) L 11/08/18 04:23 Hgb 10.7 g/dL (13.5-18.0) L 11/08/18 04:23 Hct 31.2 % (42.0-54.0) L 11/08/18 04:23 MCV 91.2 fL (80.0-100.0) 11/08/18 04:23 MCH 31.1 pg (27.0-34.0) 11/08/18 04:23 MCHC 34.1 g/dL (33.0-35.0) 11/08/18 04:23 RDW 13.7 % (11.6-16.5) 11/08/18 04:23 Plt Count 367 X10^3/uL (150.0-450.0) 11/08/18 04:23 Plt Count Comment Adequate (ADEQUATE) 11/08/18 04:23 MPV 8.6 fL (7.4-11.0) 11/08/18 04:23 Neut % (Auto) 81.6 % (42.0-75.0) H 11/08/18 04:23 Lymph % (Auto) 8.6 % (21.0-51.0) L 11/08/18 04:23 [place] % (Auto) 5.4 % (0.0-13.0) 11/08/18 04:23 Eos % (Auto) 3.9 % (0.9-2.9) H 11/08/18 04:23 Baso % (Auto) 0.5 % (0.2-1.0) 11/08/18 04:23 Neut # (Auto) 10.0 x10^3/uL (2.2-4.8) H 11/08/18 04:23 Lymph # (Auto) 1.1 X10^3/uL (1.3-2.9) L 11/08/18 04:23 [place] # (Auto) 0.7 x10^3/uL (0.3-0.8) 11/08/18 04:23 Eos # (Auto) 0.5 x10^3/uL (0.0-0.2) H 11/08/18 04:23 Baso # (Auto) 0.1 X10^3/uL (0.0-0.1) 11/08/18 04:23 Absolute Nucleated RBC 0.0 /100WBC 11/08/18 04:23 Total Counted 100 11/08/18 04:23 Neutrophils % (Manual) 85 % (39-76) H 11/08/18 04:23 Band Neutrophils % 1 % (0-10) 11/08/18 04:23 Lymphocytes % (Manual) 9 % (13-43) L 11/08/18 04:23 Monocytes % (Manual) 3 % (4-9) L 11/08/18 04:23 Eosinophils % (Manual) 2 % (0-6) 11/08/18 04:23 Plt Morphology Comment Normal (NORMAL) 11/08/18 04:23 RBC Morphology Normal (NORMAL) 11/08/18 04:23 Sodium 141 mmol/L (136-145) 11/08/18 04:23 Corrected Sodium TNP 11/08/18 04:23 Potassium 3.8 mmol/L (3.5-5.1) 11/08/18 04:23 Chloride 106 mmol/L (98-107) 11/08/18 04:23 Carbon Dioxide 26.4 mmol/L (21-32) 11/08/18 04:23 BUN 15 mg/dL (7-18) 11/08/18 04:23 Creatinine 0.72 mg/dL (0.70-1.30) 11/08/18 04:23 Est GFR (MDRD) Af Amer > 60 (>60) 11/08/18 04:23 Est GFR (MDRD) Non-Af > 60 (>60) 11/08/18 04:23 Glucose 106 mg/dL (65-99) H 11/08/18 04:23 POC Glucose (mg/dL) 112 mg/dL (65-99) H 11/08/18 19:59 Calcium 8.4 mg/dL (8.5-10.1) L 11/08/18 04:23 Corrected Calcium 9.9 mg/dL (8.5-10.1) 11/08/18 04:23 Magnesium 2.5 mg/dL (1.7-2.9) 11/08/18 04:23 Total Bilirubin 0.20 mg/dL (0.2-1.0) 11/08/18 04:23 AST 76 Units/L (15-37) H 11/08/18 04:23 ALT 86 Units/L (12-78) H 11/08/18 04:23 Alkaline Phosphatase 90 Units/L (46-116) 11/08/18 04:23 Total Protein 6.6 g/dL (6.4-8.2) 11/08/18 04:23 Albumin 2.1 g/dL (3.4-5.0) L 11/08/18 04:23 Globulin 4.5 g/dL (2.5-4.5) 11/08/18 04:23 Albumin/Globulin Ratio 0.5 Ratio (1.1-2.1) L 11/08/18 04:23 - Plan (1) Pneumonia Status: Acute Qualifiers: Pneumonia type: due to unspecified organism Laterality: right Lung location: unspecified part of lung Qualified Code(s): J18.9 - Pneumonia, unspecified organism Plan: IV ANTIBIOTICS, RESPIRATORY TREATMENTS, SUPPLEMENTAL OXYGEN, CONTINUE TO MONITOR (2) Generalized weakness Status: Acute Plan: PHYSICAL THERAPY, CONTINUE TO MONITOR
[2018-11-08] MEDS: LIPITOR TAB 40 MG PO SCH (20:35)
[2018-11-08] MEDS: COLACE CAP 100 MG PO SCH (20:36)
[2018-11-08] MEDS: NICOTINE PATCH TD SCH (20:37)
[2018-11-08] MEDS: NORCO 10/325 TAB PO PRN (20:38)
[2018-11-09] MEDS: FORTAZ or TAZICEF VIAL INJ IVP SCH (05:24)
[2018-11-09] MEDS ORDERED: CORTEF ONE (08:14)
[2018-11-09] MEDS: LEVAQUIN PREMIX IV 500 MG 500 MG/100 ML BAG IV SCH (08:45)
[2018-11-09] MEDS: SYNTHROID 100 mcg TAB PO SCH (08:46)
[2018-11-09] MEDS: VSL#3 PO SCH (08:46)
[2018-11-09] MEDS: LOPRESSOR TAB 25 MG PO SCH (08:46)
[2018-11-09] MEDS: MEGACE PO SCH (08:46)
[2018-11-09] MEDS: PROCARDIA XL PO SCH (08:46)
[2018-11-09] MEDS: ROBITUSSIN DM PO SCH (08:48)
[2018-11-09] MEDS: CORTEF PO SCH (08:48)
[2018-11-09] MEDS: MILK OF MAGNESIA PO SCH (08:49)
[2018-11-09] MEDS: PEPCID TAB 20 MG PO SCH (08:49)
[2018-11-09] MEDS: NORCO 10/325 TAB PO PRN (08:59)
[2018-11-09] MEDS: DUONEB 0.5 MG/3 MG NEB SCH (09:54)
[2018-11-09] MEDS: PULMICORT NEB TX 0.5 MG NEB SCH (09:54)
[2018-11-09 11:21] VITALS: BP 137/75
== END 2018-11-09 11:40 | disposition home or self-care (01) | DRG 949 ==
LOC: MED/SURG 12:00
PROVIDERS: ADMIT Internal Medicine; ATTEND Internal Medicine
DX: I25.10 Atherosclerotic heart disease of native coronary artery without angina pectoris; R09.1 Pleurisy; J44.9 Chronic obstructive pulmonary disease, unspecified; I48.91 Unspecified atrial fibrillation; Z95.0 Presence of cardiac pacemaker; R40.4 Transient alteration of awareness; I10 Essential (primary) hypertension; Z51.89 Encounter for other specified aftercare; R10.11 Right upper quadrant pain; R26.89 Other abnormalities of gait and mobility; J18.8 Other pneumonia, unspecified organism
CPT/HCPCS: 36415; 71010; 71045; 80053; 83735; 85025; 87070; 87205; 94640; 94760; 97110; 97116; 97162; 97166; 97530; 97535; A4222; B5200; S0179; J0713; J1885; J1956; J7030; J7050; J7620; J7626

== ENCOUNTER 2019-01-03 09:15 | Inpatient (IN) ==
--- NOTE | 2019-01-03 09:41 | DR.ABDMALE ---
HPI Time seen Time Seen by Provider: 01/03/19 09:28 PCP Primary Care Physician: LESLIE TRAVIS HPI comment HPI Comment: PATIENT IS 73YR OLD MALE WITH UPPER ABDOMINAL PAIN, SHARP, UP TO 03/01 AND NOT MILDLY IMPROVE WITH HYDROCODONE SINCE YESTERDAY MORNING. NO FEVER, DYSURIA OR VOMITING. HAVING NORMAL BOWEL MOVEMENT. NO DIARRHEA. Complaint Chief Complaint Doctors Comments: UPPER ABDOMINAL PAIN TIMES ONE DAY. Chief Complaint:: PT C/O SEVERE ABDOMINAL PAIN THAT STARTED YESTERDAY MORNING ACROSS THE TOP OF ABDOMEN WHICH PROGRESSIVELY WORSENED AND BECAME SEVERE AROUND 8:30 PM. PT'S STATES THAT SHE GAVE HIM HYDROCODONE ALL NIGHT WITH LAST NIGHT WITH LAST DOSE AROUND 8AM THIS MORNING. DENIES NAUSEA, VOMITING, FEVER, OR DIARRHEA. Reviewed Nurses Notes Review: Yes Source History provided by:: pt Mode of arrival Mode of Arrival: Wheelchair Timing Onset of Chief Complaint: 01/02/19 Came on: Suddenly Duration Duration: Constant Duration: Days Location Location: RUQ, LUQ and Epigastric Severity Severity: Severe Quality Quality: Sharp Context Onset: Suddenly History of: None Modifying factors Worsening Factors: Movement Improving Factors: Lying Still Associated signs and symptoms Associated Signs and Symptoms: None PMH PMH Past Medical History: Yes Past Medical History: Anemia, Coronary Artery Disease, Dyslipidemia, Hypothyroidism and Sleep Apnea Past Surgical History: Yes Surgical History: Angioplasty/Stents Past Surgical History Comment: PITUITARY GLAND SURGERY, NECK SURGERY Family History History of Family Medical Conditions: Yes Family Medical History: [place] and Coronary Artery Disease Social History Does patient currently use any type of tobacco product: Yes Have you used tobacco products in the last 12 months: Yes Type of Tobacco Use: Cigarettes Does any household member use tobacco: No Alcohol Use: None Do you use any recreational Drugs:: No Lives With: Family Lives Where: Home infectious screening In the last 2 months have you had wt loss of >10#?: NO Have you had fever, night sweats or hemotysis?: No Have you traveled outside the country in the last 6 months?: No Isolation: Standard ROS Review of Systems Constitutional: See HPI, Malaise and Weakness; negative Fever Eyes: No Symptoms Reported and See HPI ENTM: No Symptoms Reported and See HPI Respiratoy: No Symptoms Reported and See HPI; negative Short of Breath and Wheezing Cardiovascular: See HPI; negative Chest Pain and Palpitations Gastrointestinal/Abdominal: See HPI and Abdominal Pain Genitourinary: No Symptoms Reported and See HPI; negative Dysuria, Frequency and Hematuria Neurological: See HPI and Weakness; negative Headache and Dizziness Musculoskeletal: No Symptoms Reported and See HPI; negative Back Pain and Muscle Pain Integumentary: No Symptoms Reported and See HPI; negative Change in Color, Rash and Juandice Hematologic/Lymphatic: No Symptoms Reported and See HPI; negative Easy Bruising and Swollen Glands Endocrine: No Symptoms Reported and See HPI; negative Increased Thirst and Increased Urine Psychiatric: No Symptoms Reported and See HPI All Other Systems: Reviewed and Negative PE Vital Signs Vital Signs: Temp Pulse Pulse Resp BP BP BP 01/08/19 11:00 106 H 29 H 153/78 01/08/19 10:00 109 H 31 H 140/84 01/08/19 09:37 102 H 30 H 134/80 01/08/19 09:29 116 H 01/08/19 09:00 145 H 31 H 120/79 01/08/19 08:50 142/82 01/08/19 08:40 113 H 37 H 142/82 01/08/19 08:00 98.0 F 115 H 38 H 104/83 01/08/19 07:51 108 H 36 H 109/78 01/08/19 07:49 133/83 01/08/19 07:00 143 H 32 H 133/83 01/08/19 06:00 137 H 33 H 142/68 01/08/19 05:00 98.1 F 134 H 30 H 138/80 01/08/19 04:00 126 H 27 H 124/91 01/08/19 03:00 128 H 32 H 122/88 01/08/19 02:00 124 H 32 H 135/80 01/08/19 01:26 137/88 01/08/19 01:00 123 H 30 H 137/88 01/08/19 00:00 136 H 34 H 141/80 01/07/19 23:00 98.4 F 77 32 H 141/83 01/07/19 22:00 80 32 H 130/65 01/07/19 21:00 88 36 H 143/73 01/07/19 20:26 85 01/07/19 20:00 87 35 H 150/72 01/07/19 19:00 98.9 F 91 H 35 H 122/64 01/07/19 18:00 88 33 H 138/68 01/07/19 17:00 98 H 34 H 146/66 01/07/19 16:00 98.8 F 85 28 H 139/81 01/07/19 15:00 78 30 H 141/77 01/07/19 14:00 81 32 H 145/77 01/07/19 13:00 86 32 H 143/78 01/07/19 12:01 90 01/07/19 12:00 98.0 F 81 32 H 154/87 01/07/19 11:00 77 30 H 145/89 01/07/19 10:00 80 31 H 140/89 01/07/19 09:00 80 28 H 129/80 01/07/19 08:32 74 01/07/19 08:00 99.5 F 72 23 146/79 01/07/19 07:00 69 20 144/75 01/07/19 06:00 67 17 142/70 01/07/19 05:20 18 01/07/19 05:00 79 18 143/79 01/07/19 04:50 27 H 01/07/19 04:00 98.3 F 63 26 H 135/64 01/07/19 03:00 64 23 155/76 01/07/19 02:00 60 19 141/68 01/07/19 01:00 60 19 163/74 01/07/19 00:56 76 01/07/19 00:00 60 18 135/64 01/06/19 23:00 97.8 F 60 18 159/77 01/06/19 22:00 81 17 131/60 01/06/19 21:00 74 26 H 144/86 01/06/19 20:00 71 23 142/69 01/06/19 19:52 81 01/06/19 19:30 25 H 01/06/19 19:00 98 F 88 24 141/76 01/06/19 18:00 77 19 146/83 01/06/19 17:00 97 H 19 144/71 01/06/19 16:00 99.5 F 68 28 H 138/81 01/06/19 15:28 21 01/06/19 15:00 69 22 157/82 01/06/19 14:58 22 01/06/19 14:00 66 26 H 126/84 01/06/19 13:00 74 30 H 126/84 01/06/19 12:00 97.6 F 74 31 H 138/66 01/06/19 11:00 101 H 28 H 150/83 01/06/19 10:00 76 23 110/76 01/06/19 09:00 68 22 126/68 01/06/19 08:20 76 01/06/19 08:00 97.8 F 66 23 187/74 01/06/19 07:00 65 21 157/75 01/06/19 06:00 75 21 147/92 01/06/19 05:00 97 F L 72 13 143/64 01/06/19 04:00 69 18 143/65 01/06/19 03:00 69 22 131/61 01/06/19 02:10 22 01/06/19 02:00 81 17 143/65 01/06/19 01:40 17 01/06/19 01:04 76 01/06/19 01:00 79 22 144/73 01/06/19 00:00 68 16 151/75 01/05/19 23:00 97.5 F L 64 15 141/73 01/05/19 22:00 67 23 132/64 01/05/19 21:00 68 13 143/65 01/05/19 20:46 14 01/05/19 20:16 18 01/05/19 20:00 69 16 136/75 01/05/19 19:00 97.6 F 80 18 151/70 01/05/19 18:00 68 12 143/67 01/05/19 17:00 73 12 127/65 01/05/19 16:00 98 F 72 20 129/67 01/05/19 15:53 17 01/05/19 15:23 26 H 01/05/19 15:00 86 18 148/63 01/05/19 14:00 80 16 149/73 01/05/19 13:00 76 13 120/62 01/05/19 12:00 98.0 F 79 17 123/63 01/05/19 11:00 73 14 120/60 01/05/19 10:00 112 H 22 94/63 01/05/19 09:55 22 01/05/19 09:25 25 H 01/05/19 09:00 114 H 28 H 109/55 01/05/19 08:48 112 H 01/05/19 08:00 97.6 F 109 H 19 129/76 01/05/19 07:00 68 20 123/64 01/05/19 06:00 104 H 14 120/82 01/05/19 05:35 64 01/05/19 05:00 107 H 27 H 134/73 01/05/19 04:00 62 17 123/60 01/05/19 03:00 98.2 F 64 16 116/61 01/05/19 02:00 66 14 114/57 01/05/19 01:00 66 17 112/60 01/05/19 00:25 65 01/05/19 00:00 63 15 118/61 01/04/19 23:00 98.1 F 60 22 106/55 01/04/19 22:46 17 01/04/19 22:16 24 01/04/19 22:00 102 H 15 138/74 01/04/19 21:00 101 H 15 125/63 01/04/19 20:50 81 01/04/19 20:00 106 H 20 133/69 01/04/19 19:00 98.5 F 112 H 15 140/73 01/04/19 18:08 77 01/04/19 18:00 93 H 20 132/67 01/04/19 17:00 79 19 138/69 01/04/19 16:00 98.4 F 69 19 131/71 01/04/19 15:00 69 15 119/62 01/04/19 14:59 18 01/04/19 14:29 18 01/04/19 14:00 100 H 15 127/71 01/04/19 13:59 25 H 01/04/19 13:00 105 H 33 H 141/75 01/04/19 12:10 103 H 01/04/19 12:00 98.4 F 100 H 16 126/69 01/04/19 11:15 101 H 01/04/19 11:00 101 H 17 131/73 01/04/19 10:45 108 H 01/04/19 10:00 108 H 20 144/79 01/04/19 09:03 20 01/04/19 08:33 17 01/04/19 08:00 97.6 F 102 H 17 172/85 01/04/19 07:00 101 H 22 155/78 01/04/19 06:00 104 H 16 151/76 01/04/19 05:00 103 H 15 131/73 01/04/19 04:51 19 01/04/19 04:21 34 H 01/04/19 04:00 104 H 26 H 145/88 01/04/19 03:00 99.1 F 101 H 20 141/83 01/04/19 02:00 101 H 23 136/87 01/04/19 01:00 99 H 18 142/87 01/04/19 00:00 100 H 17 133/78 01/03/19 23:00 98.3 F 101 H 19 128/76 01/03/19 22:00 74 31 H 129/59 01/03/19 21:00 83 30 H 140/72 01/03/19 20:58 83 01/03/19 20:00 101 H 27 H 127/80 01/03/19 19:00 97.8 F 106 H 23 145/74 01/03/19 18:40 122 H 01/03/19 18:00 113 H 18 136/74 01/03/19 17:00 117 H 20 107/73 01/03/19 16:00 97.7 F 127 H 127 H 38 H 124/89 124/89 01/03/19 14:11 20 01/03/19 13:01 91 H 114/57 01/03/19 13:00 87 01/03/19 12:31 99 H 110/66 01/03/19 12:30 95 H 01/03/19 12:15 92 H 01/03/19 12:01 125/71 01/03/19 11:45 91 H 01/03/19 11:30 91 H 01/03/19 11:15 98 H 01/03/19 11:00 89 160/93 01/03/19 10:45 94 H 01/03/19 10:30 95 H 151/79 01/03/19 10:15 95 H 01/03/19 10:00 95 H 148/76 01/03/19 09:56 96 H 145/72 01/03/19 09:53 22 01/03/19 09:45 107 H 01/03/19 09:33 106 H 181/87 01/03/19 09:30 01/03/19 09:19 96.7 F L 22 11/09/18 07:00 137/75 137/75 11/05/18 19:00 09/25/16 16:32 145/81 BP BP BP Pulse Ox 01/08/19 11:00 100 01/08/19 10:00 100 01/08/19 09:37 100 01/08/19 09:29 01/08/19 09:00 100 01/08/19 08:50 01/08/19 08:40 100 01/08/19 08:00 100 01/08/19 07:51 100 01/08/19 07:49 01/08/19 07:00 100 01/08/19 06:00 99 01/08/19 05:00 100 01/08/19 04:00 100 01/08/19 03:00 100 01/08/19 02:00 99 01/08/19 01:26 01/08/19 01:00 100 01/08/19 00:00 98 01/07/19 23:00 100 01/07/19 22:00 100 01/07/19 21:00 98 01/07/19 20:26 99 01/07/19 20:00 100 01/07/19 19:00 100 01/07/19 18:00 100 01/07/19 17:00 98 01/07/19 16:00 97 01/07/19 15:00 99 01/07/19 14:00 98 01/07/19 13:00 95 01/07/19 12:01 95 01/07/19 12:00 100 01/07/19 11:00 95 01/07/19 10:00 95 01/07/19 09:00 86 L 01/07/19 08:32 97 01/07/19 08:00 99 01/07/19 07:00 96 01/07/19 06:00 98 01/07/19 05:20 01/07/19 05:00 98 01/07/19 04:50 01/07/19 04:00 99 01/07/19 03:00 100 01/07/19 02:00 100 01/07/19 01:00 100 01/07/19 00:56 96 01/07/19 00:00 99 01/06/19 23:00 100 01/06/19 22:00 90 L 01/06/19 21:00 92 L 01/06/19 20:00 91 L 01/06/19 19:52 93 L 01/06/19 19:30 01/06/19 19:00 90 L 01/06/19 18:00 93 L 01/06/19 17:00 92 L 01/06/19 16:00 90 L 01/06/19 15:28 01/06/19 15:00 92 L 01/06/19 14:58 01/06/19 14:00 93 L 01/06/19 13:00 97 01/06/19 12:00 96 01/06/19 11:00 98 01/06/19 10:00 98 01/06/19 09:00 96 01/06/19 08:20 91 L 01/06/19 08:00 95 01/06/19 07:00 93 L 01/06/19 06:00 92 L 01/06/19 05:00 95 01/06/19 04:00 95 01/06/19 03:00 95 01/06/19 02:10 01/06/19 02:00 92 L 01/06/19 01:40 01/06/19 01:04 95 01/06/19 01:00 92 L 01/06/19 00:00 100 01/05/19 23:00 100 01/05/19 22:00 97 01/05/19 21:00 98 01/05/19 20:46 01/05/19 20:16 01/05/19 20:00 95 01/05/19 19:00 94 L 01/05/19 18:00 93 L 01/05/19 17:00 94 L 01/05/19 16:00 94 L 01/05/19 15:53 01/05/19 15:23 01/05/19 15:00 92 L 01/05/19 14:00 94 L 01/05/19 13:00 93 L 01/05/19 12:00 100 01/05/19 11:00 90 L 01/05/19 10:00 96 01/05/19 09:55 01/05/19 09:25 01/05/19 09:00 94 L 01/05/19 08:48 94 L 01/05/19 08:00 94 L 01/05/19 07:00 92 L 01/05/19 06:00 100 01/05/19 05:35 100 01/05/19 05:00 100 01/05/19 04:00 100 01/05/19 03:00 100 01/05/19 02:00 100 01/05/19 01:00 100 01/05/19 00:25 100 01/05/19 00:00 100 01/04/19 23:00 99 01/04/19 22:46 01/04/19 22:16 01/04/19 22:00 99 01/04/19 21:00 99 01/04/19 20:50 93 L 01/04/19 20:00 88 L 01/04/19 19:00 91 L 01/04/19 18:08 91 L 01/04/19 18:00 92 L 01/04/19 17:00 92 L 01/04/19 16:00 94 L 01/04/19 15:00 93 L 01/04/19 14:59 01/04/19 14:29 01/04/19 14:00 95 01/04/19 13:59 01/04/19 13:00 90 L 01/04/19 12:10 95 01/04/19 12:00 93 L 01/04/19 11:15 95 01/04/19 11:00 95 01/04/19 10:45 88 L 01/04/19 10:00 90 L 01/04/19 09:03 01/04/19 08:33 01/04/19 08:00 90 L 01/04/19 07:00 94 L 01/04/19 06:00 92 L 01/04/19 05:00 95 01/04/19 04:51 01/04/19 04:21 01/04/19 04:00 92 L 01/04/19 03:00 97 01/04/19 02:00 97 01/04/19 01:00 96 01/04/19 00:00 95 01/03/19 23:00 94 L 01/03/19 22:00 91 L 01/03/19 21:00 91 L 01/03/19 20:58 92 L 01/03/19 20:00 92 L 01/03/19 19:00 93 L 01/03/19 18:40 92 L 01/03/19 18:00 92 L 01/03/19 17:00 92 L 01/03/19 16:00 90 L 01/03/19 14:11 01/03/19 13:01 01/03/19 13:00 94 L 01/03/19 12:31 93 L 01/03/19 12:30 92 L 01/03/19 12:15 92 L 01/03/19 12:01 01/03/19 11:45 93 L 01/03/19 11:30 96 01/03/19 11:15 96 01/03/19 11:00 94 L 01/03/19 10:45 97 01/03/19 10:30 92 L 01/03/19 10:15 96 01/03/19 10:00 97 01/03/19 09:56 94 L 01/03/19 09:53 01/03/19 09:45 93 L 01/03/19 09:33 94 L 01/03/19 09:30 94 L 01/03/19 09:19 11/09/18 07:00 11/05/18 19:00 111/57 09/25/16 16:32 140/81 130/74 General Limitations: No Limitations General Appearance: Alert and In No Apparent Distress Head Head Exam: Normal Inspection and Atraumatic Eyes Eye exam: Normal Appearance; negative Scleral Icterus and Conjunctival Injection ENT ENT Exam: Normal Exam, Normal Oropharynx, Normal External Ear Exam and TM's Normal Bilaterally Neck Neck Exam: Normal Inspection and Trachea Midline; negative Tenderness and Lymphadenopathy Chest Chest Inspection: Normal Inspection and Symmetric Chest Wall Rise; negative Tenderness Respiratory Respiratory Exam: Normal Lung Sounds Bilat; negative Accessory Muscle Use, Chest Wall Tenderness and Respiratory Distress Respiratory Exam: Bilateral: Clear to Auscultation Cardiovascular Cardiovascular Exam: Regular Rate, Normal Rhythm and Normal Heart Sounds; negative Systolic Murmur and Diastolic Murmur Abdominal Exam Abdominal Exam: Normal Inspection, Normal Bowel Sounds, Soft and Tenderness Abdominal Tenderness: RUQ, LUQ and Epigastrium Rectal Rectal Exam: Deferred Back Back Exam: negative Tenderness, Paraspinal Tenderness and Vertebral Tenderness Extremeties Extremities Exam: Normal Inspection and Normal Capillary Refill; negative Tenderness, Edema and Calf Tenderness Exam: Male: Deferred Neurologic Neurological Exam: Alert and Oriented X3; negative Motor Sensory Deficit Psychiatric Psychiatric Exam: Normal Affect and Normal Mood Skin Skin Exam: negative Dry MDM Differential Diagnosis Differential Diagnosis: Bowel Obstruction, Cholcystitis, Cholelethiasis, Constip ation, Diverticular disease, Pancreatitis, Urinary tract infection and Urolithiasis COURSE Treatment Treatment: SEE ORDERS, Consultation Consultation Comments: DR WASHBURN WILL ADMIT PATIENT. Education/Counseling Education/Counseling: Patient Educated On: Diagnosis ROR Labs Reviewed Laboratory Results Reviewed?: Yes Result Diagrams: 01/08/19 03:57 01/08/19 03:57 Laboratory: 01/03/19 14:34 Blood Blood Culture - Final 01/03/19 14:26 Blood Blood Culture - Final WBC 11.0 X10^3/uL (3.6-10.0) H 01/08/19 03:57 RBC 3.26 X10^6/uL (4.7-6.0) L 01/08/19 03:57 Hgb 9.7 g/dL (13.5-18.0) L 01/08/19 03:57 Hct 28.4 % (42.0-54.0) L 01/08/19 03:57 MCV 87.2 fL (80.0-100.0) 01/08/19 03:57 MCH 29.7 pg (27.0-34.0) 01/08/19 03:57 MCHC 34.1 g/dL (33.0-35.0) 01/08/19 03:57 RDW 15.3 % (11.6-16.5) 01/08/19 03:57 Plt Count 247 X10^3/uL (150.0-450.0) 01/08/19 03:57 MPV 8.9 fL (7.4-11.0) 01/08/19 03:57 Neut % (Auto) 86.3 % (42.0-75.0) H 01/08/19 03:57 Lymph % (Auto) 8.5 % (21.0-51.0) L 01/08/19 03:57 [place] % (Auto) 4.3 % (0.0-13.0) 01/08/19 03:57 Eos % (Auto) 0.7 % (0.9-2.9) L 01/08/19 03:57 Baso % (Auto) 0.2 % (0.2-1.0) 01/08/19 03:57 Neut # (Auto) 9.5 x10^3/uL (2.2-4.8) H 01/08/19 03:57 Lymph # (Auto) 0.9 X10^3/uL (1.3-2.9) L 01/08/19 03:57 [place] # (Auto) 0.5 x10^3/uL (0.3-0.8) 01/08/19 03:57 Eos # (Auto) 0.1 x10^3/uL (0.0-0.2) 01/08/19 03:57 Baso # (Auto) 0.0 X10^3/uL (0.0-0.1) 01/08/19 03:57 Absolute Nucleated RBC 0.0 /100WBC 01/08/19 03:57 INR Target Range - 01/04/19 06:08 INR 1.70 (0.8-1.3) H 01/04/19 06:08 APTT 38.8 SECONDS (22.9-36.5) H 01/04/19 06:08 PTT Comment - 01/04/19 06:08 Sample Site Rr 01/08/19 10:15 ABG pH 7.510 (7.35-7.45) H 01/08/19 10:15 ABG pCO2 29.0 mmHg (35.0-45.0) L 01/08/19 10:15 ABG pO2 101.0 mmHg (80.0-100.0) H 01/08/19 10:15 ABG HCO3 23.1 mmol/L (22-26) 01/08/19 10:15 ABG O2 Saturation 98.0 % (90-100) 01/08/19 10:15 ABG Base Excess 0.9 mmol/L (-2.0-2.0) 01/08/19 10:15 Henrik Test Pos 01/08/19 10:15 A-a Gradient 77.0 mmHg 01/08/19 10:15 FiO2 30.0 01/08/19 10:15 Blood Gas Comments Scottie abg well 01/08/19 10:15 Sodium 140 mmol/L (136-145) 01/08/19 03:57 Corrected Sodium TNP 01/08/19 03:57 Potassium 3.5 mmol/L (3.5-5.1) 01/08/19 03:57 Chloride 106 mmol/L (98-107) 01/08/19 03:57 Carbon Dioxide 23.2 mmol/L (21-32) 01/08/19 03:57 BUN 9 mg/dL (7-18) 01/08/19 03:57 Creatinine 0.66 mg/dL (0.70-1.30) L 01/08/19 03:57 Est GFR (MDRD) Af Amer > 60 (>60) 01/08/19 03:57 Est GFR (MDRD) Non-Af > 60 (>60) 01/08/19 03:57 Glucose 86 mg/dL (65-99) 01/08/19 03:57 Hemoglobin A1c 5.3 % 01/03/19 17:18 Lactic Acid 1.5 mmol/L (0.4-2.0) 01/03/19 14:26 Calcium 7.6 mg/dL (8.5-10.1) L 01/08/19 03:57 Corrected Calcium 9.4 mg/dL (8.5-10.1) 01/08/19 03:57 Magnesium 2.2 mg/dL (1.7-2.9) 01/07/19 06:20 Total Bilirubin 0.90 mg/dL (0.2-1.0) 01/08/19 03:57 AST 18 Units/L (15-37) 01/08/19 03:57 ALT 9 Units/L (12-78) L 01/08/19 03:57 Alkaline Phosphatase 63 Units/L (46-116) 01/08/19 03:57 Creatine Kinase 40 Units/L (39-308) 01/03/19 22:38 CK-MB (CK-2) < 1.0 ng/mL (0-4.0) 01/03/19 22:38 CK/CKMB % Calc 2.5 % (<4) 01/03/19 22:38 Troponin I < 0.02 ng/mL (0-1.5) 01/03/19 22:38 Total Protein 5.9 g/dL (6.4-8.2) L 01/08/19 03:57 Albumin 1.7 g/dL (3.4-5.0) L 01/08/19 03:57 Globulin 4.2 g/dL (2.5-4.5) 01/08/19 03:57 Albumin/Globulin Ratio 0.4 Ratio (1.1-2.1) L 01/08/19 03:57 Amylase 14 Units/L (25-115) L 01/03/19 09:40 Lipase 49 Units/L (73-393) L 01/03/19 09:40 Total PSA 0.18 ng/mL (0.13-4.0) 01/04/19 06:08 TSH 3rd Generation 0.414 uIU/mL (0.358-3.74) 01/03/19 17:18 Total Estradiol 7.9 pg/mL (10.0-42.0) L 01/04/19 06:08 Total Testosterone < 3 ng/dL (300-720) L 01/04/19 06:08 Specimen Type Catherized urine 01/03/19 16:13 Urine Color Jaqueline (YELLOW) 01/03/19 16:13 Urine Appearance Slightly hazy (CLEAR) 01/03/19 16:13 Urine pH 6.0 (5.0 - 8.0) 01/03/19 16:13 Ur Specific [place] 1.015 (1.000-1.030) 01/03/19 16:13 Urine Protein 2+ (NEGATIVE) 01/03/19 16:13 Urine Glucose (UA) Negative (NEGATIVE) 01/03/19 16:13 Urine Ketones Negative (NEGATIVE) 01/03/19 16:13 Urine Occult Blood 2+ (NEGATIVE) 01/03/19 16:13 Urine Nitrite Negative (NEGATIVE) 01/03/19 16:13 Urine Bilirubin Negative (NEGATIVE) 01/03/19 16:13 Urine Urobilinogen 1+ (NORMAL) 01/03/19 16:13 Ur Leukocyte Esterase 1+ (NEGATIVE) 01/03/19 16:13 Urine RBC 5-10 /HPF (NONE SEEN) 01/03/19 16:13 Urine WBC 0-2 /HPF (NONE SEEN) 01/03/19 16:13 Ur Squamous Epith Cells Few /HPF (NEGATIVE) 01/03/19 16:13 Ur Renal Epithelial Cell Rare /HPF (NEGATIVE) 01/03/19 16:13 Amorphous Sediment Trace /HPF (NEGATIVE) 01/03/19 16:13 Urine Bacteria Trace /HPF (NEGATIVE) 01/03/19 16:13 Urine Mucus Moderate /HPF (NEGATIVE) 01/03/19 16:13 Ur Culture Indicated? No/not indicated 01/03/19 16:13 XRAY XRAY Interpreted by: Radiologist XRAY Findings: REPORT NOTED AND DISCUSS WITH PATIENT AND FAMILY. Opioid Opioid Risk Tool Age (Jhonny box if 16-45): No Total: 0 Total Score Risk Category: Low Risk Copyright: Mike DURAN predicting aberrant behaviors Diagnosis Discharge Problem: Bilateral pneumonia
[2019-01-03] MEDS ORDERED: ZOFRAN INJ 4 MG VIAL IVP ONE (09:42)
[2019-01-03] MEDS ORDERED: ZOFRAN INJ 4 MG VIAL ONE (09:48)
[2019-01-03] MEDS: DILAUDID INJ IVP PRN (09:53)
[2019-01-03 09:55] LABS: BASOPHILS # (AUTO) 0.1 X10^3/uL (0.0-0.1); BASOPHILS % (AUTO) 0.5 % (0.2-1.0); EOSINOPHILS # (AUTO) 0.3 x10^3/uL (0.0-0.2); EOSINOPHILS % (AUTO) 2.2 % (0.9-2.9); HEMATOCRIT 38.8 % (42.0-54.0); HEMOGLOBIN 13.3 g/dL (13.5-18.0); LYMPHOCYTES # (AUTO) 2.2 X10^3/uL (1.3-2.9); LYMPHOCYTES % (AUTO) 15.2 % (21.0-51.0); MEAN CORPUSCULAR HEMOGLOBIN 29.8 pg (27.0-34.0); MEAN CORPUSCULAR HGB CONC 34.3 g/dL (33.0-35.0); MEAN PLATELET VOLUME 8.1 fL (7.4-11.0); MONOCYTES # (AUTO) 0.9 x10^3/uL (0.3-0.8); MONOCYTES % (AUTO) 6.4 % (0.0-13.0); NEUTROPHILS # (AUTO) 11.1 x10^3/uL (2.2-4.8); NEUTROPHILS % (AUTO) 75.7 % (42.0-75.0); PLATELET COUNT 302 X10^3/uL (150.0-450.0); RED BLOOD COUNT 4.46 X10^6/uL (4.7-6.0); RED CELL DISTRIBUTION WIDTH 14.5 % (11.6-16.5); WHITE BLOOD COUNT 14.6 X10^3/uL (3.6-10.0)
[2019-01-03] MEDS: NS 1000 ML 1,000 ML IV SCH ×2 (09:55→20:50)
[2019-01-03 10:06] LABS: ALANINE AMINOTRANSFERASE 12 Units/L (12-78); ALBUMIN 3.2 g/dL (3.4-5.0); ALKALINE PHOSPHATASE 99 Units/L (46-116); AMYLASE 14 Units/L (25-115); ASPARTATE AMINO TRANSFERASE 17 Units/L (15-37); BLOOD UREA NITROGEN 17 mg/dL (7-18); CALCIUM 8.7 mg/dL (8.5-10.1); CHLORIDE 104 mmol/L (98-107); COR CA(FOR HYPOALB) 9.3 mg/dL (8.5-10.1); COR NA(FOR HYPERGLY) 140 mmol/L (136-145); CREATININE 1.09 mg/dL (0.70-1.30); LIPASE 49 Units/L (73-393); SODIUM 140 mmol/L (136-145); TOTAL PROTEIN 7.9 g/dL (6.4-8.2); eGFR NON BLACK RACES > 60 (>60)
[2019-01-03] MEDS ORDERED: DILAUDID INJ ONE (14:09)
[2019-01-03] MEDS ORDERED: DILAUDID INJ IVP ONE ×2 (14:10→14:12)
[2019-01-03 14:56] LABS: ABG ALLEN TEST POS; ABG BASE EXCESS -2.2 mmol/L (-2.0-2.0); ABG HCO3 22.4 mmol/L (22-26)
[2019-01-03] MEDS ORDERED: ROCEPHIN VIAL 1 GRAM ONE (15:17)
[2019-01-03] MEDS ORDERED: LEVAQUIN PREMIX IV 750 MG 750 MG/150 ML BAG IV ONE ×2 (15:17→15:19)
[2019-01-03] MEDS ORDERED: ROCEPHIN VIAL 1 GRAM IVP ONE (15:19)
[2019-01-03] MEDS ORDERED: PATIENT'S HOME MEDICATION (Tiotropium Bromide 1 CAP) IN SCH (15:45)
[2019-01-03 16:16] LABS: CKMB % 1.9 % (<4); CREATINE KINASE 53 Units/L (39-308); CREATINE KINASE MB < 1.0 ng/mL (0-4.0); TROPONIN I < 0.02 ng/mL (0-1.5)
[2019-01-03 16:22] LABS: BILIRUBIN,URINE NEGATIVE (NEGATIVE); BLOOD/HEMOGLOBIN,URINE 2+ (NEGATIVE); GLUCOSE, URINE NEGATIVE (NEGATIVE); KETONES,URINE NEGATIVE (NEGATIVE); LEUKOCYTE ESTERASE ,URINE 1+ (NEGATIVE); NITRITES,URINE NEGATIVE (NEGATIVE); PROTEIN,URINE 2+ (NEGATIVE); UROBILINOGEN,URINE 1+ (NORMAL)
[2019-01-03 16:28] LABS: AMORPHOUS SEDIMENT,UR TRACE /HPF (NEGATIVE); APPEARANCE,URINE SLIGHTLY HAZY (CLEAR); BACTERIA,URINE TRACE /HPF (NEGATIVE); COLOR,URINE AMBER (YELLOW); MUCUS,URINE MODERATE /HPF (NEGATIVE); RENAL EPITHELIAL CELLS,URINE RARE /HPF (NEGATIVE); SQUAMOUS EPITHELIAL CELL,UR FEW /HPF (NEGATIVE)
[2019-01-03 16:31] VITALS: BMI 29.2
[2019-01-03] MEDS ORDERED: DUONEB 0.5 MG/3 MG NEB SCH (17:00)
[2019-01-03 17:52] LABS: CKMB % 2.2 % (<4); CREATINE KINASE 45 Units/L (39-308); CREATINE KINASE MB < 1.0 ng/mL (0-4.0); TROPONIN I < 0.02 ng/mL (0-1.5)
[2019-01-03] MEDS ORDERED: LOPRESSOR TAB 50 MG ONE (18:01)
[2019-01-03] MEDS ORDERED: LOPRESSOR TAB 50 MG PO ONE (18:02)
[2019-01-03] MEDS: HEMOCYTE-PLUS PO SCH (18:06)
[2019-01-03] MEDS ORDERED: TYGACIL 50 MG VIAL 100 MG in NS 100 ML IV 100 ML IV ONE (18:10)
[2019-01-03] MEDS ORDERED: NORCO 10/325 TAB PO PRN (18:13)
[2019-01-03] MEDS ORDERED: RESTORIL CAP 15 MG PO PRN (18:13)
[2019-01-03 18:44] LABS: HEMOGLOBIN A1C 5.3 %
[2019-01-03 18:52] LABS: TSH (3RD GENERATION) 0.414 uIU/mL (0.358-3.74)
[2019-01-03] MEDS: LIPITOR TAB 40 MG PO SCH (20:51)
[2019-01-03] MEDS: ELAVIL PO SCH (20:51)
[2019-01-03] MEDS: LOPRESSOR TAB 25 MG PO SCH (20:52)
[2019-01-03] MEDS: LOVENOX INJ 100 MG SYR SC SCH (20:52)
[2019-01-03] MEDS: MEGACE PO SCH (20:53)
[2019-01-03] MEDS: PEPCID TAB 20 MG PO SCH (20:53)
[2019-01-03] MEDS: NEURONTIN CAP 100 MG PO SCH (20:54)
[2019-01-03] MEDS: PULMICORT NEB TX 0.5 MG NEB SCH (20:58)
[2019-01-03] MEDS ORDERED: CORTEF PO SCH (21:00)
[2019-01-03] MEDS ORDERED: PATIENT'S HOME MEDICATION (Budesonide-Formoterol 2 PUFF) IN SCH (21:00)
[2019-01-03] MEDS ORDERED: TYGACIL 50 MG VIAL ONE (21:07)
[2019-01-03] MEDS: ZOSYN VIAL 3.375 GRAMS 3.375 G in NS 100 ML IV + SPIKE MINIBAG* 100 ML IV SCH (21:26)
[2019-01-03] MEDS: SOLU-Cortef INJ IVP SCH (21:27)
[2019-01-03] MEDS ORDERED: XOPENEX 1.25 MG/3 ML NEBULE NEB SCH (22:00)
[2019-01-03] MEDS: RESTORIL CAP 15 MG PO SCH (22:10)
[2019-01-03 23:16] LABS: CKMB % 2.5 % (<4); CREATINE KINASE 40 Units/L (39-308); CREATINE KINASE MB < 1.0 ng/mL (0-4.0); TROPONIN I < 0.02 ng/mL (0-1.5)
[2019-01-03] MEDS: XOPENEX 1.25 MG/3 ML NEBULE NEB SCH ×2 (23:20→23:21)
[2019-01-03] MEDS: Atrovent NEB TX 0.02% NEB SCH ×2 (23:21)
[2019-01-04] MEDS: SOLU-Cortef INJ IVP SCH ×4 (00:47→21:11)
[2019-01-04] MEDS: ZOSYN VIAL 3.375 GRAMS 3.375 G in NS 100 ML IV + SPIKE MINIBAG* 100 ML IV SCH ×5 (00:47→22:31)
[2019-01-04] MEDS: DILAUDID INJ IVP PRN ×4 (04:21→22:16)
[2019-01-04] MEDS: Atrovent NEB TX 0.02% NEB SCH ×3 (05:47→18:07)
[2019-01-04] MEDS: XOPENEX 1.25 MG/3 ML NEBULE NEB SCH ×3 (05:47→18:07)
[2019-01-04] MEDS: NS 1000 ML 1,000 ML IV SCH ×3 (05:49→18:02)
[2019-01-04 06:52] LABS: ALANINE AMINOTRANSFERASE 10 Units/L (12-78); ALBUMIN 2.4 g/dL (3.4-5.0); ALKALINE PHOSPHATASE 81 Units/L (46-116); ASPARTATE AMINO TRANSFERASE 17 Units/L (15-37); BASOPHILS % (AUTO) 0.2 % (0.2-1.0); BLOOD UREA NITROGEN 15 mg/dL (7-18); CALCIUM 7.7 mg/dL (8.5-10.1); CARBON DIOXIDE 22.8 mmol/L (21-32); CHLORIDE 106 mmol/L (98-107); COR NA(FOR HYPERGLY) 141 mmol/L (136-145); CREATININE 0.74 mg/dL (0.70-1.30); HEMATOCRIT 34.3 % (42.0-54.0); HEMOGLOBIN 11.7 g/dL (13.5-18.0); LYMPHOCYTES # (AUTO) 1.1 X10^3/uL (1.3-2.9); LYMPHOCYTES % (AUTO) 8.3 % (21.0-51.0); MEAN CORPUSCULAR HEMOGLOBIN 29.8 pg (27.0-34.0); MEAN CORPUSCULAR HGB CONC 34.1 g/dL (33.0-35.0); MEAN CORPUSCULAR VOLUME 87.6 fL (80.0-100.0); MEAN PLATELET VOLUME 8.4 fL (7.4-11.0); MONOCYTES # (AUTO) 0.8 x10^3/uL (0.3-0.8); MONOCYTES % (AUTO) 6.1 % (0.0-13.0); NEUTROPHILS # (AUTO) 11.5 x10^3/uL (2.2-4.8); NEUTROPHILS % (AUTO) 85.4 % (42.0-75.0); PLATELET COUNT 257 X10^3/uL (150.0-450.0); RED BLOOD COUNT 3.92 X10^6/uL (4.7-6.0); RED CELL DISTRIBUTION WIDTH 14.9 % (11.6-16.5); SODIUM 141 mmol/L (136-145); WHITE BLOOD COUNT 13.5 X10^3/uL (3.6-10.0); eGFR NON BLACK RACES > 60 (>60)
[2019-01-04 06:55] LABS: TOTAL PSA 0.18 ng/mL (0.13-4.0)
[2019-01-04] MEDS ORDERED: CORTEF PO SCH (09:00)
[2019-01-04] MEDS ORDERED: TIOTROPIUM BROMIDE IN SCH (09:00)
[2019-01-04] MEDS ORDERED: LEVAQUIN PREMIX IV 750 MG 750 MG/150 ML BAG IV SCH (09:00)
[2019-01-04] MEDS ORDERED: ROCEPHIN VIAL 1 GRAM IVP SCH (09:00)
[2019-01-04] MEDS: PULMICORT NEB TX 0.5 MG NEB SCH ×3 (09:59→20:50)
[2019-01-04] MEDS ORDERED: DEPO-TESTOSTERONE IM NR (10:00)
[2019-01-04] MEDS: LOVENOX INJ 100 MG SYR SC SCH ×2 (10:30→21:06)
[2019-01-04] MEDS: LOPRESSOR TAB 25 MG PO SCH ×2 (10:30→21:06)
[2019-01-04] MEDS: PLAVIX PO SCH (10:31)
[2019-01-04] MEDS ORDERED: SALINE 3% 15 ML NEB TX NEB ONE (10:49)
[2019-01-04] MEDS ORDERED: SALINE 3% 15 ML NEB TX NEB NR (12:00)
[2019-01-04] MEDS ORDERED: XYLOCAINE 1 % (PLAIN) ONE (17:13)
[2019-01-04] MEDS: PEPCID TAB 20 MG PO SCH ×2 (18:00→21:08)
[2019-01-04] MEDS: PROTONIX TAB 40 MG PO SCH (18:00)
[2019-01-04] MEDS: HEMOCYTE-PLUS PO SCH (18:00)
[2019-01-04] MEDS: NEURONTIN CAP 100 MG PO SCH ×2 (18:00→21:08)
[2019-01-04] MEDS: MEGACE PO SCH ×2 (18:00→21:07)
[2019-01-04] MEDS: SYNTHROID 100 mcg TAB PO SCH (18:01)
[2019-01-04] MEDS ORDERED: NS 100 ML IV 100 ML ONE (18:10)
--- NOTE | 2019-01-04 18:13 | RAD ---
Chest AP portable Indication: Dyspnea Comparison: 01/04/2019 Findings: There is cardiomegaly and increased interstitial markings, without pneumothorax. Left effusion suspected. Cervical spine hardware noted. Pacemaker leads noted. Monitoring leads obscure mild detail. Right subclavian catheter tip is over the cavoatrial junction/right heart. Impression: 1. Cardiomegaly and patchy increased interstitial markings with left effusions suggesting congestive heart failure. Underlying infection not excluded 2. Right subclavian catheter tip is over the right atrium Reported By:
--- NOTE | 2019-01-04 19:32 | CT ---
CT angiogram chest with contrast Indication: Chest pain and dyspnea Technique: Helical images through the chest after IV contrast. Coronal and sagittal reformats provided. MIP images provided Findings: Limited images through the upper abdomen shows no acute abnormality Review of bone windows shows no osseous lesion. Chest: There are extensive bilateral pulmonary embolic filling defects., filling both lower lobe segmental vessels and extending into the right main pulmonary artery-see axial images 46 through 59. Opacity in left lower lung could reflect infarct with atelectasis and effusion present here is well. Heart size is prominent with coronary artery disease and pacemaker leads noted. Aortic arch calcifications noted. Shotty mediastinal lymph nodes noted. There is no pneumothorax. Small amount of venous gas seen above the left clavicle. Mild increased interstitial and ground-glass opacities could be chronic although developing edema is not excluded. Impression: 1. Extensive bilateral segmental pulmonary emboli, worse in the lower lungs but also extending into the right upper lung. This is worse in the left lower lung, with patchy opacity, effusion and atelectasis here. Underlying pulmonary infarct is likely. 2. Cardiomegaly and borderline edema 3. Small amount of soft tissue gas above the left clavicles presumably venous, correlate clinically. THE AVAILABILITY OF THE REPORT AND FINDINGS WERE COMMUNICATED TO patient's nurse Rafal Larson by Dr. Gaytan on 01/04/2019. Time called 7:30 p.m. Reported By:
[2019-01-04] MEDS: RESTORIL CAP 15 MG PO SCH (21:05)
[2019-01-04] MEDS: ELAVIL PO SCH (21:05)
[2019-01-04] MEDS: LIPITOR TAB 40 MG PO SCH (21:06)
[2019-01-05] MEDS: Atrovent NEB TX 0.02% NEB SCH ×4 (00:25→16:00)
[2019-01-05] MEDS: XOPENEX 1.25 MG/3 ML NEBULE NEB SCH ×4 (00:25→16:00)
[2019-01-05] MEDS: NS 1000 ML 1,000 ML IV SCH ×2 (03:40→10:36)
[2019-01-05 06:05] LABS: BASOPHILS % (AUTO) 0.2 % (0.2-1.0); EOSINOPHILS % (AUTO) 0.1 % (0.9-2.9); HEMATOCRIT 31.8 % (42.0-54.0); HEMOGLOBIN 10.9 g/dL (13.5-18.0); LYMPHOCYTES # (AUTO) 1.3 X10^3/uL (1.3-2.9); LYMPHOCYTES % (AUTO) 9.9 % (21.0-51.0); MEAN CORPUSCULAR HEMOGLOBIN 29.8 pg (27.0-34.0); MEAN CORPUSCULAR HGB CONC 34.3 g/dL (33.0-35.0); MEAN CORPUSCULAR VOLUME 86.9 fL (80.0-100.0); MEAN PLATELET VOLUME 8.5 fL (7.4-11.0); MONOCYTES # (AUTO) 0.8 x10^3/uL (0.3-0.8); MONOCYTES % (AUTO) 5.9 % (0.0-13.0); NEUTROPHILS % (AUTO) 83.9 % (42.0-75.0); PLATELET COUNT 244 X10^3/uL (150.0-450.0); RED BLOOD COUNT 3.66 X10^6/uL (4.7-6.0); RED CELL DISTRIBUTION WIDTH 14.9 % (11.6-16.5); WHITE BLOOD COUNT 13.1 X10^3/uL (3.6-10.0)
[2019-01-05 06:11] LABS: ALANINE AMINOTRANSFERASE 9 Units/L (12-78); ALBUMIN 2.2 g/dL (3.4-5.0); ALKALINE PHOSPHATASE 77 Units/L (46-116); ASPARTATE AMINO TRANSFERASE 13 Units/L (15-37); BLOOD UREA NITROGEN 16 mg/dL (7-18); CALCIUM 7.8 mg/dL (8.5-10.1); CARBON DIOXIDE 22.8 mmol/L (21-32); CHLORIDE 107 mmol/L (98-107); COR CA(FOR HYPOALB) 9.2 mg/dL (8.5-10.1); COR NA(FOR HYPERGLY) 142 mmol/L (136-145); CREATININE 0.88 mg/dL (0.70-1.30); SODIUM 142 mmol/L (136-145); TOTAL PROTEIN 6.5 g/dL (6.4-8.2); eGFR NON BLACK RACES > 60 (>60)
--- NOTE | 2019-01-05 06:12 | RAD ---
HISTORY: Follow-up pneumonia, PE Study: Chest AP portable Comparison: 01/04/2019 plain film and CTA chest Findings: Patient is rotated to the left. There is a pacemaker present on the left. Right-sided central line is present with its tip near the cavoatrial junction. The heart is within normal limits in size. No congestive heart failure is noted. The lungs are generally hyperinflated. The right lung and left upper lung palmer appear free of alveolar infiltrates. Alveolar infiltrate is present in the left lower lobe representing either pneumonia or pulmonary infarction considering the findings on the recent CTA chest. IMPRESSION: Left lower lobe infiltrate representing either pneumonia or pulmonary infarction Hyperinflation Reported By:
[2019-01-05] MEDS ORDERED: K-DUR TAB 20 MEQ PO PRN (06:25)
[2019-01-05] MEDS ORDERED: POTASSIUM CHL 40 MEQ/NS 0.45% 500 ML IV PRN (06:25)
[2019-01-05] MEDS ORDERED: KLOR-CON PO PRN (06:25)
[2019-01-05] MEDS ORDERED: MAGNESIUM SULFATE 1 GRAM/100 mL PREMIX 1 GM/100 ML BAG IV PRN (06:25)
[2019-01-05] MEDS ORDERED: MICRO K EXTEN CAP 10 MEQ PO PRN (06:25)
[2019-01-05] MEDS ORDERED: POTASSIUM CHL 60 MEQ/NS 0.45% 500 ML IV PRN (06:25)
[2019-01-05] MEDS ORDERED: POTASSIUM CHLORIDE LIQ 20 MEQ UDC PO PRN (06:25)
[2019-01-05] MEDS: K-RIDER 10 MEQ/NS 100 ML 10 MEQ/100 ML BAG IV PRN (06:53)
[2019-01-05] MEDS: PULMICORT NEB TX 0.5 MG NEB SCH ×2 (08:46→21:00)
[2019-01-05] MEDS: HEMOCYTE-PLUS PO SCH (09:14)
[2019-01-05] MEDS: PEPCID TAB 20 MG PO SCH ×2 (09:14→20:09)
[2019-01-05] MEDS: SYNTHROID 100 mcg TAB PO SCH (09:15)
[2019-01-05] MEDS: MEGACE PO SCH ×2 (09:15→20:09)
[2019-01-05] MEDS: LOPRESSOR TAB 25 MG PO SCH ×2 (09:15→20:09)
[2019-01-05] MEDS: PLAVIX PO SCH (09:15)
[2019-01-05] MEDS: LOVENOX INJ 100 MG SYR SC SCH (09:16)
[2019-01-05] MEDS: NEURONTIN CAP 100 MG PO SCH ×2 (09:16→20:08)
[2019-01-05] MEDS: PROTONIX TAB 40 MG PO SCH (09:16)
[2019-01-05] MEDS ORDERED: ELIQUIS ONE (09:20)
[2019-01-05] MEDS: DILAUDID INJ IVP PRN ×3 (09:25→20:16)
[2019-01-05] MEDS: NS + KCL 20 MEQ/L 1,000 ML IV SCH ×2 (11:47→20:12)
--- NOTE | 2019-01-05 12:23 | DR.PROGNOT ---
Hospital Progress Notes - Progress Note for Day of: Progress Note Date: 01/05/19 - Chief Complaint Chief Complaint: po lap ruddy day 1. doing fairly well . less abdominal pain. improved LFT . moderate drainage in MANDA - Past Medical Family Social History Past Med/Fam/Surg Hx: No changes since H&P Allergies: Allergies No Known Drug Allergies Allergy (Verified 10/16/18 14:14) - Review Of Systems ROS: No change since H&P - Vital Signs Vital Signs: Temperature 97.6 F Pulse Rate [Bilateral Radial] 127 Pulse Rate 73 Respiratory Rate 14 Blood Pressure [Left Arm] 124/89 Blood Pressure [Right Arm] 111/57 Blood Pressure [Standing] 130/74 Blood Pressure [Sitting] 140/81 Blood Pressure [Lying] 145/81 Blood Pressure 120/60 O2 Sat by Pulse Oximetry 90 - Physical Exam Oriented: Normal Eyes: Normal Ear: Normal Nose: Normal Respiratory: Normal Cardiovascular: Normal : Normal GI:Auscultation: Normal, Decreased GI: Tenderness: Diffuse Speech Pattern: Unclear - Laboratory and Diagnostics Result Diagrams: 01/05/19 05:20 01/05/19 05:20 Labs: Laboratory WBC 13.1 X10^3/uL (3.6-10.0) H 01/05/19 05:20 RBC 3.66 X10^6/uL (4.7-6.0) L 01/05/19 05:20 Hgb 10.9 g/dL (13.5-18.0) L 01/05/19 05:20 Hct 31.8 % (42.0-54.0) L 01/05/19 05:20 MCV 86.9 fL (80.0-100.0) 01/05/19 05:20 MCH 29.8 pg (27.0-34.0) 01/05/19 05:20 MCHC 34.3 g/dL (33.0-35.0) 01/05/19 05:20 RDW 14.9 % (11.6-16.5) 01/05/19 05:20 Plt Count 244 X10^3/uL (150.0-450.0) 01/05/19 05:20 MPV 8.5 fL (7.4-11.0) 01/05/19 05:20 Neut % (Auto) 83.9 % (42.0-75.0) H 01/05/19 05:20 Lymph % (Auto) 9.9 % (21.0-51.0) L 01/05/19 05:20 [place] % (Auto) 5.9 % (0.0-13.0) 01/05/19 05:20 Eos % (Auto) 0.1 % (0.9-2.9) L 01/05/19 05:20 Baso % (Auto) 0.2 % (0.2-1.0) 01/05/19 05:20 Neut # (Auto) 11.0 x10^3/uL (2.2-4.8) H 01/05/19 05:20 Lymph # (Auto) 1.3 X10^3/uL (1.3-2.9) 01/05/19 05:20 [place] # (Auto) 0.8 x10^3/uL (0.3-0.8) 01/05/19 05:20 Eos # (Auto) 0.0 x10^3/uL (0.0-0.2) 01/05/19 05:20 Baso # (Auto) 0.0 X10^3/uL (0.0-0.1) 01/05/19 05:20 Absolute Nucleated RBC 0.0 /100WBC 01/05/19 05:20 INR Target Range - 01/04/19 06:08 INR 1.70 (0.8-1.3) H 01/04/19 06:08 APTT 38.8 SECONDS (22.9-36.5) H 01/04/19 06:08 PTT Comment - 01/04/19 06:08 Sample Site Lrad 01/03/19 14:46 ABG pH 7.390 (7.35-7.45) 01/03/19 14:46 ABG pCO2 37.0 mmHg (35.0-45.0) 01/03/19 14:46 ABG pO2 52.0 mmHg (80.0-100.0) L 01/03/19 14:46 ABG HCO3 22.4 mmol/L (22-26) 01/03/19 14:46 ABG O2 Saturation 86.0 % (90-100) L 01/03/19 14:46 ABG Base Excess -2.2 mmol/L (-2.0-2.0) L 01/03/19 14:46 Henrik Test Pos 01/03/19 14:46 A-a Gradient 101.0 mmHg 01/03/19 14:46 FiO2 28.0 01/03/19 14:46 Blood Gas Comments Pt eleuterio well elj 01/03/19 14:46 Sodium 142 mmol/L (136-145) 01/05/19 05:20 Corrected Sodium 142 mmol/L (136-145) 01/05/19 05:20 Potassium 3.0 mmol/L (3.5-5.1) L* 01/05/19 05:20 Chloride 107 mmol/L (98-107) 01/05/19 05:20 Carbon Dioxide 22.8 mmol/L (21-32) 01/05/19 05:20 BUN 16 mg/dL (7-18) 01/05/19 05:20 Creatinine 0.88 mg/dL (0.70-1.30) 01/05/19 05:20 Est GFR (MDRD) Af Amer > 60 (>60) 01/05/19 05:20 Est GFR (MDRD) Non-Af > 60 (>60) 01/05/19 05:20 Glucose 115 mg/dL (65-99) H 01/05/19 05:20 Hemoglobin A1c 5.3 % 01/03/19 17:18 Lactic Acid 1.5 mmol/L (0.4-2.0) 01/03/19 14:26 Calcium 7.8 mg/dL (8.5-10.1) L 01/05/19 05:20 Corrected Calcium 9.2 mg/dL (8.5-10.1) 01/05/19 05:20 Magnesium 2.1 mg/dL (1.7-2.9) 01/05/19 05:20 Total Bilirubin 0.40 mg/dL (0.2-1.0) 01/05/19 05:20 AST 13 Units/L (15-37) L 01/05/19 05:20 ALT 9 Units/L (12-78) L 01/05/19 05:20 Alkaline Phosphatase 77 Units/L (46-116) 01/05/19 05:20 Creatine Kinase 40 Units/L (39-308) 01/03/19 22:38 CK-MB (CK-2) < 1.0 ng/mL (0-4.0) 01/03/19 22:38 CK/CKMB % Calc 2.5 % (<4) 01/03/19 22:38 Troponin I < 0.02 ng/mL (0-1.5) 01/03/19 22:38 Total Protein 6.5 g/dL (6.4-8.2) 01/05/19 05:20 Albumin 2.2 g/dL (3.4-5.0) L 01/05/19 05:20 Globulin 4.3 g/dL (2.5-4.5) 01/05/19 05:20 Albumin/Globulin Ratio 0.5 Ratio (1.1-2.1) L 01/05/19 05:20 Amylase 14 Units/L (25-115) L 01/03/19 09:40 Lipase 49 Units/L (73-393) L 01/03/19 09:40 Total PSA 0.18 ng/mL (0.13-4.0) 01/04/19 06:08 TSH 3rd Generation 0.414 uIU/mL (0.358-3.74) 01/03/19 17:18 Specimen Type Catherized urine 01/03/19 16:13 Urine Color Jaqueline (YELLOW) 01/03/19 16:13 Urine Appearance Slightly hazy (CLEAR) 01/03/19 16:13 Urine pH 6.0 (5.0 - 8.0) 01/03/19 16:13 Ur Specific [place] 1.015 (1.000-1.030) 01/03/19 16:13 Urine Protein 2+ (NEGATIVE) 01/03/19 16:13 Urine Glucose (UA) Negative (NEGATIVE) 01/03/19 16:13 Urine Ketones Negative (NEGATIVE) 01/03/19 16:13 Urine Occult Blood 2+ (NEGATIVE) 01/03/19 16:13 Urine Nitrite Negative (NEGATIVE) 01/03/19 16:13 Urine Bilirubin Negative (NEGATIVE) 01/03/19 16:13 Urine Urobilinogen 1+ (NORMAL) 01/03/19 16:13 Ur Leukocyte Esterase 1+ (NEGATIVE) 01/03/19 16:13 Urine RBC 5-10 /HPF (NONE SEEN) 01/03/19 16:13 Urine WBC 0-2 /HPF (NONE SEEN) 01/03/19 16:13 Ur Squamous Epith Cells Few /HPF (NEGATIVE) 01/03/19 16:13 Ur Renal Epithelial Cell Rare /HPF (NEGATIVE) 01/03/19 16:13 Amorphous Sediment Trace /HPF (NEGATIVE) 01/03/19 16:13 Urine Bacteria Trace /HPF (NEGATIVE) 01/03/19 16:13 Urine Mucus Moderate /HPF (NEGATIVE) 01/03/19 16:13 Ur Culture Indicated? No/not indicated 01/03/19 16:13 - Assessment and Plan 1: PO lap ruddy for acute cholecystitis wit acute hydrops of the GB. gary advence diet . full liquid diet. same IV ATB .to keep MANDA for 24h - Problem Patient Problems: Patient Problems Bilateral pneumonia (Acute) J18.9
[2019-01-05] MEDS: ZOSYN VIAL 3.375 GRAMS 3.375 G in NS 100 ML IV + SPIKE MINIBAG* 100 ML IV SCH ×2 (14:10→21:04)
[2019-01-05] MEDS: SOLU-Cortef INJ IVP SCH ×2 (14:10→21:04)
[2019-01-05] MEDS: NICOTINE PATCH TD SCH (16:31)
[2019-01-05] MEDS: ELIQUIS PO SCH (20:08)
[2019-01-05] MEDS: LIPITOR TAB 40 MG PO SCH (20:08)
[2019-01-05] MEDS: RESTORIL CAP 15 MG PO SCH (20:08)
[2019-01-05] MEDS: ELAVIL PO SCH (20:09)
[2019-01-06] MEDS: Atrovent NEB TX 0.02% NEB SCH ×5 (00:45→16:28)
[2019-01-06] MEDS: XOPENEX 1.25 MG/3 ML NEBULE NEB SCH ×5 (00:45→16:28)
[2019-01-06] MEDS: DILAUDID INJ IVP PRN ×3 (01:40→19:00)
[2019-01-06] MEDS: NS + KCL 20 MEQ/L 1,000 ML IV SCH ×4 (03:23→21:12)
[2019-01-06] MEDS: SOLU-Cortef INJ IVP SCH ×4 (05:22→21:13)
[2019-01-06] MEDS: ZOSYN VIAL 3.375 GRAMS 3.375 G in NS 100 ML IV + SPIKE MINIBAG* 100 ML IV SCH ×4 (05:22→21:13)
[2019-01-06 06:36] LABS: BASOPHILS % (AUTO) 0.1 % (0.2-1.0); EOSINOPHILS % (AUTO) 0.1 % (0.9-2.9); HEMATOCRIT 30.6 % (42.0-54.0); HEMOGLOBIN 10.5 g/dL (13.5-18.0); LYMPHOCYTES # (AUTO) 0.9 X10^3/uL (1.3-2.9); LYMPHOCYTES % (AUTO) 6.4 % (21.0-51.0); MEAN CORPUSCULAR HEMOGLOBIN 29.6 pg (27.0-34.0); MEAN CORPUSCULAR HGB CONC 34.3 g/dL (33.0-35.0); MEAN CORPUSCULAR VOLUME 86.3 fL (80.0-100.0); MEAN PLATELET VOLUME 8.3 fL (7.4-11.0); MONOCYTES # (AUTO) 0.7 x10^3/uL (0.3-0.8); MONOCYTES % (AUTO) 4.8 % (0.0-13.0); NEUTROPHILS # (AUTO) 12.7 x10^3/uL (2.2-4.8); NEUTROPHILS % (AUTO) 88.6 % (42.0-75.0); PLATELET COUNT 241 X10^3/uL (150.0-450.0); RED BLOOD COUNT 3.54 X10^6/uL (4.7-6.0); RED CELL DISTRIBUTION WIDTH 14.8 % (11.6-16.5); WHITE BLOOD COUNT 14.3 X10^3/uL (3.6-10.0)
[2019-01-06 06:45] LABS: ALANINE AMINOTRANSFERASE 9 Units/L (12-78); ALBUMIN 2.1 g/dL (3.4-5.0); ALKALINE PHOSPHATASE 79 Units/L (46-116); ASPARTATE AMINO TRANSFERASE 16 Units/L (15-37); BLOOD UREA NITROGEN 8 mg/dL (7-18); CALCIUM 7.6 mg/dL (8.5-10.1); CARBON DIOXIDE 23.2 mmol/L (21-32); CHLORIDE 109 mmol/L (98-107); COR CA(FOR HYPOALB) 9.1 mg/dL (8.5-10.1); COR NA(FOR HYPERGLY) 145 mmol/L (136-145); CREATININE 0.67 mg/dL (0.70-1.30); SODIUM 144 mmol/L (136-145); TOTAL PROTEIN 6.4 g/dL (6.4-8.2); eGFR NON BLACK RACES > 60 (>60)
[2019-01-06] MEDS: PULMICORT NEB TX 0.5 MG NEB SCH ×3 (08:19→20:02)
[2019-01-06] MEDS: PLAVIX PO SCH (09:05)
[2019-01-06] MEDS: HEMOCYTE-PLUS PO SCH (09:06)
[2019-01-06] MEDS: PROTONIX TAB 40 MG PO SCH (09:06)
[2019-01-06] MEDS: ELIQUIS PO SCH ×2 (09:06→20:41)
[2019-01-06] MEDS: MILK OF MAGNESIA PO SCH (09:06)
[2019-01-06] MEDS: MEGACE PO SCH ×2 (09:06→20:41)
[2019-01-06] MEDS: SYNTHROID 100 mcg TAB PO SCH (09:06)
[2019-01-06] MEDS: LOPRESSOR TAB 25 MG PO SCH ×2 (09:06→20:42)
[2019-01-06] MEDS: PEPCID TAB 20 MG PO SCH ×2 (09:06→20:41)
[2019-01-06] MEDS: NICOTINE PATCH TD SCH (09:07)
[2019-01-06] MEDS: NEURONTIN CAP 100 MG PO SCH ×2 (09:07→20:40)
[2019-01-06] MEDS: ATIVAN INJ 2 MG VIAL IVP PRN (12:05)
[2019-01-06] MEDS ORDERED: ZOFRAN INJ 4 MG VIAL IVP PRN (18:52)
[2019-01-06] MEDS ORDERED: ZOFRAN INJ 4 MG VIAL ONE (18:53)
[2019-01-06] MEDS: RESTORIL CAP 15 MG PO SCH (20:40)
[2019-01-06] MEDS: COLACE CAP 100 MG PO SCH (20:41)
[2019-01-06] MEDS: LIPITOR TAB 40 MG PO SCH (20:41)
[2019-01-06] MEDS: ELAVIL PO SCH (20:42)
[2019-01-06] MEDS: K-RIDER 10 MEQ/NS 100 ML 10 MEQ/100 ML BAG IV PRN ×2 (22:38→23:46)
[2019-01-07] MEDS: Atrovent NEB TX 0.02% NEB SCH ×5 (00:56→16:36)
[2019-01-07] MEDS: XOPENEX 1.25 MG/3 ML NEBULE NEB SCH ×5 (00:56→16:36)
[2019-01-07] MEDS: K-RIDER 10 MEQ/NS 100 ML 10 MEQ/100 ML BAG IV PRN ×2 (01:24→02:09)
[2019-01-07] MEDS: DILAUDID INJ IVP PRN (04:50)
[2019-01-07] MEDS: SOLU-Cortef INJ IVP SCH ×3 (05:00→21:10)
[2019-01-07] MEDS: ZOSYN VIAL 3.375 GRAMS 3.375 G in NS 100 ML IV + SPIKE MINIBAG* 100 ML IV SCH ×3 (05:00→21:09)
[2019-01-07] MEDS: NS + KCL 20 MEQ/L 1,000 ML IV SCH ×2 (05:00→11:30)
[2019-01-07] MEDS: ATIVAN INJ 2 MG VIAL IVP PRN (06:51)
[2019-01-07 06:56] LABS: BASOPHILS % (AUTO) 0.2 % (0.2-1.0); EOSINOPHILS # (AUTO) 0.1 x10^3/uL (0.0-0.2); EOSINOPHILS % (AUTO) 0.9 % (0.9-2.9); HEMATOCRIT 27.1 % (42.0-54.0); HEMOGLOBIN 9.4 g/dL (13.5-18.0); LYMPHOCYTES # (AUTO) 0.8 X10^3/uL (1.3-2.9); LYMPHOCYTES % (AUTO) 6.2 % (21.0-51.0); MEAN CORPUSCULAR HEMOGLOBIN 29.8 pg (27.0-34.0); MEAN CORPUSCULAR HGB CONC 34.5 g/dL (33.0-35.0); MEAN CORPUSCULAR VOLUME 86.5 fL (80.0-100.0); MEAN PLATELET VOLUME 8.4 fL (7.4-11.0); MONOCYTES # (AUTO) 0.7 x10^3/uL (0.3-0.8); MONOCYTES % (AUTO) 5.2 % (0.0-13.0); NEUTROPHILS # (AUTO) 11.2 x10^3/uL (2.2-4.8); NEUTROPHILS % (AUTO) 87.5 % (42.0-75.0); PLATELET COUNT 231 X10^3/uL (150.0-450.0); RED BLOOD COUNT 3.14 X10^6/uL (4.7-6.0); RED CELL DISTRIBUTION WIDTH 14.9 % (11.6-16.5); WHITE BLOOD COUNT 12.8 X10^3/uL (3.6-10.0)
[2019-01-07 07:05] LABS: ALANINE AMINOTRANSFERASE 9 Units/L (12-78); ALBUMIN 1.7 g/dL (3.4-5.0); ALKALINE PHOSPHATASE 64 Units/L (46-116); ASPARTATE AMINO TRANSFERASE 19 Units/L (15-37); BLOOD UREA NITROGEN 8 mg/dL (7-18); CALCIUM 7.4 mg/dL (8.5-10.1); CARBON DIOXIDE 22.9 mmol/L (21-32); CHLORIDE 112 mmol/L (98-107); COR CA(FOR HYPOALB) 9.2 mg/dL (8.5-10.1); CREATININE 0.58 mg/dL (0.70-1.30); MAGNESIUM 2.2 mg/dL (1.7-2.9); SODIUM 144 mmol/L (136-145); TOTAL PROTEIN 5.9 g/dL (6.4-8.2); eGFR NON BLACK RACES > 60 (>60)
[2019-01-07] MEDS: PULMICORT NEB TX 0.5 MG NEB SCH ×2 (08:30→20:24)
[2019-01-07] MEDS: HEMOCYTE-PLUS PO SCH (08:59)
[2019-01-07] MEDS: PLAVIX PO SCH (08:59)
[2019-01-07] MEDS: NEURONTIN CAP 100 MG PO SCH ×2 (08:59→21:21)
[2019-01-07] MEDS: MEGACE PO SCH (09:00)
[2019-01-07] MEDS: PROTONIX TAB 40 MG PO SCH (09:00)
[2019-01-07] MEDS: PEPCID TAB 20 MG PO SCH ×2 (09:00→21:20)
[2019-01-07] MEDS: SYNTHROID 100 mcg TAB PO SCH (09:00)
[2019-01-07] MEDS: NICOTINE PATCH TD SCH (09:01)
[2019-01-07] MEDS: LOPRESSOR TAB 25 MG PO SCH ×2 (09:01→21:21)
[2019-01-07] MEDS: MILK OF MAGNESIA PO SCH ×2 (09:01→18:37)
[2019-01-07] MEDS: ELIQUIS PO SCH ×2 (09:01→21:20)
[2019-01-07] MEDS: ATIVAN INJ 2 MG VIAL IVP SCH ×2 (10:14→21:20)
[2019-01-07] MEDS: RESTORIL CAP 15 MG PO SCH (21:20)
[2019-01-07] MEDS: ELAVIL PO SCH (21:20)
[2019-01-07] MEDS: COLACE CAP 100 MG PO SCH (21:20)
[2019-01-07] MEDS: LIPITOR TAB 40 MG PO SCH (21:21)
[2019-01-08] MEDS: ATIVAN INJ 2 MG VIAL IVP SCH ×3 (00:33→11:35)
[2019-01-08] MEDS: XOPENEX 1.25 MG/3 ML NEBULE NEB SCH ×2 (00:42→05:24)
[2019-01-08] MEDS: Atrovent NEB TX 0.02% NEB SCH ×2 (00:42→05:24)
[2019-01-08] MEDS: NS + KCL 20 MEQ/L 1,000 ML IV SCH ×2 (00:51→05:34)
[2019-01-08] MEDS ORDERED: LOPRESSOR INJ 5 MG AMP IVP ONE ×3 (01:16→08:45)
[2019-01-08] MEDS ORDERED: LOPRESSOR INJ 5 MG AMP ONE ×2 (01:20→07:46)
--- NOTE | 2019-01-08 05:20 | RAD ---
Examination: KUB History: Abdominal distention Comparison reference abdomen CT, 01/03/2019 Findings: There is moderate gaseous distention of the stomach. The intestinal gas pattern is normal otherwise. There is a relative excess of colon feces. No abdominal mass, pathologic calcification or ascites is identified. Bilateral pulmonary infiltrates are identified; correlate with recent chest radiography. Impression: Gastric distention. Suspect constipation. Reported By:
[2019-01-08] MEDS: ZOSYN VIAL 3.375 GRAMS 3.375 G in NS 100 ML IV + SPIKE MINIBAG* 100 ML IV SCH (05:33)
[2019-01-08] MEDS: SOLU-Cortef INJ IVP SCH (05:33)
[2019-01-08 05:35] LABS: BASOPHILS % (AUTO) 0.2 % (0.2-1.0); EOSINOPHILS # (AUTO) 0.1 x10^3/uL (0.0-0.2); EOSINOPHILS % (AUTO) 0.7 % (0.9-2.9); HEMATOCRIT 28.4 % (42.0-54.0); HEMOGLOBIN 9.7 g/dL (13.5-18.0); LYMPHOCYTES # (AUTO) 0.9 X10^3/uL (1.3-2.9); LYMPHOCYTES % (AUTO) 8.5 % (21.0-51.0); MEAN CORPUSCULAR HEMOGLOBIN 29.7 pg (27.0-34.0); MEAN CORPUSCULAR HGB CONC 34.1 g/dL (33.0-35.0); MEAN CORPUSCULAR VOLUME 87.2 fL (80.0-100.0); MEAN PLATELET VOLUME 8.9 fL (7.4-11.0); MONOCYTES # (AUTO) 0.5 x10^3/uL (0.3-0.8); MONOCYTES % (AUTO) 4.3 % (0.0-13.0); NEUTROPHILS # (AUTO) 9.5 x10^3/uL (2.2-4.8); NEUTROPHILS % (AUTO) 86.3 % (42.0-75.0); PLATELET COUNT 247 X10^3/uL (150.0-450.0); RED BLOOD COUNT 3.26 X10^6/uL (4.7-6.0); RED CELL DISTRIBUTION WIDTH 15.3 % (11.6-16.5)
[2019-01-08 05:52] LABS: ALANINE AMINOTRANSFERASE 9 Units/L (12-78); ALBUMIN 1.7 g/dL (3.4-5.0); ALKALINE PHOSPHATASE 63 Units/L (46-116); ASPARTATE AMINO TRANSFERASE 18 Units/L (15-37); BLOOD UREA NITROGEN 9 mg/dL (7-18); CALCIUM 7.6 mg/dL (8.5-10.1); CARBON DIOXIDE 23.2 mmol/L (21-32); CHLORIDE 106 mmol/L (98-107); COR CA(FOR HYPOALB) 9.4 mg/dL (8.5-10.1); CREATININE 0.66 mg/dL (0.70-1.30); SODIUM 140 mmol/L (136-145); TOTAL PROTEIN 5.9 g/dL (6.4-8.2); eGFR NON BLACK RACES > 60 (>60)
[2019-01-08] MEDS: K-RIDER 10 MEQ/NS 100 ML 10 MEQ/100 ML BAG IV PRN ×2 (06:08→11:07)
[2019-01-08] MEDS ORDERED: COLACE CAP 100 MG PO SCH (09:00)
[2019-01-08] MEDS ORDERED: LINZESS PO SCH (09:00)
[2019-01-08] MEDS: ELIQUIS PO SCH (09:06)
[2019-01-08] MEDS: PROTONIX TAB 40 MG PO SCH (09:07)
[2019-01-08] MEDS: SYNTHROID 100 mcg TAB PO SCH (09:07)
[2019-01-08] MEDS: MILK OF MAGNESIA PO SCH (09:07)
[2019-01-08] MEDS: LOPRESSOR TAB 25 MG PO SCH (09:07)
[2019-01-08] MEDS: HEMOCYTE-PLUS PO SCH (09:07)
[2019-01-08] MEDS: NEURONTIN CAP 100 MG PO SCH (09:07)
[2019-01-08] MEDS: PEPCID TAB 20 MG PO SCH (09:08)
--- NOTE | 2019-01-08 09:16 | RAD ---
Examination: Chest, PA and lateral views History: Pneumonia Comparison 01/05/2019 Findings: Stable heart size. Improved aeration of the left lower lung with residual infiltrate or edema. Increasing confluent airspace disease in the right lung. No pneumothorax is seen. Stable position of cardiac pacemaker and right subclavian catheter. Impression: Improving aeration left lower lung since 01/05/2019. Developing airspace process in the right lung compatible with pneumonia, or asymmetric pulmonary edema. Reported By:
[2019-01-08] MEDS ORDERED: LANOXIN INJ IVP ONE (09:18)
[2019-01-08] MEDS ORDERED: LANOXIN INJ ONE (09:20)
[2019-01-08 10:19] LABS: ABG BASE EXCESS 0.9 mmol/L (-2.0-2.0); ABG HCO3 23.1 mmol/L (22-26)
[2019-01-08 10:21] LABS: ABG ALLEN TEST POS
[2019-01-08] MEDS: NICOTINE PATCH TD SCH (10:40)
[2019-01-08 11:28] VITALS: BP 153/78
[2019-01-12] MEDS ORDERED: ELIQUIS PO SCH (09:00)
== END 2019-01-08 12:10 | disposition short-term general hospital (02) | DRG 193 ==
LOC: ER 09:15 → ICU 15:16
PROVIDERS: ADMIT Obstetrics & Gynecology Obstetrics; ATTEND Obstetrics & Gynecology Obstetrics
DX: E27.40 Unspecified adrenocortical insufficiency; R53.1 Weakness; R91.8 Other nonspecific abnormal finding of lung field; Z86.73 Personal history of transient ischemic attack (TIA), and cerebral infarction without residual deficits; R94.31 Abnormal electrocardiogram [ECG] [EKG]; E03.8 Other specified hypothyroidism; Z79.01 Long term (current) use of anticoagulants; J44.9 Chronic obstructive pulmonary disease, unspecified; Z95.0 Presence of cardiac pacemaker; E78.2 Mixed hyperlipidemia; E87.6 Hypokalemia; I25.10 Atherosclerotic heart disease of native coronary artery without angina pectoris; I26.99 Other pulmonary embolism without acute cor pulmonale; R10.84 Generalized abdominal pain; R07.89 Other chest pain; J18.8 Other pneumonia, unspecified organism; I48.91 Unspecified atrial fibrillation; R06.02 Shortness of breath; Z78.1 Physical restraint status; I87.2 Venous insufficiency (chronic) (peripheral)
CPT/HCPCS: 36415; 36556; 36600; 71010; 71020; 71045; 71046; 71275; 74000; 74018; 74177; 80053; 81001; 82150; 82550; 82553; 82670; 82803; 83036; 83605; 83690; 83735; 84132; 84153; 84403; 84443; 84484; 85025; 85610; 85730; 87040; 93005; 94640; 94660; 96365; 96367; 96374; 96375; 99285; A4216; A4222; A4618; A7030; S0179; J0696; J1160; J1170; J1650; J1720; J1956; J2060; J2405; J2543; J3243; J3480; J3490; J7030; J7050; J7626; J7644

== ENCOUNTER 2019-07-02 20:25 | Observation (INO) ==
[2019-07-02 21:23] LABS: BASOPHILS % (AUTO) 0.8 % (0.2-1.0); EOSINOPHILS # (AUTO) 0.1 x10^3/uL (0.0-0.2); HEMATOCRIT 36.8 % (42.0-54.0); HEMOGLOBIN 12.8 g/dL (13.5-18.0); LYMPHOCYTES # (AUTO) 0.6 X10^3/uL (1.3-2.9); MEAN CORPUSCULAR HEMOGLOBIN 31.7 pg (27.0-34.0); MEAN CORPUSCULAR HGB CONC 34.7 g/dL (33.0-35.0); MEAN CORPUSCULAR VOLUME 91.2 fL (80.0-100.0); MEAN PLATELET VOLUME 8.7 fL (7.4-11.0); MONOCYTES # (AUTO) 0.4 x10^3/uL (0.3-0.8); MONOCYTES % (AUTO) 6.6 % (0.0-13.0); NEUTROPHILS % (AUTO) 81.6 % (42.0-75.0); PLATELET COUNT 212 X10^3/uL (150.0-450.0); RED BLOOD COUNT 4.04 X10^6/uL (4.7-6.0); RED CELL DISTRIBUTION WIDTH 12.6 % (11.6-16.5); WHITE BLOOD COUNT 6.2 X10^3/uL (3.6-10.0)
[2019-07-02 21:31] LABS: ALANINE AMINOTRANSFERASE 18 Units/L (12-78); ALBUMIN 3.5 g/dL (3.4-5.0); ALKALINE PHOSPHATASE 87 Units/L (46-116); ASPARTATE AMINO TRANSFERASE 18 Units/L (15-37); BLOOD UREA NITROGEN 9 mg/dL (7-18); CALCIUM 8.7 mg/dL (8.5-10.1); CARBON DIOXIDE 28.9 mmol/L (21-32); CHLORIDE 100 mmol/L (98-107); CREATININE 0.92 mg/dL (0.70-1.30); SODIUM 136 mmol/L (136-145); TOTAL PROTEIN 7.5 g/dL (6.4-8.2); eGFR NON BLACK RACES > 60 (>60)
--- NOTE | 2019-07-02 21:47 | RAD ---
STUDY: WRIST, LEFTCOMPARISON: NoneHISTORY: FALL, LEFT WRIST PAINFINDINGS:There are 2 pieces of imbedded radiopaque foreign body near the 1st metacarpal phalangeal joint space measuring 6 mm and 2.5 mm.There is no evidence of a fracture or joint dislocation.Degenerative changes are noted. 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 This finding may be secondary to remote history of trauma or degenerative.IMPRESSION:1. THERE IS NO EVIDENCE OF FRACTURE OR JOINT DISLOCATION.2. FINDINGS SUGGEST SLAC WRIST MOST LIKELY TRAUMATIC IN ETIOLOGY OR SECONDARY TO DEGENERATIVE CHANGES.3. TWO PIECES OF IMBEDDED RADIOPAQUE FOREIGN BODY IS SEEN NEAR THE 1ST METACARPOPHALANGEAL JOINT SPACE MEASURING 6 MM AND 2.5 MM.Electronically signed by: Yomi Pearce (Jul 02, 2019 21:45:46)
[2019-07-02 22:22] LABS: BILIRUBIN,URINE NEGATIVE (NEGATIVE); BLOOD/HEMOGLOBIN,URINE 1+ (NEGATIVE); GLUCOSE, URINE NEGATIVE (NEGATIVE); KETONES,URINE NEGATIVE (NEGATIVE); LEUKOCYTE ESTERASE ,URINE NEGATIVE (NEGATIVE); NITRITES,URINE NEGATIVE (NEGATIVE); PROTEIN,URINE NEGATIVE (NEGATIVE); UROBILINOGEN,URINE 2+ (NORMAL)
--- NOTE | 2019-07-02 22:25 | DR.AMS ---
HPI Time Seen Time Seen by Provider: 07/02/19 20:48 PCP Primary Care Physician: ANGEL HPI Comment HPI Comment: Family states that the patient is markedly altered. He has experienced this behavior before but they have never found the cause. Source History Provided: EMS Mode of Arrival Mode of Arrival: EMS Timing Onset of Chief Complaint: 07/02/19 PMH PMH Past Medical History: Yes Past Medical History: Anemia, Coronary Artery Disease, Dyslipidemia, Hypothyroidism and Sleep Apnea Past Surgical History: Yes Surgical History: Angioplasty/Stents Past Surgical History Comment: PACEMAKER PITUITARY Family History History of Family Medical Conditions: Yes Family Medical History: [place] and Coronary Artery Disease Social History Does patient currently use any type of tobacco product: Yes Have you used tobacco products in the last 12 months: Yes Type of Tobacco Use: Cigars Does any household member use tobacco: No Alcohol Use: None Do you use any recreational Drugs:: No Lives With: Spouse Lives Where: Home infectious screening In the last 2 months have you had wt loss of >10#?: NO Have you had fever, night sweats or hemotysis?: No Have you traveled outside the country in the last 6 months?: No Isolation: Standard PE Vitals Vital Signs: Temp Pulse Pulse Pulse Pulse Resp BP 07/02/19 23:30 62 07/02/19 23:00 63 07/02/19 22:53 65 07/02/19 22:16 07/02/19 22:15 68 66 07/02/19 20:27 99.8 F H 74 16 112/63 01/08/19 11:00 153/78 01/03/19 16:00 11/05/18 19:00 09/25/16 16:32 BP BP BP BP BP Pulse Ox 07/02/19 23:30 118/60 07/02/19 23:00 159/72 98 07/02/19 22:53 138/70 96 07/02/19 22:16 125/59 96 07/02/19 22:15 115/59 125/59 07/02/19 20:27 97 01/08/19 11:00 01/03/19 16:00 124/89 11/05/18 19:00 111/57 09/25/16 16:32 145/81 140/81 130/74 General Limitations: Altered Mental Status General Appearance: Lethargic; negative Alert, Appears Intoxicated, Obtunded, In Distress and Cachectic Head Head Exam: Normal Inspection Eyes Eye exam: Normal Appearance ENT ENT Exam: Normal Exam External Ear Exam: Normal External Inspection Nose Exam: Normal Nose Exam Mouth Exam: Normal Inspection Throat Exam: Normal Inspection Neck Neck Exam: Normal Inspection Chest Chest Inspection: Normal Inspection Respiratory Respiratory Exam: Normal Lung Sounds Bilat Cardiovascular Cardiovascular Exam: Regular Rate (94) and Normal Rhythm Abdominal Exam Abdominal Exam: Normal Inspection, Normal Bowel Sounds and Soft Extremities Extremities Exam: Normal Inspection Back Back Exam: Normal Inspection Neurological Neurological Exam: negative Motor Sensory Deficit Patient Oriented To: Person; negative Place and Time Speech: Fluid Speech Psychological Psychiatric Exam: Flat Affect Skin Skin Exam: Warm, Dry, Intact and Normal Color COURSE Treatment Treatment: Pt. not orthostatic but unable to get patient to stand ROR Labs Reviewed Laboratory Results Reviewed?: Yes Result Diagrams: 07/02/19 21:11 07/02/19 21:11 Laboratory: WBC 6.2 X10^3/uL (3.6-10.0) 07/02/19 21:11 RBC 4.04 X10^6/uL (4.7-6.0) L 07/02/19 21:11 Hgb 12.8 g/dL (13.5-18.0) L 07/02/19 21:11 Hct 36.8 % (42.0-54.0) L 07/02/19 21:11 MCV 91.2 fL (80.0-100.0) 07/02/19 21:11 MCH 31.7 pg (27.0-34.0) 07/02/19 21:11 MCHC 34.7 g/dL (33.0-35.0) 07/02/19 21:11 RDW 12.6 % (11.6-16.5) 07/02/19 21:11 Plt Count 212 X10^3/uL (150.0-450.0) 07/02/19 21:11 MPV 8.7 fL (7.4-11.0) 07/02/19 21:11 Neut % (Auto) 81.6 % (42.0-75.0) H 07/02/19 21:11 Lymph % (Auto) 10.0 % (21.0-51.0) L 07/02/19 21:11 [place] % (Auto) 6.6 % (0.0-13.0) 07/02/19 21:11 Eos % (Auto) 1.0 % (0.9-2.9) 07/02/19 21:11 Baso % (Auto) 0.8 % (0.2-1.0) 07/02/19 21:11 Neut # (Auto) 5.0 x10^3/uL (2.2-4.8) H 07/02/19 21:11 Lymph # (Auto) 0.6 X10^3/uL (1.3-2.9) L 07/02/19 21:11 [place] # (Auto) 0.4 x10^3/uL (0.3-0.8) 07/02/19 21:11 Eos # (Auto) 0.1 x10^3/uL (0.0-0.2) 07/02/19 21:11 Baso # (Auto) 0.0 X10^3/uL (0.0-0.1) 07/02/19 21:11 Absolute Nucleated RBC 0.0 /100WBC 07/02/19 21:11 Sodium 136 mmol/L (136-145) 07/02/19 21:11 Corrected Sodium TNP 07/02/19 21:11 Potassium 3.9 mmol/L (3.5-5.1) 07/02/19 21:11 Chloride 100 mmol/L (98-107) 07/02/19 21:11 Carbon Dioxide 28.9 mmol/L (21-32) 07/02/19 21:11 BUN 9 mg/dL (7-18) 07/02/19 21:11 Creatinine 0.92 mg/dL (0.70-1.30) 07/02/19 21:11 Est GFR (MDRD) Af Amer > 60 (>60) 07/02/19 21:11 Est GFR (MDRD) Non-Af > 60 (>60) 07/02/19 21:11 Glucose 89 mg/dL (65-99) 07/02/19 21:11 Calcium 8.7 mg/dL (8.5-10.1) 07/02/19 21:11 Corrected Calcium TNP 07/02/19 21:11 Total Bilirubin 0.40 mg/dL (0.2-1.0) 07/02/19 21:11 AST 18 Units/L (15-37) 07/02/19 21:11 ALT 18 Units/L (12-78) 07/02/19 21:11 Alkaline Phosphatase 87 Units/L (46-116) 07/02/19 21:11 Total Protein 7.5 g/dL (6.4-8.2) 07/02/19 21:11 Albumin 3.5 g/dL (3.4-5.0) 07/02/19 21:11 Globulin 4.0 g/dL (2.5-4.5) 07/02/19 21:11 Albumin/Globulin Ratio 0.9 Ratio (1.1-2.1) L 07/02/19 21:11 Specimen Type Catherized urine 07/02/19 22:12 Urine Color Yellow (YELLOW) 07/02/19 22:12 Urine Appearance Clear (CLEAR) 07/02/19 22:12 Urine pH 7.0 (5.0 - 8.0) 07/02/19 22:12 Ur Specific [place] 1.010 (1.000-1.030) 07/02/19 22:12 Urine Protein Negative (NEGATIVE) 07/02/19 22:12 Urine Glucose (UA) Negative (NEGATIVE) 07/02/19 22:12 Urine Ketones Negative (NEGATIVE) 07/02/19 22:12 Urine Occult Blood 1+ (NEGATIVE) 07/02/19 22:12 Urine Nitrite Negative (NEGATIVE) 07/02/19 22:12 Urine Bilirubin Negative (NEGATIVE) 07/02/19 22:12 Urine Urobilinogen 2+ (NORMAL) 07/02/19 22:12 Ur Leukocyte Esterase Negative (NEGATIVE) 07/02/19 22:12 Urine RBC 0-2 /HPF (0-3) 07/02/19 22:12 Urine WBC None seen /HPF (0-5) 07/02/19 22:12 Ur Squamous Epith Cells Rare /HPF (NEGATIVE) 07/02/19 22:12 Urine Bacteria Negative /HPF (NEGATIVE) 07/02/19 22:12 Ur Culture Indicated? No/not indicated 07/02/19 22:12 Other Results Comments: STUDY: WRIST, LEFT COMPARISON: None HISTORY: FALL, LEFT WRIST PAIN FINDINGS: There are 2 pieces of imbedded radiopaque foreign body near the 1st metacarpal phalangeal joint space measuring 6 mm and 2.5 mm. There is no evidence of a fracture or joint dislocation. Degenerative changes are noted. 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 This finding may be secondary to remote history of trauma or degenerative. IMPRESSION: 1. THERE IS NO EVIDENCE OF FRACTURE OR JOINT DISLOCATION. 2. FINDINGS SUGGEST SLAC WRIST MOST LIKELY TRAUMATIC IN ETIOLOGY OR SECONDARY TO DEGENERATIVE CHANGES. 3. TWO PIECES OF IMBEDDED RADIOPAQUE FOREIGN BODY IS SEEN NEAR THE 1ST METACARPOPHALANGEAL JOINT SPACE MEASURING 6 MM AND 2.5 MM. Electronically signed by: Yomi Pearce (Jul 02, 2019 21:45:46) STUDY: CT CHEST WITHOUT IV CONTRAST COMPARISON: June 09, 2019 TECHNIQUE: Axial images were acquired of the chest without IV contrast. Sagittal and coronal reformatted images were provided. All images were reviewed in a variety of windows and levels. RADIATION REDUCTION TECHNIQUE: Automated exposure control, Adjustment of the mA and/or kV according to patient size, or iterative reconstruction techniques were used. HISTORY: PNEUMONIA FINDINGS: CHEST:? Please note that lack of IV contrast limits evaluation of soft tissue structures and vascular detail.? THYROID GLAND: The thyroid gland is grossly unremarkable.? HEART AND VESSELS: The heart size in the upper limits of normal. Transvenous pacing wires are noted. There is no evidence of pericardial effusion. Thoracic aorta is normal in size without evidence of an aneurysm. Main pulmonary artery size is within normal limits. LYMPH NODES: There is no evidence of axillary, mediastinal, or hilar lymphadenopathy. ? AIRWAY: The trachea mainstem bronchi are patent. No intraluminal lesions are seen. ? LUNGS: Findings most likely represent left lower lobe aspiration pneumonia. Focal consolidation is also present in the right lower lobe adjacent to the pleural surface stable from prior study. Scattered areas of air trapping is noted. There is no pleural effusion or pneumothorax. Scattered areas of pleural thickening is present. ESOPHAGUS: The esophagus is grossly unremarkable. BONES: The visualized bones demonstrate degenerative changes. There are no concerning lytic or blastic lesions identified. UPPER ABDOMINAL STRUCTURES: The visualized upper abdominal structures are unremarkable. IMPRESSION: 1. HEART SIZE IS IN THE UPPER LIMITS OF NORMAL WITH TRANSVENOUS PACER WIRES IN PLACE. 2. LEFT LOWER LOBE ASPIRATION PNEUMONIA IS SUGGESTED WITH FILLING OF THE DISTAL AIRWAYS WITH DEBRIS. 3. STABLE SUBPLEURAL SURFACE CONSOLIDATION IS SEEN IN THE RIGHT LOWER LOBE WHEN COMPARED TO THE PRIOR STUDY DATED JUNE 09, 2019. CLOSE MONITORING WITH FOLLOW- UP MAY BE OBTAINED CLINICALLY INDICATED. Electronically signed by: Yomi Pearce (Jul 02, 2019 23:28:16) STUDY: CT HEAD WITHOUT IV CONTRAST COMPARISON: None TECHNIQUE: axial images were acquired of the head without IV contrast. Coronal and sagittal images were provided. All images were reviewed in a variety of windows and levels. RADIATION REDUCTION TECHNIQUE: Automated exposure control, Adjustment of the mA and/or kV according to patient size, or iterative reconstruction techniques were used. HISTORY: AMS FINDINGS: There is diffuse cerebral atrophy with a regional distribution of low attenuation along the periventricular white matter most likely representing small vessel ischemic changes which are to a degree that would be considered within normal limits for the patient's stated age. There is no evidence of an acute intracranial bleed. There is no evidence of a mass or midline shift. There is no evidence of an extra-axial fluid collection. The elkins-white matter differentiation is within normal limits. The visualized bones are unremarkable. The visualized sinuses demonstrate air-fluid level in the left sphenoid sinus. Otherwise, there is improved aeration of the sinuses with decrease in the amount of mucosal thickening when compared to the prior examination. The previously se en right maxillary sinus disease and ethmoid sinus disease has resolved. The mastoid air cells are well-aerated. IMPRESSION: 1. INVOLUTIONAL CHANGES ARE PRESENT WITH FINDINGS SUGGESTING SMALL VESSEL ISCHEMIC DISEASE WITCH IS TO A DEGREE THAT WOULD BE CONSIDERED WITHIN NORMAL LIMITS FOR THE PATIENT'S STATED AGE. 2. THERE IS NO EVIDENCE OF ACUTE INTRACRANIAL BLEED. Electronically signed by: Yomi Pearce (Jul 02, 2019 23:21:24) EKG Rate: 101 (EKG read by ar) [place]: LAD Rhythm: NSR Block: None Hypertrophy: None ST: Nonsp Opioid Opioid Risk Tool Age (Jhonny box if 16-45): No History of Preadolescent Sexual Abuse: No Total: 0 Total Score Risk Category: Low Risk Copyright: Mike DURAN predicting aberrant behaviors Diagnosis Discharge Problem: Altered mental status Qualifiers: Altered mental status type: stupor Qualified Code(s): R40.1 - Stupor Aspiration pneumonia of left lower lobe Qualifiers: Aspiration pneumonia type: unspecified Qualified Code(s): J69.0 - Pneumonitis due to inhalation of food and vomit
[2019-07-02 22:31] LABS: APPEARANCE,URINE CLEAR (CLEAR); BACTERIA,URINE NEGATIVE /HPF (NEGATIVE); COLOR,URINE YELLOW (YELLOW); RBC,URINE 0-2 /HPF (0-3); SQUAMOUS EPITHELIAL CELL,UR RARE /HPF (NEGATIVE)
--- NOTE | 2019-07-02 23:22 | CT ---
STUDY: CT HEAD WITHOUT IV CONTRASTCOMPARISON: NoneTECHNIQUE: axial images were acquired of the head without IV contrast. Coronal and sagittal images were provided. All images were reviewed in a variety of windows and levels.RADIATION REDUCTION TECHNIQUE: Automated exposure control, Adjustment of the mA and/or kV according to patient size, or iterative reconstruction techniques were used.HISTORY: AMSFINDINGS:There is diffuse cerebral atrophy with a regional distribution of low attenuation along the periventricular white matter most likely representing small vessel ischemic changes which are to a degree that would be considered within normal limits for the patient's stated age.There is no evidence of an acute intracranial bleed.There is no evidence of a mass or midline shift.There is no evidence of an extra-axial fluid collection.The elkins-white matter differentiation is within normal limits.The visualized bones are unremarkable.The visualized sinuses demonstrate air-fluid level in the left sphenoid sinus. Otherwise, there is improved aeration of the sinuses with decrease in the amount of mucosal thickening when compared to the prior examination. The previously seen right maxillary sinus disease and ethmoid sinus disease has resolved.The mastoid air cells are well-aerated.IMPRESSION:1. INVOLUTIONAL CHANGES ARE PRESENT WITH FINDINGS SUGGESTING SMALL VESSEL ISCHEMIC DISEASE WITCH IS TO A DEGREE THAT WOULD BE CONSIDERED WITHIN NORMAL LIMITS FOR THE PATIENT'S STATED AGE.2. THERE IS NO EVIDENCE OF ACUTE INTRACRANIAL BLEED.Electronically signed by: Yomi Pearce (Jul 02, 2019 23:21:24)
--- NOTE | 2019-07-02 23:29 | CT ---
STUDY: CT CHEST WITHOUT IV CONTRASTCOMPARISON: June 09, 2019TECHNIQUE: Axial images were acquired of the chest without IV contrast. Sagittal and coronal reformatted images were provided. All images were reviewed in a variety of windows and levels.RADIATION REDUCTION TECHNIQUE: Automated exposure control, Adjustment of the mA and/or kV according to patient size, or iterative reconstruction techniques were used.HISTORY: PNEUMONIAFINDINGS:CHEST:?Please note that lack of IV contrast limits evaluation of soft tissue structures and vascular detail.?THYROID GLAND: The thyroid gland is grossly unremarkable.?HEART AND VESSELS: The heart size in the upper limits of normal. Transvenous pacing wires are noted. There is no evidence of pericardial effusion. Thoracic aorta is normal in size without evidence of an aneurysm. Main pulmonary artery size is within normal limits.LYMPH NODES: There is no evidence of axillary, mediastinal, or hilar lymphadenopathy. ?AIRWAY: The trachea mainstem bronchi are patent. No intraluminal lesions are seen. ?LUNGS: Findings most likely represent left lower lobe aspiration pneumonia. Focal consolidation is also present in the right lower lobe adjacent to the pleural surface stable from prior study. Scattered areas of air trapping is noted. There is no pleural effusion or pneumothorax. Scattered areas of pleural thickening is present.ESOPHAGUS: The esophagus is grossly unremarkable.BONES: The visualized bones demonstrate degenerative changes. There are no concerning lytic or blastic lesions identified.UPPER ABDOMINAL STRUCTURES: The visualized upper abdominal structures are unremarkable.IMPRESSION:1. HEART SIZE IS IN THE UPPER LIMITS OF NORMAL WITH TRANSVENOUS PACER WIRES IN PLACE.2. LEFT LOWER LOBE ASPIRATION PNEUMONIA IS SUGGESTED WITH FILLING OF THE DISTAL AIRWAYS WITH DEBRIS.3. STABLE SUBPLEURAL SURFACE CONSOLIDATION IS SEEN IN THE RIGHT LOWER LOBE WHEN COMPARED TO THE PRIOR STUDY DATED JUNE 09, 2019. CLOSE MONITORING WITH FOLLOW-UP MAY BE OBTAINED CLINICALLY INDICATED.Electronically signed by: Yomi Pearce (Jul 02, 2019 23:28:16)
[2019-07-02] MEDS ORDERED: NS 1000 ML 1,000 ML ONE (23:44)
[2019-07-02] MEDS ORDERED: CLEOCIN VIAL 600 MG IV SCH (23:45)
[2019-07-03] MEDS: NS 1000 ML 1,000 ML IV SCH (00:05)
[2019-07-03] MEDS ORDERED: CLEOCIN VIAL 600 MG IV ONE (01:00)
[2019-07-03 04:27] VITALS: BMI 27.3
[2019-07-03 06:18] LABS: BASOPHILS % (AUTO) 0.7 % (0.2-1.0); EOSINOPHILS % (AUTO) 0.3 % (0.9-2.9); HEMATOCRIT 32.4 % (42.0-54.0); HEMOGLOBIN 11.5 g/dL (13.5-18.0); LYMPHOCYTES # (AUTO) 0.8 X10^3/uL (1.3-2.9); LYMPHOCYTES % (AUTO) 15.6 % (21.0-51.0); MEAN CORPUSCULAR HEMOGLOBIN 32.1 pg (27.0-34.0); MEAN CORPUSCULAR HGB CONC 35.6 g/dL (33.0-35.0); MEAN CORPUSCULAR VOLUME 90.2 fL (80.0-100.0); MONOCYTES # (AUTO) 0.4 x10^3/uL (0.3-0.8); NEUTROPHILS # (AUTO) 4.1 x10^3/uL (2.2-4.8); NEUTROPHILS % (AUTO) 75.4 % (42.0-75.0); PLATELET COUNT 168 X10^3/uL (150.0-450.0); RED BLOOD COUNT 3.59 X10^6/uL (4.7-6.0); RED CELL DISTRIBUTION WIDTH 12.7 % (11.6-16.5); WHITE BLOOD COUNT 5.4 X10^3/uL (3.6-10.0)
[2019-07-03] MEDS: CLEOCIN 300 MG IV PREMIX 300 MG/50 ML BAG IV SCH ×3 (06:21→21:37)
[2019-07-03 06:40] LABS: ALANINE AMINOTRANSFERASE 16 Units/L (12-78); ALBUMIN 2.9 g/dL (3.4-5.0); ALKALINE PHOSPHATASE 70 Units/L (46-116); ASPARTATE AMINO TRANSFERASE 21 Units/L (15-37); BLOOD UREA NITROGEN 12 mg/dL (7-18); CALCIUM 8.2 mg/dL (8.5-10.1); CARBON DIOXIDE 23.8 mmol/L (21-32); CHLORIDE 102 mmol/L (98-107); COR CA(FOR HYPOALB) 9.1 mg/dL (8.5-10.1); SODIUM 134 mmol/L (136-145); TOTAL PROTEIN 6.4 g/dL (6.4-8.2); eGFR NON BLACK RACES > 60 (>60)
[2019-07-03] MEDS: PULMICORT NEB TX 0.5 MG NEB SCH ×2 (08:54→20:51)
[2019-07-03] MEDS: OFIRMEV IV 1000 MG VIAL 1,000 MG/100 ML VIAL IV PRN ×2 (09:35→19:38)
[2019-07-03] MEDS ORDERED: SALINE 3% 15 ML NEB TX NEB ONE (11:22)
[2019-07-03] MEDS: XOPENEX 1.25 MG/3 ML NEBULE NEB SCH ×2 (11:35→17:35)
--- NOTE | 2019-07-03 12:54 | DR.H&P ---
H&P History & Physical for Day of: H&P Date: 07/03/19 Chief Complaint Chief Complaint: Altered mental status Allergies Allergies Allergy/AdvReac Type Severity Reaction Status Date / Time No Known Drug Allergies Allergy Verified 10/16/18 14:14 History of Present Illness History of Present Illness: Pt is a 73 yo m pmhx pituitary resection(d/t tumor), Hypothyroidism, admitted after having altered mental status. Per and son, pt does have dementia(followed by Dr Bucio-Neurology) but they noticed an acute change, including lethargy and confusion. In ED, CT chest showed LLL PNA, CT head negative. He is febrile, w/ Temp 101F, sleeping on physical exam, aroused by stimulation. He was started on Cipro in ED. Past Medical History Past Medical History: Anemia, Coronary Artery Disease, Dyslipidemia, Hypothyro idism and Sleep Apnea Additional Medical History: Atrial Fibrillation, Bradycardia Pituitary adenoma - s/p resection and XRT with recently diagnoses probable recurrence CVD; S/P TIA in 03/2015 Past Surgical History Surgical History: Angioplasty/Stents and Other Additional Surgical History: Pacemaker implantation 2011 Pituitary adenoma resection and XRT 2009 Cardiac ablation for the tx of A-fib - 05/2015 Cardiac cath and stent placement 2011 Cervical fusion Family History Family Medical History: VT and Coronary Artery Disease Social History Does patient currently use any type of tobacco product: Yes Have you used tobacco products in the last 12 months: Yes Type of Tobacco Use: Cigars Does any household member use tobacco: No Alcohol Use: None Drug Use: None Medications Home Medications: No Known Drug Allergies Allergy (Verified 10/16/18 14:14) CONTINUE taking the following medications B [id number] [Ferrocite Plus] 1 tab PO BID 07/02/19 [History] apixaban [Eliquis] 5 mg PO BID 07/02/19 [History] carvedilol 25 mg PO BID 07/02/19 [History] diltiazem HCl 30 mg PO QID 07/02/19 [History] escitalopram oxalate 10 mg PO DAILY 07/02/19 [History] famotidine 40 mg PO BID 07/02/19 [History] furosemide 20 mg PO DAILY 07/02/19 [History] lisinopril 10 mg PO DAILY 07/02/19 [History] potassium chloride 10 meq PO DAILY 07/02/19 [History] simvastatin 20 mg PO HS 07/02/19 [History] Labs Result Diagrams: 07/03/19 06:00 07/03/19 06:00 Labs: Laboratory WBC 5.4 X10^3/uL (3.6-10.0) 07/03/19 06:00 RBC 3.59 X10^6/uL (4.7-6.0) L 07/03/19 06:00 Hgb 11.5 g/dL (13.5-18.0) L 07/03/19 06:00 Hct 32.4 % (42.0-54.0) L 07/03/19 06:00 MCV 90.2 fL (80.0-100.0) 07/03/19 06:00 MCH 32.1 pg (27.0-34.0) 07/03/19 06:00 MCHC 35.6 g/dL (33.0-35.0) H 07/03/19 06:00 RDW 12.7 % (11.6-16.5) 07/03/19 06:00 Plt Count 168 X10^3/uL (150.0-450.0) 07/03/19 06:00 MPV 9.0 fL (7.4-11.0) 07/03/19 06:00 Neut % (Auto) 75.4 % (42.0-75.0) H 07/03/19 06:00 Lymph % (Auto) 15.6 % (21.0-51.0) L 07/03/19 06:00 [place] % (Auto) 8.0 % (0.0-13.0) 07/03/19 06:00 Eos % (Auto) 0.3 % (0.9-2.9) L 07/03/19 06:00 Baso % (Auto) 0.7 % (0.2-1.0) 07/03/19 06:00 Neut # (Auto) 4.1 x10^3/uL (2.2-4.8) 07/03/19 06:00 Lymph # (Auto) 0.8 X10^3/uL (1.3-2.9) L 07/03/19 06:00 [place] # (Auto) 0.4 x10^3/uL (0.3-0.8) 07/03/19 06:00 Eos # (Auto) 0.0 x10^3/uL (0.0-0.2) 07/03/19 06:00 Baso # (Auto) 0.0 X10^3/uL (0.0-0.1) 07/03/19 06:00 Absolute Nucleated RBC 0.0 /100WBC 07/03/19 06:00 Sodium 134 mmol/L (136-145) L 07/03/19 06:00 Corrected Sodium TNP 07/03/19 06:00 Potassium 3.7 mmol/L (3.5-5.1) 07/03/19 06:00 Chloride 102 mmol/L (98-107) 07/03/19 06:00 Carbon Dioxide 23.8 mmol/L (21-32) 07/03/19 06:00 BUN 12 mg/dL (7-18) 07/03/19 06:00 Creatinine 0.90 mg/dL (0.70-1.30) 07/03/19 06:00 Est GFR (MDRD) Af Amer > 60 (>60) 07/03/19 06:00 Est GFR (MDRD) Non-Af > 60 (>60) 07/03/19 06:00 Glucose 97 mg/dL (65-99) 07/03/19 06:00 Calcium 8.2 mg/dL (8.5-10.1) L 07/03/19 06:00 Corrected Calcium 9.1 mg/dL (8.5-10.1) 07/03/19 06:00 Total Bilirubin 0.40 mg/dL (0.2-1.0) 07/03/19 06:00 AST 21 Units/L (15-37) 07/03/19 06:00 ALT 16 Units/L (12-78) 07/03/19 06:00 Alkaline Phosphatase 70 Units/L (46-116) 07/03/19 06:00 Total Protein 6.4 g/dL (6.4-8.2) 07/03/19 06:00 Albumin 2.9 g/dL (3.4-5.0) L 07/03/19 06:00 Globulin 3.5 g/dL (2.5-4.5) 07/03/19 06:00 Albumin/Globulin Ratio 0.8 Ratio (1.1-2.1) L 07/03/19 06:00 Specimen Type Catherized urine 07/02/19 22:12 Urine Color Yellow (YELLOW) 07/02/19 22:12 Urine Appearance Clear (CLEAR) 07/02/19 22:12 Urine pH 7.0 (5.0 - 8.0) 07/02/19 22:12 Ur Specific [place] 1.010 (1.000-1.030) 07/02/19 22:12 Urine Protein Negative (NEGATIVE) 07/02/19 22:12 Urine Glucose (UA) Negative (NEGATIVE) 07/02/19 22:12 Urine Ketones Negative (NEGATIVE) 07/02/19 22:12 Urine Occult Blood 1+ (NEGATIVE) 07/02/19 22:12 Urine Nitrite Negative (NEGATIVE) 07/02/19 22:12 Urine Bilirubin Negative (NEGATIVE) 07/02/19 22:12 Urine Urobilinogen 2+ (NORMAL) 07/02/19 22:12 Ur Leukocyte Esterase Negative (NEGATIVE) 07/02/19 22:12 Urine RBC 0-2 /HPF (0-3) 07/02/19 22:12 Urine WBC None seen /HPF (0-5) 07/02/19 22:12 Ur Squamous Epith Cells Rare /HPF (NEGATIVE) 07/02/19 22:12 Urine Bacteria Negative /HPF (NEGATIVE) 07/02/19 22:12 Ur Culture Indicated? No/not indicated 07/02/19 22:12 Review of Systems Constitutional: Fever, Chills and Weakness Eyes: No Symptoms Reported ENT: No Symptoms Reported Respiratory: Cough and Shortness of Breath Cardiovascular: No Symptoms Reported Gastrointestinal: No Symptoms Reported Genitourinary: No Symptoms Reported Musculoskeletal: No Symptoms Reported Skin: No Symptoms Reported Neurological: Weakness and Confusion Physical Exam Vital Signs: Temperature 101.1 F Pulse Rate [Apical] 64 Pulse Rate [Sitting] 66 Pulse Rate [Lying] 68 Pulse Rate 64 Respiratory Rate 20 Blood Pressure [Left Arm] 116/58 Blood Pressure [Right Arm] 111/57 Blood Pressure [Standing] 130/74 Blood Pressure [Sitting] 125/59 Blood Pressure [Lying] 115/59 Blood Pressure 112/63 O2 Sat by Pulse Oximetry 96 Oriented: Unable to test (patient sleeping, aroused with physical stimulation) Eyes: Normal Ear: Normal Nose: Normal Respiratory: LLL Rhonchi and LLL Rales Cardiovascular: Normal : Normal Auscultation: Bowel Sounds: Normal Palpation: Normal Tenderness: Normal Skin: Normal Psychiatric: Other Assessment/Plan (1) LLL pneumonia: Qualifiers: Pneumonia type: due to unspecified organism Qualified Code(s): J18.1 - Lobar pneumonia, unspecified organism Status: Acute Plan: Pt received Cipro in ED, will change to Zosyn. BloodCx pending Follow up labs in AM. Continue to monitor. (2) Altered mental status: Status: Acute Review H&P Reviewed: Yes Patient was examined?: Yes
[2019-07-03] MEDS: PEPCID TAB 20 MG PO SCH ×2 (13:23→21:37)
[2019-07-03] MEDS: HEMOCYTE-PLUS PO SCH ×2 (13:23→21:37)
[2019-07-03] MEDS: ELIQUIS PO SCH ×2 (13:24→21:37)
[2019-07-03] MEDS: PLAVIX PO SCH (13:24)
[2019-07-03] MEDS: CARDIZEM TAB 30 MG PLAIN PO SCH ×4 (13:25→21:37)
[2019-07-03] MEDS: ZESTRIL TAB 10 MG PO SCH (13:32)
[2019-07-03] MEDS: ZOSYN VIAL 3.375 GRAMS 3.375 G in NS 100 ML IV + SPIKE MINIBAG* 100 ML IV SCH ×3 (16:07→21:37)
[2019-07-03] MEDS ORDERED: CORTEF ONE (20:18)
[2019-07-03] MEDS: CORTEF PO SCH (21:37)
[2019-07-03] MEDS: ZOCOR TAB 20 MG PO SCH (21:37)
[2019-07-04] MEDS: XOPENEX 1.25 MG/3 ML NEBULE NEB SCH ×4 (00:05→17:03)
[2019-07-04] MEDS: NS 1000 ML 1,000 ML IV SCH (02:32)
[2019-07-04] MEDS: COREG TAB 25 MG PO SCH ×3 (02:33→21:38)
[2019-07-04] MEDS: CLEOCIN 300 MG IV PREMIX 300 MG/50 ML BAG IV SCH ×4 (05:32→21:30)
[2019-07-04 06:26] LABS: BASOPHILS % (AUTO) 0.7 % (0.2-1.0); EOSINOPHILS % (AUTO) 0.2 % (0.9-2.9); HEMATOCRIT 30.4 % (42.0-54.0); HEMOGLOBIN 10.9 g/dL (13.5-18.0); LYMPHOCYTES # (AUTO) 0.6 X10^3/uL (1.3-2.9); LYMPHOCYTES % (AUTO) 14.6 % (21.0-51.0); MEAN CORPUSCULAR HGB CONC 35.9 g/dL (33.0-35.0); MEAN CORPUSCULAR VOLUME 89.3 fL (80.0-100.0); MONOCYTES # (AUTO) 0.3 x10^3/uL (0.3-0.8); MONOCYTES % (AUTO) 7.1 % (0.0-13.0); NEUTROPHILS # (AUTO) 3.1 x10^3/uL (2.2-4.8); NEUTROPHILS % (AUTO) 77.4 % (42.0-75.0); PLATELET COUNT 167 X10^3/uL (150.0-450.0); RED CELL DISTRIBUTION WIDTH 12.4 % (11.6-16.5)
[2019-07-04] MEDS: ZOSYN VIAL 3.375 GRAMS 3.375 G in NS 100 ML IV + SPIKE MINIBAG* 100 ML IV SCH ×3 (06:29→22:03)
[2019-07-04 06:48] LABS: ALANINE AMINOTRANSFERASE 20 Units/L (12-78); ALBUMIN 2.7 g/dL (3.4-5.0); ALKALINE PHOSPHATASE 63 Units/L (46-116); ASPARTATE AMINO TRANSFERASE 38 Units/L (15-37); BLOOD UREA NITROGEN 17 mg/dL (7-18); CALCIUM 7.9 mg/dL (8.5-10.1); CARBON DIOXIDE 26.1 mmol/L (21-32); CHLORIDE 101 mmol/L (98-107); COR CA(FOR HYPOALB) 8.9 mg/dL (8.5-10.1); CREATININE 0.94 mg/dL (0.70-1.30); SODIUM 137 mmol/L (136-145); TOTAL PROTEIN 6.2 g/dL (6.4-8.2); eGFR NON BLACK RACES > 60 (>60)
--- NOTE | 2019-07-04 07:04 | RAD ---
HISTORYPneumoniaSTUDYAP [id number]/05/2019FINDINGSStable cardiac prominence with no change in position of twin lead pacemaker. The lungs remain mildly hyperaerated with chronic coarsening of the interstitium. Surgical hardware again noted in the cervical spine and left shoulder.IMPRESSIONNo change; no acute findings. Suspect COPD.Electronically signed by: ASHLEY GANDHI (Jul 04, 2019 07:02:56)
[2019-07-04] MEDS ORDERED: CORTEF ONE ×2 (08:32→21:21)
[2019-07-04] MEDS ORDERED: LEXAPRO ONE (08:33)
[2019-07-04] MEDS: PULMICORT NEB TX 0.5 MG NEB SCH ×2 (09:18→20:50)
[2019-07-04] MEDS: CARDIZEM TAB 30 MG PLAIN PO SCH ×5 (09:44→21:38)
[2019-07-04] MEDS: CORTEF PO SCH ×2 (09:44→21:28)
[2019-07-04] MEDS: HEMOCYTE-PLUS PO SCH ×2 (09:45→21:28)
[2019-07-04] MEDS: ZESTRIL TAB 10 MG PO SCH (09:45)
[2019-07-04] MEDS: PEPCID TAB 20 MG PO SCH ×2 (09:45→21:28)
[2019-07-04] MEDS: LEXAPRO PO SCH (09:45)
[2019-07-04] MEDS: SYNTHROID 100 mcg TAB PO SCH (09:46)
[2019-07-04] MEDS: PLAVIX PO SCH (09:46)
[2019-07-04] MEDS: ELIQUIS PO SCH ×2 (09:46→21:28)
--- NOTE | 2019-07-04 11:25 | PCM.PROG ---
Progress Note Progress Note for Day of Date of Exam: 07/04/19 Subjective Subjective: Pt is a 73 yo m pmhx pituitary resection(d/t tumor), Hypothyroidism, admitted for LLL pneumonia(likely d/t aspiration) that was seen on CT chest. He has been afebrile overnight, and this morning he is sitting up in bed eating breakfast, alert and conversational. No acute abnormalities on physical exam. Will continue antibiotics Zosyn and order ST to evaluate pt, since pneumonia may be from aspiration. Continue to monitor and follow up labs in morning. Past Medical Family Social History Past Med/Fam/Surg Hx: No changes since H&P Allergies: Allergies No Known Drug Allergies Allergy (Verified 10/16/18 14:14) Review of Systems ROS: No change since H&P Vital Signs and I&O's Vital Signs: Temperature 98.8 F Pulse Rate [Apical] 64 Pulse Rate [Sitting] 66 Pulse Rate [Lying] 68 Pulse Rate 69 Respiratory Rate 18 Blood Pressure [Left Arm] 105/59 Blood Pressure [Right Arm] 111/57 Blood Pressure [Standing] 130/74 Blood Pressure [Sitting] 125/59 Blood Pressure [Lying] 115/59 Blood Pressure 112/63 O2 Sat by Pulse Oximetry 97 Intake and Output: Intake & Output 07/01/19 07/02/19 07/03/19 07/04/19 23:59 23:59 23:59 23:59 Intake Total 180 / 180 300 / 300 Output Total 775 / 775 150 / 150 Balance -595 / -595 150 / 150 Physical Exam Oriented: Normal Eyes: Normal Ear: Normal Nose: Normal Cardiovascular: Normal : Normal Auscultation: Bowel Sounds: Normal Tenderness: Normal Skin: Normal Psychiatric: Normal Speech Pattern: Clear and Appropriate Laboratory and Diagnostics Result Diagrams: 07/04/19 05:25 07/04/19 05:25 Labs: Laboratory WBC 4.0 X10^3/uL (3.6-10.0) 07/04/19 05:25 RBC 3.40 X10^6/uL (4.7-6.0) L 07/04/19 05:25 Hgb 10.9 g/dL (13.5-18.0) L 07/04/19 05:25 Hct 30.4 % (42.0-54.0) L 07/04/19 05:25 MCV 89.3 fL (80.0-100.0) 07/04/19 05:25 MCH 32.0 pg (27.0-34.0) 07/04/19 05:25 MCHC 35.9 g/dL (33.0-35.0) H 07/04/19 05:25 RDW 12.4 % (11.6-16.5) 07/04/19 05:25 Plt Count 167 X10^3/uL (150.0-450.0) 07/04/19 05:25 MPV 9.0 fL (7.4-11.0) 07/04/19 05:25 Neut % (Auto) 77.4 % (42.0-75.0) H 07/04/19 05:25 Lymph % (Auto) 14.6 % (21.0-51.0) L 07/04/19 05:25 [place] % (Auto) 7.1 % (0.0-13.0) 07/04/19 05:25 Eos % (Auto) 0.2 % (0.9-2.9) L 07/04/19 05:25 Baso % (Auto) 0.7 % (0.2-1.0) 07/04/19 05:25 Neut # (Auto) 3.1 x10^3/uL (2.2-4.8) 07/04/19 05:25 Lymph # (Auto) 0.6 X10^3/uL (1.3-2.9) L 07/04/19 05:25 [place] # (Auto) 0.3 x10^3/uL (0.3-0.8) 07/04/19 05:25 Eos # (Auto) 0.0 x10^3/uL (0.0-0.2) 07/04/19 05:25 Baso # (Auto) 0.0 X10^3/uL (0.0-0.1) 07/04/19 05:25 Absolute Nucleated RBC 0.0 /100WBC 07/04/19 05:25 Sodium 137 mmol/L (136-145) 07/04/19 05:25 Corrected Sodium TNP 07/04/19 05:25 Potassium 3.8 mmol/L (3.5-5.1) 07/04/19 05:25 Chloride 101 mmol/L (98-107) 07/04/19 05:25 Carbon Dioxide 26.1 mmol/L (21-32) 07/04/19 05:25 BUN 17 mg/dL (7-18) 07/04/19 05:25 Creatinine 0.94 mg/dL (0.70-1.30) 07/04/19 05:25 Est GFR (MDRD) Af Amer > 60 (>60) 07/04/19 05:25 Est GFR (MDRD) Non-Af > 60 (>60) 07/04/19 05:25 Glucose 91 mg/dL (65-99) 07/04/19 05:25 Calcium 7.9 mg/dL (8.5-10.1) L 07/04/19 05:25 Corrected Calcium 8.9 mg/dL (8.5-10.1) 07/04/19 05:25 Total Bilirubin 0.30 mg/dL (0.2-1.0) 07/04/19 05:25 AST 38 Units/L (15-37) H 07/04/19 05:25 ALT 20 Units/L (12-78) 07/04/19 05:25 Alkaline Phosphatase 63 Units/L (46-116) 07/04/19 05:25 Total Protein 6.2 g/dL (6.4-8.2) L 07/04/19 05:25 Albumin 2.7 g/dL (3.4-5.0) L 07/04/19 05:25 Globulin 3.5 g/dL (2.5-4.5) 07/04/19 05:25 Albumin/Globulin Ratio 0.8 Ratio (1.1-2.1) L 07/04/19 05:25 Specimen Type Catherized urine 07/02/19 22:12 Urine Color Yellow (YELLOW) 07/02/19 22:12 Urine Appearance Clear (CLEAR) 07/02/19 22:12 Urine pH 7.0 (5.0 - 8.0) 07/02/19 22:12 Ur Specific [place] 1.010 (1.000-1.030) 07/02/19 22:12 Urine Protein Negative (NEGATIVE) 07/02/19 22:12 Urine Glucose (UA) Negative (NEGATIVE) 07/02/19 22:12 Urine Ketones Negative (NEGATIVE) 07/02/19 22:12 Urine Occult Blood 1+ (NEGATIVE) 07/02/19 22:12 Urine Nitrite Negative (NEGATIVE) 07/02/19 22:12 Urine Bilirubin Negative (NEGATIVE) 07/02/19 22:12 Urine Urobilinogen 2+ (NORMAL) 07/02/19 22:12 Ur Leukocyte Esterase Negative (NEGATIVE) 07/02/19 22:12 Urine RBC 0-2 /HPF (0-3) 07/02/19 22:12 Urine WBC None seen /HPF (0-5) 07/02/19 22:12 Ur Squamous Epith Cells Rare /HPF (NEGATIVE) 07/02/19 22:12 Urine Bacteria Negative /HPF (NEGATIVE) 07/02/19 22:12 Ur Culture Indicated? No/not indicated 07/02/19 22:12 Plan (1) LLL pneumonia: Status: Acute Qualifiers: Pneumonia type: due to unspecified organism Qualified Code(s): J18.1 - Lobar pneumonia, unspecified organism Plan: Abx:Zosyn. BloodCx and SputumCx pending Follow up labs in AM. Continue to monitor. (2) Altered mental status: Status: Acute Plan: Improved
[2019-07-04] MEDS: OFIRMEV IV 1000 MG VIAL 1,000 MG/100 ML VIAL IV PRN (15:36)
[2019-07-04 16:55] LABS: BILIRUBIN,URINE NEGATIVE (NEGATIVE); BLOOD/HEMOGLOBIN,URINE 5+ (NEGATIVE); GLUCOSE, URINE NEGATIVE (NEGATIVE); KETONES,URINE NEGATIVE (NEGATIVE); LEUKOCYTE ESTERASE ,URINE 1+ (NEGATIVE); NITRITES,URINE NEGATIVE (NEGATIVE); PH,URINE 6.5 (5.0 - 8.0); PROTEIN,URINE 3+ (NEGATIVE); UROBILINOGEN,URINE 2+ (NORMAL)
[2019-07-04 17:17] LABS: APPEARANCE,URINE CLOUDY (CLEAR); COLOR,URINE YELLOW (YELLOW)
[2019-07-04 17:18] LABS: BACTERIA,URINE TRACE /HPF (NEGATIVE); RBC,URINE TNTC /HPF (0-3); SQUAMOUS EPITHELIAL CELL,UR RARE /HPF (NEGATIVE)
[2019-07-04] MEDS: ZOCOR TAB 20 MG PO SCH (21:28)
[2019-07-05] MEDS: XOPENEX 1.25 MG/3 ML NEBULE NEB SCH ×3 (00:55→12:24)
[2019-07-05] MEDS: NS 1000 ML 1,000 ML IV SCH (01:05)
[2019-07-05] MEDS: OFIRMEV IV 1000 MG VIAL 1,000 MG/100 ML VIAL IV PRN (04:23)
[2019-07-05] MEDS: CLEOCIN 300 MG IV PREMIX 300 MG/50 ML BAG IV SCH ×2 (05:06→13:38)
[2019-07-05 05:48] LABS: BASOPHILS % (AUTO) 0.6 % (0.2-1.0); EOSINOPHILS % (AUTO) 1.2 % (0.9-2.9); HEMATOCRIT 31.5 % (42.0-54.0); HEMOGLOBIN 11.4 g/dL (13.5-18.0); LYMPHOCYTES # (AUTO) 0.7 X10^3/uL (1.3-2.9); MEAN CORPUSCULAR HEMOGLOBIN 32.2 pg (27.0-34.0); MEAN CORPUSCULAR HGB CONC 36.1 g/dL (33.0-35.0); MEAN CORPUSCULAR VOLUME 89.1 fL (80.0-100.0); MEAN PLATELET VOLUME 9.1 fL (7.4-11.0); MONOCYTES # (AUTO) 0.3 x10^3/uL (0.3-0.8); MONOCYTES % (AUTO) 10.5 % (0.0-13.0); NEUTROPHILS # (AUTO) 1.6 x10^3/uL (2.2-4.8); NEUTROPHILS % (AUTO) 61.7 % (42.0-75.0); PLATELET COUNT 161 X10^3/uL (150.0-450.0); RED BLOOD COUNT 3.54 X10^6/uL (4.7-6.0); RED CELL DISTRIBUTION WIDTH 12.5 % (11.6-16.5); WHITE BLOOD COUNT 2.6 X10^3/uL (3.6-10.0)
[2019-07-05 05:50] LABS: BLOOD UREA NITROGEN 9 mg/dL (7-18); CALCIUM 7.6 mg/dL (8.5-10.1); CHLORIDE 107 mmol/L (98-107); SODIUM 141 mmol/L (136-145); eGFR NON BLACK RACES > 60 (>60)
[2019-07-05] MEDS: ZOSYN VIAL 3.375 GRAMS 3.375 G in NS 100 ML IV + SPIKE MINIBAG* 100 ML IV SCH (06:05)
--- NOTE | 2019-07-05 08:29 | W.DIS.FURT ---
Summary of Discharge Discharge Summary of Date Date of Exam: 07/05/19 Admission Date Date of Admission: 07/03/19 Admission Diagnosis Hospital Course: Pt is a 73 yo m pmhx pituitary resection(d/t tumor), Hypothyroidism, admitted for LLL pneumonia(likely d/t aspiration) that was seen on CT chest and altered mental status that was likely d/t infection. He received IV Zosyn during hospital course and improved significantly. Due to his multiple recent pneumonia episodes, that is likely from aspiration, ST was consulted to evaluate, recommending a FEES test that will be scheduled outpatient. On day of discharge pt afebrile, sitting up in bed eating breakfast, alert and conversational. No acute abnormalities on physical exam. Will discharge patient on cipro+flagyl course x 5days. Follow up with pcp in 1 week. Vital Signs: Vital Signs (72 hours) 07/02/19 20:27 07/02/19 22:15 07/02/19 22:16 Temperature 99.8 F H Pulse Rate 74 Pulse Rate [Apical] Pulse Rate [Lying] 68 Pulse Rate [Sitting] 66 Respiratory Rate 16 Blood Pressure 112/63 Blood Pressure [Left Arm] 125/59 Blood Pressure [Lying] 115/59 Blood Pressure [Sitting] 125/59 O2 Sat by Pulse Oximetry 97 96 07/02/19 22:53 07/02/19 23:00 07/02/19 23:30 Temperature Pulse Rate Pulse Rate [Apical] 65 63 62 Pulse Rate [Lying] Pulse Rate [Sitting] Respiratory Rate Blood Pressure Blood Pressure [Left Arm] 138/70 159/72 118/60 Blood Pressure [Lying] Blood Pressure [Sitting] O2 Sat by Pulse Oximetry 96 98 07/03/19 01:00 07/03/19 04:00 07/03/19 08:00 Temperature 100.4 F H 101.1 F H Pulse Rate Pulse Rate [Apical] 69 64 Pulse Rate [Lying] Pulse Rate [Sitting] Respiratory Rate 24 20 Blood Pressure Blood Pressure [Left Arm] 121/72 121/65 116/58 Blood Pressure [Lying] Blood Pressure [Sitting] O2 Sat by Pulse Oximetry 100 97 07/03/19 08:45 07/03/19 08:54 07/03/19 12:00 Temperature 99.8 F H 99.9 F H Pulse Rate 64 Pulse Rate [Apical] 66 Pulse Rate [Lying] Pulse Rate [Sitting] Respiratory Rate 18 Blood Pressure Blood Pressure [Left Arm] 102/56 Blood Pressure [Lying] Blood Pressure [Sitting] O2 Sat by Pulse Oximetry 96 96 07/03/19 16:00 07/03/19 16:43 07/03/19 20:00 Temperature 97.8 F 98.7 F Pulse Rate Pulse Rate [Apical] 72 67 Pulse Rate [Lying] Pulse Rate [Sitting] Respiratory Rate 18 20 Blood Pressure Blood Pressure [Left Arm] 79/51 80/60 100/59 Blood Pressure [Lying] Blood Pressure [Sitting] O2 Sat by Pulse Oximetry 94 L 98 07/03/19 20:52 07/04/19 00:00 07/04/19 04:00 Temperature 98.6 F 98.3 F Pulse Rate 65 Pulse Rate [Apical] 72 66 Pulse Rate [Lying] Pulse Rate [Sitting] Respiratory Rate 26 H 22 Blood Pressure Blood Pressure [Left Arm] 111/55 100/57 Blood Pressure [Lying] Blood Pressure [Sitting] O2 Sat by Pulse Oximetry 94 L 96 96 07/04/19 08:00 07/04/19 09:18 07/04/19 12:00 Temperature 98.8 F 98.0 F Pulse Rate 69 Pulse Rate [Apical] 64 64 Pulse Rate [Lying] Pulse Rate [Sitting] Respiratory Rate 18 18 Blood Pressure Blood Pressure [Left Arm] 105/59 108/56 Blood Pressure [Lying] Blood Pressure [Sitting] O2 Sat by Pulse Oximetry 97 97 98 07/04/19 16:00 07/04/19 20:00 07/04/19 20:50 Temperature 98.9 F 98.6 F Pulse Rate 67 Pulse Rate [Apical] 62 67 Pulse Rate [Lying] Pulse Rate [Sitting] Respiratory Rate 18 16 Blood Pressure Blood Pressure [Left Arm] 111/56 113/55 Blood Pressure [Lying] Blood Pressure [Sitting] O2 Sat by Pulse Oximetry 97 98 97 07/05/19 00:00 07/05/19 04:00 Temperature 98.4 F 98.5 F Pulse Rate Pulse Rate [Apical] 89 86 Pulse Rate [Lying] Pulse Rate [Sitting] Respiratory Rate 18 18 Blood Pressure Blood Pressure [Left Arm] 129/71 145/83 Blood Pressure [Lying] Blood Pressure [Sitting] O2 Sat by Pulse Oximetry 98 99 Labs: Laboratory Last Values WBC 2.6 X10^3/uL (3.6-10.0) L 07/05/19 05:15 RBC 3.54 X10^6/uL (4.7-6.0) L 07/05/19 05:15 Hgb 11.4 g/dL (13.5-18.0) L 07/05/19 05:15 Hct 31.5 % (42.0-54.0) L 07/05/19 05:15 MCV 89.1 fL (80.0-100.0) 07/05/19 05:15 MCH 32.2 pg (27.0-34.0) 07/05/19 05:15 MCHC 36.1 g/dL (33.0-35.0) H 07/05/19 05:15 RDW 12.5 % (11.6-16.5) 07/05/19 05:15 Plt Count 161 X10^3/uL (150.0-450.0) 07/05/19 05:15 MPV 9.1 fL (7.4-11.0) 07/05/19 05:15 Neut % (Auto) 61.7 % (42.0-75.0) 07/05/19 05:15 Lymph % (Auto) 26.0 % (21.0-51.0) 07/05/19 05:15 [place] % (Auto) 10.5 % (0.0-13.0) 07/05/19 05:15 Eos % (Auto) 1.2 % (0.9-2.9) 07/05/19 05:15 Baso % (Auto) 0.6 % (0.2-1.0) 07/05/19 05:15 Neut # (Auto) 1.6 x10^3/uL (2.2-4.8) L 07/05/19 05:15 Lymph # (Auto) 0.7 X10^3/uL (1.3-2.9) L 07/05/19 05:15 [place] # (Auto) 0.3 x10^3/uL (0.3-0.8) 07/05/19 05:15 Eos # (Auto) 0.0 x10^3/uL (0.0-0.2) 07/05/19 05:15 Baso # (Auto) 0.0 X10^3/uL (0.0-0.1) 07/05/19 05:15 Absolute Nucleated RBC 0.2 /100WBC 07/05/19 05:15 Sodium 141 mmol/L (136-145) 07/05/19 05:15 Corrected Sodium TNP 07/05/19 05:15 Potassium 3.6 mmol/L (3.5-5.1) 07/05/19 05:15 Chloride 107 mmol/L (98-107) 07/05/19 05:15 Carbon Dioxide 27.0 mmol/L (21-32) 07/05/19 05:15 BUN 9 mg/dL (7-18) 07/05/19 05:15 Creatinine 0.70 mg/dL (0.70-1.30) 07/05/19 05:15 Est GFR (MDRD) Af Amer > 60 (>60) 07/05/19 05:15 Est GFR (MDRD) Non-Af > 60 (>60) 07/05/19 05:15 Glucose 97 mg/dL (65-99) 07/05/19 05:15 Calcium 7.6 mg/dL (8.5-10.1) L 07/05/19 05:15 Corrected Calcium 8.9 mg/dL (8.5-10.1) 07/04/19 05:25 Total Bilirubin 0.30 mg/dL (0.2-1.0) 07/04/19 05:25 AST 38 Units/L (15-37) H 07/04/19 05:25 ALT 20 Units/L (12-78) 07/04/19 05:25 Alkaline Phosphatase 63 Units/L (46-116) 07/04/19 05:25 Total Protein 6.2 g/dL (6.4-8.2) L 07/04/19 05:25 Albumin 2.7 g/dL (3.4-5.0) L 07/04/19 05:25 Globulin 3.5 g/dL (2.5-4.5) 07/04/19 05:25 Albumin/Globulin Ratio 0.8 Ratio (1.1-2.1) L 07/04/19 05:25 Specimen Type Catherized urine 07/04/19 16:30 Urine Color Yellow (YELLOW) 07/04/19 16:30 Urine Appearance Cloudy (CLEAR) 07/04/19 16:30 Urine pH 6.5 (5.0 - 8.0) 07/04/19 16:30 Ur Specific [place] 1.010 (1.000-1.030) 07/04/19 16:30 Urine Protein 3+ (NEGATIVE) 07/04/19 16:30 Urine Glucose (UA) Negative (NEGATIVE) 07/04/19 16:30 Urine Ketones Negative (NEGATIVE) 07/04/19 16:30 Urine Occult Blood 5+ (NEGATIVE) 07/04/19 16:30 Urine Nitrite Negative (NEGATIVE) 07/04/19 16:30 Urine Bilirubin Negative (NEGATIVE) 07/04/19 16:30 Urine Urobilinogen 2+ (NORMAL) 07/04/19 16:30 Ur Leukocyte Esterase 1+ (NEGATIVE) 07/04/19 16:30 Urine RBC Tntc /HPF (0-3) A 07/04/19 16:30 Urine WBC 0-2 /HPF (0-5) 07/04/19 16:30 Ur Squamous Epith Cells Rare /HPF (NEGATIVE) 07/04/19 16:30 Urine Bacteria Trace /HPF (NEGATIVE) 07/04/19 16:30 Ur Culture Indicated? Yes/culture set up 07/04/19 16:30 Reason For Visit: ALTERED MENTAL STATUS, ASPIRATION PNEUMONIA LLL Discharge Date Discharge Date: 07/05/19 Discharge Diagnosis All Active Problems (Updated 07/03/19 @ 12:53 by Lasha Ku) Altered mental status (Acute) Hyperlipidemia (Chronic) Sinusitis (Chronic) Depression (Chronic) GERD (gastroesophageal reflux disease) (Acute) LLL pneumonia (Acute) Acute dehydration (Acute) Enterocolitis (Acute) COPD (chronic obstructive pulmonary disease) (Acute) Dysphagia (Acute) Cough (Acute) Weak (Acute) Hypokalemia (Acute) Nausea and vomiting (Acute) Abdominal pain (Acute) Pneumonia (Acute) Pleurisy (Acute) Altered mental status (Acute) Bilateral pneumonia (Acute) Aspiration pneumonia of left lower lobe (Acute) Nausea (Acute) Fever (Acute) Generalized weakness (Acute) Cerebrovascular small vessel disease (Chronic) CAD (coronary artery disease) (Chronic) Hypertension (Chronic) BPH (benign prostatic hypertrophy) (Chronic) Hypothyroidism (Chronic) Arthritis (Chronic) Plan of Treatment: Continue with present treatment and follow up plan. Pt is to keep follow up appointment as instructed and take medications as ordered. Discharge Medications Discharge Medications: No Known Drug Allergies Allergy (Verified 10/16/18 14:14) CONTINUE taking the following medications Eliquis 5 mg PO BID 07/02/19 [History] Ferrocite Plus 1 tab PO BID 07/02/19 [History] carvedilol 25 mg PO BID 07/02/19 [History] diltiazem HCl 30 mg PO QID 07/02/19 [History] escitalopram oxalate 10 mg PO DAILY 07/02/19 [History] famotidine 40 mg PO BID 07/02/19 [History] furosemide 20 mg PO DAILY 07/02/19 [History] lisinopril 10 mg PO DAILY 07/02/19 [History] potassium chloride 10 meq PO DAILY 07/02/19 [History] simvastatin 20 mg PO HS 07/02/19 [History] New Prescriptions ciprofloxacin HCl 500 mg PO BID 5 Days #10 tab 07/05/19 [Rx] metronidazole [Flagyl] 500 mg PO TID 5 Days #15 tab 07/05/19 [Rx] Discharge Disposition Assessment: Patient stable no acute distress noted at time of discharge. Discharge Disposition: Home
[2019-07-05] MEDS ORDERED: CORTEF ONE (08:41)
[2019-07-05] MEDS ORDERED: LEXAPRO ONE (08:42)
[2019-07-05] MEDS: CORTEF PO SCH (09:20)
[2019-07-05] MEDS: HEMOCYTE-PLUS PO SCH (09:20)
[2019-07-05] MEDS: SYNTHROID 100 mcg TAB PO SCH (09:20)
[2019-07-05] MEDS: COREG TAB 25 MG PO SCH ×2 (09:20→09:22)
[2019-07-05] MEDS: ELIQUIS PO SCH (09:20)
[2019-07-05] MEDS: PEPCID TAB 20 MG PO SCH (09:20)
[2019-07-05] MEDS: CARDIZEM TAB 30 MG PLAIN PO SCH ×2 (09:21→13:35)
[2019-07-05] MEDS: ZESTRIL TAB 10 MG PO SCH (09:22)
[2019-07-05] MEDS: PLAVIX PO SCH (09:22)
[2019-07-05] MEDS: LEXAPRO PO SCH (09:22)
[2019-07-05] MEDS: PULMICORT NEB TX 0.5 MG NEB SCH (09:40)
[2019-07-05 12:26] VITALS: BP 109/52
== END 2019-07-05 14:40 | disposition home or self-care (01) ==
LOC: ER 20:25 → MED/SURG 20:25
PROVIDERS: ADMIT Internal Medicine; ATTEND Family Medicine
DX: R41.82 Altered mental status, unspecified; Z79.01 Long term (current) use of anticoagulants; I25.10 Atherosclerotic heart disease of native coronary artery without angina pectoris; Z79.899 Other long term (current) drug therapy; M25.532 Pain in left wrist; Z95.0 Presence of cardiac pacemaker; J69.0 Pneumonitis due to inhalation of food and vomit; E78.49 Other hyperlipidemia; Z91.81 History of falling; E03.8 Other specified hypothyroidism; I48.91 Unspecified atrial fibrillation
CPT/HCPCS: 36415; 51702; 70450; 71010; 71045; 71250; 73100; 80048; 80053; 81001; 85025; 87040; 87086; 92526; 92610; 93005; 94640; 94669; 96360; 96361; 96365; 96374; 99284; A4222; G0378; J0131; J2543; J7030; J7050; J7626; S0077

== ENCOUNTER 2020-08-09 11:04 | Observation (INO) ==
--- NOTE | 2020-08-09 11:21 | DR.FEVERAD ---
HPI Time seen Time Seen by Provider: 08/09/20 11:21 PCP Primary Care Physician: LESLIE TRAVIS HPI Comment HPI Comment: PATIENT IS 75YR OLD MALE IN ER WITH FEVER NOTED TODAY AND GENERALIZED WEAKNESS, THIRST AND INCREASTNG SOB FOR FEW DAYS. CONDITION IS G ETTING WORSE. DENIES VOMITING, DIARRHEA OR DYSURIA. Complaints/Symptoms Chief Complaint Doctor Comments: WEAKNESS, INCREASING SOB AND INCREASE THIRST FOR FEW DAYS. FEVER TODAY. Chief Complaint:: PT C/O FEVER UP TO 102.1 THIS MORNING AROUND 10AM. PT C./O SEVERAL DAYS OF GENERALIZED WEAKNESS, SHORTNESS OF BREATH AND INCREASED THIRST. Self Treatment fo Chief Complaint: TOOK ADVIL 400MG PO AT 10AM COVID-19 Coronavirus risk:travel/contact w/high risk person: No Has patient experienced Coronavirus symptoms: Yes Coronavirus symptoms experienced: Fever and Shortness of Breath Nurses notes reviewed Nurses Notes Review: Yes Source History Provided: Patient Mode of Arrival Mode of Arrival: Wheelchair Timing Onset of Chief Complaint: 08/09/20 Came on: Suddenly Duration Duration: Constant Duration: Days Severity Fever Severity/Quality: greater than 102 F Context Recent: None Symptoms: Fever, Cough and SOB History of: None Modifying factors Modifying factors: Ibuprofen Associated signs and symptoms Associated signs and symptoms: Weakness and Myalgia PMH PMH Past Medical History: Yes Past Medical History: Anemia, Coronary Artery Disease, Dyslipidemia, Hypoth yroidism and Sleep Apnea Past Surgical History: Yes Surgical History: Angioplasty/Stents Family History History of Family Medical Conditions: Yes Family Medical History: [place] and Coronary Artery Disease Social History Does patient currently use any type of tobacco product: No Have you used tobacco products in the last 12 months: No Type of Tobacco Use: None Alcohol Use: None Do you use any recreational Drugs:: No Lives With: Family Lives Where: Home Travel Risk Coronavirus risk:travel/contact w/high risk person: No Has patient experienced Coronavirus symptoms: Yes Coronavirus symptoms experienced: Fever and Shortness of Breath Infectious screening In the last 2 months have you had wt loss of >10#?: NO Have you had fever, night sweats or hemotysis?: No Have you traveled outside the country in the last 6 months?: No Isolation: Standard ROS Review of Systems Constitutional: See HPI, Fever, Weakness and Fatigue Eyes: No Symptoms Reported and See HPI ENTM: See HPI and Nose Congestion; negative Nose Discharge Respiratoy: See HPI, Moist Cough and Short of Breath; negative Wheezing Cardiovascular: See HPI and Chest Pain (PLERITIC); negative Edema Gastrointestinal/Abdominal: No Symptoms Reported and See HPI; negative Abdominal Pain, Diarrhea and Vomiting Genitourinary: No Symptoms Reported and See HPI; negative Dysuria Neurological: See HPI and Seizure; negative Headache and Tingling Musculoskeletal: See HPI and Muscle Pain; negative Back Pain Integumentary: No Symptoms Reported and See HPI; negative Change in Color, Rash and Juandice Hematologic/Lymphatic: See HPI; negative Easy Bruising Endocrine: No Symptoms Reported, See HPI and Increased Thirst; negative Increased Urine Psychiatric: No Symptoms Reported and See HPI All Other Systems: Reviewed and Negative PE Vital Signs Vitals: Temperature 100.3 F Pulse Rate 64 Respiratory Rate 22 Blood Pressure [Left Arm] 109/52 Blood Pressure [Right Arm] 111/57 Blood Pressure [Standing] 130/74 Blood Pressure [Sitting] 125/59 Blood Pressure [Lying] 115/59 Blood Pressure 100/54 O2 Sat by Pulse Oximetry 96 General Limitations: No Limitations General Appearance: Alert and In Distress Head Head Exam: Normal Inspection and Atraumatic Eyes Eye exam: Normal Appearance and PERRL; negative Scleral Icterus and Conjunctival Injection ENT ENT Exam: Normal Exam, Normal Oropharynx, Normal External Ear Exam and TM's Normal Bilaterally External Ear Exam: Normal External Inspection; negative Mastoid Tenderness TM/Canal Exam: Bilateral: Normal Nose Exam: Normal Nose Exam; negative Sinus Tenderness Mouth Exam: negative Lip Swelling and Tongue Swelling Teeth Exam: Dental Caries; negative Dental Tenderness # and Gingival Swelling Throat Exam: negative Tonsillar Erythema, Tonsillomegaly and Tonsillar Exudate Neck Neck Exam: Normal Inspection and Trachea Midline; negative Tenderness and Lymphadenopathy Respiratory Respiratory Exam: Normal Lung Sounds Bilat; negative Accessory Muscle Use, Chest Wall Tenderness and Respiratory Distress Respiratory Exam: Bilateral: Rhonchi and Lower: Rhonchi Cardiovascular Cardiovascular Exam: Regular Rate, Normal Rhythm, Normal Heart Sounds and Systolic Murmur; negative Diastolic Murmur Abdominal Exam Abdominal Exam: Normal Inspection, Normal Bowel Sounds and Soft; negative Tenderness Extremities Extremities Exam: Normal Inspection and Normal Capillary Refill; negative Tenderness and Calf Tenderness Back Back Exam: Normal Inspection; negative (R) CVA Tenderness and (L) CVA Tenderness Neurologic Neurological Exam: Alert and Oriented X3; negative Motor Sensory Deficit Psychiatric Psychiatric Exam: Normal Affect and Normal Mood Skin Skin Exam: Warm, Dry, Intact and Normal Color MDM Additional Information Additional Information Obtained From: Old Records Differential Diagnosis Differential Diagnosis: Dehydration, Electrolyte disorder, Myocardial Infarction, Pneumonia, UTI and Viral syndrome COURSE Treatment Treatment: SEE ORDERS. NS 1L IV BOLUS, ZOSYN 3.375MG IVPB IN ER. Education/Counseling Education/Counseling: Patient Educated On: Diagnosis and Needs for Follow Up ROR Labs Reviewed Laboratory Results Reviewed?: Yes Result Diagrams: 08/11/20 05:30 08/11/20 05:30 Laboratory: 08/09/20 11:40 Blood Blood Culture - Final 08/09/20 11:55 Blood Blood Culture - Final WBC 13.1 X10^3/uL (3.6-10.0) H 08/09/20 11:15 RBC 3.83 X10^6/uL (4.7-6.0) L 08/09/20 11:15 Hgb 11.8 g/dL (13.5-18.0) L 08/09/20 11:15 Hct 34.6 % (42.0-54.0) L 08/09/20 11:15 MCV 90.3 fL (80.0-100.0) 08/09/20 11:15 MCH 30.8 pg (27.0-34.0) 08/09/20 11:15 MCHC 34.1 g/dL (33.0-35.0) 08/09/20 11:15 RDW 13.4 % (11.6-16.5) 08/09/20 11:15 Plt Count 221 X10^3/uL (150.0-450.0) 08/09/20 11:15 MPV 8.7 fL (7.4-11.0) 08/09/20 11:15 Neut % (Auto) 82.1 % (42.0-75.0) H 08/09/20 11:15 Lymph % (Auto) 12.3 % (21.0-51.0) L 08/09/20 11:15 [place] % (Auto) 3.8 % (0.0-13.0) 08/09/20 11:15 Eos % (Auto) 1.1 % (0.9-2.9) 08/09/20 11:15 Baso % (Auto) 0.7 % (0.2-1.0) 08/09/20 11:15 Neut # (Auto) 10.8 x10^3/uL (2.2-4.8) H 08/09/20 11:15 Lymph # (Auto) 1.6 X10^3/uL (1.3-2.9) 08/09/20 11:15 [place] # (Auto) 0.5 x10^3/uL (0.3-0.8) 08/09/20 11:15 Eos # (Auto) 0.1 x10^3/uL (0.0-0.2) 08/09/20 11:15 Baso # (Auto) 0.1 X10^3/uL (0.0-0.1) 08/09/20 11:15 Absolute Nucleated RBC 0.0 /100WBC 08/09/20 11:15 Sample Site Rra 08/09/20 13:40 ABG pH 7.520 (7.35-7.45) H 08/09/20 13:40 ABG pCO2 33.0 mmHg (35.0-45.0) L 08/09/20 13:40 ABG pO2 73.0 mmHg (80.0-100.0) L 08/09/20 13:40 ABG HCO3 26.9 mmol/L (22-26) H 08/09/20 13:40 ABG O2 Saturation 96.0 % (90-100) 08/09/20 13:40 ABG Base Excess 4.3 mmol/L (-2.0-2.0) H 08/09/20 13:40 Henrik Test Pos 08/09/20 13:40 A-a Gradient 35.0 mmHg 08/09/20 13:40 FiO2 21.0 08/09/20 13:40 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 08/09/20 13:40 Sodium 139 mmol/L (136-145) 08/09/20 11:15 Corrected Sodium TNP 08/09/20 11:15 Potassium 3.7 mmol/L (3.5-5.1) 08/09/20 11:15 Chloride 104 mmol/L (98-107) 08/09/20 11:15 Carbon Dioxide 27.9 mmol/L (21-32) 08/09/20 11:15 BUN 15 mg/dL (7-18) 08/09/20 11:15 Creatinine 0.98 mg/dL (0.70-1.30) 08/09/20 11:15 Est GFR (MDRD) Af Amer > 60 (>60) 08/09/20 11:15 Est GFR (MDRD) Non-Af > 60 (>60) 08/09/20 11:15 Glucose 94 mg/dL (65-99) 08/09/20 11:15 Lactic Acid 2.4 mmol/L (0.4-2.0) H 08/09/20 11:15 Calcium 8.8 mg/dL (8.5-10.1) 08/09/20 11:15 Corrected Calcium 9.4 mg/dL (8.5-10.1) 08/09/20 11:15 Total Bilirubin 0.40 mg/dL (0.2-1.0) 08/09/20 11:15 AST 15 Units/L (15-37) 08/09/20 11:15 ALT 18 Units/L (12-78) 08/09/20 11:15 Alkaline Phosphatase 80 Units/L (46-116) 08/09/20 11:15 Creatine Kinase 40 Units/L (39-308) 08/09/20 11:15 CK-MB (CK-2) < 1.0 ng/mL (0-4.0) 08/09/20 11:15 CK/CKMB % Calc 2.5 % (<4) 08/09/20 11:15 Troponin I < 0.02 ng/mL (0-1.5) 08/09/20 11:15 Total Protein 7.0 g/dL (6.4-8.2) 08/09/20 11:15 Albumin 3.3 g/dL (3.4-5.0) L 08/09/20 11:15 Globulin 3.7 g/dL (2.5-4.5) 08/09/20 11:15 Albumin/Globulin Ratio 0.9 Ratio (1.1-2.1) L 08/09/20 11:15 Specimen Type Clean catch urine 08/09/20 11:45 Urine Color Yellow (YELLOW) 08/09/20 11:45 Urine Appearance Clear (CLEAR) 08/09/20 11:45 Urine pH 6.5 (5.0 - 8.0) 08/09/20 11:45 Ur Specific [place] 1.015 (1.000-1.030) 08/09/20 11:45 Urine Protein Negative (NEGATIVE) 08/09/20 11:45 Urine Glucose (UA) Negative (NEGATIVE) 08/09/20 11:45 Urine Ketones Negative (NEGATIVE) 08/09/20 11:45 Urine Occult Blood Negative (NEGATIVE) 08/09/20 11:45 Urine Nitrite Negative (NEGATIVE) 08/09/20 11:45 Urine Bilirubin Negative (NEGATIVE) 08/09/20 11:45 Urine Urobilinogen Normal (NORMAL) 08/09/20 11:45 Ur Leukocyte Esterase Negative (NEGATIVE) 08/09/20 11:45 SARS-CoV-2 (PCR) Negative (NEGATIVE) 08/09/20 13:35 Influenza Type A (PCR) Negative (NEGATIVE) 08/09/20 13:35 Influenza Type B (PCR) Negative (NEGATIVE) 08/09/20 13:35 RSV (PCR) Negative (NEGATIVE) 08/09/20 13:35 XRAY XRAY Interpreted by: Radiologist (REPORT NOTED AND DISCUSSED WITH PATIENT.) and Self EKG Rate: 83 [place]: Normal Rhythm: NSR Block: 1 Hypertrophy: None ST: Nonsp Opioid Opioid Risk Tool Age (Jhonny box if 16-45): No History of Preadolescent Sexual Abuse: No Total: 0 Total Score Risk Category: Low Risk Copyright: [facility] predicting aberrant behaviors Diagnosis Discharge Problem: Acute respiratory distress Pneumonia Qualifiers: Pneumonia type: due to unspecified organism Laterality: bilateral Lung location: lower lobe of lung Qualified Code(s): J18.9 - Pneumonia, unspecified organism Fever Qualifiers: Fever type: unspecified Qualified Code(s): R50.9 - Fever, unspecified Instructions Forms: Excuse From Work or School Precautions for COVID19 Patient Portal Social Distancing
[2020-08-09 11:33] LABS: BASOPHILS # (AUTO) 0.1 X10^3/uL (0.0-0.1); BASOPHILS % (AUTO) 0.7 % (0.2-1.0); EOSINOPHILS # (AUTO) 0.1 x10^3/uL (0.0-0.2); EOSINOPHILS % (AUTO) 1.1 % (0.9-2.9); HEMATOCRIT 34.6 % (42.0-54.0); HEMOGLOBIN 11.8 g/dL (13.5-18.0); LYMPHOCYTES # (AUTO) 1.6 X10^3/uL (1.3-2.9); LYMPHOCYTES % (AUTO) 12.3 % (21.0-51.0); MEAN CORPUSCULAR HEMOGLOBIN 30.8 pg (27.0-34.0); MEAN CORPUSCULAR HGB CONC 34.1 g/dL (33.0-35.0); MEAN CORPUSCULAR VOLUME 90.3 fL (80.0-100.0); MEAN PLATELET VOLUME 8.7 fL (7.4-11.0); MONOCYTES # (AUTO) 0.5 x10^3/uL (0.3-0.8); MONOCYTES % (AUTO) 3.8 % (0.0-13.0); NEUTROPHILS # (AUTO) 10.8 x10^3/uL (2.2-4.8); NEUTROPHILS % (AUTO) 82.1 % (42.0-75.0); PLATELET COUNT 221 X10^3/uL (150.0-450.0); RED BLOOD COUNT 3.83 X10^6/uL (4.7-6.0); RED CELL DISTRIBUTION WIDTH 13.4 % (11.6-16.5); WHITE BLOOD COUNT 13.1 X10^3/uL (3.6-10.0)
[2020-08-09 11:48] LABS: BLOOD UREA NITROGEN 15 mg/dL (7-18); CALCIUM 8.8 mg/dL (8.5-10.1); CARBON DIOXIDE 27.9 mmol/L (21-32); CHLORIDE 104 mmol/L (98-107); CREATININE 0.98 mg/dL (0.70-1.30); SODIUM 139 mmol/L (136-145); TROPONIN I < 0.02 ng/mL (0-1.5); eGFR NON BLACK RACES > 60 (>60)
[2020-08-09 11:52] LABS: ALANINE AMINOTRANSFERASE 18 Units/L (12-78); ALBUMIN 3.3 g/dL (3.4-5.0); ALKALINE PHOSPHATASE 80 Units/L (46-116); ASPARTATE AMINO TRANSFERASE 15 Units/L (15-37); CKMB % 2.5 % (<4); COR CA(FOR HYPOALB) 9.4 mg/dL (8.5-10.1); CREATINE KINASE 40 Units/L (39-308); CREATINE KINASE MB < 1.0 ng/mL (0-4.0)
[2020-08-09 12:15] LABS: BILIRUBIN,URINE NEGATIVE (NEGATIVE); BLOOD/HEMOGLOBIN,URINE NEGATIVE (NEGATIVE); GLUCOSE, URINE NEGATIVE (NEGATIVE); KETONES,URINE NEGATIVE (NEGATIVE); LEUKOCYTE ESTERASE ,URINE NEGATIVE (NEGATIVE); NITRITES,URINE NEGATIVE (NEGATIVE); PH,URINE 6.5 (5.0 - 8.0); PROTEIN,URINE NEGATIVE (NEGATIVE); UROBILINOGEN,URINE NORMAL (NORMAL)
[2020-08-09 12:16] LABS: APPEARANCE,URINE CLEAR (CLEAR); COLOR,URINE YELLOW (YELLOW)
[2020-08-09 12:21] LABS: LACTIC ACID 2.4 mmol/L (0.4-2.0)
--- NOTE | 2020-08-09 13:17 | RAD ---
HISTORY:Fever, weakness, shortness of breathStudy: Single view chestComparison:07/04/2019Findings:Right upper lobe infiltrate suggestive of pneumonia. No effusion or pneumothorax identified.Cardiac and mediastinal contours are within normal limits.Stable dual-chamber pacemaker. Soft tissues are intact with postsurgical changes of the left shoulder and cervical spine.IMPRESSION:1. Right upper lobe infiltrate suggestive of pneumonia. Continued radiographic follow-up recommended to ensure resolution.Electronically signed by: HIEU PIERCE (Aug 09, 2020 13:15:19)
[2020-08-09] MEDS ORDERED: ZOSYN VIAL 3.375 GRAMS 3.375 G in NS 100 ML IV + SPIKE MINIBAG* 100 ML IV ONE (13:22)
[2020-08-09] MEDS ORDERED: ZOSYN VIAL 3.375 GRAMS IV ONE (13:27)
[2020-08-09] MEDS ORDERED: NS 100 ML IV + SPIKE MINIBAG* 100 ML IV ONE (13:27)
[2020-08-09] MEDS ORDERED: NS 1000 ML 1,000 ML ONE ×2 (13:32→13:45)
[2020-08-09 13:43] LABS: ABG ALLEN TEST POS; ABG BASE EXCESS 4.3 mmol/L (-2.0-2.0); ABG HCO3 26.9 mmol/L (22-26)
[2020-08-09] MEDS ORDERED: NS 1000 ML 1,000 ML IV ONE (14:10)
--- NOTE | 2020-08-09 15:12 | RAD ---
CHEST, 1 VIEWHISTORY: CENTRAL LINEStudy: Single view of the chest.Comparison: NoneFindings:Cardiomegaly. No focal consolidations, pleural effusions or pneumothorax. Osseous structures demonstrate no acute abnormality. A right central catheter terminates over the expected area of the SVC.IMPRESSION:1. No acute cardiopulmonary process.2. A right central catheter terminating over the expected area of the SVC.Electronically signed by: DALTON LUNA (Aug 09, 2020 15:11:24)
[2020-08-09] MEDS ORDERED: TUSSIONEX PENNKINETIC SUSP PO PRN (15:43)
[2020-08-09] MEDS: ZOSYN VIAL 3.375 GRAMS 3.375 G in NS 100 ML IV + SPIKE MINIBAG* 100 ML IV SCH ×2 (16:20→21:39)
[2020-08-09] MEDS: ROBITUSSIN DM PO SCH ×2 (17:35→20:19)
[2020-08-09] MEDS: DUONEB 0.5 MG/3 MG (3 mL) NEB SCH ×2 (17:40→21:10)
[2020-08-09] MEDS: NS 1000 ML 1,000 ML IV SCH (17:58)
[2020-08-09 19:20] LABS: CKMB % 1.7 % (<4); CREATINE KINASE 58 Units/L (39-308); CREATINE KINASE MB < 1.0 ng/mL (0-4.0); TROPONIN I < 0.02 ng/mL (0-1.5)
[2020-08-09] MEDS ORDERED: CORTEF ONE (20:09)
[2020-08-09] MEDS: ZOCOR TAB 20 MG PO SCH (20:19)
[2020-08-09] MEDS: CORTEF PO SCH (20:19)
[2020-08-09] MEDS: MILK OF MAGNESIA PO SCH (20:19)
[2020-08-09] MEDS: HEMOCYTE-PLUS PO SCH (20:20)
[2020-08-09] MEDS: PEPCID TAB 40 MG PO SCH (20:20)
[2020-08-09] MEDS: ELIQUIS PO SCH (20:21)
[2020-08-09] MEDS: COLACE CAP 100 MG PO SCH (20:21)
[2020-08-09] MEDS: COREG TAB 25 MG PO SCH (20:22)
[2020-08-09] MEDS: NORCO 7.5/325 MG TAB PO SCH (20:23)
[2020-08-09] MEDS: PROTONIX TAB 40 MG PO SCH (20:23)
[2020-08-09] MEDS ORDERED: CARDIZEM TAB 30 MG PLAIN PO PRN (20:53)
--- NOTE | 2020-08-09 20:56 | DR.H&P ---
H&P History & Physical for Day of: H&P Date: 08/09/20 Chief Complaint Chief Complaint: Fever, weakness Shortness of breath Allergies Allergies Allergy/AdvReac Type Severity Reaction Status Date / Time No Known Drug Allergies Allergy Verified 10/16/18 14:14 History of Present Illness History of Present Illness: Pt is a 74 year old male past medical history of atr ial fibrillation, Hypothyroidism, Pituitary adenoma(s/p resection), presenting with weakness, fever, cough with productive sputum for the past 2-3 days. In the ED he was found to have pneumonia on chest xr. Labs/imaging: Wbc 13.1, Hgb 11.8, Platelets 221, Na 139, K 3.7, Creatinine 0.98, Glucose 94, AST 15, ALT 18, ALKP 80, Troponin negative x3, UA negative for infection, LA 2.4, ABG: pH 7.52, CO2 33, pO2 73, HCO3 26, O2sat 96% on RA, Blood cultures pending, COVID-19 negative, CXR was obtained and revealed: 1. Right upper lobe infiltrate suggestive of pneumonia. Continued radiographic follow-up recommended to ensure resolution. Pt was started on 2L supplemental O2, IV antibiotics Zosyn, and gentle IV hydration. Home medications resumed. Will continue to treatments, monitor, and follow up labs/imaging in the morning. Past Medical History Past Medical History: Anemia, Coronary Artery Disease, Dyslipidemia, Hypothyroidism and Sleep Apnea Additional Medical History: Atrial Fibrillation, Bradycardia Pituitary adenoma - s/p resection and XRT with recently diagnoses probable recurrence CVD; S/P TIA in 03/2015 Past Surgical History Surgical History: Angioplasty/Stents Additional Surgical History: Pacemaker implantation 2010 Pituitary adenoma resection and XRT 2008 Cardiac ablation for the tx of A-fib - 05/2015 Cardiac cath and stent placement 2010 Cervical fusion Family History Family Medical History: [place] and Coronary Artery Disease Social History Does patient currently use any type of tobacco product: No Have you used tobacco products in the last 12 months: No Type of Tobacco Use: None Alcohol Use: None Medications Home Medications: No Known Drug Allergies Allergy (Verified 10/16/18 14:14) CONTINUE taking the following medications Spiriva with HandiHaler 2 cap INHALATION QDAY 08/09/20 [History] budesonide-formoterol [Symbicort] 2 inh INHALATION DAILY 08/09/20 [History] hydrocodone-acetaminophen [[place]] 1 tab PO BID 08/09/20 [History] pantoprazole 40 mg PO BID 08/09/20 [History] Labs Result Diagrams: 08/10/20 05:15 08/10/20 05:15 Labs: Laboratory WBC 13.1 X10^3/uL (3.6-10.0) H 08/09/20 11:15 RBC 3.83 X10^6/uL (4.7-6.0) L 08/09/20 11:15 Hgb 11.8 g/dL (13.5-18.0) L 08/09/20 11:15 Hct 34.6 % (42.0-54.0) L 08/09/20 11:15 MCV 90.3 fL (80.0-100.0) 08/09/20 11:15 MCH 30.8 pg (27.0-34.0) 08/09/20 11:15 MCHC 34.1 g/dL (33.0-35.0) 08/09/20 11:15 RDW 13.4 % (11.6-16.5) 08/09/20 11:15 Plt Count 221 X10^3/uL (150.0-450.0) 08/09/20 11:15 MPV 8.7 fL (7.4-11.0) 08/09/20 11:15 Neut % (Auto) 82.1 % (42.0-75.0) H 08/09/20 11:15 Lymph % (Auto) 12.3 % (21.0-51.0) L 08/09/20 11:15 [place] % (Auto) 3.8 % (0.0-13.0) 08/09/20 11:15 Eos % (Auto) 1.1 % (0.9-2.9) 08/09/20 11:15 Baso % (Auto) 0.7 % (0.2-1.0) 08/09/20 11:15 Neut # (Auto) 10.8 x10^3/uL (2.2-4.8) H 08/09/20 11:15 Lymph # (Auto) 1.6 X10^3/uL (1.3-2.9) 08/09/20 11:15 [place] # (Auto) 0.5 x10^3/uL (0.3-0.8) 08/09/20 11:15 Eos # (Auto) 0.1 x10^3/uL (0.0-0.2) 08/09/20 11:15 Baso # (Auto) 0.1 X10^3/uL (0.0-0.1) 08/09/20 11:15 Absolute Nucleated RBC 0.0 /100WBC 08/09/20 11:15 Sample Site Rra 08/09/20 13:40 ABG pH 7.520 (7.35-7.45) H 08/09/20 13:40 ABG pCO2 33.0 mmHg (35.0-45.0) L 08/09/20 13:40 ABG pO2 73.0 mmHg (80.0-100.0) L 08/09/20 13:40 ABG HCO3 26.9 mmol/L (22-26) H 08/09/20 13:40 ABG O2 Saturation 96.0 % (90-100) 08/09/20 13:40 ABG Base Excess 4.3 mmol/L (-2.0-2.0) H 08/09/20 13:40 Henrik Test Pos 08/09/20 13:40 A-a Gradient 35.0 mmHg 08/09/20 13:40 FiO2 21.0 08/09/20 13:40 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 08/09/20 13:40 Sodium 139 mmol/L (136-145) 08/09/20 11:15 Corrected Sodium TNP 08/09/20 11:15 Potassium 3.7 mmol/L (3.5-5.1) 08/09/20 11:15 Chloride 104 mmol/L (98-107) 08/09/20 11:15 Carbon Dioxide 27.9 mmol/L (21-32) 08/09/20 11:15 BUN 15 mg/dL (7-18) 08/09/20 11:15 Creatinine 0.98 mg/dL (0.70-1.30) 08/09/20 11:15 Est GFR (MDRD) Af Amer > 60 (>60) 08/09/20 11:15 Est GFR (MDRD) Non-Af > 60 (>60) 08/09/20 11:15 Glucose 94 mg/dL (65-99) 08/09/20 11:15 Lactic Acid 1.3 mmol/L (0.4-2.0) 08/09/20 17:25 Calcium 8.8 mg/dL (8.5-10.1) 08/09/20 11:15 Corrected Calcium 9.4 mg/dL (8.5-10.1) 08/09/20 11:15 Total Bilirubin 0.40 mg/dL (0.2-1.0) 08/09/20 11:15 AST 15 Units/L (15-37) 08/09/20 11:15 ALT 18 Units/L (12-78) 08/09/20 11:15 Alkaline Phosphatase 80 Units/L (46-116) 08/09/20 11:15 Creatine Kinase 58 Units/L (39-308) 08/09/20 18:39 CK-MB (CK-2) < 1.0 ng/mL (0-4.0) 08/09/20 18:39 CK/CKMB % Calc 1.7 % (<4) 08/09/20 18:39 Troponin I < 0.02 ng/mL (0-1.5) 08/09/20 18:39 Total Protein 7.0 g/dL (6.4-8.2) 08/09/20 11:15 Albumin 3.3 g/dL (3.4-5.0) L 08/09/20 11:15 Globulin 3.7 g/dL (2.5-4.5) 08/09/20 11:15 Albumin/Globulin Ratio 0.9 Ratio (1.1-2.1) L 08/09/20 11:15 Specimen Type Clean catch urine 08/09/20 11:45 Urine Color Yellow (YELLOW) 08/09/20 11:45 Urine Appearance Clear (CLEAR) 08/09/20 11:45 Urine pH 6.5 (5.0 - 8.0) 08/09/20 11:45 Ur Specific [place] 1.015 (1.000-1.030) 08/09/20 11:45 Urine Protein Negative (NEGATIVE) 08/09/20 11:45 Urine Glucose (UA) Negative (NEGATIVE) 08/09/20 11:45 Urine Ketones Negative (NEGATIVE) 08/09/20 11:45 Urine Occult Blood Negative (NEGATIVE) 08/09/20 11:45 Urine Nitrite Negative (NEGATIVE) 08/09/20 11:45 Urine Bilirubin Negative (NEGATIVE) 08/09/20 11:45 Urine Urobilinogen Normal (NORMAL) 08/09/20 11:45 Ur Leukocyte Esterase Negative (NEGATIVE) 08/09/20 11:45 SARS-CoV-2 (PCR) Negative (NEGATIVE) 08/09/20 13:35 Influenza Type A (PCR) Negative (NEGATIVE) 08/09/20 13:35 Influenza Type B (PCR) Negative (NEGATIVE) 08/09/20 13:35 RSV (PCR) Negative (NEGATIVE) 08/09/20 13:35 Review of Systems Constitutional: Fever, Chills and Weakness Eyes: No Symptoms Reported ENT: No Symptoms Reported Respiratory: Cough and Sputum Cardiovascular: No Symptoms Reported Gastrointestinal: No Symptoms Reported Genitourinary: No Symptoms Reported Musculoskeletal: No Symptoms Reported Skin: No Symptoms Reported Neurological: No Symptoms Reported Physical Exam Vital Signs: Temperature 98.7 F Pulse Rate [Right Brachial] 68 Pulse Rate 63 Respiratory Rate 16 Blood Pressure [Left Arm] 132/61 Blood Pressure [Right Arm] 111/57 Blood Pressure [Standing] 130/74 Blood Pressure [Sitting] 125/59 Blood Pressure [Lying] 115/59 Blood Pressure 100/54 O2 Sat by Pulse Oximetry 99 Oriented: Normal Eyes: Normal Ear: Normal Nose: Normal Throat: Normal Respiratory: Diminished Throughout and RUL Rales Cardiovascular: Normal : Normal Auscultation: Bowel Sounds: Normal Palpation: Normal Tenderness: Normal Skin: Normal Musculoskeletal: Normal Psychiatric: Normal Mood Description: Calm and Appropriate Affect: Normal Speech Pattern: Clear and Appropriate Assessment/Plan (1) Pneumonia: Status: Acute Plan: IV Zosyn, Blood cultures pending Supplemental O2, repeat CXR and labs in the morning. Review H&P Reviewed: Yes Patient was examined?: Yes
[2020-08-09] MEDS ORDERED: CARDIZEM TAB 30 MG PLAIN PO SCH (21:00)
[2020-08-09] MEDS: PULMICORT NEB TX 0.5 MG NEB SCH (21:10)
[2020-08-10 00:55] LABS: CKMB % 4.6 % (<4); CREATINE KINASE 22 Units/L (39-308); CREATINE KINASE MB < 1.0 ng/mL (0-4.0); TROPONIN I < 0.02 ng/mL (0-1.5)
[2020-08-10] MEDS: ZOSYN VIAL 3.375 GRAMS 3.375 G in NS 100 ML IV + SPIKE MINIBAG* 100 ML IV SCH ×3 (05:19→21:42)
[2020-08-10 06:24] LABS: BASOPHILS % (AUTO) 0.5 % (0.2-1.0); EOSINOPHILS # (AUTO) 0.2 x10^3/uL (0.0-0.2); EOSINOPHILS % (AUTO) 2.1 % (0.9-2.9); HEMATOCRIT 27.3 % (42.0-54.0); HEMOGLOBIN 9.6 g/dL (13.5-18.0); LYMPHOCYTES # (AUTO) 1.8 X10^3/uL (1.3-2.9); LYMPHOCYTES % (AUTO) 24.2 % (21.0-51.0); MEAN CORPUSCULAR HEMOGLOBIN 31.5 pg (27.0-34.0); MEAN CORPUSCULAR VOLUME 89.9 fL (80.0-100.0); MONOCYTES # (AUTO) 0.5 x10^3/uL (0.3-0.8); MONOCYTES % (AUTO) 6.5 % (0.0-13.0); NEUTROPHILS # (AUTO) 4.9 x10^3/uL (2.2-4.8); NEUTROPHILS % (AUTO) 66.7 % (42.0-75.0); PLATELET COUNT 172 X10^3/uL (150.0-450.0); RED BLOOD COUNT 3.04 X10^6/uL (4.7-6.0); RED CELL DISTRIBUTION WIDTH 13.4 % (11.6-16.5); WHITE BLOOD COUNT 7.3 X10^3/uL (3.6-10.0)
[2020-08-10] MEDS: NS 1000 ML 1,000 ML IV SCH ×3 (06:35→18:22)
[2020-08-10 06:58] LABS: ALANINE AMINOTRANSFERASE 14 Units/L (12-78); ALBUMIN 2.6 g/dL (3.4-5.0); ALKALINE PHOSPHATASE 64 Units/L (46-116); ASPARTATE AMINO TRANSFERASE 7 Units/L (15-37); BLOOD UREA NITROGEN 15 mg/dL (7-18); CALCIUM 8.1 mg/dL (8.5-10.1); CARBON DIOXIDE 27.3 mmol/L (21-32); CHLORIDE 107 mmol/L (98-107); COR CA(FOR HYPOALB) 9.2 mg/dL (8.5-10.1); CREATININE 0.83 mg/dL (0.70-1.30); SODIUM 141 mmol/L (136-145); TOTAL PROTEIN 5.7 g/dL (6.4-8.2); eGFR NON BLACK RACES > 60 (>60)
--- NOTE | 2020-08-10 07:42 | RAD ---
HISTORYFollow-up pneumoniaSTUDYChest AP [id number]/2021FINDINGSThere is a pacemaker present on the left obscuring small area of the lateral aspect of the left upper lobe. There is a right IJ line in good position. The heart remai ns enlarged. No congestive heart failure is noted. No acute alveolar infiltrates or pleural effusions are identified. Bony thorax is unremarkable.IMPRESSIONContinued cardiomegaly without congestive hear t failureNo infiltratesElectronically signed by: SHARON LOCO (Aug 10, 2020 07:40:31)
[2020-08-10] MEDS: DUONEB 0.5 MG/3 MG (3 mL) NEB SCH ×4 (08:46→20:56)
[2020-08-10] MEDS: PULMICORT NEB TX 0.5 MG NEB SCH ×2 (08:46→20:56)
[2020-08-10] MEDS ORDERED: LEXAPRO ONE (09:10)
[2020-08-10] MEDS ORDERED: CORTEF ONE ×2 (09:12→20:13)
[2020-08-10] MEDS: CORTEF PO SCH ×2 (09:26→20:34)
[2020-08-10] MEDS: MILK OF MAGNESIA PO SCH ×2 (09:26→20:33)
[2020-08-10] MEDS: PROTONIX TAB 40 MG PO SCH ×2 (09:27→20:38)
[2020-08-10] MEDS: COREG TAB 25 MG PO SCH ×2 (09:27→20:39)
[2020-08-10] MEDS: ELIQUIS PO SCH ×2 (09:28→20:39)
[2020-08-10] MEDS: LASIX PO SCH (09:29)
[2020-08-10] MEDS: PLAVIX PO SCH (09:29)
[2020-08-10] MEDS: MICRO K EXTEN CAP 10 MEQ PO SCH (09:29)
[2020-08-10] MEDS: HEMOCYTE-PLUS PO SCH ×2 (09:30→20:43)
[2020-08-10] MEDS: NORCO 7.5/325 MG TAB PO SCH ×2 (09:30→20:40)
[2020-08-10] MEDS: SYNTHROID 100 mcg TAB PO SCH (09:33)
[2020-08-10] MEDS: PEPCID TAB 40 MG PO SCH ×2 (09:33→20:38)
[2020-08-10] MEDS: ROBITUSSIN DM PO SCH ×4 (09:33→20:34)
[2020-08-10] MEDS: LEXAPRO PO SCH (09:34)
[2020-08-10 12:39] VITALS: BMI 24.4
--- NOTE | 2020-08-10 14:05 | PCM.PROG ---
Progress Note Progress Note for Day of Date of Exam: 08/10/20 Subjective Subjective: Pt is a 74 year old male past medical history of atrial fibrillation, Hypothyroidism, Pituitary adenoma(s/p resection), admitted for community acquired pneumonia. This morning he reports improvement in symptoms. He did have fever yesterday only when he was first admitted but remained afebril e overnight. He is no longer requiring supplemental oxygen. Labs/imaging: Wbc 7.3, Hgb 9.6, Platelets 172, Na 141, K 3.7, Creatinine 0.83, Glucose 96, Blood cultures pending, CXR was obtained and revealed: Continued cardiomegaly without congestive heart failure. No infiltrates. Patient has had significant improvement in symptoms. Will continue IV antibiotics Zosyn, and gentle IV hydration. If patient remains afebrile can consider discharging home with po antibiotics over the weekend. Continue to monitor, and follow up labs/imaging in the morning. Past Medical Family Social History Past Med/Fam/Surg Hx: No changes since H&P Allergies: Allergies No Known Drug Allergies Allergy (Verified 10/16/18 14:14) Review of Systems ROS: No change since H&P Vital Signs and I&O's Vital Signs: Temperature 98.0 F Pulse Rate [Right Brachial] 59 Pulse Rate 61 Respiratory Rate 18 Blood Pressure [Left Arm] 120/61 Blood Pressure [Right Arm] 111/57 Blood Pressure [Standing] 130/74 Blood Pressure [Sitting] 125/59 Blood Pressure [Lying] 115/59 Blood Pressure 100/54 O2 Sat by Pulse Oximetry 97 Intake and Output: Intake & Output 08/07/20 08/08/20 08/09/20 08/10/20 23:59 23:59 23:59 23:59 Intake Total 240 / 240 757 / 757 Output Total 200 / 200 Balance 40 / 40 757 / 757 Physical Exam Oriented: Normal Eyes: Normal Ear: Normal Nose: Normal Throat: Normal Respiratory: Normal Cardiovascular: Normal : Normal Auscultation: Bowel Sounds: Normal Tenderness: Normal Skin: Normal Musculoskeletal: Normal Psychiatric: Normal Mood Description: Calm and Appropriate Affect: Normal Speech Pattern: Clear and Appropriate Laboratory and Diagnostics Result Diagrams: 08/10/20 05:15 08/10/20 05:15 Labs: Laboratory WBC 7.3 X10^3/uL (3.6-10.0) 08/10/20 05:15 RBC 3.04 X10^6/uL (4.7-6.0) L 08/10/20 05:15 Hgb 9.6 g/dL (13.5-18.0) L D 08/10/20 05:15 Hct 27.3 % (42.0-54.0) L 08/10/20 05:15 MCV 89.9 fL (80.0-100.0) 08/10/20 05:15 MCH 31.5 pg (27.0-34.0) 08/10/20 05:15 MCHC 35.0 g/dL (33.0-35.0) 08/10/20 05:15 RDW 13.4 % (11.6-16.5) 08/10/20 05:15 Plt Count 172 X10^3/uL (150.0-450.0) 08/10/20 05:15 MPV 9.0 fL (7.4-11.0) 08/10/20 05:15 Neut % (Auto) 66.7 % (42.0-75.0) 08/10/20 05:15 Lymph % (Auto) 24.2 % (21.0-51.0) 08/10/20 05:15 [place] % (Auto) 6.5 % (0.0-13.0) 08/10/20 05:15 Eos % (Auto) 2.1 % (0.9-2.9) 08/10/20 05:15 Baso % (Auto) 0.5 % (0.2-1.0) 08/10/20 05:15 Neut # (Auto) 4.9 x10^3/uL (2.2-4.8) H 08/10/20 05:15 Lymph # (Auto) 1.8 X10^3/uL (1.3-2.9) 08/10/20 05:15 [place] # (Auto) 0.5 x10^3/uL (0.3-0.8) 08/10/20 05:15 Eos # (Auto) 0.2 x10^3/uL (0.0-0.2) 08/10/20 05:15 Baso # (Auto) 0.0 X10^3/uL (0.0-0.1) 08/10/20 05:15 Absolute Nucleated RBC 0.0 /100WBC 08/10/20 05:15 Sample Site Rra 08/09/20 13:40 ABG pH 7.520 (7.35-7.45) H 08/09/20 13:40 ABG pCO2 33.0 mmHg (35.0-45.0) L 08/09/20 13:40 ABG pO2 73.0 mmHg (80.0-100.0) L 08/09/20 13:40 ABG HCO3 26.9 mmol/L (22-26) H 08/09/20 13:40 ABG O2 Saturation 96.0 % (90-100) 08/09/20 13:40 ABG Base Excess 4.3 mmol/L (-2.0-2.0) H 08/09/20 13:40 Henrik Test Pos 08/09/20 13:40 A-a Gradient 35.0 mmHg 08/09/20 13:40 FiO2 21.0 08/09/20 13:40 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 08/09/20 13:40 Sodium 141 mmol/L (136-145) 08/10/20 05:15 Corrected Sodium TNP 08/10/20 05:15 Potassium 3.7 mmol/L (3.5-5.1) 08/10/20 05:15 Chloride 107 mmol/L (98-107) 08/10/20 05:15 Carbon Dioxide 27.3 mmol/L (21-32) 08/10/20 05:15 BUN 15 mg/dL (7-18) 08/10/20 05:15 Creatinine 0.83 mg/dL (0.70-1.30) 08/10/20 05:15 Est GFR (MDRD) Af Amer > 60 (>60) 08/10/20 05:15 Est GFR (MDRD) Non-Af > 60 (>60) 08/10/20 05:15 Glucose 96 mg/dL (65-99) 08/10/20 05:15 Lactic Acid 1.3 mmol/L (0.4-2.0) 08/09/20 17:25 Calcium 8.1 mg/dL (8.5-10.1) L 08/10/20 05:15 Corrected Calcium 9.2 mg/dL (8.5-10.1) 08/10/20 05:15 Total Bilirubin 0.40 mg/dL (0.2-1.0) 08/10/20 05:15 AST 7 Units/L (15-37) L 08/10/20 05:15 ALT 14 Units/L (12-78) 08/10/20 05:15 Alkaline Phosphatase 64 Units/L (46-116) 08/10/20 05:15 Creatine Kinase 22 Units/L (39-308) L 08/10/20 00:10 CK-MB (CK-2) < 1.0 ng/mL (0-4.0) 08/10/20 00:10 CK/CKMB % Calc 4.6 % (<4) 08/10/20 00:10 Troponin I < 0.02 ng/mL (0-1.5) 08/10/20 00:10 Total Protein 5.7 g/dL (6.4-8.2) L 08/10/20 05:15 Albumin 2.6 g/dL (3.4-5.0) L 08/10/20 05:15 Globulin 3.1 g/dL (2.5-4.5) 08/10/20 05:15 Albumin/Globulin Ratio 0.8 Ratio (1.1-2.1) L 08/10/20 05:15 Specimen Type Clean catch urine 08/09/20 11:45 Urine Color Yellow (YELLOW) 08/09/20 11:45 Urine Appearance Clear (CLEAR) 08/09/20 11:45 Urine pH 6.5 (5.0 - 8.0) 08/09/20 11:45 Ur Specific Laie 1.015 (1.000-1.030) 08/09/20 11:45 Urine Protein Negative (NEGATIVE) 08/09/20 11:45 Urine Glucose (UA) Negative (NEGATIVE) 08/09/20 11:45 Urine Ketones Negative (NEGATIVE) 08/09/20 11:45 Urine Occult Blood Negative (NEGATIVE) 08/09/20 11:45 Urine Nitrite Negative (NEGATIVE) 08/09/20 11:45 Urine Bilirubin Negative (NEGATIVE) 08/09/20 11:45 Urine Urobilinogen Normal (NORMAL) 08/09/20 11:45 Ur Leukocyte Esterase Negative (NEGATIVE) 08/09/20 11:45 SARS-CoV-2 (PCR) Negative (NEGATIVE) 08/09/20 13:35 Influenza Type A (PCR) Negative (NEGATIVE) 08/09/20 13:35 Influenza Type B (PCR) Negative (NEGATIVE) 08/09/20 13:35 RSV (PCR) Negative (NEGATIVE) 08/09/20 13:35 Plan (1) Pneumonia: Status: Acute Plan: IV Zosyn, Blood cultures pending Supplemental O2, repeat CXR and labs in the morning.
[2020-08-10] MEDS: COLACE CAP 100 MG PO SCH (20:38)
[2020-08-10] MEDS: ZOCOR TAB 20 MG PO SCH (20:39)
[2020-08-11] MEDS: NS 1000 ML 1,000 ML IV SCH ×2 (05:22→09:28)
[2020-08-11] MEDS: ZOSYN VIAL 3.375 GRAMS 3.375 G in NS 100 ML IV + SPIKE MINIBAG* 100 ML IV SCH (05:22)
--- NOTE | 2020-08-11 05:46 | RAD ---
PROCEDURE: Chest X-ray 1 View .HISTORY: PNEUMONIA, RESPIRATORY DISTRESS, FEVER .TECHNIQUE: AP portable view done at 4:20 a.m..COMPARISON: 08/10/2020.TECHNICAL QUALITY: Satisfactory .FINDINGS:Right internal jugular central venous line tip projected near the superior cavoatrial junction.Unchanged mild cardiomegaly with pacemaker on the left.Mediastinum and hilar regions show no masses or lymphadenopathy .Normal central vascularity .No pulmonary consolidation, masses, pleural fluid, or pneumothorax .No acute bony abnormality .IMPRESSION:1. Unchanged cardiomegaly.2. No other evidence of active disease.Electronically signed by: Rishabh Mcdermott (Aug 11, 2020 05:44:41)
[2020-08-11 06:09] LABS: BASOPHILS % (AUTO) 0.2 % (0.2-1.0); EOSINOPHILS # (AUTO) 0.2 x10^3/uL (0.0-0.2); EOSINOPHILS % (AUTO) 1.7 % (0.9-2.9); HEMATOCRIT 28.4 % (42.0-54.0); HEMOGLOBIN 9.8 g/dL (13.5-18.0); LYMPHOCYTES # (AUTO) 1.4 X10^3/uL (1.3-2.9); LYMPHOCYTES % (AUTO) 12.9 % (21.0-51.0); MEAN CORPUSCULAR HEMOGLOBIN 31.1 pg (27.0-34.0); MEAN CORPUSCULAR HGB CONC 34.4 g/dL (33.0-35.0); MEAN CORPUSCULAR VOLUME 90.5 fL (80.0-100.0); MEAN PLATELET VOLUME 9.1 fL (7.4-11.0); MONOCYTES # (AUTO) 0.5 x10^3/uL (0.3-0.8); MONOCYTES % (AUTO) 4.3 % (0.0-13.0); NEUTROPHILS # (AUTO) 8.7 x10^3/uL (2.2-4.8); NEUTROPHILS % (AUTO) 80.9 % (42.0-75.0); PLATELET COUNT 175 X10^3/uL (150.0-450.0); RED BLOOD COUNT 3.14 X10^6/uL (4.7-6.0); WHITE BLOOD COUNT 10.7 X10^3/uL (3.6-10.0)
[2020-08-11 06:15] LABS: ALANINE AMINOTRANSFERASE 14 Units/L (12-78); ALBUMIN 2.6 g/dL (3.4-5.0); ALKALINE PHOSPHATASE 70 Units/L (46-116); ASPARTATE AMINO TRANSFERASE 14 Units/L (15-37); BLOOD UREA NITROGEN 12 mg/dL (7-18); CALCIUM 8.2 mg/dL (8.5-10.1); CARBON DIOXIDE 26.3 mmol/L (21-32); CHLORIDE 106 mmol/L (98-107); COR CA(FOR HYPOALB) 9.3 mg/dL (8.5-10.1); CREATININE 0.79 mg/dL (0.70-1.30); SODIUM 140 mmol/L (136-145); eGFR NON BLACK RACES > 60 (>60)
[2020-08-11] MEDS ORDERED: LEXAPRO ONE (08:19)
[2020-08-11] MEDS ORDERED: CORTEF ONE (08:21)
[2020-08-11] MEDS: DUONEB 0.5 MG/3 MG (3 mL) NEB SCH (09:24)
[2020-08-11] MEDS: PULMICORT NEB TX 0.5 MG NEB SCH (09:24)
[2020-08-11] MEDS: ROBITUSSIN DM PO SCH (09:29)
[2020-08-11] MEDS: PLAVIX PO SCH (09:30)
[2020-08-11] MEDS: MILK OF MAGNESIA PO SCH (09:30)
[2020-08-11] MEDS: NORCO 7.5/325 MG TAB PO SCH (09:30)
[2020-08-11] MEDS: COREG TAB 25 MG PO SCH (09:31)
[2020-08-11] MEDS: LEXAPRO PO SCH (09:31)
[2020-08-11] MEDS: HEMOCYTE-PLUS PO SCH (09:32)
[2020-08-11] MEDS: PEPCID TAB 40 MG PO SCH (09:33)
[2020-08-11] MEDS: MICRO K EXTEN CAP 10 MEQ PO SCH (09:33)
[2020-08-11] MEDS: CORTEF PO SCH (09:33)
[2020-08-11] MEDS: ELIQUIS PO SCH (09:34)
[2020-08-11] MEDS: LASIX PO SCH (09:34)
[2020-08-11] MEDS: SYNTHROID 100 mcg TAB PO SCH (09:34)
[2020-08-11] MEDS: PROTONIX TAB 40 MG PO SCH (09:34)
[2020-08-11 10:47] LABS: ABG ALLEN TEST POS; ABG HCO3 29.1 mmol/L (22-26)
[2020-08-11 11:56] VITALS: BP 121/65
== END 2020-08-11 14:00 | disposition home or self-care (01) ==
LOC: MED/SURG 11:04 → ER 11:04 → MED/SURG 15:30
PROVIDERS: ADMIT Family Medicine; ATTEND Family Medicine
DX: I25.10 Atherosclerotic heart disease of native coronary artery without angina pectoris; R50.9 Fever, unspecified; Z95.0 Presence of cardiac pacemaker; J44.1 Chronic obstructive pulmonary disease with (acute) exacerbation; Z20.822 Contact with and (suspected) exposure to COVID-19; J18.8 Other pneumonia, unspecified organism; R06.03 Acute respiratory distress; Z86.73 Personal history of transient ischemic attack (TIA), and cerebral infarction without residual deficits; E78.2 Mixed hyperlipidemia; I10 Essential (primary) hypertension; R94.31 Abnormal electrocardiogram [ECG] [EKG]; E03.8 Other specified hypothyroidism

== ENCOUNTER 2020-08-31 09:40 | Inpatient (IN) ==
--- NOTE | 2020-08-31 09:53 | DR.SOBA ---
HPI Time Seen Time Seen by Provider: 08/31/20 09:52 HPI Comment HPI Comment: 75 yo m w/ pmh chf, copd, CAD, PE presents w/ 1 day hx of generalized malaise/ generalized weakness, increasing SOB as well as myalgias. 1 episode of vomiting this AM. Prev hx of copd, on cpap at night. Increasing sob per spouse. No f/c. No CP. Dx'd w/ CAP 3 weeks ago. Tested negative for covid at that time. Increasingly confused and fatigued this am. Reviewed Nurses Notes Reviewed: Yes Source History Provided: Significant Other Mode of Arrival Mode of Arrival: EMS Duration Duration: Days (1 day) Context Onset:: At Rest History of:: COPD, CHF and DVT/PE Currently on:: Neither Prehospital Care:: None Modifying Factors Worsens:: Exertion Improves:: Nothing Associated Signs and Symptoms Associated Signs and Symptoms: Cough; denies Fever, Wheeze, Hemoptysis and Chest Pain If Cough Cough: Nonproductive PMH PMH Past Medical History: Anemia, CHF, COPD, Coronary Artery Disease, Dyslipidemia, Hypertension, Hypothyroidism and Sleep Apnea Past Medical History Comment: PE, pituitary tumor Past Surgical History: Yes Surgical History: Angioplasty/Stents Past Surgical History Comment: ivc filter, pituitary surgery Family History Family Medical History: [place] and Coronary Artery Disease Social History Alcohol Use: None Do you use any recreational Drugs:: No ROS Review of Systems Constitutional: Malaise and Fatigue; negative Chills and Fever Eyes: No Symptoms Reported ENTM: No Symptoms Reported Respiratoy: Dry Cough and Short of Breath Cardiovascular: negative Chest Pain and Syncope Gastrointestinal/Abdominal: Nausea and Vomiting; negative Abdominal Pain and Diarrhea Genitourinary: No Symptoms Reported Neurological: No Symptoms Reported Musculoskeletal: No Symptoms Reported Integumentary: No Symptoms Reported Hematologic/Lymphatic: No Symptoms Reported Endocrine: No Symptoms Reported Psychiatric: No Symptoms Reported All Other Systems: Reviewed and Negative PE Vital Signs Vitals: Temperature 36.8 C Pulse Rate 80 Respiratory Rate 22 Blood Pressure [Left Arm] 121/65 Blood Pressure 115/79 O2 Sat by Pulse Oximetry 100 General Limitations: Altered Mental Status General Appearance: Alert and Other (generally weak. a/o x 1. ) Head Head Exam: Normal Inspection Eyes Eye exam: Normal Appearance ENT ENT Exam: Normal Exam Neck Neck Exam: Normal Inspection Chest Chest Inspection: Normal Inspection Respiratory Respiratory Exam: Prolonged Expiratory Phase; negative Accessory Muscle Use and Respiratory Distress Respiratory Exam: Bilateral: Rhonchi Cardiovascular Cardiovascular Exam: Regular Rate and Normal Rhythm; negative Systolic Murmur Abdominal Exam Abdominal Exam: Normal Inspection and Normal Bowel Sounds Abdominal Tenderness: RLQ Extremities Extremities Exam: Normal Inspection Back Back Exam: Normal Inspection Neurologic Neurological Exam: Alert and Oriented X3 (a/o x 1) Psychiatric Psychiatric Exam: Flat Affect Skin Skin Exam: Warm, Dry, Intact and Normal Color COURSE Treatment Treatment: 1158: Upon my evaluation, this patient had a high probability of imminent or life-threatening deterioration due to ___severe sepsis__, which required my direct attention, intervention, and personal management. I have personally provided __34_ minutes of critical care time exclusive of time spent on separately billable procedures. Time includes review of laboratory data, radiology results, discussion with consultants, and monitoring for potential decompensation. Interventions were performed as documented above. 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 Hypoxic on arrival. Pulse ox in low 80 percentile on RA, improved w/ supplemental o2. Marked hypoxemia per abg. CXR w/ evidence of RLL pna. Lactic acis> 2. Given NSS ivf's 2L. BP soft on arrival with map of 55, improved after fluid resuscitation. Blood cx's x 2 obtained. Placed on Rocephin/ azithromycin. CTA negative for PE but remonstrates pna. CT head/ abd pelvis unremarkable for any acute processes. d/w Dr Ward whom agrees to admit. Reevaluation 1st: Improved 2nd: Improved Education/Counseling Education/Counseling: Patient and Family Educated On: Treatment, Diagnosis, Prognosis and Needs for Follow Up ROR Labs Reviewed Laboratory Results Reviewed?: Yes Result Diagrams: 08/31/20 10:18 08/31/20 10:18 Laboratory: WBC 11.8 X10^3/uL (3.6-10.0) H 08/31/20 10:18 RBC 4.18 X10^6/uL (4.7-6.0) L 08/31/20 10:18 Hgb 12.6 g/dL (13.5-18.0) L 08/31/20 10:18 Hct 38.4 % (42.0-54.0) L 08/31/20 10:18 MCV 92.0 fL (80.0-100.0) 08/31/20 10:18 MCH 30.2 pg (27.0-34.0) 08/31/20 10:18 MCHC 32.9 g/dL (33.0-35.0) L 08/31/20 10:18 RDW 13.5 % (11.6-16.5) 08/31/20 10:18 Plt Count 229 X10^3/uL (150.0-450.0) 08/31/20 10:18 MPV 8.7 fL (7.4-11.0) 08/31/20 10:18 Neut % (Auto) 83.5 % (42.0-75.0) H 08/31/20 10:18 Lymph % (Auto) 11.6 % (21.0-51.0) L 08/31/20 10:18 [place] % (Auto) 3.2 % (0.0-13.0) 08/31/20 10:18 Eos % (Auto) 0.7 % (0.9-2.9) L 08/31/20 10:18 Baso % (Auto) 1.0 % (0.2-1.0) 08/31/20 10:18 Neut # (Auto) 9.8 x10^3/uL (2.2-4.8) H 08/31/20 10:18 Lymph # (Auto) 1.4 X10^3/uL (1.3-2.9) 08/31/20 10:18 [place] # (Auto) 0.4 x10^3/uL (0.3-0.8) 08/31/20 10:18 Eos # (Auto) 0.1 x10^3/uL (0.0-0.2) 08/31/20 10:18 Baso # (Auto) 0.1 X10^3/uL (0.0-0.1) 08/31/20 10:18 Absolute Nucleated RBC 0.0 /100WBC 08/31/20 10:18 Sample Site [facility] 08/31/20 09:56 ABG pH 7.510 (7.35-7.45) H 08/31/20 09:56 ABG pCO2 33.0 mmHg (35.0-45.0) L 08/31/20 09:56 ABG pO2 48.0 mmHg (80.0-100.0) L* 08/31/20 09:56 ABG HCO3 26.3 mmol/L (22-26) H 08/31/20 09:56 ABG O2 Saturation 88.0 % (90-100) L 08/31/20 09:56 ABG Base Excess 3.6 mmol/L (-2.0-2.0) H 08/31/20 09:56 Henrik Test N/a 08/31/20 09:56 A-a Gradient 60.0 mmHg 08/31/20 09:56 FiO2 21.0 08/31/20 09:56 Blood Gas Comments Pt eleuterio well elj 08/31/20 09:56 Sodium 140 mmol/L (136-145) 08/31/20 10:18 Corrected Sodium TNP 08/31/20 10:18 Potassium 3.1 mmol/L (3.5-5.1) L 08/31/20 10:18 Chloride 103 mmol/L (98-107) 08/31/20 10:18 Carbon Dioxide 26.8 mmol/L (21-32) 08/31/20 10:18 BUN 15 mg/dL (7-18) 08/31/20 10:18 Creatinine 1.18 mg/dL (0.70-1.30) 08/31/20 10:18 Est GFR (MDRD) Af Amer > 60 (>60) 08/31/20 10:18 Est GFR (MDRD) Non-Af > 60 (>60) 08/31/20 10:18 Glucose 94 mg/dL (65-99) 08/31/20 10:18 Lactic Acid 2.9 mmol/L (0.4-2.0) H 08/31/20 10:18 Calcium 8.7 mg/dL (8.5-10.1) 08/31/20 10:18 Corrected Calcium 9.3 mg/dL (8.5-10.1) 08/31/20 10:18 Ferritin 144 ng/mL (26-388) 08/31/20 10:18 Total Bilirubin 0.70 mg/dL (0.2-1.0) 08/31/20 10:18 AST 9 Units/L (15-37) L 08/31/20 10:18 ALT 16 Units/L (12-78) 08/31/20 10:18 Alkaline Phosphatase 86 Units/L (46-116) 08/31/20 10:18 Lactate Dehydrogenase 120 Units/L (85-227) 08/31/20 10:18 Troponin I < 0.02 ng/mL (0-1.5) 08/31/20 10:18 Total Protein 7.1 g/dL (6.4-8.2) 08/31/20 10:18 Albumin 3.3 g/dL (3.4-5.0) L 08/31/20 10:18 Globulin 3.8 g/dL (2.5-4.5) 08/31/20 10:18 Albumin/Globulin Ratio 0.9 Ratio (1.1-2.1) L 08/31/20 10:18 SARS CoV-2 RNA Rapid ITA Negative (NEGATIVE) 08/31/20 10:37 XRAY XRAY Interpreted by: Radiologist and Self X-ray Results: chest x ray 1 view: RLL infiltrate, no hemo/ penumothorax ct head: old lacunar infarcts, microvascular ischemic changes cta: no evidence of PE EKG Rate: 73 Rhythm: Paced Block: None Hypertrophy: None ST: Nonsp Opioid Opioid Risk Tool Age (Jhonny box if 16-45): No History of Preadolescent Sexual Abuse: No Total: 0 Total Score Risk Category: Low Risk Copyright: Mckeon predicting aberrant behaviors Diagnosis Discharge Problem: Severe sepsis, Acidosis, lactic, Encephalitis toxic CAP (community acquired pneumonia) Qualifiers: Laterality: right Lung location: lower lobe of lung Qualified Code(s): J18.9 - Pneumonia, unspecified organism Instructions Forms: Precautions for COVID19 Patient Portal Social Distancing
[2020-08-31 10:01] LABS: ABG BASE EXCESS 3.6 mmol/L (-2.0-2.0); ABG HCO3 26.3 mmol/L (22-26)
[2020-08-31] MEDS ORDERED: NS 1000 ML 1,000 ML IV ONE ×2 (10:03→11:10)
[2020-08-31] MEDS ORDERED: NS 1000 ML 1,000 ML ONE ×2 (10:12→11:16)
[2020-08-31 10:28] LABS: BASOPHILS # (AUTO) 0.1 X10^3/uL (0.0-0.1); EOSINOPHILS # (AUTO) 0.1 x10^3/uL (0.0-0.2); EOSINOPHILS % (AUTO) 0.7 % (0.9-2.9); HEMATOCRIT 38.4 % (42.0-54.0); HEMOGLOBIN 12.6 g/dL (13.5-18.0); LYMPHOCYTES # (AUTO) 1.4 X10^3/uL (1.3-2.9); LYMPHOCYTES % (AUTO) 11.6 % (21.0-51.0); MEAN CORPUSCULAR HEMOGLOBIN 30.2 pg (27.0-34.0); MEAN CORPUSCULAR HGB CONC 32.9 g/dL (33.0-35.0); MEAN PLATELET VOLUME 8.7 fL (7.4-11.0); MONOCYTES # (AUTO) 0.4 x10^3/uL (0.3-0.8); MONOCYTES % (AUTO) 3.2 % (0.0-13.0); NEUTROPHILS # (AUTO) 9.8 x10^3/uL (2.2-4.8); NEUTROPHILS % (AUTO) 83.5 % (42.0-75.0); PLATELET COUNT 229 X10^3/uL (150.0-450.0); RED BLOOD COUNT 4.18 X10^6/uL (4.7-6.0); RED CELL DISTRIBUTION WIDTH 13.5 % (11.6-16.5); WHITE BLOOD COUNT 11.8 X10^3/uL (3.6-10.0)
[2020-08-31] MEDS ORDERED: ZITHROMAX INJ 500 MG VIAL 500 MG in NS 250 ML IV 250 ML IV SCH (10:32)
[2020-08-31] MEDS ORDERED: ROCEPHIN 1 GRAM IV PREMIX 1 G/50 ML IV.SOLN. IV ONE ×2 (10:32→10:47)
[2020-08-31 10:47] LABS: ALANINE AMINOTRANSFERASE 16 Units/L (12-78); ALBUMIN 3.3 g/dL (3.4-5.0); ALKALINE PHOSPHATASE 86 Units/L (46-116); ASPARTATE AMINO TRANSFERASE 9 Units/L (15-37); BLOOD UREA NITROGEN 15 mg/dL (7-18); CALCIUM 8.7 mg/dL (8.5-10.1); CARBON DIOXIDE 26.8 mmol/L (21-32); CHLORIDE 103 mmol/L (98-107); COR CA(FOR HYPOALB) 9.3 mg/dL (8.5-10.1); CREATININE 1.18 mg/dL (0.70-1.30); LACTATE DEHYDROGENASE 120 Units/L (85-227); SODIUM 140 mmol/L (136-145); TOTAL PROTEIN 7.1 g/dL (6.4-8.2); TROPONIN I < 0.02 ng/mL (0-1.5); eGFR NON BLACK RACES > 60 (>60)
[2020-08-31] MEDS ORDERED: NS 250 ML IV 250 ML IV ONE (10:47)
[2020-08-31] MEDS ORDERED: ZITHROMAX INJ 500 MG VIAL IV ONE (10:47)
[2020-08-31 10:52] LABS: LACTIC ACID 2.9 mmol/L (0.4-2.0)
--- NOTE | 2020-08-31 11:24 | RAD ---
HISTORYSOB, FEVER, WEAKNESSSTUDYCHEST, 1 [id number]/13/2021FINDINGSThe cardiomediastinal silhouette is widened but stable. Left-sided pacer and pacer wires unchanged. New/worsening right-sided airspace opacities and volume loss. ACDF hardware. The bony thorax appears intact.IMPRESSIONNew right-sided airspace opacities concerning for pneumonia. Recommend follow-up to resolution.Electronically signed by: SHARON LOCO (Aug 31, 2020 11:22:49)
--- NOTE | 2020-08-31 12:25 | CT ---
HISTORYAMSSTUDYBRAIN W/O CONCOMPARISONCT brain from 07/04/2020.TECHNIQUEMultiple axial images of the head were performed from the skullbase to the vertex using standard departmental protocol. Sagittal and coronal reformatted images were performed. Dose reduction techniques including Automated Exposure Control (AEC) and adjustment of mA and kV were utilized.FINDINGSThe lateral ventricles and basilar cisterns appear patent. 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 This is similar to prior study. Mild low attenuation change in the subcortical and deep supratentorial white matter. Appropriate volume loss for age. Bilateral chronic basal ganglia lacunar infarcts. No extra-axial collection. The globes appear intact. The paranasal sinuses demonstrate mild mucosal thickening in the sphenoid sinuses but are otherwise clear. Mastoid air cells appear clear. Stable remodeling and erosion of the right sella from the mass. No acute fracture.IMPRESSIONNo significant change from prior study of invasive right sellar/parasellar mass.Mild chronic small vessel disease and chronic appearing basal ganglia lacunar infarcts.Electronically signed by: Bradly Summers (Aug 31, 2020 12:24:09)
--- NOTE | 2020-08-31 12:28 | CT ---
HISTORYRLQ PAIN, SEPSISSTUDYABDOMEN/PELVIS WITH [id number]/05/2019; CT chest same dayTECHNIQUECT of the abdomen and pelvis obtained with IV contrast. Dose reduction techniques including Automated Exposure Control (AEC) and adjustment of mA and kV were utilized. Study limited due to patient positioning.FINDINGSRight basilar ground-glass opacities and consolidation. Partially visualized pacer wires.No acute osseous abnormality. Multilevel degenerative changes throughout the visualized spine.The liver, gallbladder, spleen, pancreas, bilateral adrenal glands, and bilateral kidneys demonstrate no acute process. Bilateral renal cysts.No evidence of bowel obstruction. Moderate fecal burden. The appendix is normal.The bladder is unremarkable. No free air or fluid. Non aneurysmal aorta. Aortoiliac and branch vessel calcifications. IVC filter.IMPRESSIONNo acute findings in the abdomen or pelvis. The appendix is normal.Airspace disease in the visualized right lung concerning for infectious. See comparison CT chest same day.Electronically signed by: SHARON LOCO (Aug 31, 2020 12:26:10)
--- NOTE | 2020-08-31 12:33 | CT ---
HISTORYSOB, HX PE, HYPOXEMIASTUDYCTA [id number]/09/2020TECHNIQUECT of the chest was obtained with IV contrast. Reformatted images in the coronal sagittal planes and 3D MIP images also generated for review.FINDINGSContrast bolus timing is adequate for detection of PTE. No central or segmental pulmonary arterial filling defects are identified. There is no pulmonary arterial dilatation or evidence of right heart strain. Heart is normal in size without pericardial effusion. Left sided transvenous pacemaker noted. Thoracic aorta and proximal great vessels are mildly calcified without aneurysm. Central airways are patent. There are shotty mediastinal lymph nodes, none pathologically enlarged. There is no bulky hilar lymphadenopathy.There is diffuse airspace disease throughout all lobes of the right lung, most significant within the right lower and middle lobes. There is a background of mild centrilobular emphysema. The left lung remains predominantly clear. There is no pleural effusion or pneumothorax.Limited images through the upper abdomen demonstrate no acute abnormality. No acute osseous abnormality is identified.IMPRESSION1. Negative for central or segmental PTE.2. Diffuse airspace disease throughout the right lung, most compatible with multifocal pneumonia. Clinical correlation and continued PA/lateral radiographic follow-up to resolution recommended.3. Mild emphysema.Electronically signed by: ULISSES PLASCENCIA (Aug 31, 2020 12:31:28)
[2020-08-31] MEDS ORDERED: SOLU-Medrol 125 MG VIAL IVP ONE (12:43)
[2020-08-31 13:28] LABS: BILIRUBIN,URINE NEGATIVE (NEGATIVE); BLOOD/HEMOGLOBIN,URINE NEGATIVE (NEGATIVE); GLUCOSE, URINE NEGATIVE (NEGATIVE); KETONES,URINE NEGATIVE (NEGATIVE); LEUKOCYTE ESTERASE ,URINE 1+ (NEGATIVE); NITRITES,URINE NEGATIVE (NEGATIVE); PROTEIN,URINE NEGATIVE (NEGATIVE); UROBILINOGEN,URINE NORMAL (NORMAL)
[2020-08-31 13:37] LABS: APPEARANCE,URINE HAZY (CLEAR); COLOR,URINE YELLOW (YELLOW)
[2020-08-31 13:38] LABS: BACTERIA,URINE NEGATIVE /HPF (NEGATIVE); RBC,URINE NONE SEEN /HPF (0-3); SQUAMOUS EPITHELIAL CELL,UR NEGATIVE /HPF (NEGATIVE); YEAST,URINE MANY /HPF (NEGATIVE)
[2020-08-31] MEDS ORDERED: SOLU-Medrol 125 MG VIAL ONE (13:49)
[2020-08-31] MEDS ORDERED: K-RIDER 10 MEQ/NS 100 ML 10 MEQ/100 ML BAG IV PRN (16:16)
[2020-08-31] MEDS ORDERED: KLOR-CON PO PRN (16:16)
[2020-08-31] MEDS ORDERED: POTASSIUM CHLORIDE LIQ 20 MEQ UDC PO PRN (16:16)
[2020-08-31] MEDS ORDERED: K-DUR TAB 20 MEQ PO PRN (16:16)
[2020-08-31] MEDS ORDERED: POTASSIUM CHL 60 MEQ/NS 0.45% 500 ML IV PRN (16:16)
[2020-08-31] MEDS ORDERED: MICRO K EXTEN CAP 10 MEQ PO PRN (16:16)
[2020-08-31] MEDS ORDERED: MAGNESIUM SULFATE 1 GRAM/100 mL PREMIX 1 GM/100 ML BAG IV PRN (16:16)
[2020-08-31] MEDS ORDERED: POTASSIUM CHL 40 MEQ/NS 0.45% 500 ML IV PRN (16:16)
[2020-08-31] MEDS: DUONEB 0.5 MG/3 MG (3 mL) NEB SCH (16:25)
[2020-08-31] MEDS ORDERED: PULMICORT NEB TX 0.5 MG NEB ONE (19:45)
[2020-08-31] MEDS: PULMICORT NEB TX 0.5 MG NEB SCH (20:16)
[2020-09-01] MEDS: DUONEB 0.5 MG/3 MG (3 mL) NEB SCH ×4 (00:08→17:40)
[2020-09-01] MEDS ORDERED: ZITHROMAX INJ 500 MG VIAL IV ONE (04:47)
[2020-09-01] MEDS ORDERED: NS 250 ML IV 0 ML IV ONE (04:47)
[2020-09-01] MEDS ORDERED: D5W 250 ML IV 250 ML IV ONE (04:50)
[2020-09-01 04:57] LABS: BASOPHILS % (AUTO) 0 % (0.2-1.0); HEMATOCRIT 34.3 % (42.0-54.0); HEMOGLOBIN 11.3 g/dL (13.5-18.0); LYMPHOCYTES # (AUTO) 0.8 X10^3/uL (1.3-2.9); LYMPHOCYTES % (AUTO) 4.5 % (21.0-51.0); MEAN CORPUSCULAR HEMOGLOBIN 30.1 pg (27.0-34.0); MEAN CORPUSCULAR HGB CONC 32.9 g/dL (33.0-35.0); MEAN CORPUSCULAR VOLUME 91.4 fL (80.0-100.0); MEAN PLATELET VOLUME 9.2 fL (7.4-11.0); MONOCYTES # (AUTO) 0.3 x10^3/uL (0.3-0.8); MONOCYTES % (AUTO) 1.8 % (0.0-13.0); NEUTROPHILS # (AUTO) 17.5 x10^3/uL (2.2-4.8); NEUTROPHILS % (AUTO) 93.7 % (42.0-75.0); PLATELET COUNT 205 X10^3/uL (150.0-450.0); RED BLOOD COUNT 3.75 X10^6/uL (4.7-6.0); RED CELL DISTRIBUTION WIDTH 13.3 % (11.6-16.5); WHITE BLOOD COUNT 18.7 X10^3/uL (3.6-10.0)
[2020-09-01 05:06] LABS: ALANINE AMINOTRANSFERASE 15 Units/L (12-78); ALBUMIN 2.8 g/dL (3.4-5.0); ALKALINE PHOSPHATASE 68 Units/L (46-116); ASPARTATE AMINO TRANSFERASE 9 Units/L (15-37); BLOOD UREA NITROGEN 18 mg/dL (7-18); CALCIUM 8.9 mg/dL (8.5-10.1); CARBON DIOXIDE 26.2 mmol/L (21-32); CHLORIDE 105 mmol/L (98-107); COR CA(FOR HYPOALB) 9.9 mg/dL (8.5-10.1); COR NA(FOR HYPERGLY) 142 mmol/L (136-145); CREATININE 1.07 mg/dL (0.70-1.30); SODIUM 141 mmol/L (136-145); TOTAL PROTEIN 6.8 g/dL (6.4-8.2); eGFR NON BLACK RACES > 60 (>60)
[2020-09-01 05:18] LABS: PLATELET MORPHOLOGY COMMENT NORMAL (NORMAL)
[2020-09-01] MEDS: TYLENOL 325 MG TAB PO PRN (05:45)
[2020-09-01] MEDS ORDERED: NS 100 ML IV 100 ML IV ONE (05:45)
[2020-09-01] MEDS: ZITHROMAX INJ 500 MG VIAL 250 MG in D5W 250 ML IV 250 ML IV SCH ×2 (06:00→08:13)
[2020-09-01] MEDS: PULMICORT NEB TX 0.5 MG NEB SCH ×2 (09:21→20:35)
[2020-09-01 11:16] LABS: ABG HCO3 21.6 mmol/L (22-26)
[2020-09-01] MEDS ORDERED: LEXAPRO ONE (12:27)
[2020-09-01] MEDS: LASIX PO SCH (12:30)
[2020-09-01] MEDS: ELIQUIS PO SCH ×2 (12:31→20:20)
[2020-09-01] MEDS: LEXAPRO PO SCH (12:31)
[2020-09-01] MEDS: ROCEPHIN 1 GRAM IV PREMIX 1 G/50 ML IV.SOLN. IV SCH (12:31)
[2020-09-01] MEDS: ROBITUSSIN DM PO SCH ×3 (12:32→20:20)
[2020-09-01] MEDS: NORCO 7.5/325 MG TAB PO PRN ×2 (13:20→21:35)
--- NOTE | 2020-09-01 14:33 | DR.H&P ---
H&P - History & Physical for Day of: H&P Date: 08/31/20 - Chief Complaint Chief Complaint: SOB, CONFUSION PER FAMILY - History of Present Illness History of Present Illness: 75 yo m w/ pmh chf, copd, CAD, PE presents w/ 1 day hx of generalized malaise/ generalized weakness, increasing SOB as well as myalgias. 1 episode of vomiting this AM. Prev hx of copd, on cpap at night. Increasing sob per spouse. No f/c. No CP. Dx'd w/ CAP 3 weeks ago. Tested negative for covid at that time. Increasingly confused and fatigued this am. - Past Medical History Past Medical History: Coronary Artery Disease, Hypertension, Dyslipidemia, Hypothyroidism, Anemia, COPD, Sleep Apnea, CHF Additional Medical History: Atrial Fibrillation, Bradycardia. Pituitary adenoma - s/p resection and XRT with recently diagnoses probable recurrence. CVD; S/P TIA in 03/2015 - Past Surgical History Surgical History: Angioplasty/Stents Additional Surgical History: Pacemaker implantation 2010. Pituitary adenoma resection and XRT 2008. Cardiac ablation for the tx of A-fib - 05/2015. Cardiac cath and stent placement 2010. Cervical fusion - Family History Family Medical History: Cancer, [place], Coronary Artery Disease, Hypertension - Social History Does patient currently use any type of tobacco product: No Have you used tobacco products in the last 12 months: No Type of Tobacco Use: None Alcohol Use: None Drug Use: None - Medications Home Medications: No Known Drug Allergies Allergy (Verified 10/16/18 14:14) CONTINUE taking the following medications carvedilol [Coreg] 6.25 mg PO BID 08/31/20 [History] docusate sodium [Stool Softener] 100 mg PO DAILY 08/31/20 [History] ipratropium-albuterol 3 ml INHALATION TID 08/31/20 [History] lidocaine 1 patch TOPICAL DAILY PRN 08/31/20 [History] lisinopril 5 mg PO DAILY 08/31/20 [History] midodrine 2.5 mg PO TID 08/31/20 [History] mupirocin 1 applic TOPICAL BID 08/31/20 [History] carvedilol [Coreg] 12.5 mg PO BID 09/01/20 [History] - Review of Systems Constitutional: Malaise Eyes: No Symptoms Reported ENT: No Symptoms Reported Respiratory: Cough, Shortness of Breath, Wheezing Cardiovascular: denies: Edema Gastrointestinal: Vomiting ( X1 ON THURSDAY AM) Genitourinary: No Symptoms Reported Musculoskeletal: No Symptoms Reported Skin: No Symptoms Reported Neurological: Weakness (DIFFUSE, CHRONIC STABLE STATE) - Physical Exam Vital Signs: Temperature 99.3 F Pulse Rate [Apical] 85 Pulse Rate 62 Respiratory Rate 22 Blood Pressure [Left Arm] 101/53 Blood Pressure 136/68 O2 Sat by Pulse Oximetry 94 Oriented: Normal Eyes: Normal Ear: Normal Nose: Normal Throat: Normal Respiratory: RLL Diminished, LLL Diminished Cardiovascular: Irregular. negative: Tachycardia, Edema Auscultation: Bowel Sounds: Normal Palpation: Normal Tenderness: Normal Skin: Decreased Turgur Musculoskeletal: Back:Lumbar Psychiatric: Anxiety Mood Description: Calm Speech Pattern: Appropriate - Assessment/Plan (1) Acute respiratory distress Status: Acute Plan: ADMIT, ICU, COVID SWAB NEGATIVE ON ADMISSION. BC AND SPUTUM CULTURE. IV ATBX, RESP THERAPY, SUPPLEMENTAL O2. IV HYDRATION, DUO NEBS, STRICT I&OS. VERIFY AND RESUME HOME MEDICATION (2) CAP (community acquired pneumonia) Qualifiers: Laterality: right Lung location: lower lobe of lung Qualified Code(s): J18.9 - Pneumonia, unspecified organism Status: Acute (3) Hypoxemia Status: Acute (4) Pneumonia Status: Acute (5) COPD (chronic obstructive pulmonary disease) Qualifiers: Status: Acute (6) Cerebrovascular small vessel disease Status: Chronic (7) CAD (coronary artery disease) Status: Chronic (8) Hypertension Status: Chronic (9) BPH (benign prostatic hypertrophy) Status: Chronic (10) Hypothyroidism Qualifiers: Status: Chronic - Allergies Allergies/Adverse Reactions: Allergies Allergy/AdvReac Type Severity Reaction Status Date / Time No Known Drug Allergies Allergy Verified 10/16/18 14:14
[2020-09-01] MEDS: PROAMATINE PO SCH ×2 (15:13→21:35)
[2020-09-01 15:29] VITALS: BMI 27.1
--- NOTE | 2020-09-01 18:25 | RAD ---
HISTORYPneumoniaSTUDYCHEST, 1 VIEWCOMPARISONNone availableTECHNIQUEChest radiographic imaging, frontal projection, 1 imageFINDINGSMild cardiomegaly.Overall improved airspace disease in the right lung with persistent hazy airspace disease in the right lower lobe.Pacemaker in place.No pleural effusion.No pneumothorax.No acute osseous abnormality.IMPRESSIONPersistent hazy right lower lobe airspace disease with overall significant improved since the prior exam.Electronically signed by: Miguel Paz (Sep 01, 2020 18:23:13)
[2020-09-01] MEDS: COREG TAB 12.5 MG PO SCH (20:19)
[2020-09-01] MEDS: ZOCOR TAB 20 MG PO SCH (20:19)
[2020-09-01] MEDS: AMBIEN PO PRN (20:20)
[2020-09-02] MEDS: DUONEB 0.5 MG/3 MG (3 mL) NEB SCH ×5 (00:19→18:19)
[2020-09-02 05:06] LABS: BASOPHILS % (AUTO) 0.1 % (0.2-1.0); HEMATOCRIT 28.5 % (42.0-54.0); HEMOGLOBIN 9.6 g/dL (13.5-18.0); LYMPHOCYTES # (AUTO) 1.2 X10^3/uL (1.3-2.9); LYMPHOCYTES % (AUTO) 7.8 % (21.0-51.0); MEAN CORPUSCULAR HEMOGLOBIN 30.5 pg (27.0-34.0); MEAN CORPUSCULAR HGB CONC 33.6 g/dL (33.0-35.0); MEAN CORPUSCULAR VOLUME 90.8 fL (80.0-100.0); MEAN PLATELET VOLUME 9.5 fL (7.4-11.0); MONOCYTES # (AUTO) 0.8 x10^3/uL (0.3-0.8); MONOCYTES % (AUTO) 5.1 % (0.0-13.0); PLATELET COUNT 168 X10^3/uL (150.0-450.0); RED BLOOD COUNT 3.14 X10^6/uL (4.7-6.0); RED CELL DISTRIBUTION WIDTH 13.5 % (11.6-16.5)
[2020-09-02 05:19] LABS: ALANINE AMINOTRANSFERASE 14 Units/L (12-78); ALBUMIN 2.5 g/dL (3.4-5.0); ALKALINE PHOSPHATASE 63 Units/L (46-116); ASPARTATE AMINO TRANSFERASE 9 Units/L (15-37); BLOOD UREA NITROGEN 21 mg/dL (7-18); CALCIUM 8.5 mg/dL (8.5-10.1); CARBON DIOXIDE 27.1 mmol/L (21-32); CHLORIDE 109 mmol/L (98-107); COR CA(FOR HYPOALB) 9.7 mg/dL (8.5-10.1); CREATININE 0.97 mg/dL (0.70-1.30); SODIUM 145 mmol/L (136-145); TOTAL PROTEIN 6.1 g/dL (6.4-8.2); eGFR NON BLACK RACES > 60 (>60)
[2020-09-02] MEDS: PROAMATINE PO SCH ×3 (05:54→22:51)
[2020-09-02] MEDS: PULMICORT NEB TX 0.5 MG NEB SCH ×2 (08:21→20:48)
[2020-09-02] MEDS ORDERED: LEXAPRO ONE (09:03)
[2020-09-02] MEDS: ROCEPHIN 1 GRAM IV PREMIX 1 G/50 ML IV.SOLN. IV SCH (09:15)
[2020-09-02] MEDS: PLAVIX PO SCH (09:21)
[2020-09-02] MEDS: ZESTRIL TAB 5 MG PO SCH (09:22)
[2020-09-02] MEDS: COREG TAB 12.5 MG PO SCH ×2 (09:22→20:18)
[2020-09-02] MEDS: MICRO K EXTEN CAP 10 MEQ PO SCH (09:22)
[2020-09-02] MEDS: ELIQUIS PO SCH ×2 (09:23→20:18)
[2020-09-02] MEDS: LASIX PO SCH (09:24)
[2020-09-02] MEDS: LEXAPRO PO SCH (09:24)
[2020-09-02] MEDS: SYNTHROID 100 mcg TAB PO SCH (09:25)
[2020-09-02] MEDS: ROBITUSSIN DM PO SCH ×4 (09:25→20:18)
[2020-09-02] MEDS: ZITHROMAX INJ 500 MG VIAL 250 MG in D5W 250 ML IV 250 ML IV SCH (10:30)
[2020-09-02] MEDS: NORCO 7.5/325 MG TAB PO PRN ×2 (13:37→20:19)
[2020-09-02] MEDS: COLACE CAP 100 MG PO SCH (20:17)
[2020-09-02] MEDS: ZOCOR TAB 20 MG PO SCH (20:18)
[2020-09-02] MEDS: MILK OF MAGNESIA PO SCH (20:18)
[2020-09-02] MEDS: AMBIEN PO PRN (20:18)
[2020-09-03] MEDS: DUONEB 0.5 MG/3 MG (3 mL) NEB SCH ×4 (00:43→17:13)
[2020-09-03] MEDS: PROAMATINE PO SCH ×2 (05:07→15:29)
[2020-09-03] MEDS: TYLENOL 325 MG TAB PO PRN (05:07)
--- NOTE | 2020-09-03 05:08 | RAD ---
PROCEDURE: Chest X-ray 1 View .HISTORY: PNEUMONIA .TECHNIQUE: AP view .COMPARISON: 09/01/2020.TECHNICAL QUALITY: Satisfactory .FINDINGS:Unchanged start size upper limits of normal with pacemaker on the left.Mediastinum is unremarkable.Normal central vascularity.Increased consolidation right base compared to previous study consistent with pneumonia. Mild new consolidation right upper lobe. No pleural fluid or pneumothorax.IMPRESSION:Increasing pneumonia on the right.Electronically signed by: Rishabh Mcdermott (Sep 03, 2020 05:06:46)
[2020-09-03 05:12] LABS: BASOPHILS # (AUTO) 0.1 X10^3/uL (0.0-0.1); BASOPHILS % (AUTO) 0.4 % (0.2-1.0); EOSINOPHILS # (AUTO) 0.2 x10^3/uL (0.0-0.2); EOSINOPHILS % (AUTO) 1.5 % (0.9-2.9); HEMATOCRIT 31.9 % (42.0-54.0); HEMOGLOBIN 10.6 g/dL (13.5-18.0); LYMPHOCYTES # (AUTO) 1.7 X10^3/uL (1.3-2.9); LYMPHOCYTES % (AUTO) 14.8 % (21.0-51.0); MEAN CORPUSCULAR HEMOGLOBIN 30.2 pg (27.0-34.0); MEAN CORPUSCULAR HGB CONC 33.2 g/dL (33.0-35.0); MEAN PLATELET VOLUME 9.6 fL (7.4-11.0); MONOCYTES # (AUTO) 0.7 x10^3/uL (0.3-0.8); MONOCYTES % (AUTO) 6.1 % (0.0-13.0); NEUTROPHILS % (AUTO) 77.2 % (42.0-75.0); PLATELET COUNT 190 X10^3/uL (150.0-450.0); RED BLOOD COUNT 3.51 X10^6/uL (4.7-6.0); RED CELL DISTRIBUTION WIDTH 13.4 % (11.6-16.5); WHITE BLOOD COUNT 11.7 X10^3/uL (3.6-10.0)
[2020-09-03 05:18] LABS: ALANINE AMINOTRANSFERASE 20 Units/L (12-78); ALBUMIN 2.7 g/dL (3.4-5.0); ALKALINE PHOSPHATASE 71 Units/L (46-116); ASPARTATE AMINO TRANSFERASE 13 Units/L (15-37); BLOOD UREA NITROGEN 21 mg/dL (7-18); CALCIUM 8.7 mg/dL (8.5-10.1); CARBON DIOXIDE 31.1 mmol/L (21-32); CHLORIDE 102 mmol/L (98-107); COR CA(FOR HYPOALB) 9.7 mg/dL (8.5-10.1); CREATININE 0.87 mg/dL (0.70-1.30); SODIUM 141 mmol/L (136-145); TOTAL PROTEIN 6.6 g/dL (6.4-8.2); eGFR NON BLACK RACES > 60 (>60)
[2020-09-03] MEDS ORDERED: LEXAPRO ONE (07:48)
[2020-09-03] MEDS ORDERED: ZOFRAN INJ 4 MG VIAL IVP PRN (07:50)
[2020-09-03] MEDS: PULMICORT NEB TX 0.5 MG NEB SCH ×2 (08:50→21:36)
[2020-09-03] MEDS: ROCEPHIN 1 GRAM IV PREMIX 1 G/50 ML IV.SOLN. IV SCH (09:15)
[2020-09-03] MEDS: MICRO K EXTEN CAP 10 MEQ PO SCH (09:32)
[2020-09-03] MEDS: PLAVIX PO SCH (09:33)
[2020-09-03] MEDS: COREG TAB 12.5 MG PO SCH ×2 (09:36→21:41)
[2020-09-03] MEDS: LASIX PO SCH (09:36)
[2020-09-03] MEDS: NORCO 7.5/325 MG TAB PO PRN ×2 (09:37→21:44)
[2020-09-03] MEDS: ZESTRIL TAB 5 MG PO SCH (09:37)
[2020-09-03] MEDS: ELIQUIS PO SCH ×2 (09:37→21:40)
[2020-09-03] MEDS: LEXAPRO PO SCH (09:38)
[2020-09-03] MEDS: SYNTHROID 100 mcg TAB PO SCH (09:39)
[2020-09-03] MEDS: ROBITUSSIN DM PO SCH ×4 (09:41→21:45)
[2020-09-03] MEDS: PROTONIX INJ 40 MG VIAL IVP SCH (10:47)
[2020-09-03] MEDS: ZITHROMAX INJ 500 MG VIAL 250 MG in D5W 250 ML IV 250 ML IV SCH (10:47)
[2020-09-03] MEDS ORDERED: SOLU-Medrol 40 MG VIAL IVP SCH ×3 (11:00→12:00)
[2020-09-03] MEDS ORDERED: MAGIC MOUTHWASH MT PRN (11:15)
[2020-09-03] MEDS ORDERED: LASIX IVP ONE (12:00)
[2020-09-03] MEDS ORDERED: MAGIC MOUTHWASH ONE (15:45)
[2020-09-03] MEDS ORDERED: NYSTATIN SUSP ONE (15:46)
[2020-09-03] MEDS: MAGIC MOUTHWASH MT SCH ×2 (16:02→21:46)
[2020-09-03] MEDS: NYSTATIN SUSP MT SCH ×2 (16:03→21:46)
[2020-09-03] MEDS: SOLU-Medrol 40 MG VIAL IVP SCH (21:38)
[2020-09-03] MEDS: AMBIEN PO PRN (21:40)
[2020-09-03] MEDS: ZOCOR TAB 20 MG PO SCH (21:40)
[2020-09-03] MEDS: COLACE CAP 100 MG PO SCH (21:40)
[2020-09-03] MEDS: MILK OF MAGNESIA PO SCH (21:41)
[2020-09-03] MEDS: PATIENT'S HOME MEDICATION PO SCH (21:45)
[2020-09-04] MEDS: DUONEB 0.5 MG/3 MG (3 mL) NEB SCH ×2 (00:36→05:51)
[2020-09-04 04:58] LABS: BASOPHILS % (AUTO) 0.1 % (0.2-1.0); HEMOGLOBIN 11.2 g/dL (13.5-18.0); LYMPHOCYTES # (AUTO) 0.7 X10^3/uL (1.3-2.9); MEAN CORPUSCULAR HEMOGLOBIN 29.8 pg (27.0-34.0); MEAN CORPUSCULAR VOLUME 90.3 fL (80.0-100.0); MEAN PLATELET VOLUME 9.4 fL (7.4-11.0); MONOCYTES # (AUTO) 0.2 x10^3/uL (0.3-0.8); MONOCYTES % (AUTO) 1.4 % (0.0-13.0); NEUTROPHILS # (AUTO) 12.3 x10^3/uL (2.2-4.8); NEUTROPHILS % (AUTO) 93.5 % (42.0-75.0); PLATELET COUNT 217 X10^3/uL (150.0-450.0); RED BLOOD COUNT 3.77 X10^6/uL (4.7-6.0); RED CELL DISTRIBUTION WIDTH 13.4 % (11.6-16.5); WHITE BLOOD COUNT 13.2 X10^3/uL (3.6-10.0)
[2020-09-04 05:10] LABS: ALANINE AMINOTRANSFERASE 20 Units/L (12-78); ALBUMIN 2.7 g/dL (3.4-5.0); ALKALINE PHOSPHATASE 73 Units/L (46-116); ASPARTATE AMINO TRANSFERASE 10 Units/L (15-37); BLOOD UREA NITROGEN 26 mg/dL (7-18); CALCIUM 8.7 mg/dL (8.5-10.1); CARBON DIOXIDE 28.4 mmol/L (21-32); CHLORIDE 101 mmol/L (98-107); COR CA(FOR HYPOALB) 9.7 mg/dL (8.5-10.1); COR NA(FOR HYPERGLY) 141 mmol/L (136-145); CREATININE 1.06 mg/dL (0.70-1.30); SODIUM 139 mmol/L (136-145); eGFR NON BLACK RACES > 60 (>60)
[2020-09-04 05:24] LABS: PLATELET MORPHOLOGY COMMENT NORMAL (NORMAL)
--- NOTE | 2020-09-04 05:27 | RAD ---
PROCEDURE: Chest X-ray 1 View .HISTORY: PNEUMONIA .TECHNIQUE: AP view .COMPARISON: 09/03/2020.TECHNICAL QUALITY: Satisfactory .FINDINGS:Normal size heart with pacemaker on the left.Mediastinum and hilar regions show no masses.Normal central vascularity.Improved consolidation right base with minimal residual changes remaining present.No acute bony abnormality. Previous anterior fusion lower cervical spine with plate and screws.IMPRESSION:Improving right basilar pneumonia.Electronically signed by: Rishabh Mcdermott (Sep 04, 2020 05:25:05)
[2020-09-04 05:48] LABS: ABG BASE EXCESS 7.4 mmol/L (-2.0-2.0)
[2020-09-04 05:49] LABS: ABG HCO3 31.2 mmol/L (22-26)
[2020-09-04] MEDS: SOLU-Medrol 40 MG VIAL IVP SCH (06:02)
[2020-09-04] MEDS: PATIENT'S HOME MEDICATION PO SCH (06:49)
[2020-09-04] MEDS ORDERED: LEXAPRO ONE (08:44)
[2020-09-04] MEDS: ROCEPHIN 1 GRAM IV PREMIX 1 G/50 ML IV.SOLN. IV SCH (08:52)
[2020-09-04] MEDS: ZITHROMAX INJ 500 MG VIAL 250 MG in D5W 250 ML IV 250 ML IV SCH (09:33)
[2020-09-04] MEDS: PROTONIX INJ 40 MG VIAL IVP SCH (09:34)
[2020-09-04] MEDS: LASIX PO SCH (09:37)
[2020-09-04] MEDS: ZESTRIL TAB 5 MG PO SCH (09:37)
[2020-09-04] MEDS: ELIQUIS PO SCH (09:38)
[2020-09-04] MEDS: MICRO K EXTEN CAP 10 MEQ PO SCH (09:38)
[2020-09-04] MEDS: COREG TAB 12.5 MG PO SCH (09:38)
[2020-09-04] MEDS: PLAVIX PO SCH (09:39)
[2020-09-04] MEDS: LEXAPRO PO SCH (09:39)
[2020-09-04] MEDS: MAGIC MOUTHWASH MT SCH (09:41)
[2020-09-04] MEDS: NYSTATIN SUSP MT SCH (09:41)
[2020-09-04] MEDS: PULMICORT NEB TX 0.5 MG NEB SCH (09:42)
[2020-09-04] MEDS: ROBITUSSIN DM PO SCH (09:42)
[2020-09-04] MEDS: SYNTHROID 100 mcg TAB PO SCH (09:42)
[2020-09-04 12:45] VITALS: BP 106/55
== END 2020-09-04 12:00 | disposition home or self-care (01) | DRG 871 ==
LOC: ER 09:40 → ICU 12:40
PROVIDERS: ADMIT Internal Medicine; ATTEND Internal Medicine
DX: Z86.73 Personal history of transient ischemic attack (TIA), and cerebral infarction without residual deficits; E03.8 Other specified hypothyroidism; J18.8 Other pneumonia, unspecified organism; J44.9 Chronic obstructive pulmonary disease, unspecified; Z72.0 Tobacco use; R09.02 Hypoxemia; M79.10 Myalgia, unspecified site; R26.89 Other abnormalities of gait and mobility; Z95.0 Presence of cardiac pacemaker; A41.89 Other specified sepsis; R06.02 Shortness of breath; I50.9 Heart failure, unspecified; R94.31 Abnormal electrocardiogram [ECG] [EKG]; R79.89 Other specified abnormal findings of blood chemistry; Z99.81 Dependence on supplemental oxygen; K21.9 Gastro-esophageal reflux disease without esophagitis; Z20.822 Contact with and (suspected) exposure to COVID-19; I11.0 Hypertensive heart disease with heart failure; Z79.01 Long term (current) use of anticoagulants; Z86.711 Personal history of pulmonary embolism; I25.10 Atherosclerotic heart disease of native coronary artery without angina pectoris

== ENCOUNTER 2020-10-16 15:15 | Observation (INO) ==
[2020-10-16] MEDS ORDERED: DUONEB 0.5 MG/3 MG (3 mL) NEB ONE (15:42)
[2020-10-16] MEDS ORDERED: SALINE 3% 15 ML NEB TX ONE (15:42)
[2020-10-16] MEDS ORDERED: NS 1000 ML 1,000 ML ONE (15:58)
--- NOTE | 2020-10-16 15:59 | DR.GENAD ---
HPI Time Seen Time Seen by Provider: 10/16/20 15:32 PCP Primary Care Physician: SAIRA HPI Comment HPI Comment: Presents with his home nurse with the complaint of confusion, fever. Complaint/Symptoms Chief Complaint:: FAMILY MEMBER STATES PT. HAS HAD FEVER, WEAKNESS AND AMS TODAY. FAMILY MEMBER STATES PT. BECOMES THIS WAY USUALLY WHEN HE DEVELOPS PNEUMONIA. COVID-19 Coronavirus risk:travel/contact w/high risk person: No Has patient experienced Coronavirus symptoms: Yes Coronavirus symptoms experienced: Fever Source History Provided: Patient and Family Member Mode of Arrival Mode of Arrival: Wheelchair Timing Onset of Chief Complaint: 10/16/20 PMH PMH Past Medical History: Yes Past Medical History: Anemia, CHF, COPD, Coronary Artery Disease, Dyslipidemia, Hypertension, Hypothyroidism and Sleep Apnea Past Surgical History: Yes Surgical History: Angioplasty/Stents Family History History of Family Medical Conditions: Yes Family Medical History: Cancer, [place], Coronary Artery Disease and Hypertension Social History Does patient currently use any type of tobacco product: Yes Have you used tobacco products in the last 12 months: Yes Type of Tobacco Use: Cigars Does any household member use tobacco: No Alcohol Use: None Do you use any recreational Drugs:: No Lives With: Spouse Lives Where: Home Travel Risk Coronavirus risk:travel/contact w/high risk person: No Has patient experienced Coronavirus symptoms: Yes Coronavirus symptoms experienced: Fever Infectious screening In the last 2 months have you had wt loss of >10#?: NO Have you had fever, night sweats or hemotysis?: No Have you traveled outside the country in the last 6 months?: No Isolation: Droplet PE Vital Signs Vitals: Temperature 99.2 F Pulse Rate 61 Respiratory Rate 20 Blood Pressure [Left Arm] 101/53 Blood Pressure [Right Arm] 111/57 Blood Pressure [Standing] 130/74 Blood Pressure [Sitting] 125/59 Blood Pressure [Lying] 115/59 Blood Pressure 103/56 O2 Sat by Pulse Oximetry 95 COURSE Consultation Called: 16:39 Consultation Comments: Spoke with Dr. Ku who accepts patient for admission. ROR Labs Reviewed Laboratory Results Reviewed?: Yes Result Diagrams: 10/16/20 15:54 10/16/20 15:54 Laboratory: WBC 14.5 X10^3/uL (3.6-10.0) H 10/16/20 15:54 RBC 3.67 X10^6/uL (4.7-6.0) L 10/16/20 15:54 Hgb 11.3 g/dL (13.5-18.0) L 10/16/20 15:54 Hct 33.5 % (42.0-54.0) L 10/16/20 15:54 MCV 91.1 fL (80.0-100.0) 10/16/20 15:54 MCH 30.7 pg (27.0-34.0) 10/16/20 15:54 MCHC 33.7 g/dL (33.0-35.0) 10/16/20 15:54 RDW 13.6 % (11.6-16.5) 10/16/20 15:54 Plt Count 208 X10^3/uL (150.0-450.0) 10/16/20 15:54 MPV 8.8 fL (7.4-11.0) 10/16/20 15:54 Neut % (Auto) 82.7 % (42.0-75.0) H 10/16/20 15:54 Lymph % (Auto) 12.0 % (21.0-51.0) L 10/16/20 15:54 [place] % (Auto) 4.4 % (0.0-13.0) 10/16/20 15:54 Eos % (Auto) 0.3 % (0.9-2.9) L 10/16/20 15:54 Baso % (Auto) 0.6 % (0.2-1.0) 10/16/20 15:54 Neut # (Auto) 12.0 x10^3/uL (2.2-4.8) H 10/16/20 15:54 Lymph # (Auto) 1.7 X10^3/uL (1.3-2.9) 10/16/20 15:54 [place] # (Auto) 0.6 x10^3/uL (0.3-0.8) 10/16/20 15:54 Eos # (Auto) 0.0 x10^3/uL (0.0-0.2) 10/16/20 15:54 Baso # (Auto) 0.1 X10^3/uL (0.0-0.1) 10/16/20 15:54 Absolute Nucleated RBC 0.0 /100WBC 10/16/20 15:54 Sample Site Rrad 10/16/20 15:57 ABG pH 7.470 (7.35-7.45) H 10/16/20 15:57 ABG pCO2 38.0 mmHg (35.0-45.0) 10/16/20 15:57 ABG pO2 56.0 mmHg (80.0-100.0) L 10/16/20 15:57 ABG HCO3 27.7 mmol/L (22-26) H 10/16/20 15:57 ABG O2 Saturation 91.0 % (90-100) 10/16/20 15:57 ABG Base Excess 3.9 mmol/L (-2.0-2.0) H 10/16/20 15:57 Henrik Test Pos 10/16/20 15:57 A-a Gradient 46.0 mmHg 10/16/20 15:57 FiO2 21.0 10/16/20 15:57 Blood Gas Comments Pt eleuterio well elj cdn 10/16/20 15:57 Sodium 142 mmol/L (136-145) 10/16/20 15:54 Corrected Sodium TNP 10/16/20 15:54 Potassium 3.5 mmol/L (3.5-5.1) 10/16/20 15:54 Chloride 105 mmol/L (98-107) 10/16/20 15:54 Carbon Dioxide 29.5 mmol/L (21-32) 10/16/20 15:54 BUN 19 mg/dL (7-18) H 10/16/20 15:54 Creatinine 0.98 mg/dL (0.70-1.30) 10/16/20 15:54 Est GFR (MDRD) Af Amer > 60 (>60) 10/16/20 15:54 Est GFR (MDRD) Non-Af > 60 (>60) 10/16/20 15:54 Glucose 90 mg/dL (65-99) 10/16/20 15:54 Calcium 8.2 mg/dL (8.5-10.1) L 10/16/20 15:54 Corrected Calcium 9.0 mg/dL (8.5-10.1) 10/16/20 15:54 Total Bilirubin 0.50 mg/dL (0.2-1.0) 10/16/20 15:54 AST 8 Units/L (15-37) L 10/16/20 15:54 ALT 15 Units/L (12-78) 10/16/20 15:54 Alkaline Phosphatase 92 Units/L (46-116) 10/16/20 15:54 Total Protein 6.7 g/dL (6.4-8.2) 10/16/20 15:54 Albumin 3.0 g/dL (3.4-5.0) L 10/16/20 15:54 Globulin 3.7 g/dL (2.5-4.5) 10/16/20 15:54 Albumin/Globulin Ratio 0.8 Ratio (1.1-2.1) L 10/16/20 15:54 XRAY X-ray Results: HISTORY PNEUMONIA STUDY CHEST, 1 VIEW COMPARISON 09/04/2020 FINDINGS Right lung pneumonia has progressively improved since 09/03/2020. There may still be residual abnormality in the right mid lung. No abnormality in the left lung. No pleural effusion. Cardiomegaly is present. Bones are unremarkable. Left subclavian ICD is present with leads in expected location. Fixation hardware is in the cervical spine. IMPRESSION 1. Improved pneumonia with residual findings in the right lung Electronically signed by: Michael Trotter (October 16, 2020 16:17:32) Opioid Opioid Risk Tool Age (Jhonny box if 16-45): No History of Preadolescent Sexual Abuse: No Total: 0 Total Score Risk Category: Low Risk Copyright: [employer] predicting aberrant behaviors Diagnosis Discharge Problem: Pneumonia, Altered mental status
[2020-10-16] MEDS ORDERED: NS 1000 ML 1,000 ML IV SCH (16:00)
[2020-10-16 16:03] LABS: ABG ALLEN TEST POS; ABG BASE EXCESS 3.9 mmol/L (-2.0-2.0); ABG HCO3 27.7 mmol/L (22-26)
[2020-10-16] MEDS ORDERED: LEVAQUIN PREMIX IV 750 MG 750 MG/150 ML BAG IV ONE (16:07)
[2020-10-16] MEDS: LEVAQUIN PREMIX IV 750 MG 750 MG/150 ML BAG IV SCH (16:10)
--- NOTE | 2020-10-16 16:19 | RAD ---
HISTORYPNEUMONIASTUDYCHEST, 1 [id number]/2021FINDINGSRight lung pneumonia has progressively improved since 09/03/2020. There may still be residual abnormality in the right mid lung.No abnormality in the left lung. No pleural effusion.Cardiomegaly is present.Bones are unremarkable.Left subclavian ICD is present with leads in expected location. Fixation hardware is in the cervical spine.IMPRESSION1. Improved pneumonia with residual findings in the right lungElectronically signed by: Michael Trotter (October 16, 2020 16:17:32)
[2020-10-16 16:20] LABS: ALANINE AMINOTRANSFERASE 15 Units/L (12-78); ALKALINE PHOSPHATASE 92 Units/L (46-116); ASPARTATE AMINO TRANSFERASE 8 Units/L (15-37); BLOOD UREA NITROGEN 19 mg/dL (7-18); CALCIUM 8.2 mg/dL (8.5-10.1); CARBON DIOXIDE 29.5 mmol/L (21-32); CHLORIDE 105 mmol/L (98-107); CREATININE 0.98 mg/dL (0.70-1.30); SODIUM 142 mmol/L (136-145); TOTAL PROTEIN 6.7 g/dL (6.4-8.2); eGFR NON BLACK RACES > 60 (>60)
[2020-10-16 16:22] LABS: BASOPHILS # (AUTO) 0.1 X10^3/uL (0.0-0.1); BASOPHILS % (AUTO) 0.6 % (0.2-1.0); EOSINOPHILS % (AUTO) 0.3 % (0.9-2.9); HEMATOCRIT 33.5 % (42.0-54.0); HEMOGLOBIN 11.3 g/dL (13.5-18.0); LYMPHOCYTES # (AUTO) 1.7 X10^3/uL (1.3-2.9); MEAN CORPUSCULAR HEMOGLOBIN 30.7 pg (27.0-34.0); MEAN CORPUSCULAR HGB CONC 33.7 g/dL (33.0-35.0); MEAN CORPUSCULAR VOLUME 91.1 fL (80.0-100.0); MEAN PLATELET VOLUME 8.8 fL (7.4-11.0); MONOCYTES # (AUTO) 0.6 x10^3/uL (0.3-0.8); MONOCYTES % (AUTO) 4.4 % (0.0-13.0); NEUTROPHILS % (AUTO) 82.7 % (42.0-75.0); PLATELET COUNT 208 X10^3/uL (150.0-450.0); RED BLOOD COUNT 3.67 X10^6/uL (4.7-6.0); RED CELL DISTRIBUTION WIDTH 13.6 % (11.6-16.5); WHITE BLOOD COUNT 14.5 X10^3/uL (3.6-10.0)
[2020-10-16] MEDS ORDERED: TUSSIONEX PENNKINETIC SUSP PO PRN (16:40)
[2020-10-16] MEDS ORDERED: SALINE 3% 15 ML NEB TX NEB ONE (17:15)
[2020-10-16 17:59] VITALS: BMI 23.7
[2020-10-16] MEDS: XOPENEX 1.25 MG/3 ML NEBULE NEB SCH (18:04)
[2020-10-16] MEDS: Atrovent NEB TX 0.02% NEB SCH (18:04)
[2020-10-16] MEDS: ROBITUSSIN DM PO SCH ×2 (19:07→20:15)
[2020-10-16] MEDS ORDERED: PULMICORT NEB TX 0.5 MG NEB ONE (19:07)
[2020-10-16] MEDS: NS 1/2 1000 ML IV 1,000 ML IV SCH (19:07)
[2020-10-16] MEDS ORDERED: STERILE WATER IRRIGATION IR ONE (20:06)
[2020-10-16] MEDS: PULMICORT NEB TX 0.5 MG NEB SCH (20:10)
[2020-10-16] MEDS: ELIQUIS PO SCH (20:15)
[2020-10-16] MEDS: COREG TAB 6.25 MG PO SCH (20:15)
[2020-10-16] MEDS ORDERED: COREG TAB 12.5 MG PO SCH (21:00)
[2020-10-16] MEDS ORDERED: DUONEB 0.5 MG/3 MG (3 mL) NEB SCH (22:00)
[2020-10-16] MEDS ORDERED: ATARAX TAB 10 MG PO PRN (22:41)
[2020-10-16 22:47] LABS: BILIRUBIN,URINE NEGATIVE (NEGATIVE); BLOOD/HEMOGLOBIN,URINE NEGATIVE (NEGATIVE); GLUCOSE, URINE NEGATIVE (NEGATIVE); KETONES,URINE NEGATIVE (NEGATIVE); LEUKOCYTE ESTERASE ,URINE 1+ (NEGATIVE); NITRITES,URINE NEGATIVE (NEGATIVE); PROTEIN,URINE NEGATIVE (NEGATIVE); UROBILINOGEN,URINE NORMAL (NORMAL)
[2020-10-16 22:54] LABS: APPEARANCE,URINE HAZY (CLEAR); COLOR,URINE YELLOW (YELLOW)
[2020-10-16 22:55] LABS: BACTERIA,URINE TRACE /HPF (NEGATIVE); RBC,URINE 0-2 /HPF (0-3); SQUAMOUS EPITHELIAL CELL,UR FEW /HPF (NEGATIVE); YEAST,URINE MODERATE /HPF (NEGATIVE)
[2020-10-16] MEDS ORDERED: RESTORIL CAP 15 MG PO ONE (23:18)
[2020-10-17] MEDS: Atrovent NEB TX 0.02% NEB SCH ×2 (00:05→05:35)
[2020-10-17] MEDS: XOPENEX 1.25 MG/3 ML NEBULE NEB SCH ×2 (00:05→05:36)
[2020-10-17] MEDS: PROAMATINE PO SCH ×4 (03:05→21:26)
[2020-10-17] MEDS ORDERED: NS 1/2 1000 ML IV 1,000 ML IV ONE ×2 (05:11→16:37)
[2020-10-17] MEDS: NS 1/2 1000 ML IV 1,000 ML IV SCH ×3 (05:27→19:00)
[2020-10-17] MEDS ORDERED: DUONEB 0.5 MG/3 MG (3 mL) NEB ONE (07:57)
[2020-10-17] MEDS: DUONEB 0.5 MG/3 MG (3 mL) NEB SCH ×4 (08:08→20:42)
[2020-10-17] MEDS: PULMICORT NEB TX 0.5 MG NEB SCH ×2 (08:08→20:42)
[2020-10-17] MEDS ORDERED: LEXAPRO ONE (09:00)
[2020-10-17] MEDS ORDERED: LEVAQUIN PREMIX IV 750 MG 750 MG/150 ML BAG IV SCH (09:00)
[2020-10-17] MEDS: COLACE CAP 100 MG PO SCH (09:02)
[2020-10-17] MEDS: COREG TAB 6.25 MG PO SCH (09:02)
[2020-10-17] MEDS: LEXAPRO PO SCH (09:03)
[2020-10-17] MEDS: ELIQUIS PO SCH ×2 (09:03→20:21)
[2020-10-17] MEDS: LEVAQUIN PREMIX IV 750 MG 750 MG/150 ML BAG IV SCH (09:03)
[2020-10-17] MEDS: PLAVIX PO SCH (09:03)
[2020-10-17] MEDS: ROBITUSSIN DM PO SCH ×4 (09:04→20:21)
--- NOTE | 2020-10-17 10:09 | DR.H&P ---
H&P History & Physical for Day of: H&P Date: 10/17/20 Chief Complaint Chief Complaint: AMS, SOB Allergies Allergies Allergy/AdvReac Type Severity Reaction Status Date / Time No Known Drug Allergies Allergy Verified 10/16/20 15:18 History of Present Illness History of Present Illness: Mr Abdullahi is a 75y/o with PMH of CAD, COPD, CHF, HTN, Atrial fibrillation and Pituitary adenoma presented with worsening dysnea, fever and SOB for the past couple days. Patient was treated outpatient for pneumonia but failed treatment and has to be admitted for further care. In the ED, CXR showed right sided infiltrate. Labs showed elevated WBC, Hgb 11.3 , plt 208. He was started on IV levaquin and duonebs. He is currently on 2L NC. Patient is currently awake, alert and oriented. Plan: continue IV Levaquin and duonebs. Resume home medications. Repeat AM labs and imaging. Wean O2 as tolerated. Follow cultures. Past Medical History Past Medical History: Anemia, CHF, COPD, Coronary Artery Disease, Dyslipidemia, Hypertension, Hypothyroidism, Sleep Apnea and Ventricular Tachycardia; denies Headaches Additional Medical History: Atrial Fibrillation, Bradycardia Pituitary adenoma - s/p resection and XRT with recently diagnoses probable recurrence CVD; S/P TIA in 03/2015 Past Surgical History Surgical History: Angioplasty/Stents Additional Surgical History: Pacemaker implantation 2010 Pituitary adenoma resection and XRT 2008 Cardiac ablation for the tx of A-fib - 05/2015 Cardiac cath and stent placement 2011 Cervical fusion Family History Family Medical History: Cancer, [place], Coronary Artery Disease and Hypertension Social History Does patient currently use any type of tobacco product: Yes Have you used tobacco products in the last 12 months: Yes Type of Tobacco Use: Cigars Does any household member use tobacco: No Alcohol Use: None Drug Use: None Medications Home Medications: No Known Drug Allergies Allergy (Verified 10/16/20 15:18) CONTINUE taking the following medications mirtazapine 15 mg PO HS 10/17/20 [History] Labs Result Diagrams: 10/16/20 15:54 10/16/20 15:54 Labs: Laboratory WBC 14.5 X10^3/uL (3.6-10.0) H 10/16/20 15:54 RBC 3.67 X10^6/uL (4.7-6.0) L 10/16/20 15:54 Hgb 11.3 g/dL (13.5-18.0) L 10/16/20 15:54 Hct 33.5 % (42.0-54.0) L 10/16/20 15:54 MCV 91.1 fL (80.0-100.0) 10/16/20 15:54 MCH 30.7 pg (27.0-34.0) 10/16/20 15:54 MCHC 33.7 g/dL (33.0-35.0) 10/16/20 15:54 RDW 13.6 % (11.6-16.5) 10/16/20 15:54 Plt Count 208 X10^3/uL (150.0-450.0) 10/16/20 15:54 MPV 8.8 fL (7.4-11.0) 10/16/20 15:54 Neut % (Auto) 82.7 % (42.0-75.0) H 10/16/20 15:54 Lymph % (Auto) 12.0 % (21.0-51.0) L 10/16/20 15:54 [place] % (Auto) 4.4 % (0.0-13.0) 10/16/20 15:54 Eos % (Auto) 0.3 % (0.9-2.9) L 10/16/20 15:54 Baso % (Auto) 0.6 % (0.2-1.0) 10/16/20 15:54 Neut # (Auto) 12.0 x10^3/uL (2.2-4.8) H 10/16/20 15:54 Lymph # (Auto) 1.7 X10^3/uL (1.3-2.9) 10/16/20 15:54 [place] # (Auto) 0.6 x10^3/uL (0.3-0.8) 10/16/20 15:54 Eos # (Auto) 0.0 x10^3/uL (0.0-0.2) 10/16/20 15:54 Baso # (Auto) 0.1 X10^3/uL (0.0-0.1) 10/16/20 15:54 Absolute Nucleated RBC 0.0 /100WBC 10/16/20 15:54 Sample Site Rrad 10/16/20 15:57 ABG pH 7.470 (7.35-7.45) H 10/16/20 15:57 ABG pCO2 38.0 mmHg (35.0-45.0) 10/16/20 15:57 ABG pO2 56.0 mmHg (80.0-100.0) L 10/16/20 15:57 ABG HCO3 27.7 mmol/L (22-26) H 10/16/20 15:57 ABG O2 Saturation 91.0 % (90-100) 10/16/20 15:57 ABG Base Excess 3.9 mmol/L (-2.0-2.0) H 10/16/20 15:57 Henrik Test Pos 10/16/20 15:57 A-a Gradient 46.0 mmHg 10/16/20 15:57 FiO2 21.0 10/16/20 15:57 Blood Gas Comments Pt eleuterio well elj cdn 10/16/20 15:57 Sodium 142 mmol/L (136-145) 10/16/20 15:54 Corrected Sodium TNP 10/16/20 15:54 Potassium 3.5 mmol/L (3.5-5.1) 10/16/20 15:54 Chloride 105 mmol/L (98-107) 10/16/20 15:54 Carbon Dioxide 29.5 mmol/L (21-32) 10/16/20 15:54 BUN 19 mg/dL (7-18) H 10/16/20 15:54 Creatinine 0.98 mg/dL (0.70-1.30) 10/16/20 15:54 Est GFR (MDRD) Af Amer > 60 (>60) 10/16/20 15:54 Est GFR (MDRD) Non-Af > 60 (>60) 10/16/20 15:54 Glucose 90 mg/dL (65-99) 10/16/20 15:54 Calcium 8.2 mg/dL (8.5-10.1) L 10/16/20 15:54 Corrected Calcium 9.0 mg/dL (8.5-10.1) 10/16/20 15:54 Total Bilirubin 0.50 mg/dL (0.2-1.0) 10/16/20 15:54 AST 8 Units/L (15-37) L 10/16/20 15:54 ALT 15 Units/L (12-78) 10/16/20 15:54 Alkaline Phosphatase 92 Units/L (46-116) 10/16/20 15:54 Total Protein 6.7 g/dL (6.4-8.2) 10/16/20 15:54 Albumin 3.0 g/dL (3.4-5.0) L 10/16/20 15:54 Globulin 3.7 g/dL (2.5-4.5) 10/16/20 15:54 Albumin/Globulin Ratio 0.8 Ratio (1.1-2.1) L 10/16/20 15:54 Specimen Type Random urine 10/16/20 22: Urine Color Yellow (YELLOW) 10/16/20 22: Urine Appearance Hazy (CLEAR) 10/16/20 22: Urine pH 6.0 (5.0 - 8.0) 10/16/20 22: Ur Specific [place] 1.020 (1.000-1.030) 10/16/20 22: Urine Protein Negative (NEGATIVE) 10/16/20 22: Urine Glucose (UA) Negative (NEGATIVE) 10/16/20 22: Urine Ketones Negative (NEGATIVE) 10/16/20 22: Urine Occult Blood Negative (NEGATIVE) 10/16/20 22: Urine Nitrite Negative (NEGATIVE) 10/16/20 22: Urine Bilirubin Negative (NEGATIVE) 10/16/20 22: Urine Urobilinogen Normal (NORMAL) 10/16/20 22:29 Ur Leukocyte Esterase 1+ (NEGATIVE) 10/16/20 22: Urine RBC 0-2 /HPF (0-3) 10/16/20 22: Urine WBC 3-5 /HPF (0-5) 10/16/20 22:29 Ur Squamous Epith Cells Few /HPF (NEGATIVE) 10/16/20 22: Urine Bacteria Trace /HPF (NEGATIVE) 10/16/20 22: Urine Yeast Moderate /HPF (NEGATIVE) 10/16/20 22: Ur Culture Indicated? No/not indicated 10/16/20 22: Influenza Type A Ag Negative-presumptive (NEGATIVE) 10/16/20 16:00 Influenza Type B Ag Negative-presumptive (NEGATIVE) 10/16/20 16:00 SARS CoV-2 RNA Rapid ITA Negative (NEGATIVE) 10/16/20 16:00 Review of Systems Constitutional: Fever, Chills, Weakness and Malaise Eyes: No Symptoms Reported ENT: No Symptoms Reported Respiratory: Cough and SOB with Excertion Cardiovascular: No Symptoms Reported Gastrointestinal: No Symptoms Reported Genitourinary: No Symptoms Reported Musculoskeletal: No Symptoms Reported Skin: No Symptoms Reported Neurological: Confusion Physical Exam Vital Signs: Temperature 97.5 F Pulse Rate [Left Brachial] 64 Pulse Rate 62 Respiratory Rate 18 Blood Pressure [Left Arm] 114/56 Blood Pressure [Right Arm] 111/57 Blood Pressure [Standing] 130/74 Blood Pressure [Sitting] 125/59 Blood Pressure [Lying] 115/59 Blood Pressure 106/60 O2 Sat by Pulse Oximetry 97 Oriented: Normal Eyes: Normal Ear: Normal Nose: Normal Throat: Normal Respiratory: Diminished Throughout Cardiovascular: Normal Auscultation: Bowel Sounds: Normal Palpation: Normal Tenderness: Normal Skin: Normal Musculoskeletal: Normal Psychiatric: Normal Mood Description: Calm and Appropriate Affect: Normal Speech Pattern: Clear and Appropriate Assessment/Plan (1) Acute respiratory distress: Status: Acute (2) CAP (community acquired pneumonia): Qualifiers: Laterality: right Lung location: lower lobe of lung Qualified Code(s): J18.9 - Pneumonia, unspecified organism Status: Acute (3) Fever: Qualifiers: Fever type: unspecified Qualified Code(s): R50.9 - Fever, unspecified Status: Acute Review H&P Reviewed: Yes Patient was examined?: Yes
[2020-10-17] MEDS ORDERED: NORCO 7.5/325 MG TAB ONE (11:46)
[2020-10-17] MEDS: NORCO 7.5/325 MG TAB PO SCH ×2 (11:50→20:22)
[2020-10-17] MEDS: MICRO K EXTEN CAP 10 MEQ PO SCH (11:56)
[2020-10-17] MEDS: PEPCID TAB 40 MG PO SCH ×2 (11:56→20:21)
[2020-10-17] MEDS: PROTONIX TAB 40 MG PO SCH (11:57)
[2020-10-17] MEDS ORDERED: SYNTHROID 100 mcg TAB PO SCH (16:30)
[2020-10-17] MEDS: COREG TAB 12.5 MG PO SCH (20:21)
[2020-10-17] MEDS ORDERED: REMERON PO SCH (21:00)
[2020-10-17] MEDS ORDERED: ZOCOR TAB 20 MG PO SCH (21:00)
[2020-10-18 04:45] LABS: BASOPHILS % (AUTO) 0.5 % (0.2-1.0); EOSINOPHILS # (AUTO) 0.1 x10^3/uL (0.0-0.2); EOSINOPHILS % (AUTO) 0.9 % (0.9-2.9); HEMOGLOBIN 10.7 g/dL (13.5-18.0); LYMPHOCYTES # (AUTO) 1.4 X10^3/uL (1.3-2.9); LYMPHOCYTES % (AUTO) 13.1 % (21.0-51.0); MEAN CORPUSCULAR HEMOGLOBIN 31.2 pg (27.0-34.0); MEAN CORPUSCULAR HGB CONC 34.6 g/dL (33.0-35.0); MEAN CORPUSCULAR VOLUME 90.2 fL (80.0-100.0); MONOCYTES # (AUTO) 0.6 x10^3/uL (0.3-0.8); MONOCYTES % (AUTO) 6.1 % (0.0-13.0); NEUTROPHILS # (AUTO) 8.2 x10^3/uL (2.2-4.8); NEUTROPHILS % (AUTO) 79.4 % (42.0-75.0); PLATELET COUNT 188 X10^3/uL (150.0-450.0); RED BLOOD COUNT 3.43 X10^6/uL (4.7-6.0); RED CELL DISTRIBUTION WIDTH 13.4 % (11.6-16.5); WHITE BLOOD COUNT 10.4 X10^3/uL (3.6-10.0)
[2020-10-18 04:56] LABS: BLOOD UREA NITROGEN 10 mg/dL (7-18); CALCIUM 8.2 mg/dL (8.5-10.1); CARBON DIOXIDE 27.8 mmol/L (21-32); CHLORIDE 105 mmol/L (98-107); CREATININE 0.91 mg/dL (0.70-1.30); SODIUM 141 mmol/L (136-145); eGFR NON BLACK RACES > 60 (>60)
[2020-10-18] MEDS: PROAMATINE PO SCH (06:32)
--- NOTE | 2020-10-18 06:32 | RAD ---
HISTORYSOB, PNEUMONIASTUDYCHEST, 1 [id number]/18/2021.TECHNIQUEAP view of the chestFINDINGSLeft chest wall pacemaker with leads in good position. The cardiac silhouette is stably enlarged. Mediastinal contours appear stable. Similar appearance of scattered bilateral airspace and interstitial opacities worst in the right mid and lower lung. No definite pleural effusion or pneumothorax.IMPRESSIONSimilar appearing of multifocal pneumonia.Electronically signed by: Bradly Summers (October 18, 2020 06:30:20)
[2020-10-18] MEDS ORDERED: NS 1/2 1000 ML IV 1,000 ML IV ONE (06:48)
[2020-10-18] MEDS ORDERED: LEXAPRO ONE (08:05)
[2020-10-18] MEDS: LEVAQUIN PREMIX IV 750 MG 750 MG/150 ML BAG IV SCH (08:12)
[2020-10-18] MEDS: COLACE CAP 100 MG PO SCH (08:13)
[2020-10-18] MEDS: PROTONIX TAB 40 MG PO SCH (08:13)
[2020-10-18] MEDS: NORCO 7.5/325 MG TAB PO SCH (08:13)
[2020-10-18] MEDS: ELIQUIS PO SCH (08:14)
[2020-10-18] MEDS: MICRO K EXTEN CAP 10 MEQ PO SCH (08:14)
[2020-10-18] MEDS: PEPCID TAB 40 MG PO SCH (08:14)
[2020-10-18] MEDS: COREG TAB 12.5 MG PO SCH (08:14)
[2020-10-18] MEDS: LEXAPRO PO SCH (08:15)
[2020-10-18] MEDS: ROBITUSSIN DM PO SCH (08:20)
[2020-10-18] MEDS: NS 1/2 1000 ML IV 1,000 ML IV SCH (08:20)
[2020-10-18] MEDS: PLAVIX PO SCH (08:21)
[2020-10-18] MEDS ORDERED: LASIX PO SCH (09:00)
[2020-10-18 09:18] VITALS: BP 136/63
[2020-10-18] MEDS ORDERED: TYLENOL 325 MG TAB PO PRN (09:23)
[2020-10-18] MEDS: PULMICORT NEB TX 0.5 MG NEB SCH (09:27)
[2020-10-18] MEDS: DUONEB 0.5 MG/3 MG (3 mL) NEB SCH (09:27)
--- NOTE | 2020-10-22 19:46 | W.DIS.FURT ---
Summary of Discharge Discharge Summary of Date Date of Exam: 10/18/20 Admission Date Date of Admission: 10/16/20 Admission Diagnosis Patient Problems (Updated 10/16/20 @ 16:39 by Lizzette Khan) Pneumonia (Acute) J18.9 Altered mental status (Acute) R41.82 Hospital Course: Mr Abdullahi is a 75y/o with PMH of CAD, COPD, CHF, HTN, Atrial fibrillation and Pituitary adenoma admitted for community acquired pneumonia. Patient was treated outpatient for pneumonia but failed treatment and has to be admitted for further care. CXR had revealed right sided infiltrate. Labs revealed leukocytosis trending down after IV antibiotics with Levaquin. Wbc 14.5>10.4. Pt also received supplemental O2 and bronchodilators with duonebs. Pt responded well to treatments and was discharged with instructions to complete outpatient antibiotics Levaquin. Pt to follow up with pcp in 3-5 days. Labs: Laboratory Last Values WBC 10.4 X10^3/uL (3.6-10.0) H 10/18/20 04:15 RBC 3.43 X10^6/uL (4.7-6.0) L 10/18/20 04:15 Hgb 10.7 g/dL (13.5-18.0) L 10/18/20 04:15 Hct 31.0 % (42.0-54.0) L 10/18/20 04:15 MCV 90.2 fL (80.0-100.0) 10/18/20 04:15 MCH 31.2 pg (27.0-34.0) 10/18/20 04:15 MCHC 34.6 g/dL (33.0-35.0) 10/18/20 04:15 RDW 13.4 % (11.6-16.5) 10/18/20 04:15 Plt Count 188 X10^3/uL (150.0-450.0) 10/18/20 04:15 MPV 9.0 fL (7.4-11.0) 10/18/20 04:15 Neut % (Auto) 79.4 % (42.0-75.0) H 10/18/20 04:15 Lymph % (Auto) 13.1 % (21.0-51.0) L 10/18/20 04:15 [place] % (Auto) 6.1 % (0.0-13.0) 10/18/20 04:15 Eos % (Auto) 0.9 % (0.9-2.9) 10/18/20 04:15 Baso % (Auto) 0.5 % (0.2-1.0) 10/18/20 04:15 Neut # (Auto) 8.2 x10^3/uL (2.2-4.8) H 10/18/20 04:15 Lymph # (Auto) 1.4 X10^3/uL (1.3-2.9) 10/18/20 04:15 [place] # (Auto) 0.6 x10^3/uL (0.3-0.8) 10/18/20 04:15 Eos # (Auto) 0.1 x10^3/uL (0.0-0.2) 10/18/20 04:15 Baso # (Auto) 0.0 X10^3/uL (0.0-0.1) 10/18/20 04:15 Absolute Nucleated RBC 0.0 /100WBC 10/18/20 04:15 Sample Site Rrad 10/16/20 15:57 ABG pH 7.470 (7.35-7.45) H 10/16/20 15:57 ABG pCO2 38.0 mmHg (35.0-45.0) 10/16/20 15:57 ABG pO2 56.0 mmHg (80.0-100.0) L 10/16/20 15:57 ABG HCO3 27.7 mmol/L (22-26) H 10/16/20 15:57 ABG O2 Saturation 91.0 % (90-100) 10/16/20 15:57 ABG Base Excess 3.9 mmol/L (-2.0-2.0) H 10/16/20 15:57 Henrik Test Pos 10/16/20 15:57 A-a Gradient 46.0 mmHg 10/16/20 15:57 FiO2 21.0 10/16/20 15:57 Blood Gas Comments Pt eleuterio well elj cdn 10/16/20 15:57 Sodium 141 mmol/L (136-145) 10/18/20 04:15 Corrected Sodium TNP 10/18/20 04:15 Potassium 3.4 mmol/L (3.5-5.1) L 10/18/20 04:15 Chloride 105 mmol/L (98-107) 10/18/20 04:15 Carbon Dioxide 27.8 mmol/L (21-32) 10/18/20 04:15 BUN 10 mg/dL (7-18) 10/18/20 04:15 Creatinine 0.91 mg/dL (0.70-1.30) 10/18/20 04:15 Est GFR (MDRD) Af Amer > 60 (>60) 10/18/20 04:15 Est GFR (MDRD) Non-Af > 60 (>60) 10/18/20 04:15 Glucose 98 mg/dL (65-99) 10/18/20 04:15 Calcium 8.2 mg/dL (8.5-10.1) L 10/18/20 04:15 Corrected Calcium 9.0 mg/dL (8.5-10.1) 10/16/20 15:54 Total Bilirubin 0.50 mg/dL (0.2-1.0) 10/16/20 15:54 AST 8 Units/L (15-37) L 10/16/20 15:54 ALT 15 Units/L (12-78) 10/16/20 15:54 Alkaline Phosphatase 92 Units/L (46-116) 10/16/20 15:54 Total Protein 6.7 g/dL (6.4-8.2) 10/16/20 15:54 Albumin 3.0 g/dL (3.4-5.0) L 10/16/20 15:54 Globulin 3.7 g/dL (2.5-4.5) 10/16/20 15:54 Albumin/Globulin Ratio 0.8 Ratio (1.1-2.1) L 10/16/20 15:54 Specimen Type Random urine 10/16/20 22: Urine Color Yellow (YELLOW) 10/16/20 22: Urine Appearance Hazy (CLEAR) 10/16/20 22: Urine pH 6.0 (5.0 - 8.0) 10/16/20 22:29 Ur Specific [place] 1.020 (1.000-1.030) 10/16/20 22:29 Urine Protein Negative (NEGATIVE) 10/16/20 22:29 Urine Glucose (UA) Negative (NEGATIVE) 10/16/20 22: Urine Ketones Negative (NEGATIVE) 10/16/20 22: Urine Occult Blood Negative (NEGATIVE) 10/16/20 22: Urine Nitrite Negative (NEGATIVE) 10/16/20 22: Urine Bilirubin Negative (NEGATIVE) 10/16/20 22: Urine Urobilinogen Normal (NORMAL) 10/16/20 22: Ur Leukocyte Esterase 1+ (NEGATIVE) 10/16/20 22: Urine RBC 0-2 /HPF (0-3) 10/16/20 22: Urine WBC 3-5 /HPF (0-5) 10/16/20 22: Ur Squamous Epith Cells Few /HPF (NEGATIVE) 10/16/20 22: Urine Bacteria Trace /HPF (NEGATIVE) 10/16/20: Urine Yeast Moderate /HPF (NEGATIVE) 10/16/20 22: Ur Culture Indicated? No/not indicated 10/16/20 22: Influenza Type A Ag Negative-presumptive (NEGATIVE) 10/16/20 16:00 Influenza Type B Ag Negative-presumptive (NEGATIVE) 10/16/20 16:00 SARS CoV-2 RNA Rapid ITA Negative (NEGATIVE) 10/16/20 16:00 Reason For Visit: AMS PNEUMONIA Discharge Date Discharge Date: 10/18/20 Discharge Diagnosis All Active Problems (Updated 10/16/20 @ 16:39 by Lizzette Khan) Fever (Acute) Acute respiratory distress (Acute) CAP (community acquired pneumonia) (Acute) Severe sepsis (Acute) Acidosis, lactic (Acute) Encephalitis toxic (Acute) Hypoxemia (Acute) Laceration of eyebrow and forehead (Acute) Folliculitis barbae (Acute) Brain tumor (Acute) Headache (Acute) Pneumonia (Acute) Altered mental status (Acute) Hyperlipidemia (Chronic) Sinusitis (Chronic) Depression (Chronic) GERD (gastroesophageal reflux disease) (Acute) LLL pneumonia (Acute) Acute dehydration (Acute) Enterocolitis (Acute) COPD (chronic obstructive pulmonary disease) (Acute) Dysphagia (Acute) Cough (Acute) Weak (Acute) Hypokalemia (Acute) Nausea and vomiting (Acute) Abdominal pain (Acute) Pneumonia (Acute) Pleurisy (Acute) Altered mental status (Acute) Bilateral pneumonia (Acute) Aspiration pneumonia of left lower lobe (Acute) Nausea (Acute) Fever (Acute) Generalized weakness (Acute) Cerebrovascular small vessel disease (Chronic) CAD (coronary artery disease) (Chronic) Hypertension (Chronic) BPH (benign prostatic hypertrophy) (Chronic) Hypothyroidism (Chronic) Arthritis (Chronic) Plan of Treatment: Continue with present treatment and follow up plan. Pt is to keep follow up appointment as instructed and take medications as ordered. Discharge Medications Discharge Medications: No Known Drug Allergies Allergy (Verified 10/16/20 15:18) CONTINUE taking the following medications mirtazapine 15 mg PO HS 10/17/20 [History] New Prescriptions levofloxacin 750 mg PO DAILY 5 Days #5 tab 10/18/20 [Rx] Follow up and Referral Follow Up: 1 Week Discharge Disposition Assessment: Stable no acute distress noted at time of discharge. Discharge Disposition: Home Discharge Condition: Stable Discharge Plan Discharge Plan Hospital Course: Mr Abdullahi is a 75y/o with PMH of CAD, COPD, CHF, HTN, Atrial fibrillation and Pituitary adenoma admitted for community acquired pneumonia. Patient was treated outpatient for pneumonia but failed treatment and has to be admitted for further care. CXR had revealed right sided infiltrate. Labs revealed leukocytosis trending down after IV antibiotics with Levaquin. Wbc 14.5>10.4. Pt also received supplemental O2 and bronchodilators with duonebs. Pt responded well to treatments and was discharged with instructions to complete outpatient antibiotics Levaquin. Pt to follow up with pcp in 3-5 days. Patient Disposition: 01 HOME, SELF-CARE Condition: Stable Health Concerns: Post Hospitalization: new medications and changes needed to prevent readmission or further decline. Pt educated and given instructions on all concerns. Care Plan Goals: Problem: Respiratory Complications Goal: Improved Uncomplicated Respiratory Status Instructions: Follow provided instructions. Follow up with primary physician as directed. Contact primary care physician or report to the closest Emergency Room if condition worsens. Plan of Treatment: Continue with present treatment and follow up plan. Pt is to keep follow up appointment as instructed and take medications as ordered. Assessment: Stable no acute distress noted at time of discharge. Prescription drug monitoring program results: PDMP reviewed and no concerns identified Prescriptions: New levofloxacin 750 mg tablet 750 mg PO DAILY 5 Days Qty: 5 RF: 0 Continued ipratropium-albuterol 0.5 mg-3 mg(2.5 mg base)/3 mL Solution For Nebulization 3 ml INHALATION TID RF: 0 midodrine 5 mg tablet 2.5 mg PO TID RF: 0 docusate sodium [Stool Softener] 100 mg Capsule 100 mg PO DAILY RF: 0 carvedilol [Coreg] 12.5 mg Tablet 12.5 mg PO BID RF: 0 mirtazapine 15 mg tablet 15 mg PO HS RF: 0 hydrocortisone [Cortef] 5 mg tablet 15 mg PO QAM RF: 0 hydrocortisone [Cortef] 5 mg tablet 10 mg PO HS RF: 0 clopidogrel [Plavix] 75 mg tablet 75 mg PO DAILY RF: 0 levothyroxine 100 mcg tablet 100 mcg PO DAILY RF: 0 famotidine [Pepcid] 40 MG tablet 40 mg PO BID Qty: 60 RF: 3 potassium chloride 10 mEq tablet extended release 10 meq PO DAILY RF: 0 simvastatin 20 mg tablet 20 mg PO HS RF: 0 furosemide 20 mg tablet 20 mg PO DAILY RF: 0 escitalopram oxalate 10 mg Tablet 10 mg PO DAILY RF: 0 Eliquis 5 mg tablet 5 mg PO BID RF: 0 pantoprazole 40 mg tablet,delayed release (DR/EC) 40 mg PO BID RF: 0 budesonide-formoterol [Symbicort] 80-4.5 mcg/actuation Hfa Aerosol Inhaler 2 inh INHALATION BID PRN (Reason: Shortness Of Breath) RF: 0 Spiriva with HandiHaler 18 mcg capsule, w/inhalation device 2 cap INHALATION QDAY RF: 0 hydrocodone-acetaminophen 7.5-325 mg Tablet 1 tab PO BID PRN (Reason: Pain) RF: 0 Orders to Discharge Patient Discharge Orders: Discharge (Routine); Ordered 10/18/20 Ordered By: Lasha Ku Follow ups/Referrals Follow ups/Referrals: ROBERT ORTIZ [Nurse Practitioner] - 10/25/20 3:00 pm Instructions Instructions: Hypoxemia, Incentive Spirometer, Home Oxygen Use, Adult, Hand Washing, [id number], Steps to Quit Smoking, [id number], Antibiotic Medicine, Adult, [id number], Chronic Obstructive Pulmonary Disease, Besc-ql-[id number], Health Risks of Smoking, Weakness, [id number], Bleeding Precautions When on Anticoagulant Therapy, Adult, You've Been Prescribed an Antibiotic in the Hospital for an Infection - CDC (08/2017), Tobacco Use Disorder, Fever, Adult, [id number], Community-Acquired Pneumonia, Adult, Hgtj-up-Pryp Stand Alone Forms: Precautions for COVID19, Patient Portal, Social Distancing
== END 2020-10-18 12:25 | disposition home or self-care (01) ==
LOC: MED/SURG 15:15 → ER 15:15 → MED/SURG 17:19
PROVIDERS: ADMIT Family Medicine; ATTEND Family Medicine
DX: R94.31 Abnormal electrocardiogram [ECG] [EKG]; R26.89 Other abnormalities of gait and mobility; Z20.822 Contact with and (suspected) exposure to COVID-19; R50.9 Fever, unspecified; R06.02 Shortness of breath; E03.8 Other specified hypothyroidism; E78.2 Mixed hyperlipidemia; D35.2 Benign neoplasm of pituitary gland; J18.8 Other pneumonia, unspecified organism; I48.91 Unspecified atrial fibrillation; I25.10 Atherosclerotic heart disease of native coronary artery without angina pectoris; J44.9 Chronic obstructive pulmonary disease, unspecified

== ENCOUNTER 2021-03-01 11:20 | Observation (INO) ==
[2021-03-01] MEDS ORDERED: NS 1000 ML 1,000 ML IV ONE (12:00)
[2021-03-01] MEDS ORDERED: ZOFRAN INJ 4 MG VIAL IVP ONE (12:03)
--- NOTE | 2021-03-01 12:08 | DR.GENAD ---
HPI Time Seen Time Seen by Provider: 03/01/21 12:00 PCP Primary Care Physician: andrew nolan Complaint/Symptoms Chief Complaint Doctors Comments: 75 y/o male not feeling well this am. Home health RN came and checked on him, had his O2 off, pulse ox was in the 80s. Has a slight cough today, not very productive. Denies chest pain. Was having nausea, no vomiting or diarrhea. + generalized weakness. Some muscle pain. Denies congestion, sore throat, abdominal pain. No urinary issues. Had low grade temp today. Has been vaccinated for covid, first shot. Has not had covid yet. Chief Complaint:: home health nurse at house seeing pt, ox was 85% but bipap was not hooked to o2. 98% enroute to ER. just feels bad in general COVID-19 Coronavirus risk:travel/contact w/high risk person: No Has patient experienced Coronavirus symptoms: No Nurses notes reviewed Nurses Notes Review: Yes Source History Provided: Patient Mode of Arrival Mode of Arrival: Ambulatory Timing Onset of Chief Complaint: 03/01/21 PMH PMH Past Medical History: Yes Past Medical History: Anemia, CHF, COPD, Coronary Artery Disease, Dyslipidemia, Hypertension, Hypothyroidism, Sleep Apnea and Ventricular Tachycardia Past Surgical History: Yes Surgical History: Angioplasty/Stents Family History History of Family Medical Conditions: Yes Family Medical History: Cancer, [place], Coronary Artery Disease and Hypertension Social History Does patient currently use any type of tobacco product: No Have you used tobacco products in the last 12 months: No Type of Tobacco Use: None Does any household member use tobacco: No Alcohol Use: None Do you use any recreational Drugs:: No Lives With: Spouse Lives Where: Home Travel Risk Coronavirus risk:travel/contact w/high risk person: No Has patient experienced Coronavirus symptoms: No Infectious screening In the last 2 months have you had wt loss of >10#?: NO Have you had fever, night sweats or hemotysis?: No Have you traveled outside the country in the last 6 months?: No Isolation: Standard ROS Review of Systems Constitutional: Fever, Malaise and Weakness Eyes: No Symptoms Reported ENTM: No Symptoms Reported Respiratoy: Non-Productive Cough Cardiovascular: No Symptoms Reported Gastrointestinal/Abdominal: Nausea Genitourinary: No Symptoms Reported Neurological: Weakness Musculoskeletal: No Symptoms Reported Integumentary: No Symptoms Reported Hematologic/Lymphatic: No Symptoms Reported Endocrine: No Symptoms Reported Psychiatric: No Symptoms Reported PE Vital Signs Vitals: Temperature 98.4 F Pulse Rate 123 Respiratory Rate 23 Blood Pressure [Left Arm] 136/63 Blood Pressure 87/72 O2 Sat by Pulse Oximetry 92 General Limitations: No Limitations General Appearance: Alert and In No Apparent Distress Head Head Exam: Normal Inspection Eyes Eye exam: Normal Appearance ENT ENT Exam: Normal Exam and Mucous Membranes Moist Neck Neck Exam: Normal Inspection and Full ROM; negative Tenderness Chest Chest Inspection: Normal Inspection Respiratory Respiratory Exam: Normal Lung Sounds Bilat; negative Accessory Muscle Use and Respiratory Distress Respiratory Exam: Bilateral: Clear to Auscultation Cardiovascular Cardiovascular Exam: Irregular Rhythm and Normal Heart Sounds Abdominal Exam Abdominal Exam: Normal Inspection, Normal Bowel Sounds and Soft; negative Tenderness Extremities Extremities Exam: Normal Inspection and Full ROM; negative Tenderness and Edema Back Back Exam: Normal Inspection Neurologic Neurological Exam: Alert and Oriented X3; negative Motor Sensory Deficit Psychiatric Psychiatric Exam: Normal Affect Skin Skin Exam: Warm and Dry MDM Differential Diagnosis Differential Diagnosis: pneumonia, CHF, covid, electrolyte abnormaities. COURSE Treatment Treatment: 75 y/o male brought in via EMS after not feeling well past few days. Pt had worsening cough, with dyspnea. Has home O2, was off this am, and pulse ox dipped into the 80s. W/u initiated. CXR - with worsening R sided infiltrates. Will treat with IV azithromycin. Recommend admission for further treatment . Discussed with Dr. Hoover, will admit. Prefers IV Zosyn, will order. ROR Labs Reviewed Laboratory Results Reviewed?: Yes Result Diagrams: 03/01/21 12:07 03/01/21 12:07 Laboratory: WBC 10.7 X10^3/uL (3.6-10.0) H 03/01/21 12:07 RBC 3.96 X10^6/uL (4.7-6.0) L 03/01/21 12:07 Hgb 12.4 g/dL (13.5-18.0) L 03/01/21 12:07 Hct 36.2 % (42.0-54.0) L 03/01/21 12:07 MCV 91.4 fL (80.0-100.0) 03/01/21 12:07 MCH 31.2 pg (27.0-34.0) 03/01/21 12:07 MCHC 34.2 g/dL (33.0-35.0) 03/01/21 12:07 RDW 14.1 % (11.6-16.5) 03/01/21 12:07 Plt Count 198 X10^3/uL (150.0-450.0) 03/01/21 12:07 MPV 9.0 fL (7.4-11.0) 03/01/21 12:07 Neut % (Auto) 85.3 % (42.0-75.0) H 03/01/21 12:07 Lymph % (Auto) 11.3 % (21.0-51.0) L 03/01/21 12:07 [place] % (Auto) 2.4 % (0.0-13.0) 03/01/21 12:07 Eos % (Auto) 0.4 % (0.9-2.9) L 03/01/21 12:07 Baso % (Auto) 0.6 % (0.2-1.0) 03/01/21 12:07 Neut # (Auto) 9.1 x10^3/uL (2.2-4.8) H 03/01/21 12:07 Lymph # (Auto) 1.2 X10^3/uL (1.3-2.9) L 03/01/21 12:07 [place] # (Auto) 0.3 x10^3/uL (0.3-0.8) 03/01/21 12:07 Eos # (Auto) 0.0 x10^3/uL (0.0-0.2) 03/01/21 12:07 Baso # (Auto) 0.1 X10^3/uL (0.0-0.1) 03/01/21 12:07 Absolute Nucleated RBC 0.0 /100WBC 03/01/21 12:07 Sodium 143 mmol/L (136-145) 03/01/21 12:07 Corrected Sodium TNP 03/01/21 12:07 Potassium 3.2 mmol/L (3.5-5.1) L 03/01/21 12:07 Chloride 108 mmol/L (98-107) H 03/01/21 12:07 Carbon Dioxide 26.9 mmol/L (21-32) 03/01/21 12:07 BUN 14 mg/dL (7-18) 03/01/21 12:07 Creatinine 1.13 mg/dL (0.70-1.30) 03/01/21 12:07 Est GFR (MDRD) Af Amer > 60 (>60) 03/01/21 12:07 Est GFR (MDRD) Non-Af > 60 (>60) 03/01/21 12:07 Glucose 74 mg/dL (65-99) 03/01/21 12:07 Calcium 7.9 mg/dL (8.5-10.1) L 03/01/21 12:07 Corrected Calcium 8.8 mg/dL (8.5-10.1) 03/01/21 12:07 Magnesium 1.9 mg/dL (1.7-2.9) 03/01/21 12:07 Total Bilirubin 0.40 mg/dL (0.2-1.0) 03/01/21 12:07 AST 11 Units/L (15-37) L 03/01/21 12:07 ALT 9 Units/L (12-78) L 03/01/21 12:07 Alkaline Phosphatase 78 Units/L (46-116) 03/01/21 12:07 Creatine Kinase 32 Units/L (39-308) L 03/01/21 12:07 CK-MB (CK-2) < 1.0 ng/mL (0-4.0) 03/01/21 12:07 CK/CKMB % Calc 3.1 % (<4) 03/01/21 12:07 Troponin I < 0.02 ng/mL (0-1.5) 03/01/21 12:07 B-Natriuretic Peptide 190 pg/mL (0-79) H 03/01/21 12:07 Total Protein 6.3 g/dL (6.4-8.2) L 03/01/21 12:07 Albumin 2.9 g/dL (3.4-5.0) L 03/01/21 12:07 Globulin 3.4 g/dL (2.5-4.5) 03/01/21 12:07 Albumin/Globulin Ratio 0.9 Ratio (1.1-2.1) L 03/01/21 12:07 Triglycerides 74 mg/dL (0-150) 03/01/21 12:07 Cholesterol 126 mg/dL (0-200) 03/01/21 12:07 LDL Cholesterol, Calc 70 mg/dL (0-100) 03/01/21 12:07 HDL Cholesterol 41 mg/dL (40-60) 03/01/21 12:07 Cholesterol/HDL Ratio 3.1 (0.0-5.0) 03/01/21 12:07 Lipase 39 Units/L (73-393) L 03/01/21 12:07 Free T4 1.11 ng/dL (0.76-1.46) 03/01/21 12:07 TSH 3rd Generation 1.066 uIU/mL (0.358-3.74) 03/01/21 12:07 SARS-CoV-2 (PCR) Negative (NEGATIVE) 03/01/21 15:15 Influenza Type A (PCR) Negative (NEGATIVE) 03/01/21 15:15 Influenza Type B (PCR) Negative (NEGATIVE) 03/01/21 15:15 RSV (PCR) Negative (NEGATIVE) 03/01/21 15:15 XRAY XRAY Interpreted by: Radiologist X-ray Results: + worsening R sided pneumonia EKG Rate: 116 [place]: Normal Rhythm: Afib (with mild RVR) Block: IVCD Hypertrophy: None ST: Nonsp Opioid Opioid Risk Tool Age (Jhonny box if 16-45): No History of Preadolescent Sexual Abuse: No Total: 0 Total Score Risk Category: Low Risk Copyright: Mike DURAN predicting aberrant behaviors Diagnosis Discharge Problem: Pneumonia Qualifiers: Pneumonia type: due to unspecified organism
[2021-03-01 12:21] LABS: BASOPHILS # (AUTO) 0.1 X10^3/uL (0.0-0.1); BASOPHILS % (AUTO) 0.6 % (0.2-1.0); EOSINOPHILS % (AUTO) 0.4 % (0.9-2.9); HEMATOCRIT 36.2 % (42.0-54.0); HEMOGLOBIN 12.4 g/dL (13.5-18.0); LYMPHOCYTES # (AUTO) 1.2 X10^3/uL (1.3-2.9); LYMPHOCYTES % (AUTO) 11.3 % (21.0-51.0); MEAN CORPUSCULAR HEMOGLOBIN 31.2 pg (27.0-34.0); MEAN CORPUSCULAR HGB CONC 34.2 g/dL (33.0-35.0); MEAN CORPUSCULAR VOLUME 91.4 fL (80.0-100.0); MONOCYTES # (AUTO) 0.3 x10^3/uL (0.3-0.8); MONOCYTES % (AUTO) 2.4 % (0.0-13.0); NEUTROPHILS # (AUTO) 9.1 x10^3/uL (2.2-4.8); NEUTROPHILS % (AUTO) 85.3 % (42.0-75.0); PLATELET COUNT 198 X10^3/uL (150.0-450.0); RED BLOOD COUNT 3.96 X10^6/uL (4.7-6.0); RED CELL DISTRIBUTION WIDTH 14.1 % (11.6-16.5); WHITE BLOOD COUNT 10.7 X10^3/uL (3.6-10.0)
[2021-03-01 12:46] LABS: ALANINE AMINOTRANSFERASE 9 Units/L (12-78); ALBUMIN 2.9 g/dL (3.4-5.0); ALKALINE PHOSPHATASE 78 Units/L (46-116); ASPARTATE AMINO TRANSFERASE 11 Units/L (15-37); BLOOD UREA NITROGEN 14 mg/dL (7-18); CALCIUM 7.9 mg/dL (8.5-10.1); CARBON DIOXIDE 26.9 mmol/L (21-32); CHLORIDE 108 mmol/L (98-107); CHOL/HDL RATIO 3.1 (0.0-5.0); CHOLESTEROL 126 mg/dL (0-200); CKMB % 3.1 % (<4); COR CA(FOR HYPOALB) 8.8 mg/dL (8.5-10.1); CREATINE KINASE 32 Units/L (39-308); CREATINE KINASE MB < 1.0 ng/mL (0-4.0); CREATININE 1.13 mg/dL (0.70-1.30); FREE T4 (FREE THYROXINE) 1.11 ng/dL (0.76-1.46); HDL CHOLESTEROL 41 mg/dL (40-60); LIPASE 39 Units/L (73-393); MAGNESIUM 1.9 mg/dL (1.7-2.9); SODIUM 143 mmol/L (136-145); TOTAL PROTEIN 6.3 g/dL (6.4-8.2); TRIGLYCERIDES 74 mg/dL (0-150); TROPONIN I < 0.02 ng/mL (0-1.5); TSH (3RD GENERATION) 1.066 uIU/mL (0.358-3.74); eGFR NON BLACK RACES > 60 (>60)
--- NOTE | 2021-03-01 12:57 | RAD ---
HISTORYLOW GRADE TEMP, HYPOXIA AT HOME PITUITARY TUMOR, HTN. SX PACEMAKER, ANGIO/STENTS, SHOULDER. IVC FILTERSTUDYCHEST, 1 VIEWCOMPARISONPortable chest October 18, 2020.FINDINGSThe trachea is midline. The cardiac silhouette is mildly enlarged but stable. A pacemaker is in place battery over the left anterior thorax 1 lead in the right atrium in 1 in the inferior right ventricle. There are interstitial infiltrates in the right upper and right lower lung field. These were present but have increased when compared to September 2020. This may be chronic interstitial infiltrate or may be recurrent pneumonia. The left lung is clear. The bony thorax is unremarkable.IMPRESSIONInfiltrates in the right upper and right lower lung field have increased compared to September 2020. This may be recurrent pneumonia but worsening interstitial process could not be excluded. The CTA of the chest on August 31, 2020 showed multifocal interstitial infiltrates predominantly right lower lobe on the CT a of August 31, 2020.Electronically signed by: JEROME HERRERA (Mar 01, 2021 12:56:28)
[2021-03-01] MEDS ORDERED: ZITHROMAX INJ 500 MG VIAL 500 MG in NS 250 ML IV 250 ML IV SCH (13:15)
[2021-03-01] MEDS ORDERED: ZITHROMAX INJ 500 MG VIAL IV ONE (13:58)
[2021-03-01] MEDS ORDERED: NS 250 ML IV 250 ML IV ONE (13:59)
[2021-03-01] MEDS ORDERED: TYLENOL 325 MG TAB PO ONE ×2 (14:07→14:08)
[2021-03-01 18:18] LABS: APPEARANCE,URINE CLEAR (CLEAR); BILIRUBIN,URINE NEGATIVE (NEGATIVE); BLOOD/HEMOGLOBIN,URINE NEGATIVE (NEGATIVE); COLOR,URINE YELLOW (YELLOW); GLUCOSE, URINE NEGATIVE (NEGATIVE); KETONES,URINE NEGATIVE (NEGATIVE); LEUKOCYTE ESTERASE ,URINE 1+ (NEGATIVE); NITRITES,URINE NEGATIVE (NEGATIVE); PROTEIN,URINE NEGATIVE (NEGATIVE); UROBILINOGEN,URINE NORMAL (NORMAL)
[2021-03-01 18:30] LABS: BACTERIA,URINE TRACE /HPF (NEGATIVE); MUCUS,URINE FEW /HPF (NEGATIVE); RBC,URINE NONE SEEN /HPF (0-3); SQUAMOUS EPITHELIAL CELL,UR FEW /HPF (NEGATIVE); YEAST,URINE MODERATE /HPF (NEGATIVE)
[2021-03-01] MEDS ORDERED: PULMICORT NEB TX 0.5 MG NEB ONE (19:53)
[2021-03-01] MEDS ORDERED: CORTEF ONE (20:04)
[2021-03-01] MEDS ORDERED: NS 100 ML IV 100 ML ONE (20:25)
[2021-03-01] MEDS: ZOCOR TAB 20 MG PO SCH (20:33)
[2021-03-01] MEDS: CORDARONE TAB 200 MG PO SCH (20:33)
[2021-03-01] MEDS: PROTONIX TAB 40 MG PO SCH (20:34)
[2021-03-01] MEDS: REMERON PO SCH (20:34)
[2021-03-01] MEDS: CORTEF PO SCH (20:34)
[2021-03-01] MEDS: NORCO 7.5/325 MG TAB PO PRN (20:35)
[2021-03-01] MEDS: ELIQUIS PO SCH (20:35)
[2021-03-01] MEDS: PEPCID TAB 40 MG PO SCH (20:35)
[2021-03-01] MEDS: ZOSYN VIAL 3.375 GRAMS 3.375 G in NS 50 ML IV + SPIKE MINIBAG* 50 ML IV SCH ×2 (20:36→21:29)
[2021-03-01] MEDS: COREG TAB 12.5 MG PO SCH (20:36)
[2021-03-01] MEDS: PULMICORT NEB TX 0.5 MG NEB SCH (21:17)
[2021-03-01] MEDS ORDERED: DUONEB 0.5 MG/3 MG (3 mL) NEB SCH (22:00)
[2021-03-01] MEDS: PROAMATINE PO SCH (23:02)
[2021-03-02] MEDS: XOPENEX 1.25 MG/3 ML NEBULE NEB SCH ×4 (00:10→18:15)
[2021-03-02] MEDS: Atrovent NEB TX 0.02% NEB SCH ×4 (05:16→18:15)
[2021-03-02] MEDS: PROAMATINE PO SCH ×3 (05:30→21:03)
[2021-03-02] MEDS: ZOSYN VIAL 3.375 GRAMS 3.375 G in NS 50 ML IV + SPIKE MINIBAG* 50 ML IV SCH ×3 (05:31→21:04)
[2021-03-02] MEDS: CORDARONE TAB 200 MG PO SCH ×2 (06:04→17:09)
--- NOTE | 2021-03-02 06:10 | RAD ---
HISTORYPneumoniaSTUDYPortable AP [id number]/01/2021FINDINGSSlight increase in cardiomegaly. There is increasing confluent airspace density in the right base and left lower lobe, obscuring the left diaphragm. The left upper lobe remains relatively clear. No pneumothorax or pleural fluid component is seen.IMPRESSIONSlight interval increase in cardiomegaly and bilateral pneumonia.Electronically signed by: ASHLEY GANDHI (Mar 02, 2021 06:08:37)
[2021-03-02 06:42] LABS: BASOPHILS % (AUTO) 0.2 % (0.2-1.0); EOSINOPHILS # (AUTO) 0.1 x10^3/uL (0.0-0.2); EOSINOPHILS % (AUTO) 0.9 % (0.9-2.9); HEMATOCRIT 34.4 % (42.0-54.0); HEMOGLOBIN 11.6 g/dL (13.5-18.0); LYMPHOCYTES # (AUTO) 1.9 X10^3/uL (1.3-2.9); LYMPHOCYTES % (AUTO) 12.9 % (21.0-51.0); MEAN CORPUSCULAR HEMOGLOBIN 30.6 pg (27.0-34.0); MEAN CORPUSCULAR HGB CONC 33.9 g/dL (33.0-35.0); MEAN CORPUSCULAR VOLUME 90.3 fL (80.0-100.0); MEAN PLATELET VOLUME 9.9 fL (7.4-11.0); MONOCYTES # (AUTO) 0.4 x10^3/uL (0.3-0.8); MONOCYTES % (AUTO) 2.9 % (0.0-13.0); NEUTROPHILS # (AUTO) 12.5 x10^3/uL (2.2-4.8); NEUTROPHILS % (AUTO) 83.1 % (42.0-75.0); PLATELET COUNT 202 X10^3/uL (150.0-450.0); RED BLOOD COUNT 3.81 X10^6/uL (4.7-6.0); RED CELL DISTRIBUTION WIDTH 14.2 % (11.6-16.5); WHITE BLOOD COUNT 15.1 X10^3/uL (3.6-10.0)
[2021-03-02 08:06] LABS: ALANINE AMINOTRANSFERASE 7 Units/L (12-78); ALBUMIN 2.5 g/dL (3.4-5.0); ALKALINE PHOSPHATASE 72 Units/L (46-116); ASPARTATE AMINO TRANSFERASE 12 Units/L (15-37); BLOOD UREA NITROGEN 14 mg/dL (7-18); CALCIUM 7.9 mg/dL (8.5-10.1); CARBON DIOXIDE 24.7 mmol/L (21-32); CHLORIDE 106 mmol/L (98-107); COR CA(FOR HYPOALB) 9.1 mg/dL (8.5-10.1); CREATININE 1.06 mg/dL (0.70-1.30); SODIUM 141 mmol/L (136-145); eGFR NON BLACK RACES > 60 (>60)
[2021-03-02] MEDS ORDERED: LEXAPRO ONE (09:09)
[2021-03-02] MEDS ORDERED: CORTEF ONE ×2 (09:10→19:03)
[2021-03-02] MEDS: PULMICORT NEB TX 0.5 MG NEB SCH ×2 (09:12→21:54)
[2021-03-02] MEDS: PEPCID TAB 40 MG PO SCH ×2 (09:19→20:04)
[2021-03-02] MEDS: ELIQUIS PO SCH ×2 (09:19→20:05)
[2021-03-02] MEDS: COLACE CAP 100 MG PO SCH (09:19)
[2021-03-02] MEDS: LASIX PO SCH (09:20)
[2021-03-02] MEDS: COREG TAB 12.5 MG PO SCH ×2 (09:20→20:05)
[2021-03-02] MEDS: PLAVIX PO SCH (09:21)
[2021-03-02] MEDS: SYNTHROID 100 mcg TAB PO SCH (09:21)
[2021-03-02] MEDS: CORTEF PO SCH ×2 (09:22→20:05)
[2021-03-02] MEDS: LEXAPRO PO SCH (09:22)
[2021-03-02] MEDS: PROTONIX TAB 40 MG PO SCH ×2 (09:22→20:04)
[2021-03-02] MEDS: NORCO 7.5/325 MG TAB PO PRN (10:26)
[2021-03-02] MEDS ORDERED: LASIX IVP ONE (12:23)
[2021-03-02] MEDS: DIFLUCAN PO SCH (13:20)
[2021-03-02] MEDS: LANOXIN PO SCH (13:21)
[2021-03-02 17:03] VITALS: BMI 27.3
[2021-03-02] MEDS: ZOCOR TAB 20 MG PO SCH (20:05)
[2021-03-02] MEDS: REMERON PO SCH (21:03)
[2021-03-03] MEDS: Atrovent NEB TX 0.02% NEB SCH ×4 (00:30→17:58)
[2021-03-03] MEDS: XOPENEX 1.25 MG/3 ML NEBULE NEB SCH ×4 (00:30→17:59)
[2021-03-03] MEDS: PROAMATINE PO SCH ×3 (05:05→21:07)
[2021-03-03] MEDS: ZOSYN VIAL 3.375 GRAMS 3.375 G in NS 50 ML IV + SPIKE MINIBAG* 50 ML IV SCH ×3 (05:06→21:07)
[2021-03-03 06:04] LABS: BASOPHILS % (AUTO) 0.2 % (0.2-1.0); EOSINOPHILS # (AUTO) 0.1 x10^3/uL (0.0-0.2); EOSINOPHILS % (AUTO) 1.1 % (0.9-2.9); HEMATOCRIT 34.4 % (42.0-54.0); HEMOGLOBIN 11.7 g/dL (13.5-18.0); LYMPHOCYTES # (AUTO) 1.6 X10^3/uL (1.3-2.9); LYMPHOCYTES % (AUTO) 13.5 % (21.0-51.0); MEAN CORPUSCULAR HEMOGLOBIN 30.8 pg (27.0-34.0); MEAN CORPUSCULAR HGB CONC 33.9 g/dL (33.0-35.0); MEAN CORPUSCULAR VOLUME 90.6 fL (80.0-100.0); MONOCYTES # (AUTO) 0.6 x10^3/uL (0.3-0.8); MONOCYTES % (AUTO) 4.8 % (0.0-13.0); NEUTROPHILS # (AUTO) 9.5 x10^3/uL (2.2-4.8); NEUTROPHILS % (AUTO) 80.4 % (42.0-75.0); PLATELET COUNT 188 X10^3/uL (150.0-450.0); RED CELL DISTRIBUTION WIDTH 14.1 % (11.6-16.5); WHITE BLOOD COUNT 11.8 X10^3/uL (3.6-10.0)
[2021-03-03] MEDS: CORDARONE TAB 200 MG PO SCH ×2 (06:10→17:42)
--- NOTE | 2021-03-03 06:28 | RAD ---
HISTORYPneumoniaSTUDYAP chestCOMPARISONOctober 2020FINDINGSStable cardiomegaly and pacemaker position. Interval improvement in aeration of the lungs with decreasing bilateral airspace involvement. No new areas of consolidation identified. There is no pleural fluid or pneumothorax.IMPRESSIONStable cardiomegaly with improved aeration of the lungs consistent with decreasing pneumonia/edema.Electronically signed by: ASHLEY GANDHI (Mar 03, 2021 06:26:33)
[2021-03-03 06:29] LABS: ALANINE AMINOTRANSFERASE 8 Units/L (12-78); ALBUMIN 2.6 g/dL (3.4-5.0); ALKALINE PHOSPHATASE 75 Units/L (46-116); ASPARTATE AMINO TRANSFERASE 10 Units/L (15-37); BLOOD UREA NITROGEN 16 mg/dL (7-18); CALCIUM 8.3 mg/dL (8.5-10.1); CHLORIDE 103 mmol/L (98-107); COR CA(FOR HYPOALB) 9.4 mg/dL (8.5-10.1); CREATININE 1.14 mg/dL (0.70-1.30); SODIUM 139 mmol/L (136-145); TOTAL PROTEIN 6.5 g/dL (6.4-8.2); eGFR NON BLACK RACES > 60 (>60)
[2021-03-03] MEDS ORDERED: LEXAPRO ONE (08:26)
[2021-03-03] MEDS: ELIQUIS PO SCH ×2 (08:42→20:36)
[2021-03-03] MEDS: LASIX PO SCH (08:42)
[2021-03-03] MEDS: PLAVIX PO SCH (08:42)
[2021-03-03] MEDS: COLACE CAP 100 MG PO SCH (08:42)
[2021-03-03] MEDS: COREG TAB 12.5 MG PO SCH ×2 (08:42→20:36)
[2021-03-03] MEDS: PEPCID TAB 40 MG PO SCH ×2 (08:42→20:35)
[2021-03-03] MEDS: PROTONIX TAB 40 MG PO SCH ×2 (08:43→20:35)
[2021-03-03] MEDS: LEXAPRO PO SCH (08:43)
[2021-03-03] MEDS: LANOXIN PO SCH (08:55)
[2021-03-03] MEDS: CORTEF PO SCH ×2 (08:55→20:35)
[2021-03-03] MEDS: DIFLUCAN PO SCH (08:55)
[2021-03-03] MEDS: SYNTHROID 100 mcg TAB PO SCH (09:00)
[2021-03-03] MEDS: PULMICORT NEB TX 0.5 MG NEB SCH ×2 (09:36→20:30)
[2021-03-03] MEDS ORDERED: CORTEF ONE (19:01)
[2021-03-03] MEDS ORDERED: NS 500 ML IV 500 ML IV PRN (19:55)
[2021-03-03] MEDS: ZOCOR TAB 20 MG PO SCH (20:36)
[2021-03-03] MEDS: REMERON PO SCH (20:36)
[2021-03-04] MEDS: XOPENEX 1.25 MG/3 ML NEBULE NEB SCH ×4 (00:57→17:50)
[2021-03-04] MEDS: Atrovent NEB TX 0.02% NEB SCH ×4 (00:57→17:50)
[2021-03-04 05:20] LABS: BASOPHILS % (AUTO) 0.3 % (0.2-1.0); EOSINOPHILS # (AUTO) 0.2 x10^3/uL (0.0-0.2); EOSINOPHILS % (AUTO) 2.3 % (0.9-2.9); HEMATOCRIT 31.9 % (42.0-54.0); HEMOGLOBIN 11.2 g/dL (13.5-18.0); LYMPHOCYTES # (AUTO) 1.3 X10^3/uL (1.3-2.9); LYMPHOCYTES % (AUTO) 13.9 % (21.0-51.0); MEAN CORPUSCULAR HEMOGLOBIN 31.5 pg (27.0-34.0); MEAN CORPUSCULAR HGB CONC 35.2 g/dL (33.0-35.0); MEAN CORPUSCULAR VOLUME 89.7 fL (80.0-100.0); MEAN PLATELET VOLUME 9.9 fL (7.4-11.0); MONOCYTES # (AUTO) 0.4 x10^3/uL (0.3-0.8); MONOCYTES % (AUTO) 4.6 % (0.0-13.0); NEUTROPHILS # (AUTO) 7.4 x10^3/uL (2.2-4.8); NEUTROPHILS % (AUTO) 78.9 % (42.0-75.0); PLATELET COUNT 186 X10^3/uL (150.0-450.0); RED BLOOD COUNT 3.55 X10^6/uL (4.7-6.0); WHITE BLOOD COUNT 9.4 X10^3/uL (3.6-10.0)
[2021-03-04] MEDS: ZOSYN VIAL 3.375 GRAMS 3.375 G in NS 50 ML IV + SPIKE MINIBAG* 50 ML IV SCH ×3 (05:20→21:12)
[2021-03-04] MEDS: PROAMATINE PO SCH ×3 (05:20→22:10)
[2021-03-04 05:50] LABS: ALANINE AMINOTRANSFERASE 9 Units/L (12-78); ALBUMIN 2.5 g/dL (3.4-5.0); ALKALINE PHOSPHATASE 72 Units/L (46-116); ASPARTATE AMINO TRANSFERASE 8 Units/L (15-37); BLOOD UREA NITROGEN 15 mg/dL (7-18); CALCIUM 8.3 mg/dL (8.5-10.1); CARBON DIOXIDE 26.2 mmol/L (21-32); CHLORIDE 102 mmol/L (98-107); COR CA(FOR HYPOALB) 9.5 mg/dL (8.5-10.1); CREATININE 1.01 mg/dL (0.70-1.30); SODIUM 137 mmol/L (136-145); TOTAL PROTEIN 6.4 g/dL (6.4-8.2); eGFR NON BLACK RACES > 60 (>60)
[2021-03-04] MEDS: CORDARONE TAB 200 MG PO SCH ×2 (06:03→17:47)
[2021-03-04] MEDS ORDERED: MICRO K EXTEN CAP 10 MEQ PO PRN (06:06)
[2021-03-04] MEDS ORDERED: MAGNESIUM SULFATE 1 GRAM/100 mL PREMIX 1 G/100 ML BAG IV PRN (06:06)
[2021-03-04] MEDS ORDERED: K-RIDER 10 MEQ/NS 100 ML 10 MEQ/100 ML BAG IV PRN (06:06)
[2021-03-04] MEDS ORDERED: POTASSIUM CHLORIDE LIQ 20 MEQ UDC PO PRN (06:06)
[2021-03-04] MEDS ORDERED: KLOR-CON PO PRN (06:06)
[2021-03-04] MEDS ORDERED: K-DUR TAB 20 MEQ PO PRN (06:06)
[2021-03-04] MEDS ORDERED: POTASSIUM CHL 60 MEQ/NS 0.45% 500 ML IV PRN (06:06)
[2021-03-04] MEDS ORDERED: POTASSIUM CHL 40 MEQ/NS 0.45% 500 ML IV PRN (06:06)
--- NOTE | 2021-03-04 06:45 | RAD ---
HISTORYCHF pneumoniaSTUDYAP [id number]/2021FINDINGSSimilar cardiomegaly, no change in position of pacemaker. Persistent interstitial prominence throughout the lungs with localized airspace involvement of the right upper lobe. No new areas of pulmonary involvement, pleural fluid or developing pneumothorax identified.IMPRESSIONNo change in appearance of the chest.Electronically signed by: ASHLEY GANDHI (Mar 04, 2021 06:43:37)
[2021-03-04] MEDS ORDERED: LEXAPRO ONE (08:24)
[2021-03-04] MEDS ORDERED: CORTEF ONE ×2 (08:26→20:55)
[2021-03-04] MEDS: CORTEF PO SCH ×2 (09:14→21:13)
[2021-03-04] MEDS: PEPCID TAB 40 MG PO SCH ×2 (09:14→21:13)
[2021-03-04] MEDS: LEXAPRO PO SCH (09:17)
[2021-03-04] MEDS: DIFLUCAN PO SCH (09:18)
[2021-03-04] MEDS: COREG TAB 12.5 MG PO SCH ×2 (09:19→21:14)
[2021-03-04] MEDS: SYNTHROID 100 mcg TAB PO SCH (09:19)
[2021-03-04] MEDS: ELIQUIS PO SCH ×2 (09:19→21:14)
[2021-03-04] MEDS: COLACE CAP 100 MG PO SCH (09:19)
[2021-03-04] MEDS: PROTONIX TAB 40 MG PO SCH ×2 (09:19→21:14)
[2021-03-04] MEDS: LANOXIN PO SCH (09:38)
[2021-03-04] MEDS: PLAVIX PO SCH (09:39)
[2021-03-04] MEDS: LASIX PO SCH (09:39)
[2021-03-04] MEDS: PULMICORT NEB TX 0.5 MG NEB SCH ×2 (09:55→20:37)
[2021-03-04] MEDS ORDERED: CHLORASEPTIC SPRAY MT PRN (10:27)
--- NOTE | 2021-03-04 13:17 | PCM.PROG ---
Progress Note Progress Note for Day of Date of Exam: 03/04/21 Subjective Subjective: Pt is a 75 year old male admitted for community acquired pneumonia. This morning he reports feeling better. He is currently utilizing 2L nasal cannula supplemental oxygen. Labs/imaging: Wbc 9.4, Hgb 11.2, Plt 186, Na 137, K 3.3, Creatinine 1.01, Glucose 102, CXR was obtained that revealed: Persistent interstitial prominence throughout the lungs with localized airspace involvement of the right upper lobe. No new areas of pulmonary involvement, pleural fluid or developing pneumothorax identified. He is currently receiving IV antibiotics: Zosyn and Diflucan. Leukocytosis trending down. Will continue current treatment plan. Monitor and follow up labs/imaging in the morning. Past Medical Family Social History Past Med/Fam/Surg Hx: No changes since H&P Allergies: Allergies No Known Drug Allergies Allergy (Verified 10/16/20 15:18) Review of Systems ROS: No change since H&P Vital Signs and I&O's Vital Signs: Temperature 100.9 F Pulse Rate [Right Radial] 67 Pulse Rate 65 Respiratory Rate 20 Blood Pressure [Left Arm] 114/58 Blood Pressure 89/53 O2 Sat by Pulse Oximetry 92 Intake and Output: Intake & Output 03/01/21 03/02/21 03/03/21 03/04/21 23:59 23:59 23:59 23:59 Intake Total 305 / 305 955 / 955 514 / 514 50 / 50 Output Total 900 / 900 650 / 650 Balance 305 / 305 55 / 55 -136 / -136 50 / 50 Physical Exam Oriented: Normal Eyes: Normal Ear: Normal Nose: Normal Throat: Normal Respiratory: Diminished and Rales Cardiovascular: Normal : Normal Auscultation: Bowel Sounds: Normal Palpation: Normal Tenderness: Normal Skin: Normal Musculoskeletal: Normal Mood Description: Calm Speech Pattern: Clear and Appropriate Laboratory and Diagnostics Result Diagrams: 03/04/21 03:55 03/04/21 11:47 Labs: Laboratory WBC 9.4 X10^3/uL (3.6-10.0) 03/04/21 03:55 RBC 3.55 X10^6/uL (4.7-6.0) L 03/04/21 03:55 Hgb 11.2 g/dL (13.5-18.0) L 03/04/21 03:55 Hct 31.9 % (42.0-54.0) L 03/04/21 03:55 MCV 89.7 fL (80.0-100.0) 03/04/21 03:55 MCH 31.5 pg (27.0-34.0) 03/04/21 03:55 MCHC 35.2 g/dL (33.0-35.0) H 03/04/21 03:55 RDW 14.0 % (11.6-16.5) 03/04/21 03:55 Plt Count 186 X10^3/uL (150.0-450.0) 03/04/21 03:55 MPV 9.9 fL (7.4-11.0) 03/04/21 03:55 Neut % (Auto) 78.9 % (42.0-75.0) H 03/04/21 03:55 Lymph % (Auto) 13.9 % (21.0-51.0) L 03/04/21 03:55 [place] % (Auto) 4.6 % (0.0-13.0) 03/04/21 03:55 Eos % (Auto) 2.3 % (0.9-2.9) 03/04/21 03:55 Baso % (Auto) 0.3 % (0.2-1.0) 03/04/21 03:55 Neut # (Auto) 7.4 x10^3/uL (2.2-4.8) H 03/04/21 03:55 Lymph # (Auto) 1.3 X10^3/uL (1.3-2.9) 03/04/21 03:55 [place] # (Auto) 0.4 x10^3/uL (0.3-0.8) 03/04/21 03:55 Eos # (Auto) 0.2 x10^3/uL (0.0-0.2) 03/04/21 03:55 Baso # (Auto) 0.0 X10^3/uL (0.0-0.1) 03/04/21 03:55 Absolute Nucleated RBC 0.0 /100WBC 03/04/21 03:55 Sodium 137 mmol/L (136-145) 03/04/21 03:55 Corrected Sodium TNP 03/04/21 03:55 Potassium 3.6 mmol/L (3.5-5.1) 03/04/21 11:47 Chloride 102 mmol/L (98-107) 03/04/21 03:55 Carbon Dioxide 26.2 mmol/L (21-32) 03/04/21 03:55 BUN 15 mg/dL (7-18) 03/04/21 03:55 Creatinine 1.01 mg/dL (0.70-1.30) 03/04/21 03:55 Est GFR (MDRD) Af Amer > 60 (>60) 03/04/21 03:55 Est GFR (MDRD) Non-Af > 60 (>60) 03/04/21 03:55 Glucose 102 mg/dL (65-99) H 03/04/21 03:55 POC Glucose (mg/dL) 92 mg/dL (65-99) 03/04/21 10:54 Calcium 8.3 mg/dL (8.5-10.1) L 03/04/21 03:55 Corrected Calcium 9.5 mg/dL (8.5-10.1) 03/04/21 03:55 Magnesium 2.2 mg/dL (1.7-2.9) 03/04/21 03:55 Total Bilirubin 0.80 mg/dL (0.2-1.0) 03/04/21 03:55 AST 8 Units/L (15-37) L 03/04/21 03:55 ALT 9 Units/L (12-78) L 03/04/21 03:55 Alkaline Phosphatase 72 Units/L (46-116) 03/04/21 03:55 Creatine Kinase 32 Units/L (39-308) L 03/01/21 12:07 CK-MB (CK-2) < 1.0 ng/mL (0-4.0) 03/01/21 12:07 CK/CKMB % Calc 3.1 % (<4) 03/01/21 12:07 Troponin I < 0.02 ng/mL (0-1.5) 03/01/21 12:07 B-Natriuretic Peptide 190 pg/mL (0-79) H 03/01/21 12:07 Total Protein 6.4 g/dL (6.4-8.2) 03/04/21 03:55 Albumin 2.5 g/dL (3.4-5.0) L 03/04/21 03:55 Globulin 3.9 g/dL (2.5-4.5) 03/04/21 03:55 Albumin/Globulin Ratio 0.6 Ratio (1.1-2.1) L 03/04/21 03:55 Triglycerides 74 mg/dL (0-150) 03/01/21 12:07 Cholesterol 126 mg/dL (0-200) 03/01/21 12:07 LDL Cholesterol, Calc 70 mg/dL (0-100) 03/01/21 12:07 HDL Cholesterol 41 mg/dL (40-60) 03/01/21 12:07 Cholesterol/HDL Ratio 3.1 (0.0-5.0) 03/01/21 12:07 Lipase 39 Units/L (73-393) L 03/01/21 12:07 Free T4 1.11 ng/dL (0.76-1.46) 03/01/21 12:07 TSH 3rd Generation 1.066 uIU/mL (0.358-3.74) 03/01/21 12:07 Specimen Type Clean catch urine 03/01/21 18:00 Urine Color Yellow (YELLOW) 03/01/21 18:00 Urine Appearance Clear (CLEAR) 03/01/21 18:00 Urine pH 5.0 (5.0 - 8.0) 03/01/21 18:00 Ur Specific [place] 1.020 (1.000-1.030) 03/01/21 18:00 Urine Protein Negative (NEGATIVE) 03/01/21 18:00 Urine Glucose (UA) Negative (NEGATIVE) 03/01/21 18:00 Urine Ketones Negative (NEGATIVE) 03/01/21 18:00 Urine Occult Blood Negative (NEGATIVE) 03/01/21 18:00 Urine Nitrite Negative (NEGATIVE) 03/01/21 18:00 Urine Bilirubin Negative (NEGATIVE) 03/01/21 18:00 Urine Urobilinogen Normal (NORMAL) 03/01/21 18:00 Ur Leukocyte Esterase 1+ (NEGATIVE) 03/01/21 18:00 Urine RBC None seen /HPF (0-3) 03/01/21 18:00 Urine WBC 0-2 /HPF (0-5) 03/01/21 18:00 Ur Squamous Epith Cells Few /HPF (NEGATIVE) 03/01/21 18:00 Urine Bacteria Trace /HPF (NEGATIVE) 03/01/21 18:00 Urine Mucus Few /HPF (NEGATIVE) 03/01/21 18:00 Urine Yeast Moderate /HPF (NEGATIVE) 03/01/21 18:00 Ur Culture Indicated? No/not indicated 03/01/21 18:00 Digoxin 0.82 ng/mL (0.9-2) L 03/04/21 03:55 SARS-CoV-2 (PCR) Negative (NEGATIVE) 03/01/21 15:15 Influenza Type A (PCR) Negative (NEGATIVE) 03/01/21 15:15 Influenza Type B (PCR) Negative (NEGATIVE) 03/01/21 15:15 RSV (PCR) Negative (NEGATIVE) 03/01/21 15:15 Plan (1) CAP (community acquired pneumonia): Status: Acute Qualifiers: Laterality: right Lung location: lower lobe of lung Qualified Code(s): J18.9 - Pneumonia, unspecified organism
[2021-03-04 13:31] LABS: CKMB % 5.9 % (<4); CREATINE KINASE 17 Units/L (39-308); CREATINE KINASE MB < 1.0 ng/mL (0-4.0); TROPONIN I < 0.02 ng/mL (0-1.5)
[2021-03-04] MEDS ORDERED: MILK OF MAGNESIA PO PRN (21:00)
[2021-03-04] MEDS: REMERON PO SCH (21:14)
[2021-03-04] MEDS: ZOCOR TAB 20 MG PO SCH (21:14)
[2021-03-05] MEDS: Atrovent NEB TX 0.02% NEB SCH ×2 (00:19→05:50)
[2021-03-05] MEDS: XOPENEX 1.25 MG/3 ML NEBULE NEB SCH ×2 (00:19→05:50)
[2021-03-05] MEDS: PROAMATINE PO SCH ×2 (05:20→14:16)
[2021-03-05] MEDS: ZOSYN VIAL 3.375 GRAMS 3.375 G in NS 50 ML IV + SPIKE MINIBAG* 50 ML IV SCH ×2 (05:24→14:16)
[2021-03-05 06:38] LABS: BASOPHILS % (AUTO) 0.6 % (0.2-1.0); EOSINOPHILS # (AUTO) 0.3 x10^3/uL (0.0-0.2); EOSINOPHILS % (AUTO) 3.3 % (0.9-2.9); HEMATOCRIT 32.4 % (42.0-54.0); HEMOGLOBIN 11.4 g/dL (13.5-18.0); LYMPHOCYTES # (AUTO) 1.3 X10^3/uL (1.3-2.9); LYMPHOCYTES % (AUTO) 16.1 % (21.0-51.0); MEAN CORPUSCULAR HEMOGLOBIN 31.4 pg (27.0-34.0); MEAN CORPUSCULAR HGB CONC 35.2 g/dL (33.0-35.0); MEAN PLATELET VOLUME 9.6 fL (7.4-11.0); MONOCYTES # (AUTO) 0.6 x10^3/uL (0.3-0.8); MONOCYTES % (AUTO) 7.1 % (0.0-13.0); NEUTROPHILS # (AUTO) 5.9 x10^3/uL (2.2-4.8); NEUTROPHILS % (AUTO) 72.9 % (42.0-75.0); PLATELET COUNT 201 X10^3/uL (150.0-450.0); RED BLOOD COUNT 3.64 X10^6/uL (4.7-6.0); RED CELL DISTRIBUTION WIDTH 13.5 % (11.6-16.5)
--- NOTE | 2021-03-05 06:48 | RAD ---
HISTORYPneumoniaSTUDYAP [id number] cardiac size and contour and pacemaker position. Diffuse pulmonary infiltrates similar although there is slight apparent improvement in the right upper lobe airspace involvement. No new abnormality noted.IMPRESSIONPersistent pneumonia with slight improvement in the right upper lobe involvement.Electronically signed by: ASHLEY GANDHI (Mar 05, 2021 06:46:34)
[2021-03-05 07:00] LABS: ALANINE AMINOTRANSFERASE 11 Units/L (12-78); ALBUMIN 2.4 g/dL (3.4-5.0); ALKALINE PHOSPHATASE 70 Units/L (46-116); ASPARTATE AMINO TRANSFERASE 10 Units/L (15-37); BLOOD UREA NITROGEN 14 mg/dL (7-18); CALCIUM 8.4 mg/dL (8.5-10.1); CARBON DIOXIDE 25.5 mmol/L (21-32); CHLORIDE 103 mmol/L (98-107); COR CA(FOR HYPOALB) 9.7 mg/dL (8.5-10.1); SODIUM 138 mmol/L (136-145); TOTAL PROTEIN 6.5 g/dL (6.4-8.2); eGFR NON BLACK RACES > 60 (>60)
[2021-03-05] MEDS ORDERED: LEXAPRO ONE (08:35)
[2021-03-05] MEDS ORDERED: CORTEF ONE (08:36)
[2021-03-05] MEDS: CORDARONE TAB 200 MG PO SCH (08:58)
[2021-03-05] MEDS: PLAVIX PO SCH (08:59)
[2021-03-05] MEDS: PEPCID TAB 40 MG PO SCH (08:59)
[2021-03-05] MEDS: PROTONIX TAB 40 MG PO SCH (08:59)
[2021-03-05] MEDS: COLACE CAP 100 MG PO SCH (08:59)
[2021-03-05] MEDS: COREG TAB 12.5 MG PO SCH (09:00)
[2021-03-05] MEDS: LEXAPRO PO SCH (09:00)
[2021-03-05] MEDS: ELIQUIS PO SCH (09:00)
[2021-03-05] MEDS: LASIX PO SCH (09:00)
[2021-03-05] MEDS: SYNTHROID 100 mcg TAB PO SCH (09:01)
[2021-03-05] MEDS: DIFLUCAN PO SCH (09:01)
[2021-03-05] MEDS: CORTEF PO SCH (09:02)
[2021-03-05] MEDS: LANOXIN PO SCH (09:02)
[2021-03-05] MEDS: PULMICORT NEB TX 0.5 MG NEB SCH (09:07)
--- NOTE | 2021-03-05 11:30 | W.DIS.FURT ---
Summary of Discharge Discharge Summary of Date Date of Exam: 03/05/21 Admission Date Date of Admission: 03/01/21 Admission Diagnosis Patient Problems (Updated 03/01/21 @ 16:15 by Km Schneider) Pneumonia (Acute) J18.9 Hospital Course: Pt is a 75 year old male admitted for community acquired pneumonia seen on CXR. His hospital/treatment course included: IV antibiotics: Zosyn and Diflucan. He responded well to treatments. Labs/imaging: Wbc 8.0, Hgb 11.4, Plt 201, Na 138, K 3.4, Creatinine 1.00, Glucose 99. Leukocytosis trended down and patient did not require additional home oxygen. Rx Levaquin. Pt discharged in stable condition. Instructed to follow up with pcp in 3-5 days. Vital Signs: Vital Signs (72 hours) 03/02/21 12:00 03/02/21 13:21 03/02/21 16:00 Temperature 99.1 F 98.2 F Pulse Rate 96 H Pulse Rate [Right Radial] 96 H 92 H Respiratory Rate 18 18 Blood Pressure [Left Arm] 104/67 104/65 O2 Sat by Pulse Oximetry 91 L 92 L 03/02/21 20:00 03/02/21 21:55 03/02/21 23:33 Temperature 99.1 F 98.6 F Pulse Rate 77 Pulse Rate [Right Radial] 96 H 93 H Respiratory Rate 20 20 Blood Pressure [Left Arm] 112/73 102/64 O2 Sat by Pulse Oximetry 93 L 96 91 L 03/03/21 00:30 03/03/21 04:00 03/03/21 06:27 Temperature 97.4 F L Pulse Rate 75 72 Pulse Rate [Right Radial] 100 H Respiratory Rate 19 Blood Pressure [Left Arm] 106/66 O2 Sat by Pulse Oximetry 96 90 L 98 03/03/21 08:00 03/03/21 08:55 03/03/21 09:36 Temperature 98.0 F Pulse Rate 87 111 H Pulse Rate [Right Radial] 87 Respiratory Rate 20 Blood Pressure [Left Arm] 120/78 O2 Sat by Pulse Oximetry 97 95 03/03/21 12:00 03/03/21 16:00 03/03/21 20:00 Temperature 98 F 97.6 F 99.7 F H Pulse Rate Pulse Rate [Right Radial] 104 H 61 85 Respiratory Rate 18 18 20 Blood Pressure [Left Arm] 120/80 98/53 98/56 O2 Sat by Pulse Oximetry 97 93 L 94 L 03/03/21 20:30 03/03/21 21:00 03/04/21 00:00 Temperature 99.1 F Pulse Rate 82 Pulse Rate [Right Radial] 78 Respiratory Rate 19 Blood Pressure [Left Arm] 123/87 117/75 O2 Sat by Pulse Oximetry 94 L 92 L 03/04/21 00:57 03/04/21 03:49 03/04/21 05:20 Temperature 99.2 F Pulse Rate 73 78 Pulse Rate [Right Radial] 78 Respiratory Rate 19 Blood Pressure [Left Arm] 114/61 O2 Sat by Pulse Oximetry 94 L 94 L 95 03/04/21 08:00 03/04/21 09:38 03/04/21 09:55 Temperature 98.2 F Pulse Rate 65 65 Pulse Rate [Right Radial] 70 Respiratory Rate 20 Blood Pressure [Left Arm] 116/73 O2 Sat by Pulse Oximetry 92 L 92 L 03/04/21 12:00 03/04/21 16:00 03/04/21 20:00 Temperature 100.9 F H 98.7 F 97.7 F Pulse Rate Pulse Rate [Right Radial] 67 60 85 Respiratory Rate 20 20 19 Blood Pressure [Left Arm] 114/58 112/56 118/61 O2 Sat by Pulse Oximetry 92 L 92 L 93 L 03/04/21 20:37 03/05/21 00:00 03/05/21 00:19 Temperature 98.5 F Pulse Rate 97 H 78 Pulse Rate [Right Radial] 75 Respiratory Rate 19 Blood Pressure [Left Arm] 129/67 O2 Sat by Pulse Oximetry 94 L 95 95 03/05/21 04:00 03/05/21 05:50 03/05/21 08:00 Temperature 98.9 F 98.3 F Pulse Rate 70 Pulse Rate [Right Radial] 62 62 Respiratory Rate 19 22 Blood Pressure [Left Arm] 115/63 142/71 O2 Sat by Pulse Oximetry 93 L 96 95 03/05/21 09:02 03/05/21 09:07 Temperature Pulse Rate 62 62 Pulse Rate [Right Radial] Respiratory Rate Blood Pressure [Left Arm] O2 Sat by Pulse Oximetry 95 Labs: Laboratory Last Values WBC 8.0 X10^3/uL (3.6-10.0) 03/05/21 05:44 RBC 3.64 X10^6/uL (4.7-6.0) L 03/05/21 05:44 Hgb 11.4 g/dL (13.5-18.0) L 03/05/21 05:44 Hct 32.4 % (42.0-54.0) L 03/05/21 05:44 MCV 89.0 fL (80.0-100.0) 03/05/21 05:44 MCH 31.4 pg (27.0-34.0) 03/05/21 05:44 MCHC 35.2 g/dL (33.0-35.0) H 03/05/21 05:44 RDW 13.5 % (11.6-16.5) 03/05/21 05:44 Plt Count 201 X10^3/uL (150.0-450.0) 03/05/21 05:44 MPV 9.6 fL (7.4-11.0) 03/05/21 05:44 Neut % (Auto) 72.9 % (42.0-75.0) 03/05/21 05:44 Lymph % (Auto) 16.1 % (21.0-51.0) L 03/05/21 05:44 [place] % (Auto) 7.1 % (0.0-13.0) 03/05/21 05:44 Eos % (Auto) 3.3 % (0.9-2.9) H 03/05/21 05:44 Baso % (Auto) 0.6 % (0.2-1.0) 03/05/21 05:44 Neut # (Auto) 5.9 x10^3/uL (2.2-4.8) H 03/05/21 05:44 Lymph # (Auto) 1.3 X10^3/uL (1.3-2.9) 03/05/21 05:44 [place] # (Auto) 0.6 x10^3/uL (0.3-0.8) 03/05/21 05:44 Eos # (Auto) 0.3 x10^3/uL (0.0-0.2) H 03/05/21 05:44 Baso # (Auto) 0.0 X10^3/uL (0.0-0.1) 03/05/21 05:44 Absolute Nucleated RBC 0.1 /100WBC 03/05/21 05:44 Sodium 138 mmol/L (136-145) 03/05/21 05:44 Corrected Sodium TNP 03/05/21 05:44 Potassium 3.4 mmol/L (3.5-5.1) L 03/05/21 05:44 Chloride 103 mmol/L (98-107) 03/05/21 05:44 Carbon Dioxide 25.5 mmol/L (21-32) 03/05/21 05:44 BUN 14 mg/dL (7-18) 03/05/21 05:44 Creatinine 1.00 mg/dL (0.70-1.30) 03/05/21 05:44 Est GFR (MDRD) Af Amer > 60 (>60) 03/05/21 05:44 Est GFR (MDRD) Non-Af > 60 (>60) 03/05/21 05:44 Glucose 99 mg/dL (65-99) 03/05/21 05:44 POC Glucose (mg/dL) 112 mg/dL (65-99) H 03/05/21 05:25 Calcium 8.4 mg/dL (8.5-10.1) L 03/05/21 05:44 Corrected Calcium 9.7 mg/dL (8.5-10.1) 03/05/21 05:44 Magnesium 2.2 mg/dL (1.7-2.9) 03/04/21 03:55 Total Bilirubin 0.60 mg/dL (0.2-1.0) 03/05/21 05:44 AST 10 Units/L (15-37) L 03/05/21 05:44 ALT 11 Units/L (12-78) L 03/05/21 05:44 Alkaline Phosphatase 70 Units/L (46-116) 03/05/21 05:44 Creatine Kinase 17 Units/L (39-308) L 03/04/21 13:00 CK-MB (CK-2) < 1.0 ng/mL (0-4.0) 03/04/21 13:00 CK/CKMB % Calc 5.9 % (<4) 03/04/21 13:00 Troponin I < 0.02 ng/mL (0-1.5) 03/04/21 13:00 B-Natriuretic Peptide 190 pg/mL (0-79) H 03/01/21 12:07 Total Protein 6.5 g/dL (6.4-8.2) 03/05/21 05:44 Albumin 2.4 g/dL (3.4-5.0) L 03/05/21 05:44 Globulin 4.1 g/dL (2.5-4.5) 03/05/21 05:44 Albumin/Globulin Ratio 0.6 Ratio (1.1-2.1) L 03/05/21 05:44 Triglycerides 74 mg/dL (0-150) 03/01/21 12:07 Cholesterol 126 mg/dL (0-200) 03/01/21 12:07 LDL Cholesterol, Calc 70 mg/dL (0-100) 03/01/21 12:07 HDL Cholesterol 41 mg/dL (40-60) 03/01/21 12:07 Cholesterol/HDL Ratio 3.1 (0.0-5.0) 03/01/21 12:07 Lipase 39 Units/L (73-393) L 03/01/21 12:07 Free T4 1.11 ng/dL (0.76-1.46) 03/01/21 12:07 TSH 3rd Generation 1.066 uIU/mL (0.358-3.74) 03/01/21 12:07 Specimen Type Clean catch urine 03/01/21 18:00 Urine Color Yellow (YELLOW) 03/01/21 18:00 Urine Appearance Clear (CLEAR) 03/01/21 18:00 Urine pH 5.0 (5.0 - 8.0) 03/01/21 18:00 Ur Specific [place] 1.020 (1.000-1.030) 03/01/21 18:00 Urine Protein Negative (NEGATIVE) 03/01/21 18:00 Urine Glucose (UA) Negative (NEGATIVE) 03/01/21 18:00 Urine Ketones Negative (NEGATIVE) 03/01/21 18:00 Urine Occult Blood Negative (NEGATIVE) 03/01/21 18:00 Urine Nitrite Negative (NEGATIVE) 03/01/21 18:00 Urine Bilirubin Negative (NEGATIVE) 03/01/21 18:00 Urine Urobilinogen Normal (NORMAL) 03/01/21 18:00 Ur Leukocyte Esterase 1+ (NEGATIVE) 03/01/21 18:00 Urine RBC None seen /HPF (0-3) 03/01/21 18:00 Urine WBC 0-2 /HPF (0-5) 03/01/21 18:00 Ur Squamous Epith Cells Few /HPF (NEGATIVE) 03/01/21 18:00 Urine Bacteria Trace /HPF (NEGATIVE) 03/01/21 18:00 Urine Mucus Few /HPF (NEGATIVE) 03/01/21 18:00 Urine Yeast Moderate /HPF (NEGATIVE) 03/01/21 18:00 Ur Culture Indicated? No/not indicated 03/01/21 18:00 Digoxin 0.82 ng/mL (0.9-2) L 03/04/21 03:55 SARS-CoV-2 (PCR) Negative (NEGATIVE) 03/01/21 15:15 Influenza Type A (PCR) Negative (NEGATIVE) 03/01/21 15:15 Influenza Type B (PCR) Negative (NEGATIVE) 03/01/21 15:15 RSV (PCR) Negative (NEGATIVE) 03/01/21 15:15 Reason For Visit: PNEUMONIA Discharge Date Discharge Date: 03/05/21 Discharge Diagnosis All Active Problems (Updated 03/01/21 @ 16:15 by Km Schneider) Pneumonia (Acute) Fever (Acute) Acute respiratory distress (Acute) CAP (community acquired pneumonia) (Acute) Severe sepsis (Acute) Acidosis, lactic (Acute) Encephalitis toxic (Acute) Hypoxemia (Acute) Laceration of eyebrow and forehead (Acute) Folliculitis barbae (Acute) Brain tumor (Acute) Headache (Acute) Pneumonia (Acute) Altered mental status (Acute) Hyperlipidemia (Chronic) Sinusitis (Chronic) Depression (Chronic) GERD (gastroesophageal reflux disease) (Acute) LLL pneumonia (Acute) Acute dehydration (Acute) Enterocolitis (Acute) COPD (chronic obstructive pulmonary disease) (Acute) Dysphagia (Acute) Cough (Acute) Weak (Acute) Hypokalemia (Acute) Nausea and vomiting (Acute) Abdominal pain (Acute) Pneumonia (Acute) Pleurisy (Acute) Altered mental status (Acute) Bilateral pneumonia (Acute) Aspiration pneumonia of left lower lobe (Acute) Nausea (Acute) Fever (Acute) Generalized weakness (Acute) Cerebrovascular small vessel disease (Chronic) CAD (coronary artery disease) (Chronic) Hypertension (Chronic) BPH (benign prostatic hypertrophy) (Chronic) Hypothyroidism (Chronic) Arthritis (Chronic) Plan of Treatment: Continue with present treatment and follow up plan. Pt is to keep follow up appointment as instructed and take medications as ordered. Discharge Medications Discharge Medications: No Known Drug Allergies Allergy (Verified 10/16/20 15:18) CONTINUE taking the following medications amiodarone 200 mg PO BID 03/01/21 [History] New Prescriptions levofloxacin 500 mg PO Q24H 5 Days #5 tab 03/05/21 [Rx] Follow up and Referral Follow Up: 1 Week Discharge Disposition Discharge Disposition: Home Discharge Condition: Stable Discharge Plan Discharge Plan Hospital Course: Pt is a 75 year old male admitted for community acquired pneumonia seen on CXR. His hospital/treatment course included: IV antibiotics: Zosyn and Diflucan. He responded well to treatments. Labs/imaging: Wbc 8.0, Hgb 11.4, Plt 201, Na 138, K 3.4, Creatinine 1.00, Glucose 99. Leukocytosis trended down and patient did not require additional home oxygen. Rx Levaquin. Pt discharged in stable condition. Instructed to follow up with pcp in 3-5 days. Patient Disposition: HOME, SELF-CARE Condition: Stable Health Concerns: Post Hospitalization: new medications and changes needed to prevent readmission or further decline. Pt educated and given instructions on all concerns. Care Plan Goals: Problem: Respiratory Complications Goal: Improved Uncomplicated Respiratory Status Instructions: Follow provided instructions. Follow up with primary physician as directed. Contact primary care physician or report to the closest Emergency Room if condition worsens. Plan of Treatment: Continue with present treatment and follow up plan. Pt is to keep follow up appointment as instructed and take medications as ordered. Prescriptions: New levofloxacin 500 mg tablet 500 mg PO Q24H 5 Days Qty: 5 RF: 0 Continued ipratropium-albuterol 0.5 mg-3 mg(2.5 mg base)/3 mL Solution For Nebulization 3 ml INHALATION TID RF: 0 midodrine 5 mg tablet 2.5 mg PO TID RF: 0 docusate sodium [Stool Softener] 100 mg Capsule 100 mg PO DAILY RF: 0 carvedilol [Coreg] 12.5 mg Tablet 12.5 mg PO BID RF: 0 mirtazapine 15 mg tablet 7.5 mg PO HS RF: 0 hydrocortisone [Cortef] 5 mg tablet 15 mg PO QAM RF: 0 hydrocortisone [Cortef] 5 mg tablet 10 mg PO HS RF: 0 clopidogrel [Plavix] 75 mg tablet 75 mg PO DAILY RF: 0 levothyroxine 100 mcg tablet 100 mcg PO DAILY RF: 0 famotidine [Pepcid] 40 MG tablet 40 mg PO BID Qty: 60 RF: 3 potassium chloride 10 mEq tablet extended release 10 meq PO DAILY RF: 0 simvastatin 20 mg tablet 20 mg PO HS RF: 0 furosemide 20 mg tablet 20 mg PO DAILY RF: 0 escitalopram oxalate 10 mg Tablet 10 mg PO DAILY RF: 0 Eliquis 5 mg tablet 5 mg PO BID RF: 0 pantoprazole 40 mg tablet,delayed release (DR/EC) 40 mg PO BID RF: 0 budesonide-formoterol [Symbicort] 80-4.5 mcg/actuation Hfa Aerosol Inhaler 2 inh INHALATION BID PRN (Reason: Shortness Of Breath) RF: 0 Spiriva with HandiHaler 18 mcg capsule, w/inhalation device 2 cap INHALATION QDAY RF: 0 hydrocodone-acetaminophen 7.5-325 mg Tablet 1 tab PO BID PRN (Reason: Pain) RF: 0 amiodarone 200 mg Tablet 200 mg PO BID RF: 0 Orders to Discharge Patient Discharge Orders: Discharge (Routine); Ordered 03/05/21 Ordered By: Lasha Ku Follow ups/Referrals Follow ups/Referrals: ROBERT ORTIZ [Nurse Practitioner] - 03/12/21 1:00 pm Instructions Instructions: Home Oxygen Use, Adult, Managing Your Hypertension, Community- Acquired Pneumonia, Adult, [id number] Stand Alone Forms: Excuse From Work or School, Precautions for COVID19, [facility], Patient Portal, Social Distancing
[2021-03-05 12:09] VITALS: BP 127/60
[2021-03-05] MEDS ORDERED: FLUZONE II4 or AFLURIA II4 IM ONE (13:50)
== END 2021-03-05 14:37 | disposition home or self-care (01) ==
LOC: ER 11:20 → MED/SURG 11:20
PROVIDERS: ADMIT Obstetrics & Gynecology Obstetrics; ATTEND Family Medicine
DX: I50.9 Heart failure, unspecified; I48.91 Unspecified atrial fibrillation; E03.8 Other specified hypothyroidism; I48.92 Unspecified atrial flutter; M54.89 Other dorsalgia; I11.0 Hypertensive heart disease with heart failure; R26.89 Other abnormalities of gait and mobility; R94.31 Abnormal electrocardiogram [ECG] [EKG]; I25.10 Atherosclerotic heart disease of native coronary artery without angina pectoris; M54.2 Cervicalgia; Z20.822 Contact with and (suspected) exposure to COVID-19; J18.8 Other pneumonia, unspecified organism; J44.9 Chronic obstructive pulmonary disease, unspecified; E78.2 Mixed hyperlipidemia

== ENCOUNTER 2021-07-08 13:23 | Observation (INO) ==
[2021-07-08] MEDS ORDERED: REMDESIVIR 200 MG in NS 250 ML IV 250 ML IV NR (14:27)
[2021-07-08 15:02] LABS: BILIRUBIN,URINE NEGATIVE (NEGATIVE); BLOOD/HEMOGLOBIN,URINE 1+ (NEGATIVE); GLUCOSE, URINE NEGATIVE (NEGATIVE); KETONES,URINE NEGATIVE (NEGATIVE); LEUKOCYTE ESTERASE ,URINE 3+ (NEGATIVE); NITRITES,URINE NEGATIVE (NEGATIVE); PROTEIN,URINE 2+ (NEGATIVE); UROBILINOGEN,URINE NORMAL (NORMAL)
[2021-07-08 15:16] LABS: APPEARANCE,URINE HAZY (CLEAR); COLOR,URINE YELLOW (YELLOW)
[2021-07-08 15:40] LABS: ABG ALLEN TEST POS; ABG BASE EXCESS 0.9 mmol/L (-2.0-2.0); ABG HCO3 23.8 mmol/L (22-26)
[2021-07-08 15:40] LABS: BACTERIA,URINE TRACE /HPF (NEGATIVE); SQUAMOUS EPITHELIAL CELL,UR MODERATE /HPF (NEGATIVE)
[2021-07-08 15:41] LABS: YEAST,URINE MODERATE /HPF (NEGATIVE)
[2021-07-08 15:54] LABS: BASOPHILS % (AUTO) 0.4 % (0.2-1.0); EOSINOPHILS % (AUTO) 0.3 % (0.9-2.9); HEMATOCRIT 36.3 % (42.0-54.0); HEMOGLOBIN 12.3 g/dL (13.5-18.0); LYMPHOCYTES # (AUTO) 0.7 X10^3/uL (1.3-2.9); LYMPHOCYTES % (AUTO) 8.3 % (21.0-51.0); MEAN CORPUSCULAR HEMOGLOBIN 30.5 pg (27.0-34.0); MEAN CORPUSCULAR HGB CONC 33.9 g/dL (33.0-35.0); MEAN CORPUSCULAR VOLUME 89.9 fL (80.0-100.0); MEAN PLATELET VOLUME 10.1 fL (7.4-11.0); MONOCYTES # (AUTO) 0.4 x10^3/uL (0.3-0.8); MONOCYTES % (AUTO) 4.7 % (0.0-13.0); NEUTROPHILS # (AUTO) 6.9 x10^3/uL (2.2-4.8); NEUTROPHILS % (AUTO) 86.3 % (42.0-75.0); RED BLOOD COUNT 4.03 X10^6/uL (4.7-6.0); RED CELL DISTRIBUTION WIDTH 15.3 % (11.6-16.5)
[2021-07-08 16:11] LABS: ALANINE AMINOTRANSFERASE 23 Units/L (12-78); ALBUMIN 3.1 g/dL (3.4-5.0); ALKALINE PHOSPHATASE 65 Units/L (46-116); ASPARTATE AMINO TRANSFERASE 43 Units/L (15-37); BLOOD UREA NITROGEN 24 mg/dL (7-18); CALCIUM 7.9 mg/dL (8.5-10.1); CARBON DIOXIDE 26.7 mmol/L (21-32); CHLORIDE 103 mmol/L (98-107); COR CA(FOR HYPOALB) 8.6 mg/dL (8.5-10.1); CREATININE 1.27 mg/dL (0.70-1.30); SODIUM 138 mmol/L (136-145); TOTAL PROTEIN 7.3 g/dL (6.4-8.2); eGFR NON BLACK RACES 59 (>60)
[2021-07-08] MEDS: NS 1,000 ML IV 1,000 ML IV SCH (17:32)
[2021-07-08] MEDS: DUONEB 0.5 MG/3 MG (3 mL) NEB SCH ×2 (17:40→20:40)
[2021-07-08 18:21] LABS: BILIRUBIN,URINE NEGATIVE (NEGATIVE); BLOOD/HEMOGLOBIN,URINE 2+ (NEGATIVE); GLUCOSE, URINE NEGATIVE (NEGATIVE); KETONES,URINE NEGATIVE (NEGATIVE); LEUKOCYTE ESTERASE ,URINE 3+ (NEGATIVE); NITRITES,URINE NEGATIVE (NEGATIVE); PROTEIN,URINE 2+ (NEGATIVE); UROBILINOGEN,URINE NORMAL (NORMAL)
[2021-07-08 18:37] LABS: APPEARANCE,URINE CLOUDY (CLEAR); COLOR,URINE YELLOW (YELLOW)
[2021-07-08 18:39] LABS: BACTERIA,URINE TRACE /HPF (NEGATIVE); SQUAMOUS EPITHELIAL CELL,UR FEW /HPF (NEGATIVE); TRANSITIONAL EPI CELLS,URINE RARE /HPF (NEGATIVE)
[2021-07-08 18:40] LABS: YEAST,URINE MODERATE /HPF (NEGATIVE)
--- NOTE | 2021-07-08 18:52 | RAD ---
Chest AP portableIndication: COVID-19Comparison July 07, 2021FINDINGSThere is no pneumothorax or effusion. There is no consolidation.Heart size is prominent. Pacemaker leads and cervical spine hardware noted. Mild increased interstitial markings noted.IMPRESSIONProminent heart size and patchy pulmonary opacities. COVID-19 pneumonia possible, given history but correlate clinically for any evidence of cardiac dysfunction as well.Electronically signed by: DAPHNEY ANDRADE (Jul 08, 2021 18:51:36)
[2021-07-08] MEDS: PULMICORT NEB TX 0.5 MG NEB SCH (20:40)
--- NOTE | 2021-07-08 22:58 | DR.H&P ---
H&P History & Physical for Day of: H&P Date: 07/08/21 Chief Complaint Chief Complaint: Generalized Weakness Altered mental status Shortness of breath Allergies Allergies Allergy/AdvReac Type Severity Reaction Status Date / Time No Known Drug Allergies Allergy Verified 10/16/20 15:18 History of Present Illness History of Present Illness: Pt is a 75 year old male admitted for COVID-19 pneumonia, Altered mental status, and dehydration. Pt was seen in the ER over the weekend and tested positive for COVID-19. His symptoms did not improve after outpatient treatment and he remained lethargic and weak with decreased po intake. Labs/imaging: Wbc 8, Hgb 12.3, Plt 165, Na 138, K 3.8, Creatinine 1.27, Glucose 92, CRP 288, ABG: pH 7.48, pCO2 32, pO2 60, HCO3 23, O2 sat 92% on RA, UA c/w infection, Urine/Blood culture pending, CXR: Prominent heart size and patchy pulmonary opacities. COVID-19 pneumonia possible, given history but correlate clinically for any evidence of cardiac dysfunction as well. Pt was started on pneumonia protocol that includes: IVF NS@75 ml/h, IV Remdesivir, IV Decadron 4mg, scheduled Bronchodilators Xopenex and Budesonide, Antibiotics: IV Rocephin, immune supporting supplements, supplemental O2, SSI, I/S, Eliquis 5mg BID, Physical therapy, Respiratory therapy consult. Home medications ordered to be restarted. Will continue to closely monitor and follow up labs/imaging. Time spent on clinical assessment, reviewing labs and imaging, decision making, and documentation greater than 45 minutes. Past Medical History Past Medical History: Anemia, CHF, COPD, Coronary Artery Disease, Dyslipidemia, Hypertension, Hypothyroidism, Sleep Apnea and Ventricular Tachycardia Additional Medical History: Atrial Fibrillation, Bradycardia Pituitary adenoma - s/p resection and XRT with recently diagnoses probable recurrence CVD; S/P TIA in 03/2015 Past Surgical History Surgical History: Angioplasty/Stents Additional Surgical History: Pacemaker implantation 2010 Pituitary adenoma resection and XRT 2009 Cardiac ablation for the tx of A-fib - 05/2015 Cardiac cath and stent placement 2010 Cervical fusion Family History Family Medical History: Cancer, [place], Coronary Artery Disease and Hypertension Social History Does patient currently use any type of tobacco product: No Have you used tobacco products in the last 12 months: No Type of Tobacco Use: None Does any household member use tobacco: No Alcohol Use: None Drug Use: None Medications Home Medications: No Known Drug Allergies Allergy (Verified 10/16/20 15:18) Labs Result Diagrams: 07/09/21 04:16 07/09/21 04:16 Labs: Laboratory WBC 8.0 X10^3/uL (3.6-10.0) 07/08/21 15:15 RBC 4.03 X10^6/uL (4.7-6.0) L 07/08/21 15:15 Hgb 12.3 g/dL (13.5-18.0) L 07/08/21 15:15 Hct 36.3 % (42.0-54.0) L 07/08/21 15:15 MCV 89.9 fL (80.0-100.0) 07/08/21 15:15 MCH 30.5 pg (27.0-34.0) 07/08/21 15:15 MCHC 33.9 g/dL (33.0-35.0) 07/08/21 15:15 RDW 15.3 % (11.6-16.5) 07/08/21 15:15 Plt Count 165 X10^3/uL (150.0-450.0) 07/08/21 15:15 MPV 10.1 fL (7.4-11.0) 07/08/21 15:15 Neut % (Auto) 86.3 % (42.0-75.0) H 07/08/21 15:15 Lymph % (Auto) 8.3 % (21.0-51.0) L 07/08/21 15:15 [place] % (Auto) 4.7 % (0.0-13.0) 07/08/21 15:15 Eos % (Auto) 0.3 % (0.9-2.9) L 07/08/21 15:15 Baso % (Auto) 0.4 % (0.2-1.0) 07/08/21 15:15 Neut # (Auto) 6.9 x10^3/uL (2.2-4.8) H 07/08/21 15:15 Lymph # (Auto) 0.7 X10^3/uL (1.3-2.9) L 07/08/21 15:15 [place] # (Auto) 0.4 x10^3/uL (0.3-0.8) 07/08/21 15:15 Eos # (Auto) 0.0 x10^3/uL (0.0-0.2) 07/08/21 15:15 Baso # (Auto) 0.0 X10^3/uL (0.0-0.1) 07/08/21 15:15 Absolute Nucleated RBC 0.1 /100WBC 07/08/21 15:15 D-Dimer 0.79 ug/ml (0.0-0.57) H* 07/08/21 15:15 Sample Site Rra 07/08/21 15:38 ABG pH 7.480 (7.35-7.45) H 07/08/21 15:38 ABG pCO2 32.0 mmHg (35.0-45.0) L 07/08/21 15:38 ABG pO2 60.0 mmHg (80.0-100.0) L 07/08/21 15:38 ABG HCO3 23.8 mmol/L (22-26) 07/08/21 15:38 ABG O2 Saturation 92.0 % (90-100) 07/08/21 15:38 ABG Base Excess 0.9 mmol/L (-2.0-2.0) 07/08/21 15:38 Henrik Test Pos 07/08/21 15:38 A-a Gradient 50.0 mmHg 07/08/21 15:38 FiO2 21.0 07/08/21 15:38 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, delinquency prevention officer 07/08/21 15:38 Sodium 138 mmol/L (136-145) 07/08/21 15:15 Corrected Sodium TNP 07/08/21 15:15 Potassium 3.8 mmol/L (3.5-5.1) 07/08/21 15:15 Chloride 103 mmol/L (98-107) 07/08/21 15:15 Carbon Dioxide 26.7 mmol/L (21-32) 07/08/21 15:15 BUN 24 mg/dL (7-18) H 07/08/21 15:15 Creatinine 1.27 mg/dL (0.70-1.30) 07/08/21 15:15 Est GFR (MDRD) Af Amer > 60 (>60) 07/08/21 15:15 Est GFR (MDRD) Non-Af 59 (>60) 07/08/21 15:15 Glucose 92 mg/dL (65-99) 07/08/21 15:15 Calcium 7.9 mg/dL (8.5-10.1) L 07/08/21 15:15 Corrected Calcium 8.6 mg/dL (8.5-10.1) 07/08/21 15:15 Total Bilirubin 0.40 mg/dL (0.2-1.0) 07/08/21 15:15 AST 43 Units/L (15-37) H 07/08/21 15:15 ALT 23 Units/L (12-78) 07/08/21 15:15 Alkaline Phosphatase 65 Units/L (46-116) 07/08/21 15:15 C-Reactive Protein 288.20 mg/L (0-3.0) H 07/08/21 15:15 Total Protein 7.3 g/dL (6.4-8.2) 07/08/21 15:15 Albumin 3.1 g/dL (3.4-5.0) L 07/08/21 15:15 Globulin 4.2 g/dL (2.5-4.5) 07/08/21 15:15 Albumin/Globulin Ratio 0.7 Ratio (1.1-2.1) L 07/08/21 15:15 Specimen Type Catherized urine 07/08/21 17:28 Urine Color Yellow (YELLOW) 07/08/21 17:28 Urine Appearance Cloudy (CLEAR) 07/08/21 17:28 Urine pH 6.0 (5.0 - 8.0) 07/08/21 17:28 Ur Specific [place] 1.020 (1.000-1.030) 07/08/21 17:28 Urine Protein 2+ (NEGATIVE) 07/08/21 17:28 Urine Glucose (UA) Negative (NEGATIVE) 07/08/21 17: Urine Ketones Negative (NEGATIVE) 07/08/21 17: Urine Occult Blood 2+ (NEGATIVE) 07/08/21 17:28 Urine Nitrite Negative (NEGATIVE) 07/08/21 17: Urine Bilirubin Negative (NEGATIVE) 07/08/21 17: Urine Urobilinogen Normal (NORMAL) 07/08/21 17:28 Ur Leukocyte Esterase 3+ (NEGATIVE) 07/08/21 17:28 Urine RBC 10-20 /HPF (0-3) A 07/08/21 17:28 Urine WBC 30-50 /HPF (0-5) A 07/08/21 17:28 Ur Squamous Epith Cells Few /HPF (NEGATIVE) 07/08/21 17:28 Ur Transition Epith Cell Rare /HPF (NEGATIVE) 07/08/21 17:28 Urine Bacteria Trace /HPF (NEGATIVE) 07/08/21 17:28 Urine Yeast Moderate /HPF (NEGATIVE) 07/08/21 17:28 Ur Culture Indicated? Yes/culture set up 07/08/21 17:28 Review of Systems Constitutional: Chills and Weakness Eyes: No Symptoms Reported ENT: No Symptoms Reported Respiratory: Cough and Shortness of Breath Cardiovascular: No Symptoms Reported Gastrointestinal: No Symptoms Reported Genitourinary: No Symptoms Reported Musculoskeletal: No Symptoms Reported Skin: No Symptoms Reported Neurological: No Symptoms Reported Physical Exam Vital Signs: Temperature 97.5 F Pulse Rate 64 Respiratory Rate 17 Blood Pressure [Left Arm] 134/63 Blood Pressure [Right Arm] 111/57 Blood Pressure [Standing] 130/74 Blood Pressure [Sitting] 125/59 Blood Pressure [Lying] 115/59 Blood Pressure 92/51 O2 Sat by Pulse Oximetry 95 Oriented: Other (lethargic ) Eyes: Normal Ear: Normal Nose: Normal Throat: Normal Respiratory: Diminished Throughout Cardiovascular: Normal : Normal Auscultation: Bowel Sounds: Normal Palpation: Normal Tenderness: Normal Skin: Normal Musculoskeletal: Normal Psychiatric: Normal Mood Description: Calm Affect: Normal Speech Pattern: Clear Assessment/Plan (1) Pneumonia due to COVID-19 virus: Status: Acute Plan: Pneumonia protocol (2) Dehydration: Status: Acute Plan: IVF (3) Acute cystitis: Status: Acute Plan: IV Rocephin (4) Altered mental status: Status: Acute Plan: CT head had ruled out acute abnormalities Confusion likely due to UTI Review H&P Reviewed: Yes Patient was examined?: Yes
[2021-07-08] MEDS ORDERED: ACTEMRA 400 MG in NS 100 ML IV 80 ML IV SCH (22:59)
[2021-07-08] MEDS: CORDARONE TAB 200 MG PO SCH (23:31)
[2021-07-09] MEDS: CORDARONE TAB 200 MG PO SCH ×3 (02:12→21:36)
[2021-07-09] MEDS: NORCO 7.5/325 MG TAB PO PRN (04:33)
[2021-07-09] MEDS: NS 1,000 ML IV 1,000 ML IV SCH ×3 (05:03→21:35)
[2021-07-09 05:21] LABS: BASOPHILS % (AUTO) 0.2 % (0.2-1.0); EOSINOPHILS % (AUTO) 0.6 % (0.9-2.9); HEMATOCRIT 33.5 % (42.0-54.0); HEMOGLOBIN 11.3 g/dL (13.5-18.0); LYMPHOCYTES # (AUTO) 0.9 X10^3/uL (1.3-2.9); LYMPHOCYTES % (AUTO) 18.2 % (21.0-51.0); MEAN CORPUSCULAR HEMOGLOBIN 30.2 pg (27.0-34.0); MEAN CORPUSCULAR HGB CONC 33.8 g/dL (33.0-35.0); MEAN CORPUSCULAR VOLUME 89.4 fL (80.0-100.0); MEAN PLATELET VOLUME 10.9 fL (7.4-11.0); MONOCYTES # (AUTO) 0.3 x10^3/uL (0.3-0.8); NEUTROPHILS # (AUTO) 3.7 x10^3/uL (2.2-4.8); RED BLOOD COUNT 3.75 X10^6/uL (4.7-6.0); RED CELL DISTRIBUTION WIDTH 14.7 % (11.6-16.5); WHITE BLOOD COUNT 4.9 X10^3/uL (3.6-10.0)
[2021-07-09 05:36] LABS: ALANINE AMINOTRANSFERASE 20 Units/L (12-78); ALBUMIN 2.6 g/dL (3.4-5.0); ALKALINE PHOSPHATASE 58 Units/L (46-116); ASPARTATE AMINO TRANSFERASE 33 Units/L (15-37); BLOOD UREA NITROGEN 24 mg/dL (7-18); CALCIUM 7.3 mg/dL (8.5-10.1); CARBON DIOXIDE 24.7 mmol/L (21-32); CHLORIDE 105 mmol/L (98-107); COR CA(FOR HYPOALB) 8.4 mg/dL (8.5-10.1); CREATININE 1.16 mg/dL (0.70-1.30); SODIUM 140 mmol/L (136-145); TOTAL PROTEIN 6.3 g/dL (6.4-8.2); eGFR NON BLACK RACES > 60 (>60)
[2021-07-09] MEDS ORDERED: TYLENOL 325 MG TAB PO ONE (06:10)
[2021-07-09] MEDS: TYLENOL 325 MG TAB PO PRN (06:25)
[2021-07-09] MEDS: PROAMATINE PO SCH ×3 (06:59→21:36)
--- NOTE | 2021-07-09 07:56 | RAD ---
HISTORYCOVID F/USTUDYCHEST, 1 [id number]/07/2022.TECHNIQUEAP view of the chestFINDINGSLeft chest wall pacemaker with leads in the right atrium and right ventricle. Cardiac silhouette is stably enlarged. Mediastinal contours appear normal. There are stable bilateral hazy and interstitial pulmonary opacities. No definite pleural effusion or pneumothorax. ACDF in the cervical spine noted.IMPRESSIONNo significant change in bilateral pulmonary opacities likely from COVID 19.Electronically signed by: Bradly Summers (Jul 09, 2021 07:55:40)
[2021-07-09] MEDS ORDERED: ACTEMRA 400 MG in NS 100 ML IV 80 ML IV NR (08:00)
[2021-07-09] MEDS: DUONEB 0.5 MG/3 MG (3 mL) NEB SCH ×4 (08:50→20:05)
[2021-07-09] MEDS: PULMICORT NEB TX 0.5 MG NEB SCH ×2 (08:50→20:05)
[2021-07-09] MEDS ORDERED: CORDARONE TAB 200 MG PO SCH (09:00)
[2021-07-09] MEDS ORDERED: LEXAPRO ONE (09:21)
[2021-07-09] MEDS ORDERED: CORTEF ONE ×3 (09:22→20:09)
[2021-07-09] MEDS: DECADRON INJ IVP SCH (09:28)
[2021-07-09] MEDS: COLACE CAP 100 MG PO SCH (09:29)
[2021-07-09] MEDS: COREG TAB 12.5 MG PO SCH ×2 (09:30→21:36)
[2021-07-09] MEDS: LASIX PO SCH (09:31)
[2021-07-09] MEDS: ELIQUIS PO SCH ×2 (09:31→21:36)
[2021-07-09] MEDS: CORTEF PO SCH ×2 (09:31→21:35)
[2021-07-09] MEDS: LEXAPRO PO SCH (09:32)
[2021-07-09] MEDS: MICRO K EXTEN CAP 10 MEQ PO SCH (09:32)
[2021-07-09] MEDS: PEPCID TAB 40 MG PO SCH ×2 (09:32→21:35)
[2021-07-09] MEDS: PLAVIX PO SCH (09:33)
[2021-07-09] MEDS: PROTONIX TAB 40 MG PO SCH ×2 (09:33→21:36)
[2021-07-09] MEDS: REMDESIVIR 100 MG in NS 250 ML IV 250 ML IV SCH (10:00)
[2021-07-09] MEDS: SYNTHROID 100 mcg TAB PO SCH (10:00)
[2021-07-09] MEDS: ROCEPHIN 1 GRAM IV PREMIX 1 G/50 ML IV.SOLN. IV SCH (10:00)
--- NOTE | 2021-07-09 19:00 | PCM.PROG ---
Progress Note Progress Note for Day of Date of Exam: 07/09/21 Subjective Subjective: Pt is a 75 year old male admitted for COVID-19 pneumonia, Altered mental status, Acute Cystitis, and dehydration. This morning his mental status appears to have improved a little. He is currently on room air. No acute events overnight. Labs/imaging: Wbc 4.9, Hgb 11.3, Plt 130, Na 140, K 3.6, Creatinine 1.16, Glucose 86, CRP 236, Urine/Blood culture pending, CXR was obtained that revealed: No significant change in bilateral pulmonary opacities likely from COVID 19. Pt is currently on a pneumonia protocol that includes: IVF NS@75 ml/h, IV Remdesivir, IV Decadron 4mg, scheduled Bronchodilators Xopenex and Budesonide, Antibiotics: IV Rocephin, immune supporting supplements, supplemental O2, SSI, I/S, Eliquis 5mg BID, Physical therapy, Respiratory therapy consult. Home medications were resumed. Patient gradually improving. Otherwise, will continue with current treatment. Will continue to closely monitor and follow up labs/imaging. Time spent on clinical assessment, reviewing labs and imaging, decision making, and documentation greater than 45 minutes. Past Medical Family Social History Past Med/Fam/Surg Hx: No changes since H&P Allergies: Allergies No Known Drug Allergies Allergy (Verified 10/16/20 15:18) Review of Systems ROS: No change since H&P Vital Signs and I&O's Vital Signs: Temperature 99.8 F Pulse Rate 65 Respiratory Rate 15 Blood Pressure [Left Arm] 134/63 Blood Pressure [Right Arm] 111/57 Blood Pressure [Standing] 130/74 Blood Pressure [Sitting] 125/59 Blood Pressure [Lying] 115/59 Blood Pressure 117/71 O2 Sat by Pulse Oximetry 95 Intake and Output: Intake & Output 07/06/21 07/07/21 07/08/21 07/09/21 23:59 23:59 23:59 23:59 Intake Total 725 / 725 2083 / 2083 Output Total 1000 / 1000 350 / 350 Balance -275 / -275 1734 / 1734 Physical Exam Oriented: Other (lethargic ) Eyes: Normal Ear: Normal Nose: Normal Throat: Normal Respiratory: Diminished and Rales Cardiovascular: Normal : Normal Auscultation: Bowel Sounds: Normal Tenderness: Normal Skin: Normal Musculoskeletal: Normal Psychiatric: Normal Mood Description: Calm Affect: Normal Speech Pattern: Clear Laboratory and Diagnostics Result Diagrams: 07/09/21 04:16 07/09/21 04:16 Labs: 07/08/21 17:28 Urine,Catheterized Urine Culture - Preliminary Laboratory WBC 4.9 X10^3/uL (3.6-10.0) 07/09/21 04:16 RBC 3.75 X10^6/uL (4.7-6.0) L 07/09/21 04:16 Hgb 11.3 g/dL (13.5-18.0) L 07/09/21 04:16 Hct 33.5 % (42.0-54.0) L 07/09/21 04:16 MCV 89.4 fL (80.0-100.0) 07/09/21 04:16 MCH 30.2 pg (27.0-34.0) 07/09/21 04:16 MCHC 33.8 g/dL (33.0-35.0) 07/09/21 04:16 RDW 14.7 % (11.6-16.5) 07/09/21 04:16 Plt Count 130 X10^3/uL (150.0-450.0) L 07/09/21 04:16 MPV 10.9 fL (7.4-11.0) 07/09/21 04:16 Neut % (Auto) 75.0 % (42.0-75.0) 07/09/21 04:16 Lymph % (Auto) 18.2 % (21.0-51.0) L 07/09/21 04:16 [place] % (Auto) 6.0 % (0.0-13.0) 07/09/21 04:16 Eos % (Auto) 0.6 % (0.9-2.9) L 07/09/21 04:16 Baso % (Auto) 0.2 % (0.2-1.0) 07/09/21 04:16 Neut # (Auto) 3.7 x10^3/uL (2.2-4.8) 07/09/21 04:16 Lymph # (Auto) 0.9 X10^3/uL (1.3-2.9) L 07/09/21 04:16 [place] # (Auto) 0.3 x10^3/uL (0.3-0.8) 07/09/21 04:16 Eos # (Auto) 0.0 x10^3/uL (0.0-0.2) 07/09/21 04:16 Baso # (Auto) 0.0 X10^3/uL (0.0-0.1) 07/09/21 04:16 Absolute Nucleated RBC 0.0 /100WBC 07/09/21 04:16 D-Dimer 0.79 ug/ml (0.0-0.57) H* 07/08/21 15:15 Sample Site Rra 07/08/21 15:38 ABG pH 7.480 (7.35-7.45) H 07/08/21 15:38 ABG pCO2 32.0 mmHg (35.0-45.0) L 07/08/21 15:38 ABG pO2 60.0 mmHg (80.0-100.0) L 07/08/21 15:38 ABG HCO3 23.8 mmol/L (22-26) 07/08/21 15:38 ABG O2 Saturation 92.0 % (90-100) 07/08/21 15:38 ABG Base Excess 0.9 mmol/L (-2.0-2.0) 07/08/21 15:38 Henrik Test Pos 07/08/21 15:38 A-a Gradient 50.0 mmHg 07/08/21 15:38 FiO2 21.0 07/08/21 15:38 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30 mg/dL (0.2-1.0) 07/09/21 04:16 AST 33 Units/L (15-37) 07/09/21 04:16 ALT 20 Units/L (12-78) 07/09/21 04:16 Alkaline Phosphatase 58 Units/L (46-116) 07/09/21 04:16 C-Reactive Protein 236.60 mg/L (0-3.0) H 07/09/21 04:16 Total Protein 6.3 g/dL (6.4-8.2) L 07/09/21 04:16 Albumin 2.6 g/dL (3.4-5.0) L 07/09/21 04:16 Globulin 3.7 g/dL (2.5-4.5) 07/09/21 04:16 Albumin/Globulin Ratio 0.7 Ratio (1.1-2.1) L 07/09/21 04:16 Specimen Type Catherized urine 07/08/21 17:28 Urine Color Yellow (YELLOW) 07/08/21 17:28 Urine Appearance Cloudy (CLEAR) 07/08/21 17:28 Urine pH 6.0 (5.0 - 8.0) 07/08/21 17:28 Ur Specific [place] 1.020 (1.000-1.030) 07/08/21 17:28 Urine Protein 2+ (NEGATIVE) 07/08/21 17:28 Urine Glucose (UA) Negative (NEGATIVE) 07/08/21 17:28 Urine Ketones Negative (NEGATIVE) 07/08/21 17:28 Urine Occult Blood 2+ (NEGATIVE) 07/08/21 17:28 Urine Nitrite Negative (NEGATIVE) 07/08/21 17:28 Urine Bilirubin Negative (NEGATIVE) 07/08/21 17:28 Urine Urobilinogen Normal (NORMAL) 07/08/21 17:28 Ur Leukocyte Esterase 3+ (NEGATIVE) 07/08/21 17:28 Urine RBC 10-20 /HPF (0-3) A 07/08/21 17:28 Urine WBC 30-50 /HPF (0-5) A 07/08/21 17:28 Ur Squamous Epith Cells Few /HPF (NEGATIVE) 07/08/21 17:28 Ur Transition Epith Cell Rare /HPF (NEGATIVE) 07/08/21 17:28 Urine Bacteria Trace /HPF (NEGATIVE) 07/08/21 17:28 Urine Yeast Moderate /HPF (NEGATIVE) 07/08/21 17:28 Ur Culture Indicated? Yes/culture set up 07/08/21 17:28 Plan (1) Pneumonia due to COVID-19 virus: Status: Acute Plan: Pneumonia protocol (2) Dehydration: Status: Acute Plan: IVF (3) Acute cystitis: Status: Acute Plan: IV Rocephin (4) Altered mental status: Status: Acute Plan: CT head had ruled out acute abnormalities Confusion likely due to UTI
[2021-07-09] MEDS: ZOCOR TAB 20 MG PO SCH (21:35)
[2021-07-09] MEDS: REMERON PO SCH (21:36)
[2021-07-10 04:58] LABS: BASOPHILS % (AUTO) 0.3 % (0.2-1.0); EOSINOPHILS % (AUTO) 0.1 % (0.9-2.9); HEMATOCRIT 33.2 % (42.0-54.0); HEMOGLOBIN 11.3 g/dL (13.5-18.0); LYMPHOCYTES # (AUTO) 0.3 X10^3/uL (1.3-2.9); LYMPHOCYTES % (AUTO) 14.6 % (21.0-51.0); MEAN CORPUSCULAR HEMOGLOBIN 30.1 pg (27.0-34.0); MEAN CORPUSCULAR HGB CONC 33.9 g/dL (33.0-35.0); MEAN CORPUSCULAR VOLUME 88.8 fL (80.0-100.0); MEAN PLATELET VOLUME 10.2 fL (7.4-11.0); MONOCYTES # (AUTO) 0.1 x10^3/uL (0.3-0.8); MONOCYTES % (AUTO) 7.7 % (0.0-13.0); NEUTROPHILS # (AUTO) 1.5 x10^3/uL (2.2-4.8); NEUTROPHILS % (AUTO) 77.3 % (42.0-75.0); RED BLOOD COUNT 3.74 X10^6/uL (4.7-6.0)
[2021-07-10] MEDS: PROAMATINE PO SCH ×3 (05:01→21:01)
[2021-07-10 05:05] LABS: ALANINE AMINOTRANSFERASE 13 Units/L (12-78); ALBUMIN 2.3 g/dL (3.4-5.0); ALKALINE PHOSPHATASE 54 Units/L (46-116); ASPARTATE AMINO TRANSFERASE 26 Units/L (15-37); BLOOD UREA NITROGEN 19 mg/dL (7-18); CALCIUM 7.2 mg/dL (8.5-10.1); CARBON DIOXIDE 21.2 mmol/L (21-32); CHLORIDE 111 mmol/L (98-107); COR CA(FOR HYPOALB) 8.6 mg/dL (8.5-10.1); COR NA(FOR HYPERGLY) 145 mmol/L (136-145); CREATININE 0.95 mg/dL (0.70-1.30); SODIUM 144 mmol/L (136-145); TOTAL PROTEIN 5.7 g/dL (6.4-8.2); eGFR NON BLACK RACES > 60 (>60)
[2021-07-10 05:11] LABS: WHITE BLOOD COUNT 1.9 X10^3/uL (3.6-10.0)
[2021-07-10] MEDS: TYLENOL 325 MG TAB PO PRN (06:07)
[2021-07-10 06:17] LABS: PLATELET MORPHOLOGY COMMENT NORMAL (NORMAL)
--- NOTE | 2021-07-10 07:13 | RAD ---
HISTORYCOVID+ F/USTUDYCHEST, 1 [id number]/08/2022.TECHNIQUEAP view of the chestFINDINGSLeft chest wall pacemaker with leads in good position. The cardiac silhouette is stably enlarged. Mediastinal contours appear stable. Interval worsening of left lower lung airspace opacity. Right perihilar and lower lung airspace opacity appears similar. Lungs are hyperexpanded with scattered lucencies consistent with COPD. No definite pleural effusion or pneumothorax.IMPRESSIONWorsened left base pneumonia. Stable right lung pneumonia.Electronically signed by: Bradly Summers (Jul 10, 2021 07:12:57)
[2021-07-10] MEDS: DUONEB 0.5 MG/3 MG (3 mL) NEB SCH ×4 (08:00→20:15)
[2021-07-10] MEDS: PULMICORT NEB TX 0.5 MG NEB SCH ×2 (08:00→20:15)
[2021-07-10] MEDS ORDERED: LEXAPRO ONE (09:37)
[2021-07-10] MEDS ORDERED: CORTEF ONE ×2 (09:38→19:52)
[2021-07-10] MEDS: COLACE CAP 100 MG PO SCH (09:40)
[2021-07-10] MEDS: CORDARONE TAB 200 MG PO SCH ×2 (09:40→20:39)
[2021-07-10] MEDS: COREG TAB 12.5 MG PO SCH ×2 (09:41→20:39)
[2021-07-10] MEDS: LASIX PO SCH (09:42)
[2021-07-10] MEDS: CORTEF PO SCH ×2 (09:42→20:38)
[2021-07-10] MEDS: ELIQUIS PO SCH ×2 (09:42→20:39)
[2021-07-10] MEDS: LEXAPRO PO SCH (09:43)
[2021-07-10] MEDS: DECADRON INJ IVP SCH (09:44)
[2021-07-10] MEDS: PEPCID TAB 40 MG PO SCH ×2 (09:44→20:39)
[2021-07-10] MEDS: MICRO K EXTEN CAP 10 MEQ PO SCH (09:44)
[2021-07-10] MEDS: ROCEPHIN 1 GRAM IV PREMIX 1 G/50 ML IV.SOLN. IV SCH (09:45)
[2021-07-10] MEDS: PLAVIX PO SCH (09:45)
[2021-07-10] MEDS: PROTONIX TAB 40 MG PO SCH ×2 (09:45→20:39)
[2021-07-10] MEDS: SYNTHROID 100 mcg TAB PO SCH (09:46)
--- NOTE | 2021-07-10 09:52 | PCM.PROG ---
Progress Note Progress Note for Day of Date of Exam: 07/10/21 Subjective Subjective: Pt is a 75 year old male admitted for COVID-19 pneumonia, Altered mental status, Acute Cystitis, and dehydration. This morning patient appears more conversational. He is currently on room air. No acute events overnight. Labs/imaging: Wbc 1.9, Hgb 11.3, Plt 122, Na 144, K 4.0, Creatinine 0.95, Glucose 134, CRP 236>179, Urine/Blood culture NGTD, CXR was obtained that revealed: Worsened left base pneumonia. Stable right lung pneumonia. Pt is currently on a pneumonia protocol that includes: IVF NS@75 ml/h, IV Remdesivir, IV Decadron 4mg, scheduled Bronchodilators Xopenex and Budesonide, Antibiotics: IV Rocephin, immune supporting supplements, supplemental O2, SSI, I/S, Eliquis 5mg BID, Physical therapy, Respiratory therapy consult. Home medications were resumed. Will order Sotrovimab infusion today. Otherwise, will continue with current treatment. Continue to closely monitor and follow up labs/imaging. Time spent on clinical assessment, reviewing labs and imaging, decision making, and documentation greater than 45 minutes. Past Medical Family Social History Past Med/Fam/Surg Hx: No changes since H&P Allergies: Allergies No Known Drug Allergies Allergy (Verified 10/16/20 15:18) Review of Systems ROS: No change since H&P Vital Signs and I&O's Vital Signs: Temperature 98.5 F Pulse Rate 65 Respiratory Rate 24 Blood Pressure [Left Arm] 134/63 Blood Pressure [Right Arm] 111/57 Blood Pressure [Standing] 130/74 Blood Pressure [Sitting] 125/59 Blood Pressure [Lying] 115/59 Blood Pressure 127/87 O2 Sat by Pulse Oximetry 95 Intake and Output: Intake & Output 07/07/21 07/08/21 07/09/21 07/10/21 23:59 23:59 23:59 23:59 Intake Total 725 / 725 2784 / 2784 750 / 750 Output Total 1000 / 1000 850 / 850 200 / 200 Balance -275 / -275 1933 / 1933 550 / 550 Physical Exam Oriented: Normal Eyes: Normal Ear: Normal Nose: Normal Throat: Normal Respiratory: Diminished and Rales Cardiovascular: Normal : Normal Auscultation: Bowel Sounds: Normal Tenderness: Normal Skin: Normal Musculoskeletal: Normal Psychiatric: Normal Mood Description: Calm Affect: Normal Speech Pattern: Clear Laboratory and Diagnostics Result Diagrams: 07/10/21 04:21 07/10/21 04:21 Labs: 07/08/21 17:28 Urine,Catheterized Urine Culture - Final 07/08/21 15:27 Blood Blood Culture - Preliminary Laboratory WBC 1.9 X10^3/uL (3.6-10.0) L* D 07/10/21 04:21 RBC 3.74 X10^6/uL (4.7-6.0) L 07/10/21 04:21 Hgb 11.3 g/dL (13.5-18.0) L 07/10/21 04:21 Hct 33.2 % (42.0-54.0) L 07/10/21 04:21 MCV 88.8 fL (80.0-100.0) 07/10/21 04:21 MCH 30.1 pg (27.0-34.0) 07/10/21 04:21 MCHC 33.9 g/dL (33.0-35.0) 07/10/21 04:21 RDW 15.0 % (11.6-16.5) 07/10/21 04:21 Plt Count 122 X10^3/uL (150.0-450.0) L 07/10/21 04:21 Plt Count Comment Decreased (ADEQUATE) 07/10/21 04:21 MPV 10.2 fL (7.4-11.0) 07/10/21 04:21 Neut % (Auto) 77.3 % (42.0-75.0) H 07/10/21 04:21 Lymph % (Auto) 14.6 % (21.0-51.0) L 07/10/21 04:21 [place] % (Auto) 7.7 % (0.0-13.0) 07/10/21 04:21 Eos % (Auto) 0.1 % (0.9-2.9) L 07/10/21 04:21 Baso % (Auto) 0.3 % (0.2-1.0) 07/10/21 04:21 Neut # (Auto) 1.5 x10^3/uL (2.2-4.8) L 07/10/21 04:21 Lymph # (Auto) 0.3 X10^3/uL (1.3-2.9) L 07/10/21 04:21 [place] # (Auto) 0.1 x10^3/uL (0.3-0.8) L 07/10/21 04:21 Eos # (Auto) 0.0 x10^3/uL (0.0-0.2) 07/10/21 04:21 Baso # (Auto) 0.0 X10^3/uL (0.0-0.1) 07/10/21 04:21 Absolute Nucleated RBC 0.4 /100WBC 07/10/21 04:21 Total Counted 50 07/10/21 04:21 Neutrophils % (Manual) 82 % (39-76) H 07/10/21 04:21 Lymphocytes % (Manual) 14 % (13-43) 07/10/21 04:21 Monocytes % (Manual) 4 % (4-9) 07/10/21 04:21 Plt Morphology Comment Normal (NORMAL) 07/10/21 04:21 RBC Morphology Normal (NORMAL) 07/10/21 04:21 D-Dimer 0.79 ug/ml (0.0-0.57) H* 07/08/21 15:15 Sample Site Rra 07/08/21 15:38 ABG pH 7.480 (7.35-7.45) H 07/08/21 15:38 ABG pCO2 32.0 mmHg (35.0-45.0) L 07/08/21 15:38 ABG pO2 60.0 mmHg (80.0-100.0) L 07/08/21 15:38 ABG HCO3 23.8 mmol/L (22-26) 07/08/21 15:38 ABG O2 Saturation 92.0 % (90-100) 07/08/21 15:38 ABG Base Excess 0.9 mmol/L (-2.0-2.0) 07/08/21 15:38 Henrik Test Pos 07/08/21 15:38 A-a Gradient 50.0 mmHg 07/08/21 15:38 FiO2 21.0 07/08/21 15:38 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, 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 07/08/21 15:38 Sodium 144 mmol/L (136-145) 07/10/21 04:21 Corrected Sodium 145 mmol/L (136-145) 07/10/21 04:21 Potassium 4.0 mmol/L (3.5-5.1) 07/10/21 04:21 Chloride 111 mmol/L (98-107) H 07/10/21 04:21 Carbon Dioxide 21.2 mmol/L (21-32) 07/10/21 04:21 BUN 19 mg/dL (7-18) H 07/10/21 04:21 Creatinine 0.95 mg/dL (0.70-1.30) 07/10/21 04:21 Est GFR (MDRD) Af Amer > 60 (>60) 07/10/21 04:21 Est GFR (MDRD) Non-Af > 60 (>60) 07/10/21 04:21 Glucose 134 mg/dL (65-99) H 07/10/21 04:21 Calcium 7.2 mg/dL (8.5-10.1) L 07/10/21 04:21 Corrected Calcium 8.6 mg/dL (8.5-10.1) 07/10/21 04:21 Total Bilirubin 0.30 mg/dL (0.2-1.0) 07/10/21 04:21 AST 26 Units/L (15-37) 07/10/21 04:21 ALT 13 Units/L (12-78) 07/10/21 04:21 Alkaline Phosphatase 54 Units/L (46-116) 07/10/21 04:21 C-Reactive Protein 179.10 mg/L (0-3.0) H 07/10/21 04:21 Total Protein 5.7 g/dL (6.4-8.2) L 07/10/21 04:21 Albumin 2.3 g/dL (3.4-5.0) L 07/10/21 04:21 Globulin 3.4 g/dL (2.5-4.5) 07/10/21 04:21 Albumin/Globulin Ratio 0.7 Ratio (1.1-2.1) L 07/10/21 04:21 Specimen Type Catherized urine 07/08/21 17:28 Urine Color Yellow (YELLOW) 07/08/21 17:28 Urine Appearance Cloudy (CLEAR) 07/08/21 17:28 Urine pH 6.0 (5.0 - 8.0) 07/08/21 17:28 Ur Specific [place] 1.020 (1.000-1.030) 07/08/21 17:28 Urine Protein 2+ (NEGATIVE) 07/08/21 17:28 Urine Glucose (UA) Negative (NEGATIVE) 07/08/21 17:28 Urine Ketones Negative (NEGATIVE) 07/08/21 17: Urine Occult Blood 2+ (NEGATIVE) 07/08/21 17: Urine Nitrite Negative (NEGATIVE) 07/08/21 17:28 Urine Bilirubin Negative (NEGATIVE) 07/08/21 17:28 Urine Urobilinogen Normal (NORMAL) 07/08/21 17:28 Ur Leukocyte Esterase 3+ (NEGATIVE) 07/08/21 17: Urine RBC 10-20 /HPF (0-3) A 07/08/21 17:28 Urine WBC 30-50 /HPF (0-5) A 07/08/21 17:28 Ur Squamous Epith Cells Few /HPF (NEGATIVE) 07/08/21 17:28 Ur Transition Epith Cell Rare /HPF (NEGATIVE) 07/08/21 17:28 Urine Bacteria Trace /HPF (NEGATIVE) 07/08/21 17:28 Urine Yeast Moderate /HPF (NEGATIVE) 07/08/21 17:28 Ur Culture Indicated? Yes/culture set up 07/08/21 17:28 Plan (1) Pneumonia due to COVID-19 virus: Status: Acute Plan: Pneumonia protocol (2) Dehydration: Status: Acute Plan: IVF (3) Acute cystitis: Status: Acute Plan: IV Rocephin (4) Altered mental status: Status: Acute Plan: CT head had ruled out acute abnormalities Confusion likely due to UTI
[2021-07-10] MEDS: REMDESIVIR 100 MG in NS 250 ML IV 250 ML IV SCH (10:00)
[2021-07-10] MEDS ORDERED: SOTROVIMAB (EUA) 500 MG, DRUG FILTER EXTENSION SET * 1 EA in NS 250 ML IV 250 ML IV ONE ×2 (10:00)
[2021-07-10] MEDS: NS 1,000 ML IV 1,000 ML IV SCH ×2 (14:01→17:10)
[2021-07-10] MEDS: REMERON PO SCH (20:39)
[2021-07-10] MEDS: ZOCOR TAB 20 MG PO SCH (20:40)
[2021-07-10] MEDS: NORCO 7.5/325 MG TAB PO PRN (20:55)
[2021-07-11] MEDS: NS 1,000 ML IV 1,000 ML IV SCH ×3 (00:18→13:00)
[2021-07-11] MEDS: PROAMATINE PO SCH ×3 (05:00→21:05)
[2021-07-11 06:30] LABS: ALANINE AMINOTRANSFERASE 18 Units/L (12-78); ALBUMIN 2.2 g/dL (3.4-5.0); ALKALINE PHOSPHATASE 49 Units/L (46-116); ASPARTATE AMINO TRANSFERASE 35 Units/L (15-37); BLOOD UREA NITROGEN 16 mg/dL (7-18); CALCIUM 7.2 mg/dL (8.5-10.1); CARBON DIOXIDE 19.3 mmol/L (21-32); COR CA(FOR HYPOALB) 8.6 mg/dL (8.5-10.1); COR NA(FOR HYPERGLY) 148 mmol/L (136-145); CREATININE 0.94 mg/dL (0.70-1.30); SODIUM 147 mmol/L (136-145); TOTAL PROTEIN 5.4 g/dL (6.4-8.2); eGFR NON BLACK RACES > 60 (>60)
[2021-07-11 06:37] LABS: CHLORIDE 115 mmol/L (98-107)
[2021-07-11 06:51] LABS: BASOPHILS % (AUTO) 0.1 % (0.2-1.0); HEMATOCRIT 32.3 % (42.0-54.0); HEMOGLOBIN 11.1 g/dL (13.5-18.0); LYMPHOCYTES # (AUTO) 0.3 X10^3/uL (1.3-2.9); LYMPHOCYTES % (AUTO) 6.6 % (21.0-51.0); MEAN CORPUSCULAR HEMOGLOBIN 30.8 pg (27.0-34.0); MEAN CORPUSCULAR HGB CONC 34.5 g/dL (33.0-35.0); MEAN CORPUSCULAR VOLUME 89.4 fL (80.0-100.0); MEAN PLATELET VOLUME 11.2 fL (7.4-11.0); MONOCYTES # (AUTO) 0.2 x10^3/uL (0.3-0.8); MONOCYTES % (AUTO) 3.8 % (0.0-13.0); NEUTROPHILS # (AUTO) 4.7 x10^3/uL (2.2-4.8); NEUTROPHILS % (AUTO) 89.5 % (42.0-75.0); RED BLOOD COUNT 3.61 X10^6/uL (4.7-6.0); RED CELL DISTRIBUTION WIDTH 15.3 % (11.6-16.5); WHITE BLOOD COUNT 5.3 X10^3/uL (3.6-10.0)
--- NOTE | 2021-07-11 08:08 | RAD ---
HISTORYCOVID+, F/USTUDYCHEST x-ray, 1 VIEWCOMPARISONX-ray 07/10/2021FINDINGSWorsening infiltrates are seen in the right lung with persistent infiltrates in the left lung. Findings may represent recurrent pneumonia superimposed upon chronic scarring or chronic interstitial lung disease. No pneumothorax or pleural effusion is seen. Pacemaker leads are directed towards the right atrial appendage and right ventricular apex. Heart is normal in size.IMPRESSIONNew infiltrates in the right lung with persistent chronic lung densities. Findings are worrisome for new pneumonia in the right lung superimposed upon chronic scarring or chronic interstitial lung disease changes.Electronically signed by: Mohit Olivas (Jul 11, 2021 08:07:15)
[2021-07-11] MEDS ORDERED: LEXAPRO ONE (08:48)
[2021-07-11] MEDS ORDERED: CORTEF ONE ×2 (08:49→20:01)
[2021-07-11] MEDS: PULMICORT NEB TX 0.5 MG NEB SCH ×2 (08:51→21:15)
[2021-07-11] MEDS: DUONEB 0.5 MG/3 MG (3 mL) NEB SCH ×4 (08:51→21:15)
[2021-07-11] MEDS: LEXAPRO PO SCH (08:58)
[2021-07-11] MEDS: CORTEF PO SCH ×2 (08:58→21:03)
[2021-07-11] MEDS: COLACE CAP 100 MG PO SCH (08:58)
[2021-07-11] MEDS: ELIQUIS PO SCH ×2 (08:59→21:04)
[2021-07-11] MEDS: LASIX PO SCH (08:59)
[2021-07-11] MEDS: CORDARONE TAB 200 MG PO SCH ×2 (08:59→21:04)
[2021-07-11] MEDS: COREG TAB 12.5 MG PO SCH ×2 (08:59→21:04)
[2021-07-11] MEDS: DECADRON INJ IVP SCH (08:59)
[2021-07-11] MEDS: PROTONIX TAB 40 MG PO SCH ×2 (09:00→21:04)
[2021-07-11] MEDS: PLAVIX PO SCH (09:00)
[2021-07-11] MEDS: ROCEPHIN 1 GRAM IV PREMIX 1 G/50 ML IV.SOLN. IV SCH (09:00)
[2021-07-11] MEDS: PEPCID TAB 40 MG PO SCH ×2 (09:00→21:04)
[2021-07-11] MEDS: REMDESIVIR 100 MG in NS 250 ML IV 250 ML IV SCH (09:00)
[2021-07-11] MEDS: MICRO K EXTEN CAP 10 MEQ PO SCH (09:00)
[2021-07-11] MEDS: SYNTHROID 100 mcg TAB PO SCH (09:01)
[2021-07-11] MEDS: LEVAQUIN TAB 750 MG PO SCH (15:00)
[2021-07-11] MEDS ORDERED: COLACE CAP 100 MG PO PRN (19:34)
[2021-07-11] MEDS: REMERON PO SCH (21:04)
[2021-07-11] MEDS: ZOCOR TAB 20 MG PO SCH (21:05)
[2021-07-11] MEDS: NORCO 7.5/325 MG TAB PO PRN (21:05)
[2021-07-12] MEDS: NS 1,000 ML IV 1,000 ML IV SCH (04:22)
[2021-07-12] MEDS: PROAMATINE PO SCH (05:09)
[2021-07-12 05:56] LABS: BASOPHILS % (AUTO) 0.1 % (0.2-1.0); HEMATOCRIT 34.4 % (42.0-54.0); HEMOGLOBIN 11.7 g/dL (13.5-18.0); LYMPHOCYTES # (AUTO) 0.4 X10^3/uL (1.3-2.9); LYMPHOCYTES % (AUTO) 6.5 % (21.0-51.0); MEAN CORPUSCULAR HEMOGLOBIN 30.1 pg (27.0-34.0); MEAN CORPUSCULAR VOLUME 88.7 fL (80.0-100.0); MEAN PLATELET VOLUME 10.6 fL (7.4-11.0); MONOCYTES # (AUTO) 0.2 x10^3/uL (0.3-0.8); MONOCYTES % (AUTO) 4.2 % (0.0-13.0); NEUTROPHILS # (AUTO) 5.3 x10^3/uL (2.2-4.8); NEUTROPHILS % (AUTO) 89.2 % (42.0-75.0); RED BLOOD COUNT 3.88 X10^6/uL (4.7-6.0); RED CELL DISTRIBUTION WIDTH 15.1 % (11.6-16.5); WHITE BLOOD COUNT 5.9 X10^3/uL (3.6-10.0)
[2021-07-12 06:09] LABS: ALANINE AMINOTRANSFERASE 18 Units/L (12-78); ALBUMIN 2.4 g/dL (3.4-5.0); ALKALINE PHOSPHATASE 53 Units/L (46-116); ASPARTATE AMINO TRANSFERASE 30 Units/L (15-37); BLOOD UREA NITROGEN 20 mg/dL (7-18); CALCIUM 7.4 mg/dL (8.5-10.1); CARBON DIOXIDE 22.5 mmol/L (21-32); CHLORIDE 114 mmol/L (98-107); COR CA(FOR HYPOALB) 8.7 mg/dL (8.5-10.1); COR NA(FOR HYPERGLY) 148 mmol/L (136-145); CREATININE 0.94 mg/dL (0.70-1.30); SODIUM 147 mmol/L (136-145); TOTAL PROTEIN 5.6 g/dL (6.4-8.2); eGFR NON BLACK RACES > 60 (>60)
--- NOTE | 2021-07-12 06:48 | RAD ---
HISTORYFollow-up COVID-19STUDYChest AP [id number]/10/2022FINDINGSTher e is a pacemaker present in the left axilla. Heart size is upper limits normal. Diffuse interstitial and ground-glass infiltrates are present throughout the right lung not significantly changed considering a difference in film technique. Emphysematous changes are present in the left upper lobe. Perihilar and left lower lobe interstitial and ground-glass infiltrates are somewhat more prominent than on the prior examination. No pleural effusion or pneumothorax is identified. Bony thorax is unremarkable.IMPRESSIONNo change right lung infiltrates considering a difference in film technique.Increasing left perihilar and lower lobe infiltrates when compared to the prior examinationElectronically signed by: SHARON LOCO (Jul 12, 2021 06:47:11)
[2021-07-12 07:53] VITALS: BP 130/75
[2021-07-12] MEDS ORDERED: LEXAPRO ONE (08:22)
[2021-07-12] MEDS ORDERED: CORTEF ONE (08:23)
[2021-07-12] MEDS: LEXAPRO PO SCH (08:44)
[2021-07-12] MEDS: CORTEF PO SCH (08:44)
[2021-07-12] MEDS: COLACE CAP 100 MG PO SCH (08:44)
[2021-07-12] MEDS: CORDARONE TAB 200 MG PO SCH (08:45)
[2021-07-12] MEDS: COREG TAB 12.5 MG PO SCH (08:45)
[2021-07-12] MEDS: ELIQUIS PO SCH (08:45)
[2021-07-12] MEDS: LASIX PO SCH (08:45)
[2021-07-12] MEDS: DECADRON INJ IVP SCH (08:45)
[2021-07-12] MEDS: PLAVIX PO SCH (08:46)
[2021-07-12] MEDS: MICRO K EXTEN CAP 10 MEQ PO SCH (08:46)
[2021-07-12] MEDS: LEVAQUIN TAB 750 MG PO SCH (08:46)
[2021-07-12] MEDS: PROTONIX TAB 40 MG PO SCH (08:46)
[2021-07-12] MEDS: PEPCID TAB 40 MG PO SCH (08:46)
[2021-07-12] MEDS: REMDESIVIR 100 MG in NS 250 ML IV 250 ML IV SCH (08:47)
[2021-07-12] MEDS: SYNTHROID 100 mcg TAB PO SCH (08:47)
--- NOTE | 2021-07-12 09:07 | PCM.PROG ---
Progress Note Progress Note for Day of Date of Exam: 07/11/21 Subjective Subjective: Pt is a 75 year old male admitted for COVID-19 pneumonia, Altered mental status, Acute Cystitis, and dehydration. This morning patient continues to improve. No acute events overnight. He is currently on room air. Labs/imaging: Wbc 5.3, Hgb 11.1, Plt 118, Na 147, K 4.0, Creatinine 0.94, Gluco se 144, CRP 179>85, Urine/Blood culture NGTD, CXR was obtained that revealed: New infiltrates in the right lung with persistent chronic lung densities. Findings are worrisome for new pneumonia in the right lung superimposed upon chronic scarring or chronic interstitial lung disease changes. Pt is currently on a pneumonia protocol that includes: IVF NS@75 ml/h, IV Remdesivir, IV Decadron 4mg, scheduled Bronchodilators Xopenex and Budesonide, Antibiotics: IV Rocephin, immune supporting supplements, supplemental O2, SSI, I/S, Eliquis 5mg BID, Physical therapy, Respiratory therapy consult. Home medications were resumed. Pt received Sotrovimab infusion yesterday. Change IVF to KVO, pt tolerated po intake. Otherwise, will continue with current treatment. Continue to closely monitor and follow up labs/imaging. Time spent on clinical assessment, reviewing labs and imaging, decision making, and documentation greater than 45 minutes. Past Medical Family Social History Past Med/Fam/Surg Hx: No changes since H&P Allergies: Allergies No Known Drug Allergies Allergy (Verified 10/16/20 15:18) Review of Systems ROS: No change since H&P Vital Signs and I&O's Vital Signs: Temperature 98.3 F Pulse Rate 64 Respiratory Rate 24 Blood Pressure [Left Arm] 134/63 Blood Pressure [Right Arm] 111/57 Blood Pressure [Standing] 130/74 Blood Pressure [Sitting] 125/59 Blood Pressure [Lying] 115/59 Blood Pressure 130/75 O2 Sat by Pulse Oximetry 94 Intake and Output: Intake & Output 07/09/21 07/10/21 07/11/21 07/12/21 23:59 23:59 23:59 23:59 Intake Total 2784 / 2784 3237 / 3237 1600 / 1600 35 / 35 Output Total 850 / 850 750 / 750 525 / 525 100 / 100 Balance 1934 / 1934 2487 / 2487 1075 / 1075 -65 / -65 Physical Exam Oriented: Normal Eyes: Normal Ear: Normal Nose: Normal Throat: Normal Respiratory: Diminished Cardiovascular: Normal : Normal Auscultation: Bowel Sounds: Normal Tenderness: Normal Skin: Normal Musculoskeletal: Normal Psychiatric: Normal Mood Description: Calm Affect: Normal Speech Pattern: Clear and Appropriate Laboratory and Diagnostics Result Diagrams: 07/12/21 05:30 07/12/21 05:30 Labs: 07/08/21 15:27 Blood Blood Culture - Preliminary 07/08/21 15:15 Blood Blood Culture - Preliminary 07/08/21 17:28 Urine,Catheterized Urine Culture - Final Laboratory WBC 5.9 X10^3/uL (3.6-10.0) 07/12/21 05:30 RBC 3.88 X10^6/uL (4.7-6.0) L 07/12/21 05:30 Hgb 11.7 g/dL (13.5-18.0) L 07/12/21 05:30 Hct 34.4 % (42.0-54.0) L 07/12/21 05:30 MCV 88.7 fL (80.0-100.0) 07/12/21 05:30 MCH 30.1 pg (27.0-34.0) 07/12/21 05:30 MCHC 34.0 g/dL (33.0-35.0) 07/12/21 05:30 RDW 15.1 % (11.6-16.5) 07/12/21 05:30 Plt Count 130 X10^3/uL (150.0-450.0) L 07/12/21 05:30 Plt Count Comment Decreased (ADEQUATE) 07/10/21 04:21 MPV 10.6 fL (7.4-11.0) 07/12/21 05:30 Neut % (Auto) 89.2 % (42.0-75.0) H 07/12/21 05:30 Lymph % (Auto) 6.5 % (21.0-51.0) L 07/12/21 05:30 [place] % (Auto) 4.2 % (0.0-13.0) 07/12/21 05:30 Eos % (Auto) 0.0 % (0.9-2.9) L 07/12/21 05:30 Baso % (Auto) 0.1 % (0.2-1.0) L 07/12/21 05:30 Neut # (Auto) 5.3 x10^3/uL (2.2-4.8) H 07/12/21 05:30 Lymph # (Auto) 0.4 X10^3/uL (1.3-2.9) L 07/12/21 05:30 [place] # (Auto) 0.2 x10^3/uL (0.3-0.8) L 07/12/21 05:30 Eos # (Auto) 0.0 x10^3/uL (0.0-0.2) 07/12/21 05:30 Baso # (Auto) 0.0 X10^3/uL (0.0-0.1) 07/12/21 05:30 Absolute Nucleated RBC 0.1 /100WBC 07/12/21 05:30 Total Counted 50 07/10/21 04:21 Neutrophils % (Manual) 82 % (39-76) H 07/10/21 04:21 Lymphocytes % (Manual) 14 % (13-43) 07/10/21 04:21 Monocytes % (Manual) 4 % (4-9) 07/10/21 04:21 Plt Morphology Comment Normal (NORMAL) 07/10/21 04:21 RBC Morphology Normal (NORMAL) 07/10/21 04:21 D-Dimer 0.79 ug/ml (0.0-0.57) H* 07/08/21 15:15 Sample Site Rra 07/08/21 15:38 ABG pH 7.480 (7.35-7.45) H 07/08/21 15:38 ABG pCO2 32.0 mmHg (35.0-45.0) L 07/08/21 15:38 ABG pO2 60.0 mmHg (80.0-100.0) L 07/08/21 15:38 ABG HCO3 23.8 mmol/L (22-26) 07/08/21 15:38 ABG O2 Saturation 92.0 % (90-100) 07/08/21 15:38 ABG Base Excess 0.9 mmol/L (-2.0-2.0) 07/08/21 15:38 Henrik Test Pos 07/08/21 15:38 A-a Gradient 50.0 mmHg 07/08/21 15:38 FiO2 21.0 07/08/21 15:38 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, 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:38 Sodium 147 mmol/L (136-145) H 07/12/21 05:30 Corrected Sodium 148 mmol/L (136-145) H 07/12/21 05:30 Potassium 3.9 mmol/L (3.5-5.1) 07/12/21 05:30 Chloride 114 mmol/L (98-107) H 07/12/21 05:30 Carbon Dioxide 22.5 mmol/L (21-32) 07/12/21 05:30 BUN 20 mg/dL (7-18) H 07/12/21 05:30 Creatinine 0.94 mg/dL (0.70-1.30) 07/12/21 05:30 Est GFR (MDRD) Af Amer > 60 (>60) 07/12/21 05:30 Est GFR (MDRD) Non-Af > 60 (>60) 07/12/21 05:30 Glucose 146 mg/dL (65-99) H 07/12/21 05:30 Calcium 7.4 mg/dL (8.5-10.1) L 07/12/21 05:30 Corrected Calcium 8.7 mg/dL (8.5-10.1) 07/12/21 05:30 Total Bilirubin 0.30 mg/dL (0.2-1.0) 07/12/21 05:30 AST 30 Units/L (15-37) 07/12/21 05:30 ALT 18 Units/L (12-78) 07/12/21 05:30 Alkaline Phosphatase 53 Units/L (46-116) 07/12/21 05:30 C-Reactive Protein 50.10 mg/L (0-3.0) H 07/12/21 05:30 Total Protein 5.6 g/dL (6.4-8.2) L 07/12/21 05:30 Albumin 2.4 g/dL (3.4-5.0) L 07/12/21 05:30 Globulin 3.2 g/dL (2.5-4.5) 07/12/21 05:30 Albumin/Globulin Ratio 0.8 Ratio (1.1-2.1) L 07/12/21 05:30 Specimen Type Catherized urine 07/08/21 17:28 Urine Color Yellow (YELLOW) 07/08/21 17:28 Urine Appearance Cloudy (CLEAR) 07/08/21 17:28 Urine pH 6.0 (5.0 - 8.0) 07/08/21 17:28 Ur Specific [place] 1.020 (1.000-1.030) 07/08/21 17:28 Urine Protein 2+ (NEGATIVE) 07/08/21 17:28 Urine Glucose (UA) Negative (NEGATIVE) 07/08/21 17: Urine Ketones Negative (NEGATIVE) 07/08/21 17: Urine Occult Blood 2+ (NEGATIVE) 07/08/21 17: Urine Nitrite Negative (NEGATIVE) 07/08/21 17: Urine Bilirubin Negative (NEGATIVE) 07/08/21 17:28 Urine Urobilinogen Normal (NORMAL) 07/08/21 17:28 Ur Leukocyte Esterase 3+ (NEGATIVE) 07/08/21 17:28 Urine RBC 10-20 /HPF (0-3) A 07/08/21 17:28 Urine WBC 30-50 /HPF (0-5) A 07/08/21 17:28 Ur Squamous Epith Cells Few /HPF (NEGATIVE) 07/08/21 17:28 Ur Transition Epith Cell Rare /HPF (NEGATIVE) 07/08/21 17:28 Urine Bacteria Trace /HPF (NEGATIVE) 07/08/21 17:28 Urine Yeast Moderate /HPF (NEGATIVE) 07/08/21 17:28 Ur Culture Indicated? Yes/culture set up 07/08/21 17:28 Plan (1) Pneumonia due to COVID-19 virus: Status: Acute Plan: Pneumonia protocol (2) Dehydration: Status: Acute Plan: IVF (3) Acute cystitis: Status: Acute Plan: IV Rocephin (4) Altered mental status: Status: Acute Plan: CT head had ruled out acute abnormalities Confusion likely due to UTI
--- NOTE | 2021-07-12 17:59 | W.DIS.FURT ---
Summary of Discharge Discharge Summary of Date Date of Exam: 07/12/21 Admission Date Date of Admission: 07/07/21 Admission Diagnosis Hospital Course: Pt is a 75 year old male admitted for COVID-19 pneumonia, Altered mental status, Acute Cystitis, and dehydration. Pt's hospital/treatment course included: IVF, IV Remdesivir, IV Decadron 4mg, scheduled Bronchodilators Xopenex and Budesonide, Antibiotics: IV Rocephin and Levaquin, immune supporting supplements, supplemental O2, SSI, I/S, Eliquis 5mg BID, Physical therapy, Respiratory therapy consult. Pt also received Sotrovimab infusion. Labs/imaging: Wbc 5.9, Hgb 11.7, Plt 130, Na 149, K 3.9, Creatinine 0.94, Glucose 146, CRP 85>50, Urine/Blood culture NGTD. Pt responded well to treatment, altered mental status resolved, and pt tolerated po intake. Pt did not require supplemental o xygen throughout hospital course and on day of discharge. Rx levaquin, prednisone course to complete. Pt discharged in stable condition, instructed to follow up with pcp in 3-5 days. Vital Signs: Vital Signs (72 hours) 07/09/21 20:00 07/09/21 20:05 07/09/21 23:40 Temperature 97.8 F 97.7 F Pulse Rate 64 64 64 Respiratory Rate 16 18 Blood Pressure 113/69 129/77 O2 Sat by Pulse Oximetry 96 94 L 07/10/21 04:00 07/10/21 06:07 07/10/21 07:07 Temperature 99.1 F Pulse Rate 64 Respiratory Rate 21 19 19 Blood Pressure 141/82 O2 Sat by Pulse Oximetry 94 L 07/10/21 08:00 07/10/21 12:00 07/10/21 16:00 Temperature 98.5 F 98.7 F 97.8 F Pulse Rate 65 65 65 Respiratory Rate 24 25 H 21 Blood Pressure 127/87 126/77 141/76 O2 Sat by Pulse Oximetry 95 91 L 93 L 07/10/21 16:42 07/10/21 20:00 07/10/21 20:15 Temperature 97.5 F L Pulse Rate 66 64 Respiratory Rate 18 Blood Pressure 136/95 O2 Sat by Pulse Oximetry 95 96 95 07/10/21 20:55 07/10/21 21:55 07/10/21 23:40 Temperature 97.6 F Pulse Rate 66 Respiratory Rate 19 21 18 Blood Pressure 140/74 O2 Sat by Pulse Oximetry 93 L 07/11/21 04:00 07/11/21 08:00 07/11/21 08:52 Temperature 98.0 F 97.7 F Pulse Rate 64 64 64 Respiratory Rate 26 H 27 H Blood Pressure 138/82 135/80 O2 Sat by Pulse Oximetry 95 96 94 L 07/11/21 10:40 07/11/21 12:00 07/11/21 13:35 Temperature 98.1 F Pulse Rate 64 64 64 Respiratory Rate 22 27 H Blood Pressure 130/78 O2 Sat by Pulse Oximetry 92 L 96 95 07/11/21 16:00 07/11/21 17:30 07/11/21 20:00 Temperature 97.5 F L 98.0 F Pulse Rate 64 64 64 Respiratory Rate 20 17 Blood Pressure 132/74 144/85 O2 Sat by Pulse Oximetry 94 L 94 L 94 L 07/11/21 21:05 07/11/21 21:15 07/11/21 22:05 Temperature Pulse Rate 64 Respiratory Rate 19 20 Blood Pressure O2 Sat by Pulse Oximetry 95 07/11/21 23:53 07/12/21 04:00 07/12/21 07:50 Temperature 97.6 F 97.8 F 98.3 F Pulse Rate 64 64 64 Respiratory Rate 18 26 H 24 Blood Pressure 139/77 135/86 130/75 O2 Sat by Pulse Oximetry 94 L 92 L 94 L Labs: Laboratory Last Values WBC 5.9 X10^3/uL (3.6-10.0) 07/12/21 05:30 RBC 3.88 X10^6/uL (4.7-6.0) L 07/12/21 05:30 Hgb 11.7 g/dL (13.5-18.0) L 07/12/21 05:30 Hct 34.4 % (42.0-54.0) L 07/12/21 05:30 MCV 88.7 fL (80.0-100.0) 07/12/21 05:30 MCH 30.1 pg (27.0-34.0) 07/12/21 05:30 MCHC 34.0 g/dL (33.0-35.0) 07/12/21 05:30 RDW 15.1 % (11.6-16.5) 07/12/21 05:30 Plt Count 130 X10^3/uL (150.0-450.0) L 07/12/21 05:30 Plt Count Comment Decreased (ADEQUATE) 07/10/21 04:21 MPV 10.6 fL (7.4-11.0) 07/12/21 05:30 Neut % (Auto) 89.2 % (42.0-75.0) H 07/12/21 05:30 Lymph % (Auto) 6.5 % (21.0-51.0) L 07/12/21 05:30 [place] % (Auto) 4.2 % (0.0-13.0) 07/12/21 05:30 Eos % (Auto) 0.0 % (0.9-2.9) L 07/12/21 05:30 Baso % (Auto) 0.1 % (0.2-1.0) L 07/12/21 05:30 Neut # (Auto) 5.3 x10^3/uL (2.2-4.8) H 07/12/21 05:30 Lymph # (Auto) 0.4 X10^3/uL (1.3-2.9) L 07/12/21 05:30 [place] # (Auto) 0.2 x10^3/uL (0.3-0.8) L 07/12/21 05:30 Eos # (Auto) 0.0 x10^3/uL (0.0-0.2) 07/12/21 05:30 Baso # (Auto) 0.0 X10^3/uL (0.0-0.1) 07/12/21 05:30 Absolute Nucleated RBC 0.1 /100WBC 07/12/21 05:30 Total Counted 50 07/10/21 04:21 Neutrophils % (Manual) 82 % (39-76) H 07/10/21 04:21 Lymphocytes % (Manual) 14 % (13-43) 07/10/21 04:21 Monocytes % (Manual) 4 % (4-9) 07/10/21 04:21 Plt Morphology Comment Normal (NORMAL) 07/10/21 04:21 RBC Morphology Normal (NORMAL) 07/10/21 04:21 D-Dimer 0.79 ug/ml (0.0-0.57) H* 07/08/21 15:15 Sample Site Rra 07/08/21 15:38 ABG pH 7.480 (7.35-7.45) H 07/08/21 15:38 ABG pCO2 32.0 mmHg (35.0-45.0) L 07/08/21 15:38 ABG pO2 60.0 mmHg (80.0-100.0) L 07/08/21 15:38 ABG HCO3 23.8 mmol/L (22-26) 07/08/21 15:38 ABG O2 Saturation 92.0 % (90-100) 07/08/21 15:38 ABG Base Excess 0.9 mmol/L (-2.0-2.0) 07/08/21 15:38 Henrik Test Pos 07/08/21 15:38 A-a Gradient 50.0 mmHg 07/08/21 15:38 FiO2 21.0 07/08/21 15:38 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, 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:38 Sodium 147 mmol/L (136-145) H 07/12/21 05:30 Corrected Sodium 148 mmol/L (136-145) H 07/12/21 05:30 Potassium 3.9 mmol/L (3.5-5.1) 07/12/21 05:30 Chloride 114 mmol/L (98-107) H 07/12/21 05:30 Carbon Dioxide 22.5 mmol/L (21-32) 07/12/21 05:30 BUN 20 mg/dL (7-18) H 07/12/21 05:30 Creatinine 0.94 mg/dL (0.70-1.30) 07/12/21 05:30 Est GFR (MDRD) Af Amer > 60 (>60) 07/12/21 05:30 Est GFR (MDRD) Non-Af > 60 (>60) 07/12/21 05:30 Glucose 146 mg/dL (65-99) H 07/12/21 05:30 Calcium 7.4 mg/dL (8.5-10.1) L 07/12/21 05:30 Corrected Calcium 8.7 mg/dL (8.5-10.1) 07/12/21 05:30 Total Bilirubin 0.30 mg/dL (0.2-1.0) 07/12/21 05:30 AST 30 Units/L (15-37) 07/12/21 05:30 ALT 18 Units/L (12-78) 07/12/21 05:30 Alkaline Phosphatase 53 Units/L (46-116) 07/12/21 05:30 C-Reactive Protein 50.10 mg/L (0-3.0) H 07/12/21 05:30 Total Protein 5.6 g/dL (6.4-8.2) L 07/12/21 05:30 Albumin 2.4 g/dL (3.4-5.0) L 07/12/21 05:30 Globulin 3.2 g/dL (2.5-4.5) 07/12/21 05:30 Albumin/Globulin Ratio 0.8 Ratio (1.1-2.1) L 07/12/21 05:30 Specimen Type Catherized urine 07/08/21 17:28 Urine Color Yellow (YELLOW) 07/08/21 17:28 Urine Appearance Cloudy (CLEAR) 07/08/21 17:28 Urine pH 6.0 (5.0 - 8.0) 07/08/21 17:28 Ur Specific [place] 1.020 (1.000-1.030) 07/08/21 17:28 Urine Protein 2+ (NEGATIVE) 07/08/21 17:28 Urine Glucose (UA) Negative (NEGATIVE) 07/08/21 17: Urine Ketones Negative (NEGATIVE) 07/08/21 17:28 Urine Occult Blood 2+ (NEGATIVE) 07/08/21 17: Urine Nitrite Negative (NEGATIVE) 07/08/21 17: Urine Bilirubin Negative (NEGATIVE) 07/08/21 17:28 Urine Urobilinogen Normal (NORMAL) 07/08/21 17:28 Ur Leukocyte Esterase 3+ (NEGATIVE) 07/08/21 17: Urine RBC 10-20 /HPF (0-3) A 07/08/21 17:28 Urine WBC 30-50 /HPF (0-5) A 07/08/21 17:28 Ur Squamous Epith Cells Few /HPF (NEGATIVE) 07/08/21 17:28 Ur Transition Epith Cell Rare /HPF (NEGATIVE) 07/08/21 17:28 Urine Bacteria Trace /HPF (NEGATIVE) 07/08/21 17:28 Urine Yeast Moderate /HPF (NEGATIVE) 07/08/21 17:28 Ur Culture Indicated? Yes/culture set up 07/08/21 17:28 Reason For Visit: COVID PNEUMONIA Discharge Date Discharge Date: 07/12/21 Discharge Diagnosis All Active Problems (Updated 07/09/21 @ 18:52 by Lasha Ku) Altered mental status (Acute) Acute cystitis (Acute) Dehydration (Acute) Pneumonia due to COVID-19 virus (Acute) Acute head trauma (Acute) Contusion of forehead (Acute) Hematoma (Acute) Opioid overdose (Acute) Opioid overdose (Acute) COPD (chronic obstructive pulmonary disease) (Acute) COVID-19 (Acute) Dependence on supplemental oxygen (Acute) Pneumonia (Acute) Fever (Acute) Acute respiratory distress (Acute) CAP (community acquired pneumonia) (Acute) Severe sepsis (Acute) Acidosis, lactic (Acute) Encephalitis toxic (Acute) Hypoxemia (Acute) Laceration of eyebrow and forehead (Acute) Folliculitis barbae (Acute) Brain tumor (Acute) Headache (Acute) Pneumonia (Acute) Altered mental status (Acute) Hyperlipidemia (Chronic) Sinusitis (Chronic) Depression (Chronic) GERD (gastroesophageal reflux disease) (Acute) LLL pneumonia (Acute) Acute dehydration (Acute) Enterocolitis (Acute) COPD (chronic obstructive pulmonary disease) (Acute) Dysphagia (Acute) Cough (Acute) Weak (Acute) Hypokalemia (Acute) Nausea and vomiting (Acute) Abdominal pain (Acute) Pneumonia (Acute) Pleurisy (Acute) Altered mental status (Acute) Bilateral pneumonia (Acute) Aspiration pneumonia of left lower lobe (Acute) Nausea (Acute) Fever (Acute) Generalized weakness (Acute) Cerebrovascular small vessel disease (Chronic) CAD (coronary artery disease) (Chronic) Hypertension (Chronic) BPH (benign prostatic hypertrophy) (Chronic) Hypothyroidism (Chronic) Arthritis (Chronic) Plan of Treatment: Continue with present treatment and follow up plan. Pt is to keep follow up appointment as instructed and take medications as ordered. Discharge Medications Discharge Medications: No Known Drug Allergies Allergy (Verified 10/16/20 15:18) New Prescriptions levofloxacin 500 mg PO Q24H 5 Days #5 tab 07/12/21 [Rx] prednisone 20 mg PO BID 5 Days #10 tab 07/12/21 [Rx] Follow up and Referral Follow Up: 1 Week Discharge Disposition Discharge Disposition: Home Discharge Condition: Stable Discharge Plan Discharge Plan Hospital Course: Pt is a 75 year old male admitted for COVID-19 pneumonia, Altered mental status, Acute Cystitis, and dehydration. Pt's hospital/treatment course included: IVF, IV Remdesivir, IV Decadron 4mg, scheduled Bronchodilators Xopenex and Budesonide, Antibiotics: IV Rocephin and Levaquin, immune supporting supplements, supplemental O2, SSI, I/S, Eliquis 5mg BID, Physical therapy, Respiratory therapy consult. Pt also received Sotrovimab infusion. Labs/imaging: Wbc 5.9, Hgb 11.7, Plt 130, Na 149, K 3.9, Creatinine 0.94, Glucose 146, CRP 85>50, Urine/Blood culture NGTD. Pt responded well to treatment, altered mental status resolved, and pt tolerated po intake. Pt did not require supplemental oxygen throughout hospital course and on day of discharge. Rx levaquin, prednisone course to complete. Pt discharged in stable condition, instructed to follow up with pcp in 3-5 days. Patient Disposition: 01 HOME, SELF-CARE Condition: Stable Health Concerns: Post Hospitalization: new medications and changes needed to prevent readmission or further decline. Pt educated and given instructions on all concerns. Plan of Treatment: Continue with present treatment and follow up plan. Pt is to keep follow up appointment as instructed and take medications as ordered. Prescriptions: New prednisone 20 mg tablet 20 mg PO BID 5 Days Qty: 10 RF: 0 levofloxacin 500 mg tablet 500 mg PO Q24H 5 Days Qty: 5 RF: 0 Continued ipratropium-albuterol 0.5 mg-3 mg(2.5 mg base)/3 mL Solution For Nebulization 3 ml INHALATION TID RF: 0 midodrine 5 mg tablet 2.5 mg PO TID RF: 0 docusate sodium [Stool Softener] 100 mg Capsule 100 mg PO DAILY RF: 0 carvedilol [Coreg] 12.5 mg Tablet 12.5 mg PO BID RF: 0 mirtazapine 15 mg tablet 7.5 mg PO HS RF: 0 hydrocortisone [Cortef] 5 mg tablet 15 mg PO QAM RF: 0 hydrocortisone [Cortef] 5 mg tablet 10 mg PO HS RF: 0 clopidogrel [Plavix] 75 mg tablet 75 mg PO DAILY RF: 0 levothyroxine 100 mcg tablet 100 mcg PO DAILY RF: 0 famotidine [Pepcid] 40 MG tablet 40 mg PO BID Qty: 60 RF: 3 potassium chloride 10 mEq tablet extended release 10 meq PO DAILY RF: 0 simvastatin 20 mg tablet 20 mg PO HS RF: 0 furosemide 20 mg tablet 20 mg PO DAILY RF: 0 escitalopram oxalate 10 mg Tablet 10 mg PO DAILY RF: 0 Eliquis 5 mg tablet 5 mg PO BID RF: 0 pantoprazole 40 mg tablet,delayed release (DR/EC) 40 mg PO BID RF: 0 budesonide-formoterol [Symbicort] 80-4.5 mcg/actuation Hfa Aerosol Inhaler 2 inh INHALATION BID PRN (Reason: Shortness Of Breath) RF: 0 Spiriva with HandiHaler 18 mcg capsule, w/inhalation device 2 cap INHALATION QDAY RF: 0 hydrocodone-acetaminophen 7.5-325 mg Tablet 1 tab PO BID PRN (Reason: Pain) RF: 0 amiodarone 200 mg Tablet 200 mg PO BID RF: 0 Orders to Discharge Patient Discharge Orders: Discharge (Routine); Ordered 07/12/21 Ordered By: Lasha Ku Follow ups/Referrals Follow ups/Referrals: Lasha Ku [Primary Care Provider] - 07/19/21 10:40 am Instructions Instructions: Dehydration, Adult, [id number], COVID-19 Frequently Asked Questions, Chronic Obstructive Pulmonary Disease Exacerbation, [id number], Delirium Tremens, [id number], Things to Know about the COVID-19 Pandemic - CDC (08/15/2020), Frequently Asked Questions About COVID-19 Vaccination - [facility] (09/25/2020), Cough, Adult, Dehydration, Elderly, [id number] Stand Alone Forms: Excuse From Work or School, Precautions for COVID19, [facility], Patient Portal, Social Distancing
== END 2021-07-12 11:08 | disposition home or self-care (01) ==
LOC: ICU
PROVIDERS: ADMIT Family Medicine; ATTEND Family Medicine
DX: U07.1 COVID-19; I25.10 Atherosclerotic heart disease of native coronary artery without angina pectoris; R06.02 Shortness of breath; R41.82 Altered mental status, unspecified; Z95.0 Presence of cardiac pacemaker; R79.82 Elevated C-reactive protein (CRP); E86.0 Dehydration; J12.82 Pneumonia due to coronavirus disease 2019; R26.89 Other abnormalities of gait and mobility; N30.00 Acute cystitis without hematuria; R53.1 Weakness; E87.0 Hyperosmolality and hypernatremia; R79.1 Abnormal coagulation profile; E03.8 Other specified hypothyroidism